=== PATIENT | male | born 1955 | race African-American/Black ===

== ENCOUNTER 2017-10-17 09:13 | Inpatient (IN) | payer MEDICARE, BC ==
[~2017-10-17] VITALS: Ht 172.7 cm; Wt 89.0 kg
[2017-10-17] MEDS ORDERED: ROCURONIUM INJ 50 MG/5 ML SYRINGE IV PUSH ONE (12:00)
[2017-10-17] MEDS ORDERED: PHENYLEPH/NS 1000 MCG/10 ML SYR IV ONE (12:00)
[2017-10-17] MEDS ORDERED: PROPOFOL 200 MG/20 ML AMP IV ONE (12:00)
[2017-10-17] MEDS ORDERED: SODIUM CHLORID 0.9% 500 ML INJ 1,500 ML IV ONE (12:00)
[2017-10-17] MEDS ORDERED: GLYCOPYRROLATE 1 MG/5 ML SYRINGE IV PUSH ONE (12:00)
[2017-10-17] MEDS ORDERED: ePHEDrine/NS 25 MG/5 ML SYRINGE IV ONE (12:00)
[2017-10-17] MEDS ORDERED: NEOSTIGMINE 5 MG/5 ML SYRINGE IV PUSH ONE (12:00)
[2017-10-17] MEDS ORDERED: ceFAZolin INJ 1,000 MG VIAL IV ONE (12:00)
[2017-10-17] MEDS ORDERED: ONDANSETRON HCL 4 MG/2 ML VIAL IV PUSH ONE (12:00)
[2017-10-17] MEDS ORDERED: METOPROLOL TARTRATE 5 MG/5 ML VIAL IV ONE (12:00)
[2017-10-17] MEDS ORDERED: LABETALOL HCL 100 MG/20 ML VIAL IV ONE (12:00)
[2017-10-17] MEDS ORDERED: LIDOCAINE HCL 1% PF 5 ML SYRINGE OTHER ONE (12:00)
--- NOTE | 2017-10-17 15:54 | PD.CONS ---
History of Present Illness Service Transplant Surgery Consult Requested By Dr Do, hospitalist Reason for Consult Admit for possible DCD renal transplant Primary Care Physician Unknown Diagnoses: History of Present Illness 61 yom with CKD-5 due to DM/htn, CMV/EBV pos, presenting for possible renal transplant from a DCD donor. Review of Systems Makes about 200-400 ml of urine daily Past Family Social History Allergies: Coded Allergies: Iodine And Iodide Containing Produc (Verified Allergy, Severe, Anaphylaxis , 10/17/17) Shellfish Derived (Verified Allergy, Severe, Anaphylaxis, 10/17/17) Lmkwigc-Ush-Cxi Reductase Inhibitor (Verified Allergy, Severe, Anaphylaxis , 10/17/17) Had anaphylaxis and liver dysfunction (severely elevated liver enzymes) Sulfa (Sulfonamide Antibiotics) (Verified Allergy, Severe, Anaphylaxis, ) Past Medical History Includes: DM, Htn, arthririts, prostate ca (s/p radiation seed and hormonal therapy in 2012), skin limited scleroderma, depression, anemia, hyperkalemia, hypomagnesemia, tertiary hyperparathyroidism Past Surgical History Includes: LLQ PD cath, bilateral cataract surgery Family History Father at age 62-[place].. Mother at age 54-[facility] Social History Never smoker, nondrinker, no illicit drugs. Physical Exam Physical Exam GENERAL: This is a well-nourished, well-developed patient, in no apparent distress. SKIN: No rashes, ecchymoses or lesions. Cool and dry. HEAD: Atraumatic. Normocephalic. No temporal or scalp tenderness. EYES: Pupils equal round and reactive. Extraocular motions intact. No scleral icterus. No injection or drainage. ENT: Nose without bleeding, purulent drainage or septal hematoma. Throat without erythema, tonsillar hypertrophy or exudate. Uvula midline. Airway patent. NECK: Trachea midline. No JVD or lymphadenopathy. Supple, nontender, no meningeal signs. CARDIOVASCULAR: Regular rate and rhythm without murmurs, gallops, or rubs. No carotid bruits. RESPIRATORY: Clear to auscultation. Breath sounds equal bilaterally. No wheezes , rales, or rhonchi. GASTROINTESTINAL: Abdomen soft, non-tender, nondistended. No hepato-splenomegaly , or palpable masses. No guarding. LLQ PD cath MUSCULOSKELETAL: Extremities without clubbing, cyanosis, or edema. No joint tenderness, effusion, or edema noted. No calf tenderness. Negative Homans sign bilaterally. palpable fem/DP/PT pulses bilaterally NEUROLOGICAL: Awake and alert. Cranial nerves II through XII intact. Motor and sensory grossly within normal limits. Five out of 5 muscle strength in all muscle groups. Normal speech. Assessment and Plan Problem List: (1) Hypertension ICD Codes: I10 - Essential (primary) hypertension (2) Diabetes ICD Codes: E11.9 - Type 2 diabetes mellitus without complications Status: Chronic (3) ESRD (end stage renal disease) on dialysis ICD Codes: N18.6 - End stage renal disease; Z99.2 - Dependence on renal dialysis Assessment and Plan 61 yom with CKD-5 due to DM/Htn. Present for possible renal transplant from a DCD donor. Will plan to proceed after admit screeing is completed, unless some adverse finding is noted. Of note, patient's hinduism in "[employer]" and he will not take any blood products. Problem Qualifiers (1) Hypertension: Qualified Codes: I10 - Essential (primary) hypertension Aurelio Samson Jr., MD October 17, 2017 15:54
--- NOTE | 2017-10-17 16:13 | HHI.HP ---
[facility] Primary Care Physician Unknown Admission Diagnosis ESRD Diagnoses: (1) ESRD (end stage renal disease) on dialysis Diagnosis: Principal Chief Complaint: awaiting kidney transplant surgery. Travel History International Travel<30 Days: No Contact w/Intl Traveler <30 Da: No Traveled to Known Affected Are: No History of Present Illness patient is a 61 y/o male with history of diabetes mellitus and ESRD - on peritoneal dialysis- who's been admitted for kidney transplant. he denies any chest pain, sob, abdominal pain at this time. Review of Systems Constitutional: DENIES: Fever, Weight loss, Chills, Night Sweats Eyes: DENIES: Blurred vision, Diplopia, Vision loss, Double Vision Ears, nose, mouth, throat: DENIES: Tinnitus, Vertigo, Throat pain, Epistaxis Respiratory: DENIES: Apneas, Cough, Snoring, Wheezing, Hemoptysis, Sputum production, Shortness of breath Cardiovascular: DENIES: Chest pain, Palpitations, Syncope, Dyspnea on Exertion , PND, Lower Extremity Edema, Orthopnea, Claudication Gastrointestinal: DENIES: Abdominal pain, Black stools, Bloody stools, Constipation, Diarrhea, Nausea, Vomiting, Difficulty Swallowing, Anorexia Genitourinary: DENIES: Urinary frequency, Urgency, Hematuria, Dysuria Musculoskeletal: DENIES: Joint pain, Muscle aches, Stiffness, Joint Swelling Integumentary: DENIES: Rash Neurologic: DENIES: Abnormal gait, Headache, Localized weakness, Paresthesias, Seizures, Speech Problems, Tremor, Poor Balance Psychiatric: DENIES: Anxiety, Confusion, Mood changes, Depression, Hallucinations, Agitation, Suicidal Ideation, Homicidal Ideation, Delusions Past Family Social History Past Medical History ESRD-on peritoneal dialysis/ diabetes mellitus. Past Surgical History cataract surgery. peritoneal dialysis access placement. Reported Medications to be verified. Allergies: Coded Allergies: Iodine and Iodide Containing Produc (Verified Allergy, Severe, Anaphylaxis , 10/17/17) Wwfnnvw-Gay-Spt Reductase Inhibitor (Verified Allergy, Severe, Anaphylaxis , 10/17/17) Had anaphylaxis and liver dysfunction (severely elevated liver enzymes) Sulfa (Sulfonamide Antibiotics) (Verified Allergy, Severe, Anaphylaxis, ) shellfish derived (Verified Allergy, Severe, Anaphylaxis, 10/17/17) Family History kidney disease in his mother and brothers. Social History no smoking or drinking. Physical Exam Physical Exam GENERAL: This is a well-nourished, well-developed patient, in no apparent distress. SKIN: No rashes, ecchymoses or lesions. Cool and dry. HEAD: Atraumatic. Normocephalic. No temporal or scalp tenderness. EYES: Pupils equal round and reactive. Extraocular motions intact. No scleral icterus. No injection or drainage. ENT: Nose without bleeding, purulent drainage or septal hematoma. Throat without erythema, tonsillar hypertrophy or exudate. Uvula midline. Airway patent. NECK: Trachea midline. No JVD or lymphadenopathy. Supple, nontender, no meningeal signs. CARDIOVASCULAR: Regular rate and rhythm without murmurs, gallops, or rubs. RESPIRATORY: Clear to auscultation. Breath sounds equal bilaterally. No wheezes , rales, or rhonchi. GASTROINTESTINAL: Abdomen soft, non-tender, nondistended. No hepato-splenomegaly , or palpable masses. No guarding.peritoneal dialysis access in place. MUSCULOSKELETAL: Extremities without clubbing, cyanosis, or edema. No joint tenderness, effusion, or edema noted. No calf tenderness. Negative Homans sign bilaterally. NEUROLOGICAL: Awake and alert. Cranial nerves II through XII intact. Motor and sensory grossly within normal limits. Five out of 5 muscle strength in all muscle groups. Normal speech. Caprini VTE Risk Assessment Caprini VTE Risk Assessment: Mod/High Risk (score >= 2) Caprini Risk Assessment Model Point Value = 1 Point Value = 2 Point Value = 3 Point Value = 5 Age 41-60 Minor surgery BMI > 25 kg/m2 Swollen legs Varicose veins or History of unexplained or recurrent spontaneous Oral contraceptives or hormone replacement Sepsis (< 1 month) Serious lung disease, including pneumonia (< 1 month) Abnormal pulmonary function Acute myocardial infarction Congestive heart failure (< 1 month) History of inflammatory bowel disease Medical patient at bed rest Age 61-74 Arthroscopic surgery Major open surgery (> 45 min) Laparoscopic surgery (> 45 min) Malignancy Confined to bed (> 72 hours) Immobilizing plaster cast Central venous access Age >= 75 History of VTE Family history of VTE Factor V Leiden Prothrombin [id number] Lupus anticoagulant Anticardiolipin antibodies Elevated serum homocysteine Heparin-induced thrombocytopenia Other congenital or acquired thrombophilia Stroke (< 1 month) Elective arthroplasty Hip, pelvis, or leg fracture Acute spinal cord injury (< 1 month) Prophylaxis Regimen Total Risk Factor Score Risk Level Prophylaxis Regimen 0-1 Low Early ambulation 2 Moderate Order ONE of the following: *Sequential Compression Device (SCD) *Heparin 5000 units SQ BID 3-4 Higher Order ONE of the following medications: *Heparin 5000 units SQ TID *Enoxaparin/Lovenox 40 mg SQ daily (WT < 150 kg, CrCl > 30 mL/min) *Enoxaparin/Lovenox 30 mg SQ daily (WT < 150 kg, CrCl > 10-29 mL/min) *Enoxaparin/Lovenox 30 mg SQ BID (WT < 150 kg, CrCl > 30 mL/min) AND/OR *Sequential Compression Device (SCD) 5 or more Highest Order ONE of the following medications: *Heparin 5000 units SQ TID (Preferred with Epidurals) *Enoxaparin/Lovenox 40 mg SQ daily (WT < 150 kg, CrCl > 30 mL/min) *Enoxaparin/Lovenox 30 mg SQ daily (WT < 150 kg, CrCl > 10-29 mL/min) *Enoxaparin/Lovenox 30 mg SQ BID (WT < 150 kg, CrCl > 30 mL/min) AND *Sequential Compression Device (SCD) Assessment and Plan Assessment and Plan A/P - ESRD-on peritoneal dialysis plan for kidney transplant today- consulted transplant surgery and nephrology. -diabetes mellitus; start on accu-check with SSI-post-op. -DVT prophylaxis; post-op- per surgery. Discussed Condition With the patient. , and RN. Physician Certification 2 Midnight Certification Type: Admission for Inpatient Services Order for Inpatient Services The services are ordered in accordance with Medicare regulations or non- Medicare payer requirements, as applicable. In the case of services not specified as inpatient-only, they are appropriately provided as inpatient services in accordance with the 2-midnight benchmark. Estimated LOS (days): 3 days is the estimated time the patient will need to remain in the hospital, assuming treatment plan goals are met and no additional complications. Post-Hospital Plan: Home Vivienne Kim MD October 17, 2017 16:13
--- NOTE | 2017-10-17 16:18 | PD.CONS ---
HPI Service Nephrology Consult Requested By Dr. Kim Reason for Consult ESRD for kidney transplant Primary Care Physician Unknown History of Present Illness Patient is a 61-year-old Afro-[place] male with history of end-stage renal disease on dialysis since 12/25/2015, he is on peritoneal dialysis his catheter in left lower abdominal wall, he states that he has no issues and is doing well , he was diagnosed with prostate cancer in 2011 and has a high-grade lesion [place] 6, he was treated with the external beam radiation, seeds and anti- hormonal treatment in 2012, since then he is PSA has declined and he has no recurrence. Patient did peritoneal dialysis and finished this morning, he denies any chest pain or any shortness of breath he makes the small amount of urine denies dysuria. Review of Systems Constitutional: DENIES: Diaphoretic episodes, Fatigue, Fever, Weight gain, Weight loss, Chills, Dizziness, Change in appetite, Night Sweats Endocrine: DENIES: Heat/cold intolerance, Polydipsia, Polyuria, Polyphagia Eyes: DENIES: Blurred vision, Diplopia, Eye inflammation, Eye pain, Vision loss , Photosensitivity, Double Vision Ears, nose, mouth, throat: DENIES: Tinnitus, Hearing loss, Vertigo, Nasal discharge, Oral lesions, Throat pain, Hoarseness, Ear Pain, Running Nose, Epistaxis, Sinus Pain, Toothache, Odynophagia Respiratory: DENIES: Apneas, Cough, Snoring, Wheezing, Hemoptysis, Sputum production, Shortness of breath Cardiovascular: DENIES: Chest pain, Palpitations, Syncope, Dyspnea on Exertion , PND, Lower Extremity Edema, Orthopnea, Claudication Gastrointestinal: DENIES: Abdominal pain, Black stools, Bloody stools, Constipation, Diarrhea, Nausea, Vomiting, Difficulty Swallowing, Anorexia Genitourinary: DENIES: Sexual dysfunction, Urinary frequency, Urinary incontinence, Urgency, Hematuria, Dysuria, Nocturia, Penile Discharge, Testicular Pain, Testicular Swelling Musculoskeletal: DENIES: Joint pain, Muscle aches, Stiffness, Joint Swelling, Back pain, Neck pain Integumentary: DENIES: Abnormal pigmentation, Nail changes, Pruritus, Rash Hematologic/lymphatic: DENIES: Bruising, Lymphadenopathy Immunologic/allergic: DENIES: Eczema, Urticaria Neurologic: DENIES: Abnormal gait, Headache, Localized weakness, Paresthesias, Seizures, Speech Problems, Tremor, Poor Balance Psychiatric: DENIES: Anxiety, Confusion, Mood changes, Depression, Hallucinations, Agitation, Suicidal Ideation, Homicidal Ideation, Delusions Past Family Social History Past Medical History Diabetes Hypertension ESRD Prostate cancer Limited scleroderma skin Past Surgical History Tenckhoff catheter placement Prostate biopsy Bilateral cataract Reported Medications Renvela 800 mg 2 tablets 3 times a day with meals Folic acid 1 mg daily Tradjenta 5 mg daily Vitamin B-12 250 g daily Vitamin D 21.25 milligrams daily Family History Father age 62 SD Mother age 54 from CVA Social History He did not smoke or drink any alcohol Physical Exam Physical Exam GENERAL: Well-nourished, well-developed patient. SKIN: Warm and dry. HEAD: Normocephalic. EYES: No scleral icterus. No injection or drainage. NECK: Supple, trachea midline. No JVD or lymphadenopathy. CARDIOVASCULAR: Regular rate and rhythm without murmurs, gallops, or rubs. RESPIRATORY: Breath sounds equal bilaterally. No accessory muscle use. GASTROINTESTINAL: Abdomen soft, non-tender, nondistended. Tenckhoff catheter is in place on the left side EXTREMITIES: No cyanosis, or edema. NEUROLOGICAL: Awake, alert, and oriented x 3. Non-focal. Assessment and Plan Problem List: (1) ESRD (end stage renal disease) on dialysis ICD Codes: N18.6 - End stage renal disease; Z99.2 - Dependence on renal dialysis Plan: Patient has been accepted for kidney transplant He received offer and has been admitted to the patient denies any major changes since we last saw him in June Discussed with Dr. Samson He is going to Place Thymoglobulin in order Lab draws are pending (2) Hypertension ICD Codes: I10 - Essential (primary) hypertension Plan: Stable (3) Diabetes ICD Codes: E11.9 - Type 2 diabetes mellitus without complications Status: Chronic Problem Qualifiers (1) Hypertension: Qualified Codes: I10 - Essential (primary) hypertension Anne Gibson MD October 17, 2017 16:18
--- NOTE | 2017-10-17 16:27 | RADRPT ---
EXAM DATE: 10/17/2017 4:19 PM EDT AGE/SEX: 61 years / Male INDICATIONS: Evaluate for pneumonia, pneumothorax or communicable disease transplant CLINICAL DATA: This is the patient's initial encounter. Patient reports that signs and symptoms have been present for 1 day and indicates a pain score of 0/10. MEDICAL/SURGICAL HISTORY: Renal disease. Diabetes mellitus type II. None. COMPARISON: No prior [facility] exams available for comparison. FINDINGS: PA and lateral views of the chest demonstrate the lungs to be symmetrically aerated without evidence of mass, infiltrate or effusion. The cardiomediastinal contours are unremarkable. Osseous structures are intact. CONCLUSION: No acute findings. Electronically signed by: Sha Ponce MD 10/17/2017 4:26 PM EDT
[2017-10-17] MEDS ORDERED: DEXTROSE 50% IN WATER 50 ML VIAL(D50) IV PUSH PRN (16:30)
[2017-10-17] MEDS ORDERED: GLUCAGON 1 MG/ML VIAL OTHER PRN (16:30)
[2017-10-17] MEDS ORDERED: [UNRECOGNIZED DRUG - OTHER] XX PRN (16:30)
[2017-10-17] MEDS ORDERED: ceFAZolin 2 GM PREMIX 50 ML IV SCH (16:30)
[2017-10-17] MEDS ORDERED: methylPREDNISolone SO SUCC INJ 250 MG in SODIUM CHLORIDE 0.9% INJ 100 ML IV ONE ×2 (16:30→17:15)
[2017-10-17] MEDS: INSULIN ASPART SUPPLEMENTAL SCALE SQ SCH ×2 (17:00→23:15)
[2017-10-17] MEDS ORDERED: MYCOPHENOLATE MOFETIL 500 MG TAB PO SCH (17:00)
[2017-10-17 17:24] LABS: PROTHROMBIN TIME - PATIENT 9.7 SEC (9.8-11.6)
[2017-10-17 17:28] LABS: ALBUMIN 3.1 GM/DL (3.4-5.0); AST (GOT) 9 U/L (15-37); BICARBONATE 26.4 MEQ/L (21.0-32.0); BLOOD UREA NITROGEN 75 MG/DL (7-18); CALCIUM 8.1 MG/DL (8.5-10.1); CHLORIDE 107 MEQ/L (98-107); GLOMERULAR FILTRATION RATE 5 ML/MIN (>89); GLUCOSE,RANDOM 90 MG/DL (74-106); SODIUM (NA) 144 MEQ/L (136-145)
[2017-10-17 17:31] LABS: ALKALINE PHOSPHATASE 69 U/L (45-117); ALT (GPT) 16 U/L (12-78); TOTAL BILIRUBIN ADULT 0.5 MG/DL (0.2-1.0); TOTAL PROTEIN 7.2 GM/DL (6.4-8.2)
[2017-10-17 17:34] LABS: CREATININE 13.69 MG/DL (0.60-1.30)
[2017-10-17 17:45] LABS: BASOPHIL % 0.4 % (0.0-2.0); HEMATOCRIT 33.7 % (39.0-51.0); HEMOGLOBIN 10.7 GM/DL (13.0-17.0); LYMPH % 23.1 % (9.0-44.0); LYMPHOCYTE # 1.1 TH/MM3 (1.0-4.8); MEAN CORPUSCULAR HEMOGLOBIN 29.9 PG (27.0-34.0); MEAN CORPUSCULAR HGB CONC 31.8 % (32.0-36.0); MEAN PLATELET VOLUME 6.2 FL (7.0-11.0); MONO % 10.8 % (0.0-8.0); MONOCYTE # 0.5 TH/MM3 (0-0.9); NEUT % 64.7 % (16.0-70.0); PLATELET COUNT 354 TH/MM3 (150-450); RED BLOOD COUNT 3.58 MIL/MM3 (4.50-5.90); RED CELL DISTRIBUTION WIDTH 17.6 % (11.6-17.2); WHITE BLOOD COUNT 4.7 TH/MM3 (4.0-11.0)
[2017-10-17] MEDS ORDERED: VECURONIUM BROMIDE 20 MG VIAL ONE (18:06)
[2017-10-17] MEDS ORDERED: ceFAZolin INJ 1,000 MG VIAL ONE (18:26)
[2017-10-17] MEDS ORDERED: MANNITOL INJ 50 ML ONE (18:27)
[2017-10-17] MEDS ORDERED: GENTAMICIN SULFATE 80 MG/2 ML VIAL ONE (18:27)
[2017-10-17] MEDS ORDERED: FUROSEMIDE 100 MG/10 ML VIAL ONE (18:27)
[2017-10-17] MEDS ORDERED: HEPARIN SODIUM - IV 10,000 UNITS/10 ML VIAL ONE (18:27)
[2017-10-17] MEDS ORDERED: SODIUM CHLORID 0.9% IV-CENTRAL ONE (18:30)
[2017-10-17] MEDS ORDERED: ANTITHYMOCYTE GLOB IV-CENTRAL ONE (18:30)
[2017-10-17] MEDS ORDERED: PAPAVERINE INJ 60 MG/2 ML VIAL ONE (18:31)
[2017-10-17] MEDS ORDERED: methylPREDNISolone SOD SUCC 1000 MG/16 ML VIAL ONE (18:31)
[2017-10-17] MEDS ORDERED: FUROSEMIDE 20 MG/2 ML VIAL ONE (19:07)
[2017-10-17] MEDS ORDERED: HEPARIN SODIUM - SQ 10,000 UNITS/ML VIAL ONE (19:09)
[2017-10-17] MEDS ORDERED: fentaNYL CITRATE 250 MCG/5 ML AMP ONE (20:10)
[2017-10-17] MEDS: DEXT 5%-NACL 0.45% 1000 ML INJ 1,000 ML IV SCH (22:30)
[2017-10-17] MEDS ORDERED: ONDANSETRON INJ 8 MG in DEXTROSE 5% IN WATER INJ 50 ML IV PRN ×2 (23:00)
[2017-10-17] MEDS ORDERED: MORPHINE SULFATE 4 MG/ML INJ IV PUSH PRN (23:00)
[2017-10-17] MEDS ORDERED: ONDANSETRON ODT 4 MG TAB PO PRN (23:00)
[2017-10-17] MEDS ORDERED: RESP: ALBUTEROL 2.5 MG/IPRATROPIUM 0.5 MG NEB (PRN) INH (23:00)
[2017-10-17] MEDS ORDERED: diphenhydrAMINE HCL 50 MG/ML VIAL IV PUSH PRN (23:00)
[2017-10-17] MEDS ORDERED: diphenhydrAMINE HCL 25 MG CAP PO PRN (23:00)
--- NOTE | 2017-10-17 23:19 | PD.OP ---
Operative Report Date of Surgery: October 17, 2017 Preoperative Diagnosis: (1) ESRD (end stage renal disease) on dialysis Postoperative Diagnosis: ESRD and desire for donor renal transplant Procedure: donor renal transplant to right iliac fossa with right donor allograft Back Table preparation of right donor allograft with venous extension of donor cava with venous anastomosis X 2 placement of ureteral stent Oversew repair of prior renal biopsy site SALBADOR drain placement Anesthesia: GET Surgeon: Aurelio Samson Primary and Matthew Bush syrup mixer assistant for renal transplant and back bench preparation of graft with venous anastomosis X 2 Primary for suture repair of renal biopsy site Miner(s): Sylvie Bush Operation and Findings: I assisted Dr. Samson with the backtable preparation of the right donor allograft. On the back table we used the donor cava as an extension graft by stapling both ends of the donor cava. We repaired the renal vein which had a small open branch site using 6-0 prolene. The renal artery was single and good quality and the ureter was long with good michael-ureteral tissue. The superior pole had a biopsy site with some suture in place form the procurement procedure. After assisting with the salazar placement, we prepped with hibiclens due to possible allergy, and draped in usual sterile fashion. We made an oblique incision in the right lower quadrant, leaving the epigastric vessels and cord structures intact as we exposed the iliac artery and vein. There was a small opening into the peritoneum which we closed with a vicryl suture. We gave standard immunosuppression with the solumedrol 250 mg IV prior to starting the thymoglobulin infusion, then a second dose of solumedrol 250 mg just before reperfusion of the kidney allograft. Ancef 2 gms were given prior to skin incision. With the iliac vessels exposed, we used a Satinsky clamp to partially occlude the right external iliac vein, opened the vein with 11 blade and tenotomies and anastomosed the donor cava as venous outflow extension graft to the iliac vein using 5-0 prolene. We then placed a Satinsky on the more proximal right external iliac artery, opened with 11 bladed, 4 punch x 3, and anastomosed a Carel Cuff of the donor aorta with renal artery orifice to the artery using 6-0 prolene. Reperfusion was good with one small repair suture on the medial vein and very little blood loss occurred during the reperfusion. The artery had good flow inward and vein with good outflow without distension. The superior pole biopsy site was bleeding, so I placed a 3-0 vicryl in U type fashion with good hemostasis after tying. We then repositioned for bladder exposure, infused the antibiotic saline into the bladder, opened the bladder and did our ureteral anastomosis over a 5 Fr 12 cm ureteral stent using 5-0 PDS with 3 lembert sutures. We checked meticously for hemostasis as patient is a [employer] and will not accept a blood transfusion. We placed a SALBADOR drain through a new right lateral stab site. Fascia was closed with #1 PDS and skin with surgical kathryn, drain held in place with Nylon suture. I was scrubbed for the entire case. MD Eleazar Flaherty Kenneth A MD October 17, 2017 23:19
[2017-10-17] MEDS ORDERED: ONDANSETRON HCL 4 MG/2 ML VIAL ONE (23:22)
[2017-10-17] MEDS ORDERED: *morphine SULFATE 10 MG/ML PERIprocedure ONLY ONE (23:26)
[2017-10-17 23:28] LABS: AUTOMATED NEUTROPHIL # 2.5 TH/MM3 (1.8-7.7); BASOPHIL % 0.1 % (0.0-2.0); HEMATOCRIT 30.7 % (39.0-51.0); HEMOGLOBIN 10.1 GM/DL (13.0-17.0); LYMPH % 0.2 % (9.0-44.0); MEAN CORPUSCULAR HEMOGLOBIN 30.7 PG (27.0-34.0); MEAN CORPUSCULAR HGB CONC 32.7 % (32.0-36.0); MEAN PLATELET VOLUME 6.3 FL (7.0-11.0); MONO % 0.2 % (0.0-8.0); NEUT % 99.5 % (16.0-70.0); PLATELET COUNT 240 TH/MM3 (150-450); RED BLOOD COUNT 3.27 MIL/MM3 (4.50-5.90); RED CELL DISTRIBUTION WIDTH 17.6 % (11.6-17.2); WHITE BLOOD COUNT 2.6 TH/MM3 (4.0-11.0)
[2017-10-17] MEDS ORDERED: SODIUM CHLORID 0.9% 500 ML INJ 500 ML IV SCH (23:30)
--- NOTE | 2017-10-17 23:36 | PD.OP ---
Operative Report Date of Surgery: October 17, 2017 Preoperative Diagnosis: (1) ESRD (end stage renal disease) on dialysis (2) Hypertension (3) Diabetes Postoperative Diagnosis: (1) Diabetes (2) Hypertension (3) ESRD (end stage renal disease) on dialysis Procedure: donor renal transplant to right iliac fossa with right donor allograft Back Table preparation of right donor allograft with venous extension of donor cava with venous anastomosis X 2 placement of ureteral stent Oversew repair of prior renal biopsy site SALBADOR drain placement Anesthesia: General endotracheal Surgeon: Aurelio Samson Jr Package Handler(s): Matthew Bush MD Resident Surgeon: None Operation and Findings: Fluids: 1200 ml EBL: 150 ml UOP: 150 ml CIT: 27 hours, 38 minutes WIT: 37 minutes Procedure: The patient was brought to the operating room. Appropriate identification procedures were performed. The kidney was brought into the room. It was on a perfusion pump. Appropriate organ, patient and ABO identification was performed as per protocol. While the anesthesia staff was intubating the patient and placing appropriate access lines, we turned our attention to the kidney. The kidney was taken off of the perfusion pump, using sterile technique. We then our back table preparation. The kidney was kept in cold slush/ preservative solution The kidney had a single artery and vein, both of which seemed to be of good quality. There was also a long ureter with good periureteral tissue. After dissecting and discarding the connective tissue from around the artery and vein , with clips and ties placed on tissue that seemed c/w small branches. We then also dissected some of the excess tissue from around the ureter, while still leaving ample periureteral tissue. We reconstructed and used the vena cava as an extension for the renal vein, by stapling both ends with a 45-white load stapler.We then checked the artery and vein for leaks using heparinized saline. A small leak was noted on the vein adjacent to a small branch. This was repaired with 6-0 prolene suture. A biopsy site was noted on the upper pole that seemed to be sutured close. Of note, Dr Bush assisted with the backtable preparation. We then turned our attention back to the patient. By then the patient was intubated. [address] way Nova catheter was placed. He was prepped and draped in usual sterile fashion (using hibiclens because he has a betadine allergy). Of note, perioperative antibiotics were administered prior to the skin incision being made. TImeouts were performed asper protocol. We made an approx 10 inch oblique incision in the right lower quadrant, going through the anterior right rectus sheath. We then dissected the rectus muscle away from the anterior rectus sheath laterally with careful traction and electrocautery.. We then exposed the posterior rectus sheath. We dissected caudad and were able to enter the retroperitoneal space, caudally. We then gently finger dissected the peritoneum away from the posterior rectus sheath/ transversalis muscle in a lateral to medial fashion. We then opened the posterior rectus sheath in an oblique fashion with careful cautery. lThe peritoneum was densely adhered to the facia in some area. As we approached the most cephalad aspect of our incision, an approx2 cm hol ewas made in the peritoneum. This seemed to be in an area of dense adherence of the peritoneum to the posterior rectus fascia. We identified the hole and closed it with running vicryl suture, completely obliterating the opening. We then dissected and exposed the iliac artery and vein. The epigastric vessels and the cord structures were identified and preserved. No heparin was given, as the patient had an elevated BUN, is a [employer], who will not accept blood products and had a starting hemoglobin of 10. Using a satinsky clamp to patially occlude the external iliac vein., we then did an end to side anastomosis of the renal vein to the external iliac vein. We then occluded the external iliac artery in a similiar fashion and then did an end to side arterial anastomosis, utilizing the carrel patch that was present. After reperfusion, there was the need for one repair suture on the medial vein, with very little blood loss. There was some bleeding noted from the biopsy site that had been closed during procurement. We placed an additional vicryl U-stitch which secured hemostasis there. The artery and vein had good flow with no venous distension noted.The bladder was then exposed, antibiotic solution was infused into it, then we opned the bladder, spatulated and the distal ureter and did an end to side adelfo-ureterocystostomy over a 5 fr x 12 cm ureteral stent , using 5-0 PDS. We then placed 3 lembert sutures for around the distal ureter for antireflux purposes. We then assessed and secured hemostasis. A 19 khmer laron drain was placed. The fascia was closed with #1 PDS. Then the skin was closed with staple. The drain was secured with a drain stitch. All sponge and instrument counts were reported as correct. Aurelio Samson Jr. October 17, 2017 23:36
--- NOTE | 2017-10-17 23:40 | RADRPT ---
EXAM DATE: 10/17/2017 11:33 PM EDT AGE/SEX: 61 years / Male INDICATIONS: Line placement, Post op. CLINICAL DATA: This is the patient's subsequent encounter. Patient reports that signs and symptoms h ave been present for 1 week and indicates a pain score of Nonresponsive. MEDICAL/SURGICAL HISTORY: . Renal disease. Diabetes mellitus type II. None. COMPARISON: [facility] – [place], CHEST PA & LAT, 10/17/2017. . FINDINGS: Left subclavian line is present with tip coursing into the left IJ. There is no pneumothorax. There i s minimal atelectasis in the left lung base without focal consolidation. The rest of the examination has not changed. CONCLUSION: The left subclavian line courses into the left IJ without pneumothorax. Electronically signed by: Kem Zhang MD 10/17/2017 11:39 PM EDT
[2017-10-17] MEDS: SODIUM CHLOR 0.45% 1000 ML INJ 1,000 ML IV SCH (23:46)
[2017-10-17 23:54] LABS: BICARBONATE 22.8 MEQ/L (21.0-32.0); CALCIUM 6.8 MG/DL (8.5-10.1); MAGNESIUM 1.7 MG/DL (1.5-2.5); PHOSPHORUS 3.6 MG/DL (2.5-4.9)
[2017-10-18] VITALS (24 sets, daily range): BP systolic 135–193; BP diastolic 48–94; PULSE 70–89; RESP 14–16; TEMP 97.4–98.3; O2SAT 94–99
[2017-10-18 00:01] LABS: CREATININE 13.47 MG/DL (0.60-1.30)
[2017-10-18] MEDS: SODIUM CHLOR 0.45% 1000 ML INJ 1,000 ML IV SCH ×2 (00:11→08:17)
[2017-10-18 00:12] LABS: TOTAL PROTEIN 6.1 GM/DL (6.4-8.2)
[2017-10-18 00:16] LABS: CALCIUM-PROTEIN CORRECTED 7.3 MG/DL (8.5-10.1)
[2017-10-18] MEDS ORDERED: CALCIUM GLUCONATE 10% 1 GM/10 ML VIAL ONE (00:21)
[2017-10-18] MEDS ORDERED: CALCIUM GLUCONATE INJ 1 GM in SODIUM CHLORIDE 0.9% INJ 100 ML IV SCH (00:30)
--- NOTE | 2017-10-18 00:38 | RADRPT ---
EXAM DATE: 10/18/2017 12:28 AM EDT AGE/SEX: 61 years / Male INDICATIONS: Post right lower quadrant renal transplant. CLINICAL DATA: This is the patient's initial encounter. Patient reports that signs and symptoms have been present for 1 day and indicates a pain score of 7/10. MEDICAL/SURGICAL HISTORY: . ESRD. Diabetic. Hypertension. Prostate cancer. . PD Catheter. Bilateral cataracts. COMPARISON: No prior exams available for comparison. MEASUREMENTS: Transplant Kidney:__9.6 x 5.2 x 5.8 Location:__Right lower quadrant Arcuate Arteries Resistive Index: Upper - 0.79, 0.78 Mid - Lower - 0.70, 0.61 Main Renal Artery Velocity:__46.3 Main Renal Vein:__Patent External Iliac Artery Velocity:__123 cm/s External Iliac Vein:__Patent FINDINGS: Transplant Kidney: Approximate 6.5 cm perinephric fluid collection is identified. There is slight pr ominence of the calyces without any significant hydronephrosis and transplant overall appears slightl y swollen. There is no evidence for renal artery stenosis. Urinary Bladder: The bladder appears decompressed and not evaluated. CONCLUSION: 1. The renal transplant appears slightly swollen with prominence of the calyces and no significant h ydronephrosis and no evidence for renal artery stenosis. 2. Slight fluid collection in the perinephric space. Electronically signed by: Kem Zhang MD 10/18/2017 12:37 AM EDT
[2017-10-18] MEDS ORDERED: ONDANSETRON HCL 4 MG/2 ML VIAL IV PUSH PRN (01:30)
[2017-10-18 04:14] LABS: AUTOMATED NEUTROPHIL # 3.8 TH/MM3 (1.8-7.7); BASOPHIL % 0.3 % (0.0-2.0); HEMATOCRIT 30.4 % (39.0-51.0); HEMOGLOBIN 9.9 GM/DL (13.0-17.0); LYMPH % 0.2 % (9.0-44.0); MEAN CELL VOLUME 94.4 FL (80.0-100.0); MEAN CORPUSCULAR HEMOGLOBIN 30.7 PG (27.0-34.0); MEAN CORPUSCULAR HGB CONC 32.5 % (32.0-36.0); MEAN PLATELET VOLUME 6.5 FL (7.0-11.0); MONO % 1.8 % (0.0-8.0); MONOCYTE # 0.1 TH/MM3 (0-0.9); NEUT % 97.7 % (16.0-70.0); PLATELET COUNT 217 TH/MM3 (150-450); RED BLOOD COUNT 3.22 MIL/MM3 (4.50-5.90); RED CELL DISTRIBUTION WIDTH 17.6 % (11.6-17.2); WHITE BLOOD COUNT 3.9 TH/MM3 (4.0-11.0)
[2017-10-18 04:31] LABS: BICARBONATE 21.2 MEQ/L (21.0-32.0); CALCIUM 6.8 MG/DL (8.5-10.1); MAGNESIUM 1.6 MG/DL (1.5-2.5); PHOSPHORUS 4.1 MG/DL (2.5-4.9)
[2017-10-18 04:38] LABS: CREATININE 13.18 MG/DL (0.60-1.30)
[2017-10-18] MEDS: MYCOPHENOLATE MOFETIL 500 MG TAB PO SCH ×2 (04:53→18:00)
[2017-10-18 04:56] LABS: CALCIUM-PROTEIN CORRECTED 7.4 MG/DL (8.5-10.1)
[2017-10-18] MEDS: MYCOPHENOLATE MOFETIL INJ 1,000 MG in DEXTROSE 5% IN WATE 150 ML INJ 150 ML IV SCH ×4 (06:26→18:00)
[2017-10-18] MEDS ORDERED: [UNRECOGNIZED DRUG - OTHER] XX PRN (08:15)
[2017-10-18] MEDS ORDERED: CALCIUM CHLORIDE 10% SOLN 1 GRAM/10 ML SYR IV PUSH ONE (08:15)
[2017-10-18 08:29] LABS: % SATURATION IRON PROFILE 22.3 % (20-50); IRON (FE) 45 MCG/DL (65-175); TOTAL IRON BINDING CAPACITY 202 MCG/DL (250-450)
[2017-10-18] MEDS: PANTOPRAZOLE SODIUM 40 MG VIAL IV PUSH SCH (08:41)
[2017-10-18] MEDS: CALCIUM CARBONATE 500 MG CHEWABLE TAB CHEW SCH ×2 (08:41→16:59)
[2017-10-18] MEDS: INSULIN ASPART SUPPLEMENTAL SCALE SQ SCH ×4 (08:42→20:19)
[2017-10-18] MEDS: DOCUSATE SODIUM 100 MG CAP PO SCH ×2 (08:42→20:19)
--- NOTE | 2017-10-18 08:48 | HHI.PR ---
Subjective Remarks pain 8-9/10. Some nausea. no emesis. has headache Objective Vital Signs Date Time Temp Pulse Resp B/P (MAP) Pulse Ox O2 Delivery O2 Flow Rate FiO2 10/18/17 08:32 98 Nasal Cannula 2.00 10/18/17 07:15 99 Nasal Cannula 3.00 10/18/17 07:15 86 10/18/17 07:15 97.7 83 14 142/80 (100) 99 157/65 (95) 10/18/17 03:28 99 Nasal Cannula 3.00 10/18/17 03:28 98.3 85 16 136/75 (95) 98 166/63 (97) 10/18/17 03:00 86 10/18/17 02:45 84 16 143/76 (98) 99 176/67 (103) 10/18/17 02:30 83 16 148/78 (101) 99 180/69 (106) 10/18/17 02:15 82 16 146/77 (100) 99 181/69 (106) 10/18/17 02:00 84 16 148/48 (81) 99 176/67 (103) 10/18/17 01:45 82 16 152/77 (102) 98 172/65 (100) 10/18/17 01:30 77 16 168/86 (113) 98 193/74 (113) 10/18/17 01:15 77 16 154/79 (104) 98 189/73 (111) 10/18/17 01:15 98 Nasal Cannula 3.00 10/18/17 01:00 97.9 76 16 175/91 (119) 99 10/18/17 01:00 80 10/18/17 01:00 97.5 76 16 100 Nasal Cannula 3 10/18/17 00:45 78 17 136/65 (88) 100 Nasal Cannula 3 155/56 (89) 10/18/17 00:30 74 14 177/84 (115) 100 Nasal Cannula 3 186/70 (108) 10/18/17 00:15 72 14 168/82 (110) 100 Nasal Cannula 3 187/79 (115) 10/18/17 00:00 74 18 183/84 (117) 100 Nasal Cannula 3 188/80 (116) 10/17/17 23:45 70 18 167/78 (107) 100 Nasal Cannula 3 181/79 (113) 10/17/17 23:30 77 17 196/91 (126) 100 Nasal Cannula 3 10/17/17 23:15 75 18 173/83 (113) 100 Nasal Cannula 3 174/70 (104) 10/17/17 23:05 97.6 76 16 159/74 (102) 100 Nasal Cannula 3 177/71 (106) I/O 10/17/17 10/17/17 10/17/17 10/18/17 10/18/17 10/18/17 07:00 15:00 23:00 07:00 15:00 23:00 Intake Total 2420.8 ml 80 ml Output Total 1135 ml 175 ml Balance 1285.8 ml -95 ml Intake IV Total 2420.8 ml 80 ml Output Urine Total 905 ml 150 ml Drainage Total 230 ml 25 ml Result Diagram: 10/18/1734610/18/17346 Objective Remarks Resp-CTAB CV-s1s2 Abd-+ BS, soft . Approp tender. Dressing with minimal staining. [place] serosanguineous. 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 Present for possible renal transplant from a DCD donor. Some postop pain, nausea adn headache noted this AM Creatinine with no significnat decrease yet, but almost 1 liter since OR. trnsplant renal US okay last night. Will repeat US this AM. Will give second dose of thymo with pre-meds.. Will hold off on starting prograf. switched anti- emetic to IV phenergan and po odt zofran as there is reportedly a shortage of IV zofran. OOB today and encourage IS. Problem Qualifiers (1) Hypertension: Qualified Codes: I10 - Essential (primary) hypertension Aurelio Samson Jr., MD October 18, 2017 08:48
[2017-10-18] MEDS: LABETALOL HCL 100 MG/20 ML VIAL IV PUSH PRN (09:01)
[2017-10-18] MEDS ORDERED: CALCIUM CHLORIDE INJ 1 GM in SODIUM CHLORIDE 0.9% INJ 100 ML IV ONE (10:00)
--- NOTE | 2017-10-18 10:45 | HHI.PR ---
Subjective Remarks in no acute distress. has some pain. no fever. d/w the RN and no acute issues over night. Objective Vitals Vital Signs Date Time Temp Pulse Resp B/P (MAP) Pulse Ox O2 Delivery O2 Flow Rate FiO2 10/18/17 10:24 15 10/18/17 08:32 98 Nasal Cannula 2.00 10/18/17 07:50 97.7 10/18/17 07:15 99 Nasal Cannula 3.00 10/18/17 07:15 86 10/18/17 07:15 97.7 83 14 142/80 (100) 99 157/65 (95) 10/18/17 03:28 99 Nasal Cannula 3.00 10/18/17 03:28 98.3 85 16 136/75 (95) 98 166/63 (97) 10/18/17 03:00 86 10/18/17 02:45 84 16 143/76 (98) 99 176/67 (103) 10/18/17 02:30 83 16 148/78 (101) 99 180/69 (106) 10/18/17 02:15 82 16 146/77 (100) 99 181/69 (106) 10/18/17 02:00 84 16 148/48 (81) 99 176/67 (103) 10/18/17 01:45 82 16 152/77 (102) 98 172/65 (100) 10/18/17 01:30 77 16 168/86 (113) 98 193/74 (113) 10/18/17 01:15 77 16 154/79 (104) 98 189/73 (111) 10/18/17 01:15 98 Nasal Cannula 3.00 10/18/17 01:00 97.9 76 16 175/91 (119) 99 10/18/17 01:00 80 10/18/17 01:00 97.5 76 16 100 Nasal Cannula 3 10/18/17 00:45 78 17 136/65 (88) 100 Nasal Cannula 3 155/56 (89) 10/18/17 00:30 74 14 177/84 (115) 100 Nasal Cannula 3 186/70 (108) 10/18/17 00:15 72 14 168/82 (110) 100 Nasal Cannula 3 187/79 (115) 10/18/17 00:00 74 18 183/84 (117) 100 Nasal Cannula 3 188/80 (116) 10/17/17 23:45 70 18 167/78 (107) 100 Nasal Cannula 3 181/79 (113) 10/17/17 23:30 77 17 196/91 (126) 100 Nasal Cannula 3 10/17/17 23:15 75 18 173/83 (113) 100 Nasal Cannula 3 174/70 (104) 10/17/17 23:05 97.6 76 16 159/74 (102) 100 Nasal Cannula 3 177/71 (106) I/O 10/17/17 10/17/17 10/17/17 10/18/17 10/18/17 10/18/17 07:00 15:00 23:00 07:00 15:00 23:00 Intake Total 2420.8 ml 235 ml Output Total 1135 ml 350 ml Balance 1285.8 ml -115 ml Intake IV Total 2420.8 ml 235 ml Output Urine Total 905 ml 305 ml Drainage Total 230 ml 45 ml Result Diagram: 10/18/17 0347 10/18/17 0347 Imaging Last Impressions Renal Ultrasound 10/17/17 0000 Signed Impressions: CONCLUSION: 1. The renal transplant appears slightly swollen with prominence of the calyce s and no significant hydronephrosis and no evidence for renal artery stenosis. 2. Slight fluid collection in the perinephric space. Chest X-Ray 10/17/17 0000 Signed Impressions: CONCLUSION: The left subclavian line courses into the left IJ without pneumothorax. Objective Remarks GENERAL: This is a well-nourished, well-developed patient, in no apparent distress. CARDIOVASCULAR: Regular rate and regular rhythm without murmurs, gallops, or rubs. RESPIRATORY: Clear to auscultation. Breath sounds equal bilaterally. No wheezes , rales, or rhonchi. GASTROINTESTINAL: Abdomen soft, non-tender, nondistended. Normal, active bowel sounds MUSCULOSKELETAL: Extremities without clubbing, cyanosis, or edema. NEURO: Alert & Oriented x4 to person, place, time, situation. Moves all ext x4 Medications and IVs Inpatient Medications Acetaminophen (Tylenol) 650 mg ONCE ONCE PO ; Start 10/18/17 at 11:30; Stop at 11:31 Albuterol/ Ipratropium (Duoneb Neb) 1 ampule Q6HR NEB PRN INH WHEEZING; Start 10/17/17 at 23:00 Anti-Thymocyte Globulin (Rabbit) 100 mg/Sodium Chloride 500 ml @ 83.333 mls/ hr ONCE ONCE IV-CENTRAL ; Start 10/18/17 at 12:00; Stop 10/18/17 at 17:59 Anti-Thymocyte Globulin (Rabbit) 130 mg/Sodium Chloride 500 ml @ 83.333 mls/ hr ONCE ONCE IV-CENTRAL Last administered on 10/17/17at 18:30; Start 10/17/17 at 18:30; Stop 10/18/17 at 00:29; Status DC Bisacodyl (Dulcolax Ec) 10 mg UNSCH PRN PO If No Bowel Movement; Start at 23:00 Bisacodyl (Dulcolax Supp) 10 mg UNSCH PRN RECTAL If No Bowel Movement; Start at 23:00 Calcium Carbonate (Tums Chew) 500 mg BID@09,16 CHEW Last administered on at 08:41; Start 10/18/17 at 09:00 Calcium Chloride 1 gm/Sodium Chloride 110 ml @ 110 mls/hr ONCE ONCE IV ; Start 10/18/17 at 10:00; Stop 10/18/17 at 10:59 Calcium Gluconate 1 gm/Sodium Chloride 110 ml @ 110 mls/hr NOW IV ; Start 10/18 at 00:30; Stop 10/18/17 at 01:29; Status DC Cefazolin Sodium 1000 mg/Sodium Chloride 100 ml @ 200 mls/hr Q8H IV Last administered on 10/18/17at 02:45; Start 10/18/17 at 02:00; Stop 10/18/17 at 08:15 ; Status DC Cefazolin Sodium/ Dextrose 50 ml @ 100 mls/hr [employer] IV Last administered on 10/17/17at 19:01; Start 10/17/17 at 16:30; Stop 10/18/17 at 08:59; Status DC Dextrose (D50w (Vial) Inj) 50 ml UNSCH PRN IV PUSH HYPOGLYCEMIA-SEE COMMENTS; Start 10/17/17 at 16:30 Dextrose/Sodium Chloride 1,000 ml @ 40 mls/hr Q24H IV Last administered on at 22:30; Start 10/17/17 at 22:57 Diphenhydramine HCl (Benadryl Inj) 50 mg ONCE ONCE IV PUSH ; Start 10/18/17 at 11:30; Stop 10/18/17 at 11:31 Diphenhydramine HCl (Benadryl) 25 mg Q6H PRN PO ITCHING; Start 10/17/17 at 23: 00 Docusate Sodium (Colace) 100 mg BID PO Last administered on 10/18/17at 08:42; Start 10/18/17 at 09:00 Fentanyl Citrate (fentaNYL INJ) 50 mcg Q30M PRN IV PUSH PAIN SCALE 6 TO 10; Start 10/18/17 at 01:15 Glucagon (Glucagon Inj) 1 mg UNSCH PRN OTHER HYPOGLYCEMIA-SEE COMMENTS; Start 10/17/17 at 16:30 Insulin Aspart (NovoLOG SUPPLEMENTAL SCALE) 1 ACHS SLIDING SCALE SQ Last administered on 10/18/17at 08:42; Start 10/17/17 at 17:00 Labetalol HCl (Trandate Inj) 10 mg Q4H PRN IV PUSH SBP>160, DBP>90 Last administered on 10/18/17at 09:01; Start 10/18/17 at 08:45 Methylprednisolone Sodium Succinate (SoluMEDROL INJ) 125 mg ONCE ONCE IV PUSH ; Start 10/18/17 at 11:30; Stop 10/18/17 at 11:31 Methylprednisolone Sodium Succinate 250 mg/Sodium Chloride 100 ml @ 100 mls/hr [employer] ONCE IV ; Start 10/17/17 at 17:15; Stop 10/17/17 at 18:14; Status DC Miscellaneous Information (Misc Thymoglobulin Anapylaxis Kit) 1 UNSCH PRN XX ANAPHYLAXIS KIT AT BEDSIDE; Start 10/18/17 at 08:15 Morphine Sulfate (Morphine Inj) 2 mg Q2HR PRN IV PUSH PAIN SCALE 6 TO 10; Start 10/17/17 at 23:00; Stop 10/18/17 at 08:19; Status DC Mycophenolate Mofetil (Cellcept) 1,000 mg BID@,18 PO ; Start 10/18/17 at 06:00 Mycophenolate Mofetil 1000 mg/ Dextrose 150 ml @ 75 mls/hr BID@,18 IV Last administered on 10/18/17at 06:26; Start 10/18/17 at 06:00 Ondansetron HCl (Zofran Odt) 4 mg Q6H PRN PO NAUSEA OR VOMITING; Start at 08:45 Ondansetron HCl (Zofran Inj) 4 mg Q6HR PRN IV PUSH NAUSEA OR VOMITING Last administered on 10/18/17at 08:31; Start 10/18/17 at 01:30; Stop 10/18/17 at 08:37 ; Status DC Oxycodone/ Acetaminophen (Percocet 5-325 Mg) 1 tab Q4H PRN PO PAIN SCALE 1 TO 5; Start 10/17/17 at 23:00 Pantoprazole Sodium (Protonix Inj) 40 mg DAILY IV PUSH Last administered on at 08:41; Start 10/18/17 at 09:00 Promethazine HCl (Phenergan Inj) 25 mg Q6H PRN IV-CENTRAL NAUSEA OR VOMITING; Start 10/18/17 at 08:45 Sodium Chloride 500 ml @ 500 mls/hr Q1H IV Last administered on 10/17/17at 23: 30; Start 10/17/17 at 23:30; Stop 10/18/17 at 00:29; Status DC A/P Problem List: (1) ESRD (end stage renal disease) on dialysis ICD Code: N18.6 - End stage renal disease; Z99.2 - Dependence on renal dialysis Assessment and Plan - ESRD-was on peritoneal dialysis s/p kidney transplant - management and immunosuppressives per transplant surgery. nephrology following. -diabetes mellitus; continue accu-check with SSI-post-op. -DVT prophylaxis; SCD's Vivienne Kim MD October 18, 2017 10:45
[2017-10-18] MEDS ORDERED: methylPREDNISolone SOD SUCC 125 MG/2 ML VIAL IV PUSH ONE (11:30)
[2017-10-18] MEDS ORDERED: ACETAMINOPHEN 325 MG TAB PO ONE (11:30)
[2017-10-18] MEDS ORDERED: diphenhydrAMINE HCL 50 MG/ML VIAL IV PUSH ONE (11:30)
--- NOTE | 2017-10-18 11:42 | RADRPT ---
EXAM DATE: 10/18/2017 10:31 AM EDT AGE/SEX: 61 years / Male INDICATIONS: Increased lab values. CLINICAL DATA: This is the patient's subsequent encounter. Patient reports that signs and symptoms h ave been present for 1 day and indicates a pain score of 0/10. MEDICAL/SURGICAL HISTORY: Carcinoma, prostatic. Hypertension. Diabetes. ESRD. . Renal transpl ant. PD catheter. Bilateral cataracts. COMPARISON: [facility] – [place], KIDNEY / TRANSPLANT, 10/17/2017. . No external comparison. MEASUREMENTS: Transplant Kidney:__9.7 x 5.9 x 6.0 cm Location:__Right lower quadrant Arcuate Arteries Resistive Index: Upper - 0.7 Mid - 0.7 Lower - 0.7 Main Renal Artery Velocity:__52.9 Main Renal Vein:__Patent External Iliac Artery Velocity:__95.1 External Iliac Vein:__Patent FINDINGS: There is mild diffuse calyceal prominence without hydronephrosis. Renal artery and vein are patent. P eak systolic velocities in the main renal artery are stable. External iliac is also patent. The resis tive indices are stable. Grossly stable perinephric fluid measuring up to 6.3 x 1.7 x 6.6 cm. CONCLUSION: 1. Stable examination. 2. Mild diffuse calyceal prominence without hydronephrosis. 3. Patent renal vein and artery with stable peak systolic velocities in the renal artery near the an astomosis. 4. Stable 6.6 cm perinephric fluid collection. Electronically signed by: Jacob Castro MD 10/18/2017 11:40 AM EDT
[2017-10-18] MEDS ORDERED: ANTITHYMOCYTE GLOB(RABBIT) INJ 100 MG in SODIUM CHLORID 0.9% 500 ML INJ 500 ML IV-CENTRAL ONE (12:00)
--- NOTE | 2017-10-18 12:08 | HHI.NPPN ---
Objective Data Data 10/18/17 10/19/17 19:00 07:00 Intake Total 235 ml Output Total 350 ml Balance -115 ml Intake IV Total 235 ml Output Urine Total 305 ml Drainage Total 45 ml Vital Signs Date Time Temp Pulse Resp B/P (MAP) Pulse Ox O2 Delivery O2 Flow Rate FiO2 10/18/17 10:24 15 10/18/17 08:32 98 Nasal Cannula 2.00 10/18/17 07:50 97.7 10/18/17 07:15 99 Nasal Cannula 3.00 10/18/17 07:15 86 10/18/17 07:15 97.7 83 14 142/80 (100) 99 157/65 (95) 10/18/17 03:28 99 Nasal Cannula 3.00 10/18/17 03:28 98.3 85 16 136/75 (95) 98 166/63 (97) 10/18/17 03:00 86 10/18/17 02:45 84 16 143/76 (98) 99 176/67 (103) 10/18/17 02:30 83 16 148/78 (101) 99 180/69 (106) 10/18/17 02:15 82 16 146/77 (100) 99 181/69 (106) 10/18/17 02:00 84 16 148/48 (81) 99 176/67 (103) 10/18/17 01:45 82 16 152/77 (102) 98 172/65 (100) 10/18/17 01:30 77 16 168/86 (113) 98 193/74 (113) 10/18/17 01:15 77 16 154/79 (104) 98 189/73 (111) 10/18/17 01:15 98 Nasal Cannula 3.00 10/18/17 01:00 97.9 76 16 175/91 (119) 99 10/18/17 01:00 80 10/18/17 01:00 97.5 76 16 100 Nasal Cannula 3 10/18/17 00:45 78 17 136/65 (88) 100 Nasal Cannula 3 155/56 (89) 10/18/17 00:30 74 14 177/84 (115) 100 Nasal Cannula 3 186/70 (108) 10/18/17 00:15 72 14 168/82 (110) 100 Nasal Cannula 3 187/79 (115) 10/18/17 00:00 74 18 183/84 (117) 100 Nasal Cannula 3 188/80 (116) 10/17/17 23:45 70 18 167/78 (107) 100 Nasal Cannula 3 181/79 (113) 10/17/17 23:30 77 17 196/91 (126) 100 Nasal Cannula 3 10/17/17 23:15 75 18 173/83 (113) 100 Nasal Cannula 3 174/70 (104) 10/17/17 23:05 97.6 76 16 159/74 (102) 100 Nasal Cannula 3 177/71 (106) -: 10/18/17 0347 10/18/17 0347 Physical Exam General Appearance: Well Developed, Well Nourished Neck Neck Exam: Neck Supple Pulmonary Resp Exam: Clear Bilaterally, Breath Sounds Equal Cardiology CV Exam: Regular, Normal Sinus Rhythm Gastrointestinal/Abdomen GI Exam: Soft, Non-Tender, Bowel Sounds Present Extremeties Extremities Exam: No Edema Neurologic Neuro Exam: Alert, Awake, Oriented Assessment/Plan Problem List: (1) ESRD (end stage renal disease) on dialysis ICD Codes: N18.6 - End stage renal disease; Z99.2 - Dependence on renal dialysis Plan: Patient is post Transplant doing well passing urine Cr elevated follow this he has been ordered 2nd dose of Thymoglobulin WBC slight low H/H low on Procrit follow labs Prograf not started (2) Hypertension ICD Codes: I10 - Essential (primary) hypertension Plan: Stable (3) Diabetes ICD Codes: E11.9 - Type 2 diabetes mellitus without complications Status: Chronic Plan: monitor BG Problem Qualifiers (1) Hypertension: Qualified Codes: I10 - Essential (primary) hypertension Anne Gibson MD October 18, 2017 12:08
[2017-10-18] MEDS ORDERED: HYDROCORTISONE SOD SUCCINATE 100 MG VIAL ONE (12:18)
[2017-10-18] MEDS ORDERED: EPINEPHrine HCL (1:10,000) 1 MG/10 ML SYRINGE ONE (12:18)
--- NOTE | 2017-10-18 14:01 | EKG ---
Date Performed: 10/17/2017 Time Performed: 16:11:40 PTAGE: 61 years EKG: Sinus rhythm Normal ECG NO PREVIOUS TRACING DOCTOR: Chaz Polo Interpretating Date/Time 10/18/2017 13:59:37
[2017-10-18 14:41] LABS: AUTOMATED NEUTROPHIL # 5.3 TH/MM3 (1.8-7.7); BASOPHIL % 0.3 % (0.0-2.0); HEMOGLOBIN 10.5 GM/DL (13.0-17.0); LYMPH % 0.4 % (9.0-44.0); MEAN CELL VOLUME 94.4 FL (80.0-100.0); MEAN CORPUSCULAR HEMOGLOBIN 30.1 PG (27.0-34.0); MEAN CORPUSCULAR HGB CONC 31.9 % (32.0-36.0); MEAN PLATELET VOLUME 6.5 FL (7.0-11.0); MONO % 2.1 % (0.0-8.0); MONOCYTE # 0.1 TH/MM3 (0-0.9); NEUT % 97.2 % (16.0-70.0); PLATELET COUNT 229 TH/MM3 (150-450); RED BLOOD COUNT 3.49 MIL/MM3 (4.50-5.90); RED CELL DISTRIBUTION WIDTH 17.8 % (11.6-17.2); WHITE BLOOD COUNT 5.5 TH/MM3 (4.0-11.0)
[2017-10-18] MEDS: PROMETHAZINE INJ 25 MG/ML VIAL IV-CENTRAL PRN (15:09)
[2017-10-18 15:27] LABS: ALBUMIN 2.3 GM/DL (3.4-5.0); ALKALINE PHOSPHATASE 62 U/L (45-117); ALT (GPT) 13 U/L (12-78); AST (GOT) 23 U/L (15-37); BICARBONATE 21.8 MEQ/L (21.0-32.0); BLOOD UREA NITROGEN 80 MG/DL (7-18); CALCIUM 7.5 MG/DL (8.5-10.1); CHLORIDE 106 MEQ/L (98-107); GLOMERULAR FILTRATION RATE 5 ML/MIN (>89); GLUCOSE,RANDOM 136 MG/DL (74-106); SODIUM (NA) 140 MEQ/L (136-145); TOTAL BILIRUBIN ADULT 0.4 MG/DL (0.2-1.0)
[2017-10-18 15:31] LABS: CREATININE 13.35 MG/DL (0.60-1.30)
[2017-10-18] MEDS ORDERED: EPOETIN ALFA 4,000 UNITS/ML VIAL SQ ONE (20:00)
[2017-10-18] MEDS ORDERED: ALBUMIN 5% INJ 500 ML IV ONE (20:00)
[2017-10-18] MEDS: oxyCODONE/ACETAMINOPHEN 5 MG/325 MG TAB PO PRN (20:10)
[2017-10-18] MEDS: DEXT 5%-NACL 0.45% 1000 ML INJ 1,000 ML IV SCH (22:57)
[2017-10-19] MEDS: PROMETHAZINE INJ 25 MG/ML VIAL IV-CENTRAL PRN ×3 (00:09→20:19)
[2017-10-19] MEDS: oxyCODONE/ACETAMINOPHEN 5 MG/325 MG TAB PO PRN ×3 (00:43→20:34)
[2017-10-19 03:00] VITALS: BP 128/72; PULSE 70; PULSE 73; RESP 12; TEMP 97.9; O2SAT 95
[2017-10-19 05:33] LABS: AUTOMATED NEUTROPHIL # 3.2 TH/MM3 (1.8-7.7); BASOPHIL % 0.5 % (0.0-2.0); HEMATOCRIT 28.5 % (39.0-51.0); HEMOGLOBIN 9.2 GM/DL (13.0-17.0); LYMPH % 0.4 % (9.0-44.0); MEAN CELL VOLUME 94.1 FL (80.0-100.0); MEAN CORPUSCULAR HEMOGLOBIN 30.5 PG (27.0-34.0); MEAN CORPUSCULAR HGB CONC 32.4 % (32.0-36.0); MEAN PLATELET VOLUME 6.6 FL (7.0-11.0); MONO % 2.8 % (0.0-8.0); MONOCYTE # 0.1 TH/MM3 (0-0.9); NEUT % 96.3 % (16.0-70.0); PLATELET COUNT 119 TH/MM3 (150-450); RED BLOOD COUNT 3.03 MIL/MM3 (4.50-5.90); RED CELL DISTRIBUTION WIDTH 17.4 % (11.6-17.2); WHITE BLOOD COUNT 3.4 TH/MM3 (4.0-11.0)
[2017-10-19] MEDS: MYCOPHENOLATE MOFETIL INJ 1,000 MG in DEXTROSE 5% IN WATE 150 ML INJ 150 ML IV SCH ×4 (06:00→17:56)
[2017-10-19] MEDS: MYCOPHENOLATE MOFETIL 500 MG TAB PO SCH ×2 (06:04→17:56)
[2017-10-19 06:10] LABS: MAGNESIUM 1.8 MG/DL (1.5-2.5); PHOSPHORUS 5.5 MG/DL (2.5-4.9)
[2017-10-19 06:14] LABS: CREATININE 13.9 MG/DL (0.60-1.30)
[2017-10-19 06:30] LABS: CALCIUM-PROTEIN CORRECTED 7.8 MG/DL (8.5-10.1); TOTAL PROTEIN 5.6 GM/DL (6.4-8.2)
[2017-10-19 07:00] VITALS: BP 138/76; PULSE 76; PULSE 86; RESP 16; TEMP 98; O2SAT 94
[2017-10-19] MEDS: INSULIN ASPART SUPPLEMENTAL SCALE SQ SCH ×4 (08:00→21:00)
[2017-10-19] MEDS ORDERED: methylPREDNISolone SOD SUCC 125 MG/2 ML VIAL IV PUSH ONE (08:00)
[2017-10-19 08:30] VITALS: O2SAT 95
--- NOTE | 2017-10-19 08:34 | HHI.PR ---
Subjective Remarks Pain improved. Nausea resolved. Objective Vital Signs Date Time Temp Pulse Resp B/P (MAP) Pulse Ox O2 Delivery O2 Flow Rate FiO2 10/19/17 03:00 97.9 73 12 128/72 (90) 95 10/19/17 03:00 70 10/19/17 03:00 95 Room Air 10/18/17 23:00 97.7 70 16 144/81 (102) 97 10/18/17 23:00 96 Room Air 10/18/17 23:00 72 10/18/17 22:00 95 21 10/18/17 19:15 98.0 75 16 138/81 (100) 95 10/18/17 19:15 95 Room Air 10/18/17 19:00 76 10/18/17 16:52 16 10/18/17 15:00 94 Room Air 10/18/17 15:00 97.8 73 16 139/86 (103) 94 10/18/17 15:00 89 10/18/17 13:30 97.8 74 14 147/91 (109) 95 10/18/17 13:15 97.8 76 14 149/85 (106) 95 10/18/17 13:00 97.8 77 14 148/88 (108) 95 10/18/17 12:45 97.4 78 14 146/89 (108) 95 10/18/17 12:30 97.4 78 16 154/94 (114) 95 10/18/17 11:00 95 Room Air 10/18/17 11:00 97.4 84 16 135/78 (97) 95 Arterial Line 10/18/17 11:00 80 10/18/17 08:32 98 Nasal Cannula 2.00 I/O 10/18/17 10/18/17 10/18/17 10/19/17 10/19/17 10/19/17 07:00 15:00 23:00 07:00 15:00 23:00 Intake Total 2420.8 ml 955 ml 3015 ml Output Total 1135 ml 590 ml 387 ml 235 ml Balance 1285.8 ml 365 ml 2628 ml -235 ml Intake Oral 240 ml 720 ml IV Total 2420.8 ml 715 ml 2295 ml Output Urine Total 905 ml 525 ml 257 ml 210 ml Drainage Total 230 ml 65 ml 130 ml 25 ml Result Diagram: 10/19/1715 10/19/1715 Objective Remarks Resp: CTAB CV: S1S2 Abd: hypoactive BS, soft . Approp tender. Dressing with minimal staining. [place] serosanguineous. 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 Present for possible renal transplant from a DCD donor. Nausea resolved Creatinine with no significant decrease yet, but continues to make more urine than preop.. Will still hold off on starting prograf. K 5.2, Will start veltassa. Will plan for third dose of thymo tomorrow. Problem Qualifiers (1) Hypertension: Qualified Codes: I10 - Essential (primary) hypertension Aurelio Samson Jr., MD October 19, 2017 08:34
[2017-10-19] MEDS: CALCIUM CARBONATE 500 MG CHEWABLE TAB CHEW SCH ×2 (08:58→15:59)
[2017-10-19] MEDS: PANTOPRAZOLE SODIUM 40 MG VIAL IV PUSH SCH (08:59)
--- NOTE | 2017-10-19 09:23 | PHATRASOAP ---
Date/Time: 10/19/17 0918 Pharmacist daily assessment of kidney transplant patient: S: Post-op day#2 O: Ht: 5 ft 8 in Wt: 92.600 kg Allergies: Sulfa Scr: 13.90 Hgb/Hct: 9.2/28.5 A/P: POST OP DAY#1 SECOND DOSE OF THYMO: 1.5MG/KG IBW (IBW=68.4KG) SECOND DOSE OF SOLUMEDROL: 125MG CONTINUE CELLCEPT, PATIENT VERY NAUSEOUS, WILL CONTINUE IV AND REACCESS IN AM TACROLIMUS WILL BE HELD UNTILL SCR BEGIN TO TREND DOWN PROPHYLAXIS PROTOCOL WILL BE EVALUATED TO RESTART IN AM PATIENT IS CMV INTERMIDEATE RISK: D+/R+ NOTED PATIENT ALLERGIC TO SULFA, PCP PROPHYLAXIS WILL BE PENTAMIDINE INH QMONTH PER DR DE LA O PREFERENCE. KAYLEN STONE WILL CHECK IF THE PATIENT WILL BE STARTED ON PENTAMIDINE AFTER DISCHARGE IN ORDER TO COORDINATE WITH RESPIRATORY THERAPIST PROTOCOL FOR PENTAMIDINE ADMINISTERATION. CHECKED PHARMACY STOCK AND WE HAVE 4 VIALS OF NEBUPENT INH. CEFAZOLIN POST OP DOSES DCD, NOT PART OF PROTOCOL LABETALOL WAS ADDED FOR ANY TRANSIENT ELEVATION IN BP >160/90 BG IS MONITORED AND HANDLED WITH ACCUCHECKS, CHECKED WITH RN AND CHECKING BG IS DONE AT ACHS TIME REGARDLESS PATIENT ON DIET OR NOT,NO NEED TO CHANGE ORDER TO Q6H SUGGESTED PHENERGAN IV FOR NV DUE TO SHORTAGE OF ZOFRAN IV SUGGESTED CLEANING THE MAR FOR PAIN MEDS, DCD PACU DOSES FOR FENTANYL AND ADDED PAIN MEDS LABEL COMMENTS TO PROVIDE INSTRUCTIONS FOR NURSES WHEN TO GIVE DIFFERENT PAIN MEDS Post op day#2: Patient stable but SCR remain high which might indicate delayed graft function (DGF), IV fluids adjusted to acknowledge possible DGF. Thymoglobulin will be held today per protocol Solumedrol 90mg IV ordered today to account for post op dose #2 per protocol Tacrolimus will be held today until SCR start to trend down Patient remain on cellecpt and tolerating PO Pain is well managed with pain meds on board Nausea well managed with antiemetic meds on board BP stabilized with rescue of labetalol for BP>160/90 Potassium level is elevated, veltassa might be an option for controlling level until SCR stabilized. Checked accuchecks BG level, BG well controlled with accuchecks No temps to date HR in the 70s Pharmacist: Muna Pickett PharmD Signature on file
[2017-10-19] MEDS: DOCUSATE SODIUM 100 MG CAP PO SCH ×2 (09:41→21:00)
[2017-10-19] MEDS: PATIROMER CALCIUM SORBITEX 16.8 GM PKT PO SCH (09:43)
[2017-10-19 11:00] VITALS: BP 152/84; PULSE 71; PULSE 78; RESP 16; TEMP 97.9; O2SAT 97
--- NOTE | 2017-10-19 11:09 | HHI.PR ---
Subjective Remarks in no acute distress. resting comfortably. denies pain. passing urine. Objective Vitals Vital Signs Date Time Temp Pulse Resp B/P (MAP) Pulse Ox O2 Delivery O2 Flow Rate FiO2 10/19/17 08:30 95 21 10/19/17 07:00 98.0 76 16 138/76 (96) 94 10/19/17 07:00 94 Room Air 10/19/17 07:00 86 10/19/17 03:00 97.9 73 12 128/72 (90) 95 10/19/17 03:00 70 10/19/17 03:00 95 Room Air 10/18/17 23:00 97.7 70 16 144/81 (102) 97 10/18/17 23:00 96 Room Air 10/18/17 23:00 72 10/18/17 22:00 95 21 10/18/17 19:15 98.0 75 16 138/81 (100) 95 10/18/17 19:15 95 Room Air 10/18/17 19:00 76 10/18/17 16:52 16 10/18/17 15:00 94 Room Air 10/18/17 15:00 97.8 73 16 139/86 (103) 94 10/18/17 15:00 89 10/18/17 13:30 97.8 74 14 147/91 (109) 95 10/18/17 13:15 97.8 76 14 149/85 (106) 95 10/18/17 13:00 97.8 77 14 148/88 (108) 95 10/18/17 12:45 97.4 78 14 146/89 (108) 95 10/18/17 12:30 97.4 78 16 154/94 (114) 95 I/O 10/18/17 10/18/17 10/18/17 10/19/17 10/19/17 10/19/17 06:59 14:59 22:59 06:59 14:59 22:59 Intake Total 2350.8 ml 980 ml 2820 ml 240 ml Output Total 1135 ml 545 ml 357 ml 310 ml 95 ml Balance 1215.8 ml 435 ml 2463 ml -70 ml -95 ml Intake Oral 240 ml 480 ml 240 ml IV Total 2350.8 ml 740 ml 2340 ml Output Urine Total 905 ml 480 ml 277 ml 235 ml 95 ml Drainage Total 230 ml 65 ml 80 ml 75 ml Result Diagram: 10/19/17 0515 10/19/17 0515 Imaging Last Impressions Renal Ultrasound 10/18/17 0000 Signed Impressions: CONCLUSION: 1. Stable examination. 2. Mild diffuse calyceal prominence without hydronephrosis. 3. Patent renal vein and artery with stable peak systolic velocities in the re nal artery near the anastomosis. 4. Stable 6.6 cm perinephric fluid collection. Chest X-Ray 10/17/17 0000 Signed Impressions: CONCLUSION: The left subclavian line courses into the left IJ without pneumothorax. Objective Remarks GENERAL: This is a well-nourished, well-developed patient, in no apparent distress. CARDIOVASCULAR: Regular rate and regular rhythm without murmurs, gallops, or rubs. RESPIRATORY: Clear to auscultation. Breath sounds equal bilaterally. No wheezes , rales, or rhonchi. GASTROINTESTINAL: Abdomen soft, non-tender, nondistended. Normal, active bowel sounds MUSCULOSKELETAL: Extremities without clubbing, cyanosis, or edema. NEURO: Alert & Oriented x4 to person, place, time, situation. Moves all ext x4 Procedures kidney transplant. Medications and IVs Inpatient Medications Acetaminophen (Tylenol) 650 mg ONCE ONCE PO Last administered on 10/18/17at 11: 59; Start 10/18/17 at 11:30; Stop 10/18/17 at 11:31; Status DC Albumin Human 500 ml @ 100 mls/hr NOW ONCE IV Last administered on 10/18/17at 20:04; Start 10/18/17 at 20:00; Stop 10/19/17 at 00:59; Status DC Albuterol/ Ipratropium (Duoneb Neb) 1 ampule Q6HR NEB PRN INH WHEEZING; Start 10/17/17 at 23:00 Anti-Thymocyte Globulin (Rabbit) 100 mg/Sodium Chloride 500 ml @ 83.333 mls/ hr ONCE ONCE IV-CENTRAL Last administered on 10/18/17at 12:31; Start 10/18/17 at 12:00; Stop 10/18/17 at 17:59; Status DC Anti-Thymocyte Globulin (Rabbit) 130 mg/Sodium Chloride 500 ml @ 83.333 mls/ hr ONCE ONCE IV-CENTRAL Last administered on 10/17/17at 18:30; Start 10/17/17 at 18:30; Stop 10/18/17 at 00:29; Status DC Bisacodyl (Dulcolax Ec) 10 mg UNSCH PRN PO If No Bowel Movement; Start at 23:00 Bisacodyl (Dulcolax Supp) 10 mg UNSCH PRN RECTAL If No Bowel Movement; Start at 23:00 Calcium Carbonate (Tums Chew) 500 mg BID@09,16 CHEW Last administered on at 08:58; Start 10/18/17 at 09:00 Calcium Chloride 1 gm/Sodium Chloride 110 ml @ 110 mls/hr ONCE ONCE IV Last administered on 10/18/17at 11:26; Start 10/18/17 at 10:00; Stop 10/18/17 at 10:59 ; Status DC Calcium Gluconate 1 gm/Sodium Chloride 110 ml @ 110 mls/hr NOW IV ; Start 10/18 at 00:30; Stop 10/18/17 at 01:29; Status DC Cefazolin Sodium 1000 mg/Sodium Chloride 100 ml @ 200 mls/hr Q8H IV Last administered on 10/18/17at 02:45; Start 10/18/17 at 02:00; Stop 10/18/17 at 08:15 ; Status DC Cefazolin Sodium/ Dextrose 50 ml @ 100 mls/hr 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 IV Last administered on 10/17/17at 19:01; Start 10/17/17 at 16:30; Stop 10/18/17 at 08:59; Status DC Dextrose (D50w (Vial) Inj) 50 ml UNSCH PRN IV PUSH HYPOGLYCEMIA-SEE COMMENTS; Start 10/17/17 at 16:30 Dextrose/Sodium Chloride 1,000 ml @ 40 mls/hr Q24H IV Last administered on at 22:57; Start 10/17/17 at 22:57 Diphenhydramine HCl (Benadryl Inj) 50 mg ONCE ONCE IV PUSH Last administered on 10/18/17at 12:00; Start 10/18/17 at 11:30; Stop 10/18/17 at 11:31; Status DC Diphenhydramine HCl (Benadryl) 25 mg Q6H PRN PO ITCHING; Start 10/17/17 at 23: 00 Docusate Sodium (Colace) 100 mg BID PO Last administered on 10/19/17at 09:41; Start 10/18/17 at 09:00 Epoetin Shawn (Epogen Inj) 5,000 units ONCE ONCE SQ Last administered on at 20:10; Start 10/18/17 at 20:00; Stop 10/18/17 at 20:01; Status DC Fentanyl Citrate (fentaNYL INJ) 50 mcg Q30M PRN IV PUSH PAIN SCALE 6 TO 10; Start 10/18/17 at 01:15 Glucagon (Glucagon Inj) 1 mg UNSCH PRN OTHER HYPOGLYCEMIA-SEE COMMENTS; Start 10/17/17 at 16:30 Insulin Aspart (NovoLOG SUPPLEMENTAL SCALE) 1 ACHS SLIDING SCALE SQ Last administered on 10/18/17at 20:19; Start 10/17/17 at 17:00 Labetalol HCl (Trandate Inj) 10 mg Q4H PRN IV PUSH SBP>160, DBP>90 Last administered on 10/18/17at 09:01; Start 10/18/17 at 08:45 Methylprednisolone Sodium Succinate (SoluMEDROL INJ) 90 mg ONCE ONCE IV PUSH Last administered on 10/19/17at 08:59; Start 10/19/17 at 08:00; Stop 10/19/17 at 08:12; Status DC Methylprednisolone Sodium Succinate 250 mg/Sodium Chloride 100 ml @ 100 mls/hr 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 IV ; Start 10/17/17 at 17:15; Stop 10/17/17 at 18:14; Status DC Miscellaneous Information ([facility] [place]apyl[place] 1 UNSCH PRN XX ANAPHYLAXIS KIT AT BEDSIDE; Start 10/18/17 at 08:15 Morphine Sulfate (Morphine Inj) 2 mg Q2HR PRN IV PUSH PAIN SCALE 6 TO 10; Start 10/17/17 at 23:00; Stop 10/18/17 at 08:19; Status DC Mycophenolate Mofetil (Cellcept) 1,000 mg BID@18 PO Last administered on at 06:04; Start 10/18/17 at 06:00 Mycophenolate Mofetil 1000 mg/ Dextrose 150 ml @ 75 mls/hr BID@18 IV Last administered on 10/18/17at 18:00; Start 10/18/17 at 06:00 Ondansetron HCl (Zofran Odt) 4 mg Q6H PRN PO NAUSEA OR VOMITING; Start at 08:45 Ondansetron HCl (Zofran Inj) 4 mg Q6HR PRN IV PUSH NAUSEA OR VOMITING Last administered on 10/18/17at 08:31; Start 10/18/17 at 01:30; Stop 10/18/17 at 08:37 ; Status DC Oxycodone/ Acetaminophen (Percocet 5-325 Mg) 1 tab Q4H PRN PO PAIN SCALE 1 TO 5 Last administered on 10/19/17at 00:43; Start 10/17/17 at 23:00 Pantoprazole Sodium (Protonix Inj) 40 mg DAILY IV PUSH Last administered on at 08:59; Start 10/18/17 at 09:00 Patiromer (Veltassa) 16.8 gm DAILY PO Last administered on 10/19/17 09:43; Start 10/19/17 at 09:00 Promethazine HCl (Phenergan Inj) 25 mg Q6H PRN IV-CENTRAL NAUSEA OR VOMITING Last administered on 10/19/17at 00:09; Start 10/18/17 at 08:45 Sodium Chloride 500 ml @ 500 mls/hr Q1H IV Last administered on 10/17/17at 23: 30; Start 10/17/17 at 23:30; Stop 10/18/17 at 00:29; Status DC A/P Problem List: (1) ESRD (end stage renal disease) on dialysis ICD Code: N18.6 - End stage renal disease; Z99.2 - Dependence on renal dialysis Assessment and Plan - ESRD-was on peritoneal dialysis s/p kidney transplant - management and immunosuppressives per transplant surgery. nephrology following. -diabetes mellitus; continue accu-check with SSI- -DVT prophylaxis; SCD's Vivienne Kim MD October 19, 2017 11:09
--- NOTE | 2017-10-19 11:18 | HHI.NPPN ---
Objective Data Data 10/19/17 10/20/17 19:00 07:00 Output Total 80 ml Balance -80 ml Output Urine Total 80 ml Vital Signs Date Time Temp Pulse Resp B/P (MAP) Pulse Ox O2 Delivery O2 Flow Rate FiO2 10/19/17 08:30 95 21 10/19/17 07:00 98.0 76 16 138/76 (96) 94 10/19/17 07:00 94 Room Air 10/19/17 07:00 86 10/19/17 03:00 97.9 73 12 128/72 (90) 95 10/19/17 03:00 70 10/19/17 03:00 95 Room Air 10/18/17 23:00 97.7 70 16 144/81 (102) 97 10/18/17 23:00 96 Room Air 10/18/17 23:00 72 10/18/17 22:00 95 21 10/18/17 19:15 98.0 75 16 138/81 (100) 95 10/18/17 19:15 95 Room Air 10/18/17 19:00 76 10/18/17 16:52 16 10/18/17 15:00 94 Room Air 10/18/17 15:00 97.8 73 16 139/86 (103) 94 10/18/17 15:00 89 10/18/17 13:30 97.8 74 14 147/91 (109) 95 10/18/17 13:15 97.8 76 14 149/85 (106) 95 10/18/17 13:00 97.8 77 14 148/88 (108) 95 10/18/17 12:45 97.4 78 14 146/89 (108) 95 10/18/17 12:30 97.4 78 16 154/94 (114) 95 -: 10/19/17 0515 10/19/17 0515 Physical Exam General Appearance: Well Developed, Well Nourished Neck Neck Exam: Neck Supple Pulmonary Resp Exam: Clear Bilaterally, Breath Sounds Equal Cardiology CV Exam: Regular, Normal Sinus Rhythm Gastrointestinal/Abdomen GI Exam: Soft, Non-Tender, Bowel Sounds Present Extremeties Extremities Exam: No Edema Neurologic Neuro Exam: Alert, Awake, Oriented Assessment/Plan Problem List: (1) ESRD (end stage renal disease) on dialysis ICD Codes: N18.6 - End stage renal disease; Z99.2 - Dependence on renal dialysis Plan: Patient is post Transplant doing well passing urine Cr elevated follow this SoluMedrol ordered WBC slight low H/H low on Procrit K 5.2 Veltassa ordered follow labs Prograf not started (2) Hypertension ICD Codes: I10 - Essential (primary) hypertension Plan: Stable (3) Diabetes ICD Codes: E11.9 - Type 2 diabetes mellitus without complications Status: Chronic Plan: monitor BG Problem Qualifiers (1) Hypertension: Qualified Codes: I10 - Essential (primary) hypertension Anne Gibson MD October 19, 2017 11:17
[2017-10-19 15:00] VITALS: BP 135/81; PULSE 80; RESP 18; TEMP 98.2; O2SAT 96
[2017-10-19 20:00] VITALS: BP 159/87; PULSE 72; PULSE 78; RESP 16; TEMP 98.3; O2SAT 96
[2017-10-20] VITALS (12 sets, daily range): BP systolic 147–157; BP diastolic 84–98; PULSE 71–87; RESP 14–20; TEMP 97.9–98.4; O2SAT 95–98
[2017-10-20] MEDS: DEXT 5%-NACL 0.45% 1000 ML INJ 1,000 ML IV SCH ×2 (01:27→22:57)
[2017-10-20 05:28] LABS: AUTOMATED NEUTROPHIL # 3.4 TH/MM3 (1.8-7.7); BASOPHIL % 0.4 % (0.0-2.0); EOSINOPHIL % 0.1 % (0.0-4.0); HEMATOCRIT 28.2 % (39.0-51.0); HEMOGLOBIN 9.2 GM/DL (13.0-17.0); MEAN CELL VOLUME 92.7 FL (80.0-100.0); MEAN CORPUSCULAR HEMOGLOBIN 30.2 PG (27.0-34.0); MEAN CORPUSCULAR HGB CONC 32.5 % (32.0-36.0); MONO % 5.8 % (0.0-8.0); MONOCYTE # 0.2 TH/MM3 (0-0.9); NEUT % 92.7 % (16.0-70.0); PLATELET COUNT 95 TH/MM3 (150-450); RED BLOOD COUNT 3.04 MIL/MM3 (4.50-5.90); RED CELL DISTRIBUTION WIDTH 17.3 % (11.6-17.2); WHITE BLOOD COUNT 3.6 TH/MM3 (4.0-11.0)
[2017-10-20 06:00] LABS: BICARBONATE 17.4 MEQ/L (21.0-32.0); CALCIUM 6.7 MG/DL (8.5-10.1); MAGNESIUM 1.7 MG/DL (1.5-2.5); PHOSPHORUS 6.3 MG/DL (2.5-4.9)
[2017-10-20] MEDS: MYCOPHENOLATE MOFETIL INJ 1,000 MG in DEXTROSE 5% IN WATE 150 ML INJ 150 ML IV SCH ×4 (06:00→16:23)
[2017-10-20 06:15] LABS: CREATININE 14.39 MG/DL (0.60-1.30)
[2017-10-20] MEDS: MYCOPHENOLATE MOFETIL 500 MG TAB PO SCH ×2 (06:26→17:21)
[2017-10-20] MEDS: PROMETHAZINE INJ 25 MG/ML VIAL IV-CENTRAL PRN ×3 (06:27→20:57)
[2017-10-20 06:33] LABS: TOTAL PROTEIN 5.6 GM/DL (6.4-8.2)
[2017-10-20 06:36] LABS: CALCIUM-PROTEIN CORRECTED 7.4 MG/DL (8.5-10.1)
[2017-10-20] MEDS: oxyCODONE/ACETAMINOPHEN 5 MG/325 MG TAB PO PRN ×3 (06:40→21:19)
[2017-10-20] MEDS: INSULIN ASPART SUPPLEMENTAL SCALE SQ SCH ×4 (07:25→21:00)
[2017-10-20] MEDS ORDERED: CALCIUM CHLORIDE INJ 1 GM in DEXTROSE 5% IN WATER 100ML INJ 100 ML IV ONE ×2 (08:00)
[2017-10-20] MEDS ORDERED: [UNRECOGNIZED DRUG - OTHER] XX PRN (08:00)
[2017-10-20] MEDS: DOCUSATE SODIUM 100 MG CAP PO SCH ×2 (08:35→20:57)
[2017-10-20] MEDS: CALCIUM CARBONATE 500 MG CHEWABLE TAB CHEW SCH ×2 (08:36→17:20)
[2017-10-20] MEDS: PANTOPRAZOLE SODIUM 40 MG VIAL IV PUSH SCH (08:36)
[2017-10-20] MEDS: NYSTATIN SUSP 500,000 U/5 ML CUP SWISH-SWAL SCH ×4 (08:55→20:57)
[2017-10-20] MEDS ORDERED: EPOETIN ALFA 4,000 UNITS/ML VIAL SQ ONE (09:00)
[2017-10-20] MEDS: PATIROMER CALCIUM SORBITEX 16.8 GM PKT PO SCH (09:00)
--- NOTE | 2017-10-20 09:46 | HHI.PR ---
Subjective Remarks No new c/o. Pain well controlled. Denies nausea Objective Vital Signs Date Time Temp Pulse Resp B/P (MAP) Pulse Ox O2 Delivery O2 Flow Rate FiO2 10/20/17 08:00 96 Room Air 10/20/17 08:00 98.2 81 18 151/89 (109) 96 10/20/17 07:00 83 10/20/17 04:00 72 10/20/17 04:00 97.9 82 14 149/84 (105) 97 10/20/17 03:00 96 Room Air 10/20/17 00:00 97.9 71 14 148/89 (108) 96 10/20/17 00:00 72 10/19/17 23:00 98 Room Air 10/19/17 22:54 21 10/19/17 20:00 98.3 72 16 159/87 (111) 96 10/19/17 20:00 78 10/19/17 19:00 96 Room Air 10/19/17 15:00 80 10/19/17 15:00 96 Room Air 10/19/17 15:00 98.2 80 18 135/81 (99) 96 10/19/17 14:42 20 10/19/17 11:00 71 10/19/17 11:00 97 Room Air 10/19/17 11:00 97.9 78 16 152/84 (106) 97 I/O 10/19/17 10/19/17 10/19/17 10/20/17 10/20/17 10/20/17 07:00 15:00 23:00 07:00 15:00 23:00 Intake Total 720 ml 640 ml 110 ml Output Total 250 ml 247 ml 265 ml 372 ml Balance -250 ml -247 ml 455 ml 268 ml 110 ml Intake Oral 720 ml 240 ml IV Total 400 ml 110 ml Output Urine Total 225 ml 247 ml 240 ml 312 ml Drainage Total 25 ml 25 ml 60 ml # Bowel Movements 0 Result Diagram: 10/20/1744910/20/17449 Objective Remarks Resp: CTAB CV: S1S2 Abd: hypoactive BS, soft . Approp tender. Wound clean, dry, intact without erythema, fluctuance, or tenderness. 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 s/p renal transplant from a DCD donor. No specific complaints at this time. Creatinine remains elevated, but with continued good urine output. K 4.9 today. Was 4.2-5.2. Valtessa started yesterday. Will administer last dose of thymo today. Will start low dose prograf.. Will order valcyte and nystatin to begin in AM. Problem Qualifiers (1) Hypertension: Qualified Codes: I10 - Essential (primary) hypertension Aurelio Samson Jr., MD October 20, 2017 09:46
[2017-10-20] MEDS ORDERED: methylPREDNISolone SOD SUCC 125 MG/2 ML VIAL IV PUSH ONE (11:30)
[2017-10-20] MEDS ORDERED: diphenhydrAMINE HCL 50 MG/ML VIAL IV PUSH ONE (11:30)
[2017-10-20] MEDS ORDERED: ACETAMINOPHEN 325 MG TAB PO ONE (11:30)
[2017-10-20] MEDS ORDERED: FUROSEMIDE 40 MG/4 ML VIAL IV PUSH ONE ×3 (12:00→22:45)
[2017-10-20] MEDS ORDERED: SODIUM CHLORID 0.9% IV-CENTRAL ONE (12:00)
[2017-10-20] MEDS ORDERED: ANTITHYMOCYTE GLOB IV-CENTRAL ONE (12:00)
[2017-10-20] MEDS ORDERED: HYDROCORTISONE SOD SUCCINATE 100 MG VIAL ONE (12:20)
[2017-10-20] MEDS ORDERED: EPINEPHrine HCL (1:10,000) 1 MG/10 ML SYRINGE ONE (12:22)
--- NOTE | 2017-10-20 12:42 | RADRPT ---
EXAM DATE: 10/20/2017 12:08 PM EDT AGE/SEX: 61 years / Male INDICATIONS: Increased lab values. CLINICAL DATA: This is the patient's subsequent encounter. Patient reports that signs and symptoms h ave been present for 1 week and indicates a pain score of 1/10. MEDICAL/SURGICAL HISTORY: . Carcinoma, prostatic. Hypertension. Diabetes. ESRD. . Renal transp lant. PD catheter. Bilateral cataracts. COMPARISON: [facility] [place], KIDNEY / TRANSPLANT, 10/18/2017. . No external comparison. MEASUREMENTS: Transplant Kidney:__9.7 x 6.0 x 5.7 cm Location:__Right lower quadrant Arcuate Arteries Resistive Index: Upper - 0.7 Mid - 0.7 Lower - 0.7 Main Renal Artery Velocity:__94.5 Main Renal Vein:__Patent External Iliac Artery Velocity:__115 External Iliac Vein:__Patent FINDINGS: Transplant Kidney: Mild persistent calyceal prominence without hydronephrosis. Renal artery and vein and artery are patent. Peak systolic velocities in the main renal artery are minimally increased fro m prior exam measuring 60.4 cm/s compared to 52 cm/s previously. Redemonstration of evolving 6.3 x 5. 7 x 2.0 cm perinephric fluid collection. Urinary Bladder: Bladder is decompressed secondary to Nova catheter. CONCLUSION: 1. Stable examination. 2. Mild diffuse calyceal prominence without hydronephrosis. 3. Patent renal artery and vein with normal renal artery velocities that are minimally increased fro m prior exam. Electronically signed by: Jacob Castro MD 10/20/2017 12:40 PM EDT
--- NOTE | 2017-10-20 14:16 | HHI.NPPN ---
Objective Data Data 10/20/17 10/21/17 19:00 07:00 Intake Total 110 ml Balance 110 ml IV Total 110 ml Vital Signs Date Time Temp Pulse Resp B/P (MAP) Pulse Ox O2 Delivery O2 Flow Rate FiO2 10/20/17 11:18 97 Room Air 10/20/17 11:17 98.1 76 18 148/87 (107) 96 10/20/17 11:00 75 10/20/17 08:00 96 Room Air 10/20/17 08:00 98.2 81 18 151/89 (109) 96 10/20/17 07:00 83 10/20/17 04:00 72 10/20/17 04:00 97.9 82 14 149/84 (105) 97 10/20/17 03:00 96 Room Air 10/20/17 00:00 97.9 71 14 148/89 (108) 96 10/20/17 00:00 72 10/19/17 23:00 98 Room Air 10/19/17 22:54 21 10/19/17 20:00 98.3 72 16 159/87 (111) 96 10/19/17 20:00 78 10/19/17 19:00 96 Room Air 10/19/17 15:00 80 10/19/17 15:00 96 Room Air 10/19/17 15:00 98.2 80 18 135/81 (99) 96 10/19/17 14:42 20 -: 10/20/17 0450 10/20/17 0450 Physical Exam General Appearance: Well Developed, Well Nourished Neck Neck Exam: Neck Supple Pulmonary Resp Exam: Clear Bilaterally, Breath Sounds Equal Cardiology CV Exam: Regular, Normal Sinus Rhythm Gastrointestinal/Abdomen GI Exam: Soft, Non-Tender, Bowel Sounds Present Extremeties Extremities Exam: No Edema Neurologic Neuro Exam: Alert, Awake, Oriented Assessment/Plan Problem List: (1) ESRD (end stage renal disease) on dialysis ICD Codes: N18.6 - End stage renal disease; Z99.2 - Dependence on renal dialysis Plan: Patient is post Transplant doing well passing urine Cr elevated follow this 3rd dose Thymo today BUN/Cr high may need dialysis WBC slight low H/H low on Procrit K 4.9 Veltassa follow labs Prograf started low dose (2) Hypertension ICD Codes: I10 - Essential (primary) hypertension Plan: Stable (3) Diabetes ICD Codes: E11.9 - Type 2 diabetes mellitus without complications Status: Chronic Plan: monitor BG Problem Qualifiers (1) Hypertension: Qualified Codes: I10 - Essential (primary) hypertension Anne Gibson MD October 20, 2017 14:16
[2017-10-20 16:45] LABS: AUTOMATED NEUTROPHIL # 2.8 TH/MM3 (1.8-7.7); BASOPHIL % 0.3 % (0.0-2.0); HEMATOCRIT 31.9 % (39.0-51.0); HEMOGLOBIN 10.2 GM/DL (13.0-17.0); MEAN CORPUSCULAR HEMOGLOBIN 29.7 PG (27.0-34.0); MEAN PLATELET VOLUME 8.6 FL (7.0-11.0); MONO % 2.6 % (0.0-8.0); MONOCYTE # 0.1 TH/MM3 (0-0.9); NEUT % 96.1 % (16.0-70.0); PLATELET COUNT 93 TH/MM3 (150-450); RED BLOOD COUNT 3.43 MIL/MM3 (4.50-5.90); RED CELL DISTRIBUTION WIDTH 17.3 % (11.6-17.2); WHITE BLOOD COUNT 2.9 TH/MM3 (4.0-11.0)
[2017-10-20 16:58] LABS: BICARBONATE 17.2 MEQ/L (21.0-32.0); CALCIUM 7.2 MG/DL (8.5-10.1); MAGNESIUM 1.8 MG/DL (1.5-2.5)
[2017-10-20 17:03] LABS: CREATININE 14.11 MG/DL (0.60-1.30)
--- NOTE | 2017-10-20 17:04 | HHI.PR ---
Subjective Remarks no overnight events, pain surgical site is 2-5/10, good UO, no headache, BPs elevated, Ca replaced Objective Vitals Vital Signs Date Time Temp Pulse Resp B/P (MAP) Pulse Ox O2 Delivery O2 Flow Rate FiO2 10/20/17 15:18 97 Room Air 10/20/17 15:14 98.4 83 20 150/90 (110) 98 10/20/17 15:00 82 10/20/17 11:18 97 Room Air 10/20/17 11:17 98.1 76 18 148/87 (107) 96 10/20/17 11:00 75 10/20/17 09:00 97 21 10/20/17 08:00 96 Room Air 10/20/17 08:00 98.2 81 18 151/89 (109) 96 10/20/17 07:40 20 10/20/17 07:00 83 10/20/17 04:00 72 10/20/17 04:00 97.9 82 14 149/84 (105) 97 10/20/17 03:00 96 Room Air 10/20/17 00:00 97.9 71 14 148/89 (108) 96 10/20/17 00:00 72 10/19/17 23:00 98 Room Air 10/19/17 22:54 21 10/19/17 20:00 98.3 72 16 159/87 (111) 96 10/19/17 20:00 78 10/19/17 19:00 96 Room Air I/O 10/19/17 10/19/17 10/19/17 10/20/17 10/20/17 10/20/17 07:00 15:00 23:00 07:00 15:00 23:00 Intake Total 720 ml 640 ml 110 ml Output Total 250 ml 247 ml 265 ml 372 ml Balance -250 ml -247 ml 455 ml 268 ml 110 ml Intake Oral 720 ml 240 ml IV Total 400 ml 110 ml Output Urine Total 225 ml 247 ml 240 ml 312 ml Drainage Total 25 ml 25 ml 60 ml # Bowel Movements 0 Result Diagram: 10/20/17 1555 10/20/17 9292 Objective Remarks GENERAL: This is a well-nourished, well-developed patient, in no apparent distress. CARDIOVASCULAR: Regular rate and regular rhythm without murmurs, gallops, or rubs. RESPIRATORY: Clear to auscultation. Breath sounds equal bilaterally. No wheezes , rales, or rhonchi. GASTROINTESTINAL: Abdomen soft, non-tender, nondistended. [place] drain in place with scant sanguinous output MUSCULOSKELETAL: Extremities without clubbing, cyanosis, or edema. NEURO: Alert & Oriented x4 to person, place, time, situation. Moves all ext x4 Procedures kidney transplant. A/P Problem List: (1) ESRD (end stage renal disease) on dialysis ICD Code: N18.6 - End stage renal disease; Z99.2 - Dependence on renal dialysis Assessment and Plan ESRD-was on peritoneal dialysis s/p kidney transplant - management and immunosuppressives per transplant surgery. nephrology following HTn - start norvasc diabetes mellitus; continue accu-check with SSI Hypocalcemia-replace Thrombocytopenia-monitor, recheck CBC tomorrow. -DVT prophylaxis; SCD's Mansoor Dinh MD October 20, 2017 17:04
[2017-10-20 17:17] LABS: CALCIUM-PROTEIN CORRECTED 7.6 MG/DL (8.5-10.1); TOTAL PROTEIN 6.4 GM/DL (6.4-8.2)
[2017-10-20] MEDS: amLODIPine BESYLATE 5 MG TAB PO SCH (17:21)
[2017-10-20] MEDS: TACROLIMUS 1 MG CAP PO SCH (17:22)
[2017-10-20] MEDS ORDERED: BISACODYL 10 MG SUPP RECTAL PRN (23:00)
[2017-10-20] MEDS ORDERED: BISACODYL EC 5 MG TABEC PO PRN (23:00)
[2017-10-21] VITALS (20 sets, daily range): BP systolic 127–150; BP diastolic 65–88; PULSE 69–98; RESP 18–20; TEMP 97.6–98.4; O2SAT 96–100
[2017-10-21 03:52] LABS: AUTOMATED NEUTROPHIL # 1.4 TH/MM3 (1.8-7.7); BASOPHIL % 0.2 % (0.0-2.0); EOSINOPHIL % 0.1 % (0.0-4.0); HEMATOCRIT 26.1 % (39.0-51.0); HEMOGLOBIN 8.7 GM/DL (13.0-17.0); LYMPH % 0.6 % (9.0-44.0); MEAN CELL VOLUME 91.4 FL (80.0-100.0); MEAN CORPUSCULAR HEMOGLOBIN 30.4 PG (27.0-34.0); MEAN CORPUSCULAR HGB CONC 33.2 % (32.0-36.0); MONO % 8.8 % (0.0-8.0); MONOCYTE # 0.1 TH/MM3 (0-0.9); NEUT % 90.3 % (16.0-70.0); PLATELET COUNT 73 TH/MM3 (150-450); RED BLOOD COUNT 2.85 MIL/MM3 (4.50-5.90); RED CELL DISTRIBUTION WIDTH 16.6 % (11.6-17.2); WHITE BLOOD COUNT 1.6 TH/MM3 (4.0-11.0)
[2017-10-21] MEDS: PROMETHAZINE INJ 25 MG/ML VIAL IV-CENTRAL PRN ×3 (04:07→20:39)
[2017-10-21] MEDS: oxyCODONE/ACETAMINOPHEN 5 MG/325 MG TAB PO PRN ×4 (04:07→20:39)
[2017-10-21 04:15] LABS: BICARBONATE 16.1 MEQ/L (21.0-32.0); CALCIUM 6.6 MG/DL (8.5-10.1); MAGNESIUM 1.7 MG/DL (1.5-2.5); PHOSPHORUS 6.5 MG/DL (2.5-4.9)
[2017-10-21 05:02] LABS: CREATININE 14.28 MG/DL (0.60-1.30)
[2017-10-21 05:20] LABS: CALCIUM-PROTEIN CORRECTED 7.5 MG/DL (8.5-10.1); TOTAL PROTEIN 5.2 GM/DL (6.4-8.2)
[2017-10-21] MEDS: MYCOPHENOLATE MOFETIL INJ 1,000 MG in DEXTROSE 5% IN WATE 150 ML INJ 150 ML IV SCH ×4 (06:00→17:06)
[2017-10-21] MEDS ORDERED: TACROLIMUS 1 MG CAP PO SCH (06:00)
[2017-10-21] MEDS: TACROLIMUS 1 MG CAP PO SCH ×2 (06:30→17:06)
[2017-10-21] MEDS: MYCOPHENOLATE MOFETIL 500 MG TAB PO SCH ×2 (06:31→17:06)
[2017-10-21 07:31] LABS: BANDS 12 % (0-6); LYMPHOCYTES 6 % (9-44); METAMYELOCYTES 1 % (0-1); MONOCYTES 10 % (0-8); NEUTROPHIL # MANUAL DIFF 1.3 TH/MM3 (1.8-7.7); POLYS (SEG NEUTROPHILS) 71 % (16-70)
[2017-10-21] MEDS: INSULIN ASPART SUPPLEMENTAL SCALE SQ SCH ×4 (07:41→21:53)
[2017-10-21] MEDS ORDERED: CALCIUM CHLORIDE 10% SOLN 1 GRAM/10 ML SYR IV PUSH ONE (08:30)
[2017-10-21] MEDS: CALCIUM CARBONATE 500 MG CHEWABLE TAB CHEW SCH ×2 (08:49→16:19)
[2017-10-21] MEDS: amLODIPine BESYLATE 5 MG TAB PO SCH (08:49)
[2017-10-21] MEDS: NYSTATIN SUSP 500,000 U/5 ML CUP SWISH-SWAL SCH ×4 (08:50→20:40)
[2017-10-21] MEDS: PATIROMER CALCIUM SORBITEX 16.8 GM PKT PO SCH (08:50)
[2017-10-21] MEDS: DOCUSATE SODIUM 100 MG CAP PO SCH ×2 (08:50→20:40)
[2017-10-21] MEDS: PANTOPRAZOLE SODIUM 40 MG VIAL IV PUSH SCH (08:50)
[2017-10-21] MEDS ORDERED: methylPREDNISolone SOD SUCC 40 MG/1 ML VIAL IV PUSH ONE (09:00)
--- NOTE | 2017-10-21 09:50 | HHI.PR ---
Subjective Remarks No new c/o. Pain well controlled. Denies nausea. Ambulating well. Per has been a ltttle more sleepier than his usual during the postop period so far, but seems to be improving. He otherwise seems to have normal mentation. Objective Vital Signs Date Time Temp Pulse Resp B/P (MAP) Pulse Ox O2 Delivery O2 Flow Rate FiO2 10/21/17 08:00 97 Room Air 10/21/17 08:00 98.0 69 20 131/84 (100) 96 10/21/17 07:44 97 21 10/21/17 07:00 75 10/21/17 05:07 20 10/21/17 03:00 69 10/21/17 03:00 98.0 69 20 131/84 (100) 96 10/21/17 03:00 96 Room Air 10/20/17 23:00 80 10/20/17 23:00 95 Room Air 10/20/17 23:00 98.0 80 20 147/89 (108) 95 10/20/17 20:48 98 21 10/20/17 19:00 96 Room Air 10/20/17 19:00 87 10/20/17 19:00 98.2 87 20 157/98 (117) 96 10/20/17 15:18 97 Room Air 10/20/17 15:14 98.4 83 20 150/90 (110) 98 10/20/17 15:00 82 10/20/17 11:18 97 Room Air 10/20/17 11:17 98.1 76 18 148/87 (107) 96 10/20/17 11:00 75 I/O 10/20/17 10/20/17 10/20/17 10/21/17 10/21/17 10/21/17 07:00 15:00 23:00 07:00 15:00 23:00 Intake Total 640 ml 110 ml 3469 ml 1965 ml Output Total 372 ml 919 ml 1445 ml Balance 268 ml 110 ml 2550 ml 520 ml Intake Oral 240 ml 1050 ml 120 ml IV Total 400 ml 110 ml 2419 ml 1845 ml Output Urine Total 312 ml 819 ml 1365 ml Drainage Total 60 ml 100 ml 80 ml # Bowel Movements 0 1 1 Result Diagram: 10/21/17 0335 10/21/17 0335 Objective Remarks Resp - CTAB CV - S1S2 Abd - + BS, soft . Approp tender. Wound clean, dry, intact without erythema, fluctuance, or tenderness. 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 s/p renal transplant from a DCD donor. No new complaints at this time. Creatinine remains elevated but seems to have plateaued, Good response to lasix. K stable. On Valtessa. Leukopenia noted. Will hold valcyte. BUn noted. Seems to be otherwise doing better clinically and creatinine has plateaued. Will hold off on HD for now. Problem Qualifiers (1) Hypertension: Qualified Codes: I10 - Essential (primary) hypertension Aurelio Samson Jr., MD Oct 21, 2017 09:50
[2017-10-21] MEDS ORDERED: EPOETIN ALFA 4,000 UNITS/ML VIAL SQ ONE (10:00)
[2017-10-21] MEDS ORDERED: CALCIUM CHLORIDE INJ 1 GM in SODIUM CHLORIDE 0.9% INJ 100 ML IV ONE (10:00)
--- NOTE | 2017-10-21 16:37 | HHI.NPPN ---
Subjective History of Present Illness Hx of DDTx 10/17 Objective Data Data 10/21/17 10/22/17 19:00 07:00 Intake Total 110 ml Output Total 300 ml Balance -190 ml IV Total 110 ml Output Urine Total 300 ml Vital Signs Date Time Temp Pulse Resp B/P (MAP) Pulse Ox O2 Delivery O2 Flow Rate FiO2 10/21/17 16:00 87 10/21/17 15:25 97.8 92 18 136/75 (95) 99 10/21/17 15:23 99 Room Air 10/21/17 15:00 94 10/21/17 14:00 86 10/21/17 13:00 87 10/21/17 11:14 96 Room Air 10/21/17 11:12 98.4 81 20 139/88 (105) 96 10/21/17 11:00 80 10/21/17 08:00 97 Room Air 10/21/17 08:00 98.0 69 20 131/84 (100) 96 10/21/17 07:44 97 21 10/21/17 07:00 75 10/21/17 05:07 20 10/21/17 03:00 69 10/21/17 03:00 98.0 69 20 131/84 (100) 96 10/21/17 03:00 96 Room Air 10/20/17 23:00 80 10/20/17 23:00 95 Room Air 10/20/17 23:00 98.0 80 20 147/89 (108) 95 10/20/17 20:48 98 21 10/20/17 19:00 96 Room Air 10/20/17 19:00 87 10/20/17 19:00 98.2 87 20 157/98 (117) 96 -: 10/21/17 0335 10/21/17 0335 Physical Exam General Appearance: Well Developed, Well Nourished Neck Neck Exam: Neck Supple Pulmonary Resp Exam: Clear Bilaterally, Breath Sounds Equal Cardiology CV Exam: Regular, Normal Sinus Rhythm Gastrointestinal/Abdomen GI Exam: Soft, Non-Tender, Bowel Sounds Present Extremeties Extremities Exam: Moderate Edema Neurologic Neuro Exam: Alert, Awake, Oriented Assessment/Plan Problem List: (1) ESRD (end stage renal disease) on dialysis ICD Codes: N18.6 - End stage renal disease; Z99.2 - Dependence on renal dialysis Plan: Patient is post Transplant doing well passing urine Cr elevated follow this WBC low after 3rd Thymo BUN/Cr high may need dialysis H/H low on Procrit K 5 on Veltassa follow labs Prograf started low dose d/w Dr. Samson hold off dialysis as UOP increased (2) Hypertension ICD Codes: I10 - Essential (primary) hypertension Plan: Stable (3) Diabetes ICD Codes: E11.9 - Type 2 diabetes mellitus without complications Status: Chronic Plan: monitor BG Problem Qualifiers (1) Hypertension: Qualified Codes: I10 - Essential (primary) hypertension Anne Gibson MD Oct 21, 2017 16:37
[2017-10-21] MEDS: SODIUM CHLOR 0.45% 1000 ML INJ 1,000 ML IV SCH (18:25)
[2017-10-21] MEDS: DEXT 5%-NACL 0.45% 1000 ML INJ 1,000 ML IV SCH (22:57)
[2017-10-22] VITALS (14 sets, daily range): BP systolic 129–151; BP diastolic 67–80; PULSE 72–98; RESP 16–18; TEMP 97.6–97.9; O2SAT 98–100
[2017-10-22 04:44] LABS: AUTOMATED NEUTROPHIL # 2.2 TH/MM3 (1.8-7.7); BASOPHIL % 0.2 % (0.0-2.0); EOSINOPHIL % 0.1 % (0.0-4.0); HEMATOCRIT 25.5 % (39.0-51.0); HEMOGLOBIN 8.5 GM/DL (13.0-17.0); LYMPH % 0.4 % (9.0-44.0); MEAN CELL VOLUME 90.5 FL (80.0-100.0); MEAN CORPUSCULAR HEMOGLOBIN 30.1 PG (27.0-34.0); MEAN CORPUSCULAR HGB CONC 33.3 % (32.0-36.0); MEAN PLATELET VOLUME 8.4 FL (7.0-11.0); MONO % 3.7 % (0.0-8.0); MONOCYTE # 0.1 TH/MM3 (0-0.9); NEUT % 95.6 % (16.0-70.0); PLATELET COUNT 75 TH/MM3 (150-450); RED BLOOD COUNT 2.82 MIL/MM3 (4.50-5.90); RED CELL DISTRIBUTION WIDTH 16.6 % (11.6-17.2); WHITE BLOOD COUNT 2.3 TH/MM3 (4.0-11.0)
[2017-10-22 05:09] LABS: BICARBONATE 14.5 MEQ/L (21.0-32.0); CALCIUM 6.5 MG/DL (8.5-10.1); MAGNESIUM 1.6 MG/DL (1.5-2.5); PHOSPHORUS 6.4 MG/DL (2.5-4.9)
[2017-10-22 05:11] LABS: CREATININE 13.88 MG/DL (0.60-1.30)
[2017-10-22 05:30] LABS: CALCIUM-PROTEIN CORRECTED 7.5 MG/DL (8.5-10.1); TOTAL PROTEIN 5.1 GM/DL (6.4-8.2)
[2017-10-22] MEDS: MYCOPHENOLATE MOFETIL INJ 1,000 MG in DEXTROSE 5% IN WATE 150 ML INJ 150 ML IV SCH ×4 (06:00→16:15)
[2017-10-22] MEDS: TACROLIMUS 1 MG CAP PO SCH ×2 (06:14→17:14)
[2017-10-22] MEDS: MYCOPHENOLATE MOFETIL 500 MG TAB PO SCH ×2 (06:14→17:13)
[2017-10-22] MEDS: INSULIN ASPART SUPPLEMENTAL SCALE SQ SCH ×4 (08:00→21:00)
[2017-10-22] MEDS: PROMETHAZINE INJ 25 MG/ML VIAL IV-CENTRAL PRN ×3 (08:13→20:03)
[2017-10-22] MEDS: PANTOPRAZOLE SODIUM 40 MG VIAL IV PUSH SCH (08:15)
[2017-10-22] MEDS: amLODIPine BESYLATE 5 MG TAB PO SCH (08:15)
[2017-10-22] MEDS: NYSTATIN SUSP 500,000 U/5 ML CUP SWISH-SWAL SCH ×4 (08:15→20:08)
[2017-10-22] MEDS: predniSONE 10 MG TAB PO SCH (08:15)
[2017-10-22] MEDS: DOCUSATE SODIUM 100 MG CAP PO SCH ×2 (08:15→20:08)
[2017-10-22] MEDS: CALCIUM CARBONATE 500 MG CHEWABLE TAB CHEW SCH ×2 (08:15→15:19)
[2017-10-22] MEDS: PATIROMER CALCIUM SORBITEX 16.8 GM PKT PO SCH (08:16)
[2017-10-22] MEDS: oxyCODONE/ACETAMINOPHEN 5 MG/325 MG TAB PO PRN ×3 (08:18→20:08)
--- NOTE | 2017-10-22 10:25 | HHI.PR ---
Subjective Remarks No new c/o. Pain well controlled (08/30). Objective Vital Signs Date Time Temp Pulse Resp B/P (MAP) Pulse Ox O2 Delivery O2 Flow Rate FiO2 10/22/17 10:12 81 10/22/17 09:23 18 10/22/17 09:00 72 10/22/17 08:15 97.9 85 16 130/67 (88) 99 10/22/17 08:15 99 Room Air 10/22/17 08:15 78 10/22/17 06:00 84 10/22/17 05:07 76 10/22/17 04:00 77 10/22/17 04:00 98 Room Air 10/22/17 04:00 97.9 77 18 145/76 (99) 98 10/22/17 03:00 80 10/22/17 02:00 78 10/22/17 01:00 79 10/22/17 00:00 98 Room Air 10/22/17 00:00 80 10/21/17 23:30 97.7 82 18 150/77 (101) 98 10/21/17 23:00 82 10/21/17 22:00 81 10/21/17 21:00 82 10/21/17 20:16 99 21 10/21/17 20:16 97.6 88 18 127/65 (85) 100 10/21/17 20:00 93 10/21/17 20:00 98 Room Air 10/21/17 19:00 87 10/21/17 18:00 90 10/21/17 17:00 98 10/21/17 16:00 87 10/21/17 15:25 97.8 92 18 136/75 (95) 99 10/21/17 15:23 99 Room Air 10/21/17 15:00 94 10/21/17 14:00 86 10/21/17 13:00 87 10/21/17 11:14 96 Room Air 10/21/17 11:12 98.4 81 20 139/88 (105) 96 10/21/17 11:00 80 I/O 10/21/17 10/21/17 10/21/17 10/22/17 10/22/17 10/22/17 07:00 15:00 23:00 07:00 15:00 23:00 Intake Total 1965 ml 110 ml 1665 ml 180 ml Output Total 1445 ml 400 ml 850 ml 560 ml Balance 520 ml -290 ml 815 ml -380 ml Intake Oral 120 ml 240 ml 180 ml IV Total 1845 ml 110 ml 1425 ml Output Urine Total 1365 ml 400 ml 740 ml 505 ml Drainage Total 80 ml 110 ml 55 ml # Bowel Movements 1 Result Diagram: 10/22/1742610/22/17426 Objective Remarks Resp: CTAB CV: S1S2 Abd: BS, soft. Approp tender. Wound clean, dry, intact without erythema, fluctuance, or tenderness. Ext: Calves soft, NT B Assessment and Plan Problem List: (1) Hypertension ICD Codes: I10 - Essential (primary) hypertension (2) Diabetes ICD Codes: E11.9 - Type 2 diabetes mellitus without complications Status: Chronic (3) ESRD (end stage renal disease) on dialysis ICD Codes: N18.6 - End stage renal disease; Z99.2 - Dependence on renal dialysis Assessment and Plan 61 yom with CKD-5 due to DM/Htn. s/p renal transplant from a DCD donor. No new complaints at this time. Creatinine remains elevated but seems to have plateaued, Good uop, but I/os and weight. Will give 80 mg of lasix now. Will check lytes this evening. K stable. On Valtessa. Leukopenia improved. Valcyte held. BUN increased, but patient still seems to otherwise be doing well clinically. Will continue to hold off on HD for now. Problem Qualifiers (1) Hypertension: Qualified Codes: I10 - Essential (primary) hypertension Aurelio Samson Jr., MD Oct 22, 2017 10:25
[2017-10-22] MEDS ORDERED: FUROSEMIDE 40 MG/4 ML VIAL IV PUSH ONE (11:00)
[2017-10-22] MEDS ORDERED: CALCIUM CHLORIDE INJ 1 GM in SODIUM CHLORIDE 0.9% INJ 90 ML IV ONE (12:45)
--- NOTE | 2017-10-22 15:18 | HHI.PR ---
Subjective Remarks Patient is sitting up in his chair at bedside today. He has no complaints, his pain is well controlled. I explained that he has some electrolyte imbalance but he is asymptomatic from that. Nausea and vomiting, denies any fevers. Objective Vitals Vital Signs Date Time Temp Pulse Resp B/P (MAP) Pulse Ox O2 Delivery O2 Flow Rate FiO2 10/22/17 15:04 97.6 98 16 151/75 (100) 99 10/22/17 15:04 99 Room Air 10/22/17 11:34 100 Room Air 10/22/17 11:34 97.8 81 16 129/72 (91) 100 10/22/17 10:12 81 10/22/17 09:23 18 10/22/17 09:00 72 10/22/17 08:15 97.9 85 16 130/67 (88) 99 10/22/17 08:15 99 Room Air 10/22/17 08:15 78 10/22/17 08:09 98 21 10/22/17 06:00 84 10/22/17 05:07 76 10/22/17 04:00 77 10/22/17 04:00 98 Room Air 10/22/17 04:00 97.9 77 18 145/76 (99) 98 10/22/17 03:00 80 10/22/17 02:00 78 10/22/17 01:00 79 10/22/17 00:00 98 Room Air 10/22/17 00:00 80 10/21/17 23:30 97.7 82 18 150/77 (101) 98 10/21/17 23:00 82 10/21/17 22:00 81 10/21/17 21:00 82 10/21/17 20:16 99 21 10/21/17 20:16 97.6 88 18 127/65 (85) 100 10/21/17 20:00 93 10/21/17 20:00 98 Room Air 10/21/17 19:00 87 10/21/17 18:00 90 10/21/17 17:00 98 10/21/17 16:00 87 10/21/17 15:25 97.8 92 18 136/75 (95) 99 10/21/17 15:23 99 Room Air I/O 10/21/17 10/21/17 10/21/17 10/22/1718 6/2/18 07:00 15:00 23:00 07:00 15:00 23:00 Intake Total 1965 ml 110 ml 1665 ml 180 ml 865 ml Output Total 1445 ml 400 ml 850 ml 560 ml Balance 520 ml -290 ml 815 ml -380 ml 865 ml Intake Oral 120 ml 240 ml 180 ml IV Total 1845 ml 110 ml 1425 ml 865 ml Output Urine Total 1365 ml 400 ml 740 ml 505 ml Drainage Total 80 ml 110 ml 55 ml # Bowel Movements 1 Result Diagram: 10/22/1742610/22/17426 Objective Remarks GENERAL: Well-nourished, well-developed patient. SKIN: Warm and dry. HEAD: Normocephalic. EYES: No scleral icterus. No injection or drainage. NECK: Supple, trachea midline. No JVD or lymphadenopathy. CARDIOVASCULAR: Regular rate and rhythm without murmurs, gallops, or rubs. RESPIRATORY: Breath sounds equal bilaterally. No accessory muscle use. GASTROINTESTINAL: Abdomen soft, non-tender, nondistended. EXTREMITIES: No cyanosis, or edema. NEUROLOGICAL: Awake, alert, and oriented x 3. Non-focal. Procedures kidney transplant. A/P Problem List: (1) ESRD (end stage renal disease) on dialysis ICD Code: N18.6 - End stage renal disease; Z99.2 - Dependence on renal dialysis Assessment and Plan ESRD s/p renal transplant Previously on peritoneal dialysis management and immunosuppressives per transplant surgery. Appreciate nephrology following Hypocalcemia Replaced previously with no significant change Repeat dosing ordered Follow a.m. labs HTN Continue Norvasc Type 2 diabetes Continue Accu-Cheks and sliding scale insulin coverage Diabetic diet Thrombocytopenia May be related to immunosuppressants Follow-up CBC DVT prophylaxis SCD's Steve Laguerre MD Oct 22, 2017 15:18
[2017-10-22 19:25] LABS: BICARBONATE 11.9 MEQ/L (21.0-32.0); CALCIUM 7.5 MG/DL (8.5-10.1)
[2017-10-22 19:31] LABS: CREATININE 13.92 MG/DL (0.60-1.30)
[2017-10-22] MEDS ORDERED: BUMETANIDE 1 MG TAB PO ONE (19:45)
[2017-10-22] MEDS ORDERED: NON-FORMULARY DRUG IV ONE (20:00)
[2017-10-23] VITALS (7 sets, daily range): BP systolic 127–151; BP diastolic 69–80; PULSE 93–108; RESP 16–20; TEMP 97.7–99; O2SAT 97–99
[2017-10-23] MEDS: PROMETHAZINE INJ 25 MG/ML VIAL IV-CENTRAL PRN ×2 (01:36→06:07)
[2017-10-23] MEDS: oxyCODONE/ACETAMINOPHEN 5 MG/325 MG TAB PO PRN ×3 (01:37→10:45)
[2017-10-23 03:57] LABS: BICARBONATE 13.1 MEQ/L (21.0-32.0); CALCIUM 6.9 MG/DL (8.5-10.1)
[2017-10-23 03:59] LABS: CREATININE 14.12 MG/DL (0.60-1.30)
[2017-10-23 04:12] LABS: CALCIUM-PROTEIN CORRECTED 7.9 MG/DL (8.5-10.1); TOTAL PROTEIN 5.2 GM/DL (6.4-8.2)
[2017-10-23] MEDS: DEXT 5%-NACL 0.45% 1000 ML INJ 1,000 ML IV SCH (05:29)
[2017-10-23] MEDS ORDERED: TAMSULOSIN HCL 0.4 MG CAP PO ONE (05:30)
[2017-10-23] MEDS: MYCOPHENOLATE MOFETIL INJ 1,000 MG in DEXTROSE 5% IN WATE 150 ML INJ 150 ML IV SCH ×4 (06:00→18:00)
[2017-10-23] MEDS: MYCOPHENOLATE MOFETIL 500 MG TAB PO SCH ×2 (06:05→19:35)
[2017-10-23] MEDS: TACROLIMUS 1 MG CAP PO SCH ×2 (06:10→19:35)
[2017-10-23] MEDS: INSULIN ASPART SUPPLEMENTAL SCALE SQ SCH ×4 (08:00→22:00)
[2017-10-23 08:20] LABS: AUTOMATED NEUTROPHIL # 3.4 TH/MM3 (1.8-7.7); BASOPHIL % 0.1 % (0.0-2.0); EOSINOPHIL % 0.1 % (0.0-4.0); HEMOGLOBIN 8.7 GM/DL (13.0-17.0); LYMPH % 0.5 % (9.0-44.0); MEAN CELL VOLUME 90.8 FL (80.0-100.0); MEAN CORPUSCULAR HEMOGLOBIN 30.4 PG (27.0-34.0); MEAN CORPUSCULAR HGB CONC 33.5 % (32.0-36.0); MEAN PLATELET VOLUME 8.3 FL (7.0-11.0); MONO % 6.1 % (0.0-8.0); MONOCYTE # 0.2 TH/MM3 (0-0.9); NEUT % 93.2 % (16.0-70.0); PLATELET COUNT 85 TH/MM3 (150-450); RED BLOOD COUNT 2.86 MIL/MM3 (4.50-5.90); RED CELL DISTRIBUTION WIDTH 16.8 % (11.6-17.2); WHITE BLOOD COUNT 3.6 TH/MM3 (4.0-11.0)
--- NOTE | 2017-10-23 08:29 | HHI.NPPN ---
Subjective History of Present Illness Hx of DDTx 10/17 Interval History Late entry: patient was seen on 10/22/17: on maintenance IVF at 40 ml/hour, also on cc/cc replacement, based on urine output the previous hour. Patient complained of being "heavy". Slight reduction in creatinine is noted. Non oliguric. O/E: Chest clear. Abdomen: soft. Heart:RRR No edema. Medications were reviewed. On CellCept, Prednisone, Tacrolimus after ATG induction. Transplant surgery following. Objective Data Data Vital Signs Date Time Temp Pulse Resp B/P (MAP) Pulse Ox O2 Delivery O2 Flow Rate FiO2 10/23/17 05:54 99 Room Air 10/23/17 04:00 97.9 98 16 127/69 (88) 99 10/23/17 00:00 97.9 108 16 151/77 (101) 98 10/23/17 00:00 99 Room Air 10/22/17 20:00 100 Room Air 10/22/17 20:00 97.6 98 16 142/80 (100) 100 10/22/17 15:19 18 10/22/17 15:04 97.6 98 16 151/75 (100) 99 10/22/17 15:04 99 Room Air 10/22/17 11:34 100 Room Air 10/22/17 11:34 97.8 81 16 129/72 (91) 100 10/22/17 10:12 81 10/22/17 09:00 72 -: 10/22/17 0427 10/23/17 0300 Physical Exam General Appearance: Well Developed, Well Nourished Neck Neck Exam: Neck Supple Pulmonary Resp Exam: Clear Bilaterally, Breath Sounds Equal Cardiology CV Exam: Regular, Normal Sinus Rhythm Gastrointestinal/Abdomen GI Exam: Soft, Non-Tender, Bowel Sounds Present Extremeties Extremities Exam: Moderate Edema Neurologic Neuro Exam: Alert, Awake, Oriented Levon Griffith MD Oct 23, 2017 08:29
--- NOTE | 2017-10-23 08:49 | HHI.PR ---
Subjective Remarks The patient says had a difficult night. He was not able to urinate. Nova was placed with difficulty in the morning. Now with some bloody urine. He also has chills and feels cold. No nausea vomiting. No chest pain. Complains of some shortness of breath however he is saturating well on room air. Objective Vitals Vital Signs Date Time Temp Pulse Resp B/P (MAP) Pulse Ox O2 Delivery O2 Flow Rate FiO2 10/23/17 05:54 99 Room Air 10/23/17 04:00 97.9 98 16 127/69 (88) 99 10/23/17 00:00 97.9 108 16 151/77 (101) 98 10/23/17 00:00 99 Room Air 10/22/17 20:00 100 Room Air 10/22/17 20:00 97.6 98 16 142/80 (100) 100 10/22/17 15:19 18 10/22/17 15:04 97.6 98 16 151/75 (100) 99 10/22/17 15:04 99 Room Air 10/22/17 11:34 100 Room Air 10/22/17 11:34 97.8 81 16 129/72 (91) 100 10/22/17 10:12 81 10/22/17 09:00 72 I/O 10/22/17 10/22/17 10/22/17 10/23/17 10/23/17 10/23/17 07:00 15:00 23:00 07:00 15:00 23:00 Intake Total 180 ml 865 ml 1000 ml 960 ml Output Total 560 ml 1275 ml 640 ml Balance -380 ml 865 ml -275 ml 320 ml Intake Oral 180 ml 600 ml 480 ml IV Total 865 ml 400 ml 480 ml Output Urine Total 505 ml 1125 ml 550 ml Drainage Total 55 ml 150 ml 90 ml # Bowel Movements 1 0 Result Diagram: 10/23/17 0800 10/23/17 0300 Imaging Last Impressions Renal Ultrasound 10/20/17 0000 Signed Impressions: CONCLUSION: 1. Stable examination. 2. Mild diffuse calyceal prominence without hydronephrosis. 3. Patent renal artery and vein with normal renal artery velocities that are m inimally increased from prior exam. Chest X-Ray 10/17/17 0000 Signed Impressions: CONCLUSION: The left subclavian line courses into the left IJ without pneumothorax. Objective Remarks GENERAL: Well-nourished, well-developed patient. CARDIOVASCULAR: Regular rate and rhythm without murmurs, gallops, or rubs. RESPIRATORY: Breath sounds equal bilaterally. No accessory muscle use. GASTROINTESTINAL: Abdomen soft, non-tender, nondistended. EXTREMITIES: No cyanosis, or edema. NEUROLOGICAL: Awake, alert, and oriented x 3. Non-focal. Procedures kidney transplant. A/P Problem List: (1) ESRD (end stage renal disease) on dialysis ICD Code: N18.6 - End stage renal disease; Z99.2 - Dependence on renal dialysis Assessment and Plan ESRD s/p renal transplant Previously on peritoneal dialysis Management and immunosuppressives per transplant surgery. Appreciate nephrology recommendations, following With urinary retention. Nova placed 10/23/17. With some bloody urine likely traumatic He is non oliguric. Creatinine is higher. Recommended dialysis: he was on PD before, still has PD catheter, but if he needs dialysis, he will need Vascath. Per transplant surgeon Dr. Samson, hold off on dialysis at this time. Stop IVF and start diuresis. Continue meds per renal transplant surgeon recommendations Dr Samson: Prednisone 10 mg PO daily, Tacrolimus (dose increased), and CellCept. Received Thymoglobulin induction. Patient is with shortness of breath. Oxygen saturation is well at this time while on room air. He will oxygen supplementation as needed keep oxygen saturation more than 94%. Will do chest x-ray. Add incentive spirometry Hypocalcemia Replaced previously with no significant change Monitor and replace as need HTN Continue Norvasc Type 2 diabetes Continue Accu-Cheks and sliding scale insulin coverage Diabetic diet Thrombocytopenia May be related to immunosuppressants Follow-up CBC DVT prophylaxis SCD's Discussed with the patient, nurse, Dr. Samson transplant surgeon Maxine Perales MD Oct 23, 2017 08:49
[2017-10-23 08:51] LABS: BICARBONATE 13.2 MEQ/L (21.0-32.0); MAGNESIUM 1.7 MG/DL (1.5-2.5); PHOSPHORUS 6.4 MG/DL (2.5-4.9)
[2017-10-23 08:54] LABS: CREATININE 14.03 MG/DL (0.60-1.30)
[2017-10-23] MEDS: PATIROMER CALCIUM SORBITEX 16.8 GM PKT PO SCH (09:00)
[2017-10-23] MEDS: NYSTATIN SUSP 500,000 U/5 ML CUP SWISH-SWAL SCH ×4 (09:01→21:10)
[2017-10-23] MEDS: amLODIPine BESYLATE 5 MG TAB PO SCH (09:02)
[2017-10-23] MEDS: DOCUSATE SODIUM 100 MG CAP PO SCH ×2 (09:02→21:10)
[2017-10-23] MEDS: CALCIUM CARBONATE 500 MG CHEWABLE TAB CHEW SCH ×2 (09:02→16:00)
[2017-10-23] MEDS: predniSONE 10 MG TAB PO SCH (09:02)
[2017-10-23] MEDS: PANTOPRAZOLE SODIUM 40 MG VIAL IV PUSH SCH (09:02)
[2017-10-23 09:11] LABS: CALCIUM-PROTEIN CORRECTED 7.8 MG/DL (8.5-10.1); TOTAL PROTEIN 5.5 GM/DL (6.4-8.2)
[2017-10-23] MEDS ORDERED: FUROSEMIDE 100 MG/10 ML VIAL IV PUSH ONE (09:30)
--- NOTE | 2017-10-23 09:33 | HHI.NPPN ---
Subjective History of Present Illness Hx of DDTx 10/17 Interval History patient with delayed graft function. Creatinine is higher. Complains of being "heavy". Nova had to be reinserted. Given Lasix and Bumex yesterday. Review of Systems General Constitutional: Fatigue Respiratory Lungs: SOB Gastrointestinal Gastrointestinal: Abdominal Pain Objective Data Data Vital Signs Date Time Temp Pulse Resp B/P (MAP) Pulse Ox O2 Delivery O2 Flow Rate FiO2 10/23/17 08:34 98.4 93 18 140/75 (96) 99 10/23/17 05:54 99 Room Air 10/23/17 04:00 97.9 98 16 127/69 (88) 99 10/23/17 00:00 97.9 108 16 151/77 (101) 98 10/23/17 00:00 99 Room Air 10/22/17 20:00 100 Room Air 10/22/17 20:00 97.6 98 16 142/80 (100) 100 10/22/17 15:19 18 10/22/17 15:04 97.6 98 16 151/75 (100) 99 10/22/17 15:04 99 Room Air 10/22/17 11:34 100 Room Air 10/22/17 11:34 97.8 81 16 129/72 (91) 100 10/22/17 10:12 81 -: 10/23/17 0800 10/23/17 0800 Physical Exam General Appearance: Well Developed, Well Nourished Neck Neck Exam: Neck Supple Pulmonary Resp Exam: Clear Bilaterally, Breath Sounds Equal Cardiology CV Exam: Regular, Normal Sinus Rhythm Gastrointestinal/Abdomen GI Remarks PD catheter in place. Patient's abdomen is distended, Diffuse tenderness is noted. Extremeties Extremities Exam: Moderate Edema Neurologic Neuro Exam: Alert, Awake, Oriented Assessment/Plan Problem List: (1) Kidney transplant status ICD Codes: Z94.0 - Kidney transplant status Plan: patient with DGF. He is non oliguric. Creatinine is higher. Patient feels heavy: his weight is higher by almost 14kg. Recommended dialysis: he was on PD before, still has PD catheter, but if he needs dialysis, he will need Vascath. Discussed with Dr. Samson, he wants to hold off on dialysis. At this time, I will stop IVF. Start diuresis. On Prednisone 10 mg PO daily, Tacrolimus (dose increased), and CellCept. Received Thymoglobulin induction. (2) Hypertension ICD Codes: I10 - Essential (primary) hypertension Plan: Stable (3) Diabetes ICD Codes: E11.9 - Type 2 diabetes mellitus without complications Status: Chronic Plan: monitor BG Problem Qualifiers (1) Hypertension: Qualified Codes: I10 - Essential (primary) hypertension Levon Griffith MD Oct 23, 2017 09:33
[2017-10-23] MEDS ORDERED: FUROSEMIDE 40 MG/4 ML VIAL IV PUSH ONE (09:45)
[2017-10-23] MEDS ORDERED: SODIUM CHLOR 0.9% 1000 ML INJ 1,000 ML OTHER PRN ×2 (10:35)
[2017-10-23] MEDS ORDERED: SODIUM CHLOR 0.9% 1000 ML INJ 1,000 ML IV PRN (10:35)
[2017-10-23] MEDS ORDERED: ALBUMIN 25% INJ 100 ML IV PRN (10:45)
[2017-10-23] MEDS ORDERED: HEPARIN SODIUM - IV 10,000 UNITS/10 ML VIAL PRN (10:45)
[2017-10-23] MEDS ORDERED: HEPARIN SODIUM - IV 10,000 UNITS/10 ML VIAL IV FLUSH PRN (10:45)
[2017-10-23] MEDS ORDERED: GELATIN 12 MM/7 MM FOAM TOP PRN (10:45)
[2017-10-23] MEDS ORDERED: NITROGLYCERIN 0.4 MG SL 25 TABS/BTL SL PRN (10:45)
[2017-10-23] MEDS ORDERED: GENTAMICIN SULFATE 20 MG/2 ML VIAL OTHER PRN (10:45)
[2017-10-23] MEDS ORDERED: ACETAMINOPHEN 325 MG TAB PO PRN (10:45)
[2017-10-23] MEDS ORDERED: MANNITOL 12.5 GM/50 ML VIAL IV PRN (10:45)
[2017-10-23] MEDS ORDERED: cloNIDine HCL 0.1 MG TAB PO PRN (10:45)
[2017-10-23] MEDS ORDERED: diphenhydrAMINE HCL 25 MG CAP PO PRN (10:45)
[2017-10-23] MEDS ORDERED: ONDANSETRON ODT 4 MG TAB PO PRN (10:45)
--- NOTE | 2017-10-23 10:45 | HHI.PR ---
Subjective Remarks Patient with some dyspnea on minimal exertion this AM. He says he started noticing some dyspnea last night and then it progressively worsened overnight. He also says that now he feels "heavy". Objective Vital Signs Date Time Temp Pulse Resp B/P (MAP) Pulse Ox O2 Delivery O2 Flow Rate FiO2 10/23/17 08:34 98.4 93 18 140/75 (96) 99 10/23/17 05:54 99 Room Air 10/23/17 04:00 97.9 98 16 127/69 (88) 99 10/23/17 00:00 97.9 108 16 151/77 (101) 98 10/23/17 00:00 99 Room Air 10/22/17 20:00 100 Room Air 10/22/17 20:00 97.6 98 16 142/80 (100) 100 10/22/17 15:19 18 10/22/17 15:04 97.6 98 16 151/75 (100) 99 10/22/17 15:04 99 Room Air 10/22/17 11:34 100 Room Air 10/22/17 11:34 97.8 81 16 129/72 (91) 100 I/O 10/22/17 10/22/17 10/22/17 10/23/17 10/23/17 10/23/17 07:00 15:00 23:00 07:00 15:00 23:00 Intake Total 180 ml 865 ml 1000 ml 960 ml 120 ml Output Total 560 ml 1275 ml 640 ml Balance -380 ml 865 ml -275 ml 320 ml 120 ml Intake Oral 180 ml 600 ml 480 ml IV Total 865 ml 400 ml 480 ml 120 ml Output Urine Total 505 ml 1125 ml 550 ml Drainage Total 55 ml 150 ml 90 ml # Bowel Movements 1 0 Result Diagram: 10/23/17 0800 10/23/17 0800 Objective Remarks Resp - CTAB, but some tachypnea noted. CV - S1S2 Abd - BS, soft. Approp tender. Wound clean, dry, intact without erythema, fluctuance, or tenderness. Some gross hematuria noted (? due to salazar placement vs other) Ext: Calves soft, NT B. 1-2+ peripheral edema noted Assessment and Plan Problem List: (1) Hypertension ICD Codes: I10 - Essential (primary) hypertension (2) Diabetes ICD Codes: E11.9 - Type 2 diabetes mellitus without complications Status: Chronic (3) ESRD (end stage renal disease) on dialysis ICD Codes: N18.6 - End stage renal disease; Z99.2 - Dependence on renal dialysis Assessment and Plan 61 yom with CKD-5 due to DM/Htn. s/p renal transplant from a DCD donor. Patient with delayed graft function. He became symptomatic, it seems overnight and this morning seems to have some mild respiratory insufficiency. Will proceed with HD. Appreciate nephrology input. Clock Repairer will place central line. Dr Griffith will write HD orders. Will get a repeat transplant renal US after he moves to the ICU. Did speak with the community engagement coordinator to contact the other recipient center regarding how the "mate kidney" is functioning: reportedly their patient's creatinine decreased from 3.6 down to 2.25 at discharge on Tuesday. He will update me on that kidney's function when patient is seen at their clinic tomorrow. Will plan to check DSAs tomorow, also. . Problem Qualifiers (1) Hypertension: Qualified Codes: I10 - Essential (primary) hypertension Aurelio Samson Jr., MD Oct 23, 2017 10:45
--- NOTE | 2017-10-23 11:00 | RADRPT ---
EXAM DATE: 10/23/2017 10:26 AM EDT AGE/SEX: 61 years / Male INDICATIONS: Shortness of breath and bilateral chest pain. CLINICAL DATA: This is the patient's initial encounter. Patient reports that signs and symptoms have been present for 2 days and indicates a pain score of 7/10. MEDICAL/SURGICAL HISTORY: None. None. COMPARISON: [facility] [place], CHEST PA & LAT, 10/17/2017. . FINDINGS: PA lateral views of the chest demonstrate mild hypoinflation with linear parenchymal airspace density within the right middle lobe consistent with atelectasis. No evidence of focal airspace abnormality. There is a left-sided PICC line which extends superiorly into the imaged neck. Recommend redirection. CONCLUSION: Abnormal positioning of the left-sided PICC line with the distal aspect of the PICC line extending in to the patient's left internal jugular vein. Recommend repositioning. Mild bilateral atelectasis. Electronically signed by: Deepa Fabian MD 10/23/2017 10:58 AM EDT
--- NOTE | 2017-10-23 12:08 | RADRPT ---
EXAM DATE: 10/23/2017 11:58 AM EDT AGE/SEX: 61 years / Male INDICATIONS: Central line placement. CLINICAL DATA: This is the patient's initial encounter. Patient reports that signs and symptoms have been present for 1 day and indicates a pain score of 4/10. MEDICAL/SURGICAL HISTORY: None. None. COMPARISON: C, CHEST SINGLE AP, 10/17/2017. C, CHEST PA & LAT, 10/23/2017. . FINDINGS: AP portable supine view of the chest is evaluated with prior exam obtained 30 minutes prior. The left -sided PICC line remains abnormally positioned with the tip projecting beyond the imaged portion of t he exam into the left internal jugular vein. There appears to be a new right-sided central line with the tip overlying the right atrium. Recommend retraction approximately 6 cm. Lungs are mildly hypoinflated with atelectasis. CONCLUSION: Left-sided PICC line is abnormally positioned with the tip in the left internal jugular vein. New rig ht-sided central line overlying the right cardiac border and terminating over the right atrium. Recom mend repositioning both lines. Electronically signed by: Deepa Fabian MD 10/23/2017 12:06 PM EDT
--- NOTE | 2017-10-23 13:38 | RADRPT ---
EXAM DATE: 10/23/2017 1:25 PM EDT AGE/SEX: 61 years / Male INDICATIONS: Hematuria. CLINICAL DATA: This is the patient's subsequent encounter. Patient reports that signs and symptoms h ave been present for 1 week and indicates a pain score of 1/10. MEDICAL/SURGICAL HISTORY: . Carcinoma, prostatic. Hypertension. Diabetes. ESRD. . Renal transp lant. PD catheter. Bilateral cataracts. COMPARISON: [facility] [place], [place], KIDNEY / TRANSPLANT, 10/20/2017. [facility] [place], [place], KIDNEY / TRANSPLANT, 10/18/2017. . No external comparison. MEASUREMENTS: Transplant Kidney:__10.0 x 5.9 x 5.8 Location:__Right lower quadrant Arcuate Arteries Resistive Index: Upper - 0.89 Mid - Lower - 0.84 Main Renal Artery Velocity:__153 Main Renal Vein:__Patent External Iliac Artery Velocity:__173 External Iliac Vein:__Patent FINDINGS: Transplant Kidney: Normal cortical thickness and echotexture. No hydronephrosis, stone, or mass. N o peritransplant fluid collection. Resistive indices are slightly increased from prior exam but demon strate normal waveforms with preserved diastolic flow. Main renal artery peak systolic velocity is in creased at 1 52 cm/s, increased from prior exam which measured 94.5 cm/s. The renal vein is patent. Urinary Bladder: Within normal limits given the degree of distension. CONCLUSION: 1. The transplant could the maintains normal cortical thickness and echogenicity without evidence of hydronephrosis or abnormal adjacent fluid collection. The resistive indices and main renal artery ve locity has increased from prior exam. Electronically signed by: Deepa Fabian MD 10/23/2017 1:37 PM EDT
[2017-10-23 14:40] LABS: AMORPHOUS SEDIMENT, URINE RARE; BACTERIA, URINE OCC /hpf; BILIRUBIN, URINE NEG (NEG); BLOOD, URINE LARGE (NEG); GLUCOSE,URINE NEG (NEG); KETONE, URINE NEG (NEG); NITRITE,URINE NEG (NEG); SQUAMOUS EPITHELIAL CELL URINE 4 /hpf (0-5); URINE COLOR RED (YELLW/STRAW); URINE LEUKOCYTE ESTERASE SMALL (NEG)
[2017-10-23] MEDS: SODIUM CHLORIDE 0.9% FLUSH 10 ML FLUSH IV FLUSH PRN (15:56)
[2017-10-23 16:02] LABS: AUTOMATED NEUTROPHIL # 2.1 TH/MM3 (1.8-7.7); BASOPHIL % 0.1 % (0.0-2.0); EOSINOPHIL % 0.6 % (0.0-4.0); HEMATOCRIT 27.2 % (39.0-51.0); HEMOGLOBIN 9.2 GM/DL (13.0-17.0); LYMPH % 0.9 % (9.0-44.0); MEAN CELL VOLUME 89.7 FL (80.0-100.0); MEAN CORPUSCULAR HEMOGLOBIN 30.3 PG (27.0-34.0); MEAN CORPUSCULAR HGB CONC 33.7 % (32.0-36.0); MEAN PLATELET VOLUME 8.1 FL (7.0-11.0); MONO % 4.1 % (0.0-8.0); MONOCYTE # 0.1 TH/MM3 (0-0.9); NEUT % 94.3 % (16.0-70.0); PLATELET COUNT 88 TH/MM3 (150-450); RED BLOOD COUNT 3.04 MIL/MM3 (4.50-5.90); RED CELL DISTRIBUTION WIDTH 16.5 % (11.6-17.2); WHITE BLOOD COUNT 2.2 TH/MM3 (4.0-11.0)
--- NOTE | 2017-10-23 16:55 | PD.PROCEDR ---
Procedure Note Procedure Central Line Procedure Note Right IJ 14 [place] 20 cm dialysis catheter Diagnosis: Delayed primary graft function Indications: Delayed primary graft function with need for urgent renal replacement therapy Consent: Obtained from the patient Anesthesia: 1% lidocaine locally Description of the Procedure: The patient was placed in the supine, mild- Trendelenburg position. The area was prepped and draped sterilely. A 19g needle was inserted under negative pressure aspiration and dark venous blood was obtained. A guidewire was inserted easily without resistance. A small incision was made using a #11 blade. Using a modified Seldinger technique, the dilator and 14 [place], 20 cm catheter were advanced over the guidewire without resistance. All ports were aspirated and flushed, and had brisk blood return. The line was secured at the skin using 2-0 silk interrupted sutures. Suture was used because a non-suture StatLock device would not fit the configuration of the dialysis catheter. A Biopatch and Transparent sterile dressing were applied. There were no immediate complications noted. There was minimal EBL. The patient tolerated the procedure well. Ultrasound Guidance: Ultrasound guidance was used to identify the right internal jugular vein. The vascular anatomy of the right anterior neck was normal. The vessel was cannulated under direct, real-time ultrasound visualization. After placement of the guidewire, confirmation of the guidewire in the lumen of the vessel was made using ultrasound visualization, before dilation of the tract. A Chest x-ray has been ordered. I personally performed the procedure. Corby Guy MD Oct 23, 2017 16:54
[2017-10-23] MEDS: FUROSEMIDE 40 MG/4 ML VIAL IV PUSH SCH (19:36)
[2017-10-24] VITALS (13 sets, daily range): BP systolic 120–170; BP diastolic 66–89; PULSE 84–110; RESP 16–20; TEMP 97.7–98.5; O2SAT 95–99
[2017-10-24] MEDS: LABETALOL HCL 100 MG/20 ML VIAL IV PUSH PRN (00:05)
[2017-10-24] MEDS: MYCOPHENOLATE MOFETIL INJ 1,000 MG in DEXTROSE 5% IN WATE 150 ML INJ 150 ML IV SCH ×2 (06:00)
[2017-10-24] MEDS: TACROLIMUS 1 MG CAP PO SCH ×2 (06:10→17:12)
[2017-10-24] MEDS: MYCOPHENOLATE MOFETIL 500 MG TAB PO SCH ×2 (06:10→17:13)
[2017-10-24] MEDS: PROMETHAZINE INJ 25 MG/ML VIAL IV-CENTRAL PRN (06:15)
[2017-10-24 06:54] LABS: BASOPHIL % 0.1 % (0.0-2.0); EOSINOPHIL % 0.2 % (0.0-4.0); HEMATOCRIT 24.2 % (39.0-51.0); HEMOGLOBIN 8.3 GM/DL (13.0-17.0); LYMPH % 0.3 % (9.0-44.0); MEAN CELL VOLUME 89.3 FL (80.0-100.0); MEAN CORPUSCULAR HEMOGLOBIN 30.5 PG (27.0-34.0); MEAN CORPUSCULAR HGB CONC 34.1 % (32.0-36.0); MEAN PLATELET VOLUME 8.9 FL (7.0-11.0); MONO % 6.1 % (0.0-8.0); MONOCYTE # 0.4 TH/MM3 (0-0.9); NEUT % 93.3 % (16.0-70.0); PLATELET COUNT 100 TH/MM3 (150-450); RED BLOOD COUNT 2.71 MIL/MM3 (4.50-5.90); RED CELL DISTRIBUTION WIDTH 16.7 % (11.6-17.2); WHITE BLOOD COUNT 6.4 TH/MM3 (4.0-11.0)
[2017-10-24 07:27] LABS: BICARBONATE 18.7 MEQ/L (21.0-32.0); CALCIUM 7.5 MG/DL (8.5-10.1); MAGNESIUM 1.9 MG/DL (1.5-2.5); PHOSPHORUS 6.6 MG/DL (2.5-4.9)
[2017-10-24 07:43] LABS: CREATININE 10.4 MG/DL (0.60-1.30)
[2017-10-24] MEDS: INSULIN ASPART SUPPLEMENTAL SCALE SQ SCH ×4 (08:00→21:00)
--- NOTE | 2017-10-24 08:09 | HHI.PR ---
Subjective Remarks She is in the chair. Had dialysis yesterday. We will hold dialysis today. As creatinine improved after dialysis. Patient feels very weak he has some nausea and is taking sips of hot tea at this time. He received Zofran seems better. Has a Nova in and urine is dark however nonbloody at this time. No fever chills no nausea or vomiting no diarrhea. Has constipation. Objective Vitals Vital Signs Date Time Temp Pulse Resp B/P (MAP) Pulse Ox O2 Delivery O2 Flow Rate FiO2 10/24/17 07:00 88 10/24/17 07:00 98.5 87 16 120/74 (89) 99 10/24/17 07:00 99 Nasal Cannula 2.00 10/24/17 04:00 98 Nasal Cannula 2.00 10/24/17 04:00 88 10/24/17 04:00 98.4 89 18 141/76 (97) 98 10/24/17 00:00 98 10/24/17 00:00 99 Nasal Cannula 2.00 10/24/17 00:00 98.3 99 20 170/89 (116) 98 10/23/17 21:43 98 Nasal Cannula 2.00 10/23/17 20:00 99.0 97 20 151/77 (101) 99 10/23/17 20:00 96 10/23/17 20:00 99 Nasal Cannula 2.00 10/23/17 19:00 99 Nasal Cannula 3.00 10/23/17 15:00 97.7 98 16 138/80 (99) 99 10/23/17 11:00 98.5 98 16 139/77 (97) 97 10/23/17 08:34 98.4 93 18 140/75 (96) 99 I/O 10/23/17 10/23/17 10/23/17 10/24/17 10/24/17 10/24/17 07:00 15:00 23:00 07:00 15:00 23:00 Intake Total 960 ml 120 ml 240 ml 440 ml Output Total 640 ml 4880 ml 420 ml Balance 320 ml 120 ml -4640 ml 20 ml Intake Oral 480 ml 240 ml 440 ml IV Total 480 ml 120 ml Output Urine Total 550 ml 1050 ml 400 ml Drainage Total 90 ml 30 ml 20 ml Hemodialysis 3800 ml # Bowel Movements 0 1 Result Diagram: 10/24/17 0600 10/24/17 0600 Imaging Last Impressions Renal Ultrasound 10/23/17 0000 Signed Impressions: CONCLUSION: 1. The transplant could the maintains normal cortical thickness and echogenici ty without evidence of hydronephrosis or abnormal adjacent fluid collection. Th e resistive indices and main renal artery velocity has increased from prior exa m. Chest X-Ray 10/23/17 0000 Signed Impressions: CONCLUSION: Left-sided PICC line is abnormally positioned with the tip in the left internal jugular vein. New right-sided central line overlying the right cardiac border and terminating over the right atrium. Recommend repositioning both lines. Objective Remarks GENERAL: Well-nourished, well-developed patient. CARDIOVASCULAR: Regular rate and rhythm without murmurs, gallops, or rubs. RESPIRATORY: Breath sounds equal bilaterally. No accessory muscle use. GASTROINTESTINAL: Abdomen soft, non-tender, nondistended. EXTREMITIES: No cyanosis, or edema. NEUROLOGICAL: Awake, alert, and oriented x 3. Non-focal. Procedures kidney transplant. A/P Problem List: (1) ESRD (end stage renal disease) on dialysis ICD Code: N18.6 - End stage renal disease; Z99.2 - Dependence on renal dialysis Assessment and Plan ESRD s/p renal transplant UTI Previously on peritoneal dialysis Management and immunosuppressives per transplant surgery. Appreciate nephrology recommendations, following With urinary retention. Nova placed 10/23/17. With some bloody urine likely traumatic He is non oliguric. Creatinine is higher. Recommended dialysis: he was on PD before, still has PD catheter. Had HD . Per transplant surgeon Dr. Samson, hold off on dialysis at this time. Plan for renal biopsy 10/25/17. Plan to remove Nova 10/25. Started Rocephin IV antibiotics. Monitor urine cultures Stop IVF and start diuresis. Continue meds per renal transplant surgeon recommendations Dr Samson: Prednisone 10 mg PO daily, Tacrolimus (dose increased), and CellCept. Received Thymoglobulin induction. Patient is with shortness of breath improving after dialysis., Oxygen saturation is well at this time while on room air. He will oxygen supplementation as needed keep oxygen saturation more than 94%. Chest x-ray with atelectasis. Add incentive spirometry constipation. Constipation: Bowel regimen. Hypocalcemia Replaced previously with no significant change Monitor and replace as need HTN Continue Norvasc Type 2 diabetes Continue Accu-Cheks and sliding scale insulin coverage Diabetic diet Thrombocytopenia May be related to immunosuppressants Follow-up CBC DVT prophylaxis SCD's Discussed with the patient, nurse, Dr. Samson transplant surgeon Discharge plan: Plan for renal biopsy 10/25. Maxine Perales MD Oct 24, 2017 08:09
--- NOTE | 2017-10-24 09:22 | HHI.PR ---
Subjective Remarks Feels constipated. otherwise feels better. Objective Vital Signs Date Time Temp Pulse Resp B/P (MAP) Pulse Ox O2 Delivery O2 Flow Rate FiO2 10/24/17 07:00 88 10/24/17 07:00 98.5 87 16 120/74 (89) 99 10/24/17 07:00 99 Nasal Cannula 2.00 10/24/17 04:00 98 Nasal Cannula 2.00 10/24/17 04:00 88 10/24/17 04:00 98.4 89 18 141/76 (97) 98 10/24/17 00:00 98 10/24/17 00:00 99 Nasal Cannula 2.00 10/24/17 00:00 98.3 99 20 170/89 (116) 98 10/23/17 21:43 98 Nasal Cannula 2.00 10/23/17 20:00 99.0 97 20 151/77 (101) 99 10/23/17 20:00 96 10/23/17 20:00 99 Nasal Cannula 2.00 10/23/17 19:00 99 Nasal Cannula 3.00 10/23/17 15:00 97.7 98 16 138/80 (99) 99 10/23/17 11:00 98.5 98 16 139/77 (97) 97 I/O 10/23/17 10/23/17 10/23/17 10/24/17 10/24/17 10/24/17 07:00 15:00 23:00 07:00 15:00 23:00 Intake Total 960 ml 120 ml 240 ml 440 ml Output Total 640 ml 4880 ml 420 ml Balance 320 ml 120 ml -4640 ml 20 ml Intake Oral 480 ml 240 ml 440 ml IV Total 480 ml 120 ml Output Urine Total 550 ml 1050 ml 400 ml Drainage Total 90 ml 30 ml 20 ml Hemodialysis 3800 ml # Bowel Movements 0 1 Result Diagram: 10/24/17 0600 10/24/17 0600 Objective Remarks Resp - CTAB,. CV - S1S2 Abd - BS, soft. Approp tender. Wound clean, dry, intact without erythema, fluctuance, or tenderness. Hematuria improved. Ext: Calves soft, NT B. Peripheral edema improved Assessment and Plan Problem List: (1) Hypertension ICD Codes: I10 - Essential (primary) hypertension (2) Diabetes ICD Codes: E11.9 - Type 2 diabetes mellitus without complications Status: Chronic (3) ESRD (end stage renal disease) on dialysis ICD Codes: N18.6 - End stage renal disease; Z99.2 - Dependence on renal dialysis Assessment and Plan 61 yom with CKD-5 due to DM/Htn. s/p renal transplant from a DCD donor. Patient with delayed graft function. Feels better after HD yesterday. DSA ordered. Has some constipation today. Will treat constipation, then plan to do a transplant renal biopsy tomorrow. Okay to transfer back to [facility]. Will assess need for further HD on an ongoing basis.Ceftriaxone started for possible UTI. Salazar still back in for high PVRs. Will plan to remove salazar tomorrow (after 48 + hours of Flomax initiation) Problem Qualifiers (1) Hypertension: Qualified Codes: I10 - Essential (primary) hypertension Aurelio Samson Jr., MD Oct 24, 2017 09:22
[2017-10-24] MEDS ORDERED: EPOETIN ALFA 4,000 UNITS/ML VIAL SQ ONE (10:00)
[2017-10-24] MEDS: SODIUM CHLORIDE 0.9% FLUSH 10 ML FLUSH IV FLUSH PRN (10:33)
[2017-10-24] MEDS: cefTRIAXone INJ 1,000 MG in SODIUM CHLORIDE 0.9% INJ 100 ML IV SCH (10:33)
[2017-10-24] MEDS: POLYETHYLENE GLYCOL 17 GM PKG PO SCH (10:33)
[2017-10-24] MEDS: NYSTATIN SUSP 500,000 U/5 ML CUP SWISH-SWAL SCH ×4 (10:33→21:36)
[2017-10-24] MEDS: CALCIUM CARBONATE 500 MG CHEWABLE TAB CHEW SCH ×2 (10:33→16:47)
[2017-10-24] MEDS: PANTOPRAZOLE SODIUM 40 MG VIAL IV PUSH SCH (10:33)
[2017-10-24] MEDS: FUROSEMIDE 40 MG/4 ML VIAL IV PUSH SCH ×2 (10:34→17:12)
[2017-10-24] MEDS: DOCUSATE SODIUM 100 MG CAP PO SCH ×2 (10:34→21:36)
[2017-10-24] MEDS: amLODIPine BESYLATE 5 MG TAB PO SCH (10:35)
[2017-10-24] MEDS: TAMSULOSIN HCL 0.4 MG CAP PO SCH (10:35)
[2017-10-24] MEDS: predniSONE 10 MG TAB PO SCH (10:35)
--- NOTE | 2017-10-24 11:02 | HHI.NPPN ---
Subjective History of Present Illness Hx of DDTx 10/17 Review of Systems General Constitutional: Fatigue Respiratory Lungs: SOB Gastrointestinal Gastrointestinal: Abdominal Pain Objective Data Data Vital Signs Date Time Temp Pulse Resp B/P (MAP) Pulse Ox O2 Delivery O2 Flow Rate FiO2 10/24/17 07:00 88 10/24/17 07:00 98.5 87 16 120/74 (89) 99 10/24/17 07:00 99 Nasal Cannula 2.00 10/24/17 04:00 98 Nasal Cannula 2.00 10/24/17 04:00 88 10/24/17 04:00 98.4 89 18 141/76 (97) 98 10/24/17 00:00 98 10/24/17 00:00 99 Nasal Cannula 2.00 10/24/17 00:00 98.3 99 20 170/89 (116) 98 10/23/17 21:43 98 Nasal Cannula 2.00 10/23/17 20:00 99.0 97 20 151/77 (101) 99 10/23/17 20:00 96 10/23/17 20:00 99 Nasal Cannula 2.00 10/23/17 19:00 99 Nasal Cannula 3.00 10/23/17 15:00 97.7 98 16 138/80 (99) 99 -: 10/24/17 0600 10/24/17 0600 Microbiology 10/23/17 Urine Culture, Received Pending Physical Exam General Appearance: Well Developed, Well Nourished Neck Neck Exam: Neck Supple Pulmonary Resp Exam: Clear Bilaterally, Breath Sounds Equal Cardiology CV Exam: Regular, Normal Sinus Rhythm Extremeties Extremities Exam: Moderate Edema Neurologic Neuro Exam: Alert, Awake, Oriented Assessment/Plan Problem List: (1) Kidney transplant status ICD Codes: Z94.0 - Kidney transplant status Plan: patient with DGF. He is non oliguric. Creatinine is higher. he was in ICU passing more urine cr declined after hemodialysis 3.8 L off, on Lasix 80 mg IV q 12 On Prednisone 10 mg PO daily, Tacrolimus (dose increased), and CellCept. Received Thymoglobulin induction. (2) Hypertension ICD Codes: I10 - Essential (primary) hypertension Plan: Stable (3) Diabetes ICD Codes: E11.9 - Type 2 diabetes mellitus without complications Status: Chronic Plan: monitor BG Problem Qualifiers (1) Hypertension: Qualified Codes: I10 - Essential (primary) hypertension Anne Gibson MD Oct 24, 2017 11:02
[2017-10-24] MEDS: PATIROMER CALCIUM SORBITEX 16.8 GM PKT PO SCH (13:25)
[2017-10-24] MEDS: ONDANSETRON ODT 4 MG TAB PO PRN ×2 (17:17→21:36)
[2017-10-24] MEDS: oxyCODONE/ACETAMINOPHEN 5 MG/325 MG TAB PO PRN (21:38)
[2017-10-25] VITALS (20 sets, daily range): BP systolic 132–155; BP diastolic 63–79; PULSE 80–105; RESP 16–18; TEMP 97.7–99.3; O2SAT 94–99
[2017-10-25] MEDS: PROMETHAZINE INJ 25 MG/ML VIAL IV-CENTRAL PRN (03:30)
[2017-10-25 05:16] LABS: AUTOMATED NEUTROPHIL # 5.4 TH/MM3 (1.8-7.7); BASOPHIL % 0.1 % (0.0-2.0); EOSINOPHIL % 0.3 % (0.0-4.0); HEMOGLOBIN 7.7 GM/DL (13.0-17.0); LYMPH % 0.6 % (9.0-44.0); MEAN CELL VOLUME 90.1 FL (80.0-100.0); MEAN CORPUSCULAR HGB CONC 33.3 % (32.0-36.0); MEAN PLATELET VOLUME 7.7 FL (7.0-11.0); MONO % 5.7 % (0.0-8.0); MONOCYTE # 0.3 TH/MM3 (0-0.9); NEUT % 93.3 % (16.0-70.0); PLATELET COUNT 122 TH/MM3 (150-450); RED BLOOD COUNT 2.56 MIL/MM3 (4.50-5.90); RED CELL DISTRIBUTION WIDTH 16.9 % (11.6-17.2); WHITE BLOOD COUNT 5.8 TH/MM3 (4.0-11.0)
[2017-10-25 05:50] LABS: BICARBONATE 16.6 MEQ/L (21.0-32.0); CALCIUM 7.2 MG/DL (8.5-10.1); PHOSPHORUS 6.4 MG/DL (2.5-4.9)
[2017-10-25 05:52] LABS: CREATININE 10.9 MG/DL (0.60-1.30)
[2017-10-25 06:14] LABS: CALCIUM-PROTEIN CORRECTED 7.9 MG/DL (8.5-10.1); TOTAL PROTEIN 5.7 GM/DL (6.4-8.2)
[2017-10-25] MEDS: MYCOPHENOLATE MOFETIL 500 MG TAB PO SCH ×2 (06:39→17:24)
[2017-10-25] MEDS: TACROLIMUS 1 MG CAP PO SCH ×2 (06:39→17:24)
[2017-10-25] MEDS: ONDANSETRON ODT 4 MG TAB PO PRN (07:33)
[2017-10-25] MEDS: INSULIN ASPART SUPPLEMENTAL SCALE SQ SCH ×4 (08:00→21:01)
[2017-10-25] MEDS: NYSTATIN SUSP 500,000 U/5 ML CUP SWISH-SWAL SCH ×4 (08:59→21:01)
[2017-10-25] MEDS: TAMSULOSIN HCL 0.4 MG CAP PO SCH (08:59)
[2017-10-25] MEDS: amLODIPine BESYLATE 5 MG TAB PO SCH (08:59)
[2017-10-25] MEDS: predniSONE 10 MG TAB PO SCH (08:59)
[2017-10-25] MEDS: cefTRIAXone INJ 1,000 MG in SODIUM CHLORIDE 0.9% INJ 100 ML IV SCH (08:59)
[2017-10-25] MEDS: POLYETHYLENE GLYCOL 17 GM PKG PO SCH (08:59)
[2017-10-25] MEDS: DOCUSATE SODIUM 100 MG CAP PO SCH ×2 (08:59→21:01)
[2017-10-25] MEDS: CALCIUM CARBONATE 500 MG CHEWABLE TAB CHEW SCH ×2 (08:59→15:58)
[2017-10-25] MEDS: PATIROMER CALCIUM SORBITEX 16.8 GM PKT PO SCH (09:00)
[2017-10-25] MEDS: FUROSEMIDE 40 MG/4 ML VIAL IV PUSH SCH ×2 (09:00→17:24)
[2017-10-25] MEDS: PANTOPRAZOLE SODIUM 40 MG VIAL IV PUSH SCH (09:00)
[2017-10-25] MEDS: PROCHLORPERAZINE INJ 10 MG/2 ML VIAL IV PUSH PRN ×2 (09:00→18:40)
--- NOTE | 2017-10-25 09:18 | HHI.PR ---
Subjective Remarks Some nausea this AM. improving with anti-emetics. Had BM, but still feels constipated. otherwise feels better than yesterday. Objective Vital Signs Date Time Temp Pulse Resp B/P (MAP) Pulse Ox O2 Delivery O2 Flow Rate FiO2 10/25/17 05:00 86 10/25/17 04:00 99 Room Air 10/25/17 04:00 98.1 89 16 139/67 (91) 99 10/25/17 04:00 84 10/25/17 03:00 90 10/25/17 02:00 80 10/25/17 01:00 82 10/25/17 00:00 98.2 90 16 134/63 (86) 98 10/25/17 00:00 84 10/25/17 00:00 93 Room Air 10/24/17 23:00 84 10/24/17 22:00 84 10/24/17 21:00 86 10/24/17 20:29 98 Room Air 10/24/17 20:26 98.2 90 16 128/66 (86) 98 10/24/17 20:00 86 10/24/17 19:00 86 10/24/17 17:10 97.7 89 16 147/76 (99) 99 10/24/17 15:00 98.0 90 16 149/75 (99) 95 10/24/17 15:00 110 10/24/17 15:00 95 Room Air 10/24/17 14:00 96 21 10/24/17 11:00 95 Room Air 10/24/17 11:00 97.7 94 16 132/74 (93) 99 10/24/17 11:00 95 I/O 10/24/17 10/24/17 10/24/17 10/25/17 10/25/17 10/25/17 07:00 15:00 23:00 07:00 15:00 23:00 Intake Total 440 ml 380 ml Output Total 420 ml 530 ml 1025 ml Balance 20 ml -530 ml -645 ml Intake Oral 440 ml 380 ml Output Urine Total 400 ml 500 ml 1000 ml Drainage Total 20 ml 30 ml 25 ml # Bowel Movements 1 0 Result Diagram: 10/25/1744410/25/17444 Objective Remarks Resp: CTAB,. CV: S1S2 Abd: BS, soft. Approp tender. Wound clean, dry, intact without erythema, fluctuance, or tenderness. . Ext: Calves soft, NT B. Peripheral edema improved Assessment and Plan Problem List: (1) Hypertension ICD Codes: I10 - Essential (primary) hypertension (2) Diabetes ICD Codes: E11.9 - Type 2 diabetes mellitus without complications Status: Chronic (3) ESRD (end stage renal disease) on dialysis ICD Codes: N18.6 - End stage renal disease; Z99.2 - Dependence on renal dialysis Assessment and Plan 61 yom with CKD-5 due to DM/Htn. s/p renal transplant from a DCD donor. Patient with delayed graft function. Some nausea this AM. Anti-emetics prn. Still with some constipation. Continue bowel regimen. Creatinine remains elevated. Good UOP. DSA drawn yesterday and pending. Renal biopsy today. Will hold off on HD today Problem Qualifiers (1) Hypertension: Qualified Codes: I10 - Essential (primary) hypertension Aurelio Samson Jr., MD Oct 25, 2017 09:18
[2017-10-25 09:47] LABS: PROTHROMBIN TIME - PATIENT 10.3 SEC (9.8-11.6)
[2017-10-25] MEDS ORDERED: fentaNYL CITRATE 250 MCG/5 ML AMP ONE (10:53)
[2017-10-25] MEDS ORDERED: MIDAZOLAM HCL 5 MG/5 ML VIAL ONE (10:53)
[2017-10-25] MEDS ORDERED: IRON SUCROSE INJ 100 MG in SODIUM CHLORIDE 0.9% INJ 100 ML IV ONE (11:00)
--- NOTE | 2017-10-25 11:25 | PD.RAD ---
Post US Procedure Prog Note Pre Procedure Diagnosis: (1) Renal transplant disorder Post Procedure Diagnosis: (1) Renal transplant disorder Procedure Date: Oct 25, 2017 Supervising Radiologist: Wallace Hoffman Proceduralist/Assist: Carlota Magana RDMS Anesthesia: Conscious Sedation Plan of Activity Patient to Unit: [facility] Patient Condition: Good See PACS Report for procedural detail/treatment Biopsy Imaging Guidance: Ultrasound Side: Right Biopsy Procedure: Kidney Site: right pelvis renal transplant Specimen: Core Biopsy Additional Detail: 2 18G cores obtained. Plan monitor in [facility] then return to floor. Wallace Hoffman MD Oct 25, 2017 11:25
--- NOTE | 2017-10-25 11:47 | HHI.NPPN ---
Subjective History of Present Illness Hx of DDTx 10/17 Review of Systems General Constitutional: Fatigue Respiratory Lungs: SOB Gastrointestinal Gastrointestinal: Abdominal Pain Objective Data Data Vital Signs Date Time Temp Pulse Resp B/P (MAP) Pulse Ox O2 Delivery O2 Flow Rate FiO2 10/25/17 11:38 98.7 86 17 154/73 (100) 94 10/25/17 10:30 99.3 98 18 146/79 (101) 99 10/25/17 10:04 86 10/25/17 09:50 82 10/25/17 08:00 97.8 90 18 132/66 (88) 98 10/25/17 08:00 84 10/25/17 08:00 98 Room Air 10/25/17 05:00 86 10/25/17 04:00 99 Room Air 10/25/17 04:00 98.1 89 16 139/67 (91) 99 10/25/17 04:00 84 10/25/17 03:00 90 10/25/17 02:00 80 10/25/17 01:00 82 10/25/17 00:00 98.2 90 16 134/63 (86) 98 10/25/17 00:00 84 10/25/17 00:00 93 Room Air 10/24/17 23:00 84 10/24/17 22:00 84 10/24/17 21:00 86 10/24/17 20:29 98 Room Air 10/24/17 20:26 98.2 90 16 128/66 (86) 98 10/24/17 20:00 86 10/24/17 19:00 86 10/24/17 17:10 97.7 89 16 147/76 (99) 99 10/24/17 15:00 98.0 90 16 149/75 (99) 95 10/24/17 15:00 110 10/24/17 15:00 95 Room Air 10/24/17 14:00 96 21 -: 10/25/17 0445 10/25/17 0445 Physical Exam General Appearance: Well Developed, Well Nourished Neck Neck Exam: Neck Supple Pulmonary Resp Exam: Clear Bilaterally, Breath Sounds Equal Cardiology CV Exam: Regular, Normal Sinus Rhythm Extremeties Extremities Exam: Moderate Edema Neurologic Neuro Exam: Alert, Awake, Oriented Assessment/Plan Problem List: (1) Kidney transplant status ICD Codes: Z94.0 - Kidney transplant status Plan: patient with DGF. He is non oliguric. Creatinine is higher. s/p kidney biopsy passing more urine cr declined after hemodialysis 3.8 L off, on Lasix 80 mg IV q 12 On Prednisone 10 mg PO daily, Tacrolimus, and CellCept. Received Thymoglobulin induction. (2) Hypertension ICD Codes: I10 - Essential (primary) hypertension Plan: Stable (3) Diabetes ICD Codes: E11.9 - Type 2 diabetes mellitus without complications Status: Chronic Plan: monitor BG Problem Qualifiers (1) Hypertension: Qualified Codes: I10 - Essential (primary) hypertension Anne Gibson MD Oct 25, 2017 11:47
--- NOTE | 2017-10-25 11:55 | RADRPT ---
EXAM DATE: 10/25/2017 11:51 AM EDT AGE/SEX: 61 years / Male INDICATIONS: Right kidney transplant failure. CLINICAL DATA: This is the patient's initial encounter. Patient reports that signs and symptoms have been present for 1 day and indicates a pain score of 0/10. MEDICAL/SURGICAL HISTORY: . Carcinoma, prostatic. Hypertension. Diabetes. ESRD. . Renal transp lant. PD catheter. Bilateral cataracts. COMPARISON: [facility] [place], 10/23/2017. . MEDICATION(S): 1.5 mg midazolam (Versed) IV 100 micrograms fentanyl (Sublimaze) IV ORGAN: Right transplant kidney. SPECIMEN(S): Two core specimen(s) submitted for pathologic evaluation. DEVICE(S): 18 gauge Bio Pince needle SEDATION TIME (min): 20 mins Post procedure scanning reveals no hematoma or other complication. The possibility does exist that the tissue obtained will be non-diagnostic. If the sample is non-diag nostic, a repeat biopsy or surgical biopsy may need to be performed. TECHNIQUE: 1. Ultrasound guidance for needle biopsy. 2. Needle biopsy. 3. Conscious sedation with continuous EKG and oximetry monitoring. 4. EKG and oximetry remained stable throughout the procedure. . . The risks, benefits and alternatives to the procedure were explained and verbal and written consent w as obtained. The site was prepped in sterile fashion. Full sterile technique was used, including ca p, mask, sterile gloves and gown and a large sterile sheet. Hand hygiene and 2% chlorhexidine and/or betadine/alcohol prep was utilized per protocol for cutaneous antisepsis. The skin and subcutaneous tissues were infiltrated with local anesthetic solution. Sterile gel and sterile probe cover were u tilized for ultrasound guidance. With the patient on the ultrasound table, images were obtained. The right lower quadrant renal transp lant demonstrates no hydronephrosis. A needle was advanced into lower pole of the renal transplant and 2 samples were obtained. The patient tolerated the procedure well and left the ultrasound suite in stable condition. CONCLUSION: Uncomplicated right lower quadrant renal transplant biopsy. Electronically signed by: Wallace Hoffman MD 10/25/2017 11:54 AM EDT
[2017-10-25] MEDS ORDERED: LIDOCAINE HCL 1% 20 ML VIAL ONE (11:59)
--- NOTE | 2017-10-25 14:48 | HHI.PR ---
Subjective Remarks For kidney biopsy today. Feels better No events overnight. No sob, sattign well on room air. Objective Vitals Vital Signs Date Time Temp Pulse Resp B/P (MAP) Pulse Ox O2 Delivery O2 Flow Rate FiO2 10/25/17 14:00 87 10/25/17 13:10 87 10/25/17 12:43 105 10/25/17 12:43 98 Room Air 10/25/17 12:43 97.7 97 18 145/70 (95) 98 10/25/17 12:08 89 17 151/75 (100) 96 10/25/17 11:53 84 18 155/79 (104) 96 10/25/17 11:38 98.7 86 17 154/73 (100) 94 10/25/17 10:30 99.3 98 18 146/79 (101) 99 10/25/17 10:04 86 10/25/17 09:50 82 10/25/17 08:00 97.8 90 18 132/66 (88) 98 10/25/17 08:00 84 10/25/17 08:00 98 Room Air 10/25/17 05:00 86 10/25/17 04:00 99 Room Air 10/25/17 04:00 98.1 89 16 139/67 (91) 99 10/25/17 04:00 84 10/25/17 03:00 90 10/25/17 02:00 80 10/25/17 01:00 82 10/25/17 00:00 98.2 90 16 134/63 (86) 98 10/25/17 00:00 84 10/25/17 00:00 93 Room Air 10/24/17 23:00 84 10/24/17 22:00 84 10/24/17 21:00 86 10/24/17 20:29 98 Room Air 10/24/17 20:26 98.2 90 16 128/66 (86) 98 10/24/17 20:00 86 10/24/17 19:00 86 10/24/17 17:10 97.7 89 16 147/76 (99) 99 10/24/17 15:00 98.0 90 16 149/75 (99) 95 10/24/17 15:00 110 10/24/17 15:00 95 Room Air I/O 6/4/10/24/17 10/24/17 10/25/17 10/25/17 10/25/17 07:00 15:00 23:00 07:00 15:00 23:00 Intake Total 440 ml 380 ml Output Total 420 ml 530 ml 1025 ml Balance 20 ml -530 ml -645 ml Intake Oral 440 ml 380 ml Output Urine Total 400 ml 500 ml 1000 ml Drainage Total 20 ml 30 ml 25 ml # Bowel Movements 1 0 Result Diagram: 10/25/1744410/25/17444 Objective Remarks GENERAL: Well-nourished, well-developed patient. CARDIOVASCULAR: Regular rate and rhythm without murmurs, gallops, or rubs. RESPIRATORY: Breath sounds equal bilaterally. No accessory muscle use. GASTROINTESTINAL: Abdomen soft, non-tender, nondistended. EXTREMITIES: No cyanosis, or edema. NEUROLOGICAL: Awake, alert, and oriented x 3. Non-focal. Procedures kidney transplant. A/P Problem List: (1) ESRD (end stage renal disease) on dialysis ICD Code: N18.6 - End stage renal disease; Z99.2 - Dependence on renal dialysis Assessment and Plan ESRD s/p renal transplant UTI Previously on peritoneal dialysis Management and immunosuppressives per transplant surgery. Appreciate nephrology recommendations, following With urinary retention. Nova placed 10/23/17. With some bloody urine likely traumatic He is non oliguric. Creatinine is higher. Recommended dialysis: he was on PD before, still has PD catheter. Had HD . Per transplant surgeon Dr. Sasmon, hold off on dialysis at this time. Plan for renal biopsy 10/25/17. Plan to remove Nova 10/25. Started Rocephin IV antibiotics. Monitor urine cultures Stop IVF and start diuresis. Continue meds per renal transplant surgeon recommendations Dr Samson: Prednisone 10 mg PO daily, Tacrolimus (dose increased), and CellCept. Received Thymoglobulin induction. Renal biopsy 10/25/17 Patient is with shortness of breath improving after dialysis., Oxygen saturation is well at this time while on room air. He will oxygen supplementation as needed keep oxygen saturation more than 94%. Chest x-ray with atelectasis. Add incentive spirometry constipation. Constipation: Bowel regimen. Hypocalcemia Replaced previously with no significant change Monitor and replace as need HTN Continue Norvasc Type 2 diabetes Continue Accu-Cheks and sliding scale insulin coverage Diabetic diet Thrombocytopenia May be related to immunosuppressants Follow-up CBC DVT prophylaxis SCD's Discussed with the patient, nurse, Dr. Samson transplant surgeon Discharge plan: Plan for renal biopsy 10/25. Maxine Perales MD Oct 25, 2017 14:48
[2017-10-25] MEDS: oxyCODONE/ACETAMINOPHEN 5 MG/325 MG TAB PO PRN (18:41)
[2017-10-26 03:30] VITALS: BP 139/67; PULSE 97; RESP 16; TEMP 98.7; O2SAT 98
[2017-10-26 06:10] LABS: AUTOMATED NEUTROPHIL # 5.8 TH/MM3 (1.8-7.7); BASOPHIL % 0.1 % (0.0-2.0); EOSINOPHIL % 0.2 % (0.0-4.0); HEMATOCRIT 23.9 % (39.0-51.0); HEMOGLOBIN 7.9 GM/DL (13.0-17.0); LYMPH % 1.3 % (9.0-44.0); LYMPHOCYTE # 0.1 TH/MM3 (1.0-4.8); MEAN CORPUSCULAR HGB CONC 32.9 % (32.0-36.0); MEAN PLATELET VOLUME 7.5 FL (7.0-11.0); MONO % 5.8 % (0.0-8.0); MONOCYTE # 0.4 TH/MM3 (0-0.9); NEUT % 92.6 % (16.0-70.0); PLATELET COUNT 157 TH/MM3 (150-450); RED BLOOD COUNT 2.63 MIL/MM3 (4.50-5.90); RED CELL DISTRIBUTION WIDTH 16.9 % (11.6-17.2); WHITE BLOOD COUNT 6.2 TH/MM3 (4.0-11.0)
[2017-10-26] MEDS: TACROLIMUS 1 MG CAP PO SCH ×2 (06:10→17:40)
[2017-10-26] MEDS: MYCOPHENOLATE MOFETIL 500 MG TAB PO SCH ×2 (06:10→17:42)
[2017-10-26 06:43] LABS: BICARBONATE 17.2 MEQ/L (21.0-32.0); CALCIUM 6.5 MG/DL (8.5-10.1); MAGNESIUM 1.9 MG/DL (1.5-2.5); PHOSPHORUS 6.3 MG/DL (2.5-4.9)
[2017-10-26 06:46] LABS: CREATININE 11.1 MG/DL (0.60-1.30)
[2017-10-26 07:12] LABS: TOTAL PROTEIN 5.7 GM/DL (6.4-8.2)
[2017-10-26 07:15] LABS: CALCIUM-PROTEIN CORRECTED 7.2 MG/DL (8.5-10.1)
[2017-10-26 07:20] VITALS: BP 156/78; PULSE 97; RESP 18; TEMP 98; O2SAT 99
[2017-10-26] MEDS: INSULIN ASPART SUPPLEMENTAL SCALE SQ SCH ×4 (07:30→21:28)
[2017-10-26 08:04] LABS: BANDS 2 % (0-6); LYMPHOCYTES 1 % (9-44); METAMYELOCYTES 1 % (0-1); MONOCYTES 5 % (0-8); MYELOCYTES 1 % (0-0); NEUTROPHIL # MANUAL DIFF 5.8 TH/MM3 (1.8-7.7); POLYS (SEG NEUTROPHILS) 90 % (16-70)
[2017-10-26] MEDS: PATIROMER CALCIUM SORBITEX 16.8 GM PKT PO SCH (09:00)
--- NOTE | 2017-10-26 09:00 | HHI.PR ---
Subjective Remarks In the chair, family at bedside. Patient has no pain . Sattign well on room air No sob or cp. Clear urine No fever or chills No d/c. Has nausea no vomiting. Objective Vitals Vital Signs Date Time Temp Pulse Resp B/P (MAP) Pulse Ox O2 Delivery O2 Flow Rate FiO2 10/26/17 03:30 98 Room Air 10/26/17 03:30 98.7 97 16 139/67 (91) 98 10/25/17 23:30 97.9 96 16 146/67 (93) 97 10/25/17 23:30 97 Room Air 10/25/17 20:00 97 Room Air 10/25/17 20:00 98.7 93 16 143/70 (94) 97 10/25/17 16:00 89 10/25/17 15:20 85 10/25/17 15:20 98.2 88 18 140/68 (92) 99 10/25/17 15:20 99 Room Air 10/25/17 14:00 87 10/25/17 13:10 87 10/25/17 12:43 105 10/25/17 12:43 98 Room Air 10/25/17 12:43 97.7 97 18 145/70 (95) 98 10/25/17 12:08 89 17 151/75 (100) 96 10/25/17 11:53 84 18 155/79 (104) 96 10/25/17 11:38 98.7 86 17 154/73 (100) 94 10/25/17 10:30 99.3 98 18 146/79 (101) 99 10/25/17 10:04 86 10/25/17 09:50 82 I/O 10/25/17 10/25/17 10/25/17 10/26/17 10/26/17 10/26/17 07:00 15:00 23:00 07:00 15:00 23:00 Intake Total 380 ml 445 ml 480 ml Output Total 1025 ml 1020 ml 1007 ml Balance -645 ml -575 ml -527 ml Intake Oral 380 ml 240 ml 480 ml IV Total 205 ml Output Urine Total 1000 ml 1000 ml 985 ml Drainage Total 25 ml 20 ml 22 ml # Bowel Movements 0 0 1 Result Diagram: 10/26/17 0510 10/26/17 0510 Imaging Last Impressions Renal Biopsy Ultrasound 10/25/17 0000 Signed Impressions: CONCLUSION: Uncomplicated right lower quadrant renal transplant biopsy. Renal Ultrasound 10/23/17 0000 Signed Impressions: CONCLUSION: 1. The transplant could the maintains normal cortical thickness and echogenici ty without evidence of hydronephrosis or abnormal adjacent fluid collection. Th e resistive indices and main renal artery velocity has increased from prior exa m. Chest X-Ray 10/23/17 0000 Signed Impressions: CONCLUSION: Left-sided PICC line is abnormally positioned with the tip in the left internal jugular vein. New right-sided central line overlying the right cardiac border and terminating over the right atrium. Recommend repositioning both lines. Objective Remarks GENERAL: Well-nourished, well-developed patient. CARDIOVASCULAR: Regular rate and rhythm without murmurs, gallops, or rubs. RESPIRATORY: Breath sounds equal bilaterally. No accessory muscle use. GASTROINTESTINAL: Abdomen soft, non-tender, nondistended. EXTREMITIES: No cyanosis, or edema. NEUROLOGICAL: Awake, alert, and oriented x 3. Non-focal. Procedures kidney transplant. A/P Problem List: (1) ESRD (end stage renal disease) on dialysis ICD Code: N18.6 - End stage renal disease; Z99.2 - Dependence on renal dialysis Assessment and Plan ESRD s/p renal transplant UTI Previously on peritoneal dialysis Management and immunosuppressives per transplant surgery. Appreciate nephrology recommendations, following With urinary retention. Nova placed 10/23/17. With some bloody urine likely traumatic He is non oliguric. Creatinine is higher. Recommended dialysis: he was on PD before, still has PD catheter. Had HD . Per transplant surgeon Dr. Samson, hold off on dialysis at this time. Plan for renal biopsy 10/25/17. Plan to remove Nova 10/25. Started Rocephin IV antibiotics. Monitor urine cultures Stop IVF and start diuresis. Continue meds per renal transplant surgeon recommendations Dr Samson: Prednisone 10 mg PO daily, Tacrolimus (dose increased), and CellCept. Received Thymoglobulin induction. S/p renal biopsy 10/25/17 Hypocalcemia replaced by IV Kidney function worsening Patient is with shortness of breath improving after dialysis., Oxygen saturation is well at this time while on room air. He will oxygen supplementation as needed keep oxygen saturation more than 94%. Chest x-ray with atelectasis. Add incentive spirometry constipation. Constipation: Bowel regimen. Hypocalcemia Replaced previously with no significant change Monitor and replace as need HTN Continue Norvasc Type 2 diabetes Continue Accu-Cheks and sliding scale insulin coverage Diabetic diet Thrombocytopenia May be related to immunosuppressants Follow-up CBC DVT prophylaxis SCD's Discussed with the patient, nurse, Dr. Samson transplant surgeon Discharge plan: S/p renal biopsy 10/25. Maxine Perales MD Oct 26, 2017 09:00
[2017-10-26] MEDS: cefTRIAXone INJ 1,000 MG in SODIUM CHLORIDE 0.9% INJ 100 ML IV SCH (09:12)
[2017-10-26] MEDS: FUROSEMIDE 40 MG/4 ML VIAL IV PUSH SCH ×2 (09:12→17:49)
[2017-10-26] MEDS: POLYETHYLENE GLYCOL 17 GM PKG PO SCH (09:12)
[2017-10-26] MEDS: NYSTATIN SUSP 500,000 U/5 ML CUP SWISH-SWAL SCH ×4 (09:12→21:28)
[2017-10-26] MEDS: TAMSULOSIN HCL 0.4 MG CAP PO SCH (09:13)
[2017-10-26] MEDS: CALCIUM CARBONATE 500 MG CHEWABLE TAB CHEW SCH ×2 (09:13→15:55)
[2017-10-26] MEDS: DOCUSATE SODIUM 100 MG CAP PO SCH ×2 (09:13→21:28)
[2017-10-26] MEDS: predniSONE 10 MG TAB PO SCH (09:13)
[2017-10-26] MEDS: amLODIPine BESYLATE 5 MG TAB PO SCH (09:13)
[2017-10-26] MEDS: PANTOPRAZOLE SODIUM 40 MG VIAL IV PUSH SCH (09:13)
[2017-10-26] MEDS: ACETAMINOPHEN 325 MG TAB PO PRN ×2 (09:14→15:56)
[2017-10-26] MEDS ORDERED: CALCIUM CHLORIDE INJ 1 GM in DEXTROSE 5% IN WATER 100ML INJ 100 ML IV ONE ×2 (10:00)
[2017-10-26 11:10] VITALS: BP 148/70; PULSE 92; RESP 16; TEMP 98.1; O2SAT 100
--- NOTE | 2017-10-26 11:26 | HHI.NPPN ---
Subjective History of Present Illness Hx of DDTx 10/17 Review of Systems General Constitutional: Fatigue Respiratory Lungs: SOB Gastrointestinal Gastrointestinal: Abdominal Pain Objective Data Data 10/26/17 10/27/17 19:00 07:00 Intake Total 210 ml Balance 210 ml IV Total 210 ml Bladder Scan Volume Amount 36 ml Vital Signs Date Time Temp Pulse Resp B/P (MAP) Pulse Ox O2 Delivery O2 Flow Rate FiO2 10/26/17 11:14 99 Room Air 10/26/17 11:10 98.1 92 16 148/70 (96) 100 10/26/17 07:20 99 Room Air 10/26/17 07:20 98.0 97 18 156/78 (104) 99 10/26/17 03:30 98 Room Air 10/26/17 03:30 98.7 97 16 139/67 (91) 98 10/25/17 23:30 97.9 96 16 146/67 (93) 97 10/25/17 23:30 97 Room Air 10/25/17 20:00 97 Room Air 10/25/17 20:00 98.7 93 16 143/70 (94) 97 10/25/17 16:00 89 10/25/17 15:20 85 10/25/17 15:20 98.2 88 18 140/68 (92) 99 10/25/17 15:20 99 Room Air 10/25/17 14:00 87 10/25/17 13:10 87 10/25/17 12:43 105 10/25/17 12:43 98 Room Air 10/25/17 12:43 97.7 97 18 145/70 (95) 98 10/25/17 12:08 89 17 151/75 (100) 96 10/25/17 11:53 84 18 155/79 (104) 96 10/25/17 11:38 98.7 86 17 154/73 (100) 94 -: 10/26/17 0510 10/26/17 0510 Physical Exam General Appearance: Well Developed, Well Nourished Neck Neck Exam: Neck Supple Pulmonary Resp Exam: Clear Bilaterally, Breath Sounds Equal Cardiology CV Exam: Regular, Normal Sinus Rhythm Extremeties Extremities Exam: Moderate Edema Neurologic Neuro Exam: Alert, Awake, Oriented Assessment/Plan Problem List: (1) Kidney transplant status ICD Codes: Z94.0 - Kidney transplant status Plan: patient with DGF. He is non oliguric. Creatinine is higher. s/p kidney biopsy passing more urine upto 1.9 L , on Lasix 80 mg IV q 12 On Prednisone 10 mg PO daily, Tacrolimus, CellCept . Received Thymoglobulin induction. Home on IV antibiotics 1744 pm I will stop Lasix after today as d/w Dr. Samson Biopsy showed ATN/Ischemic injury moderate fibrosis and no Rejection. (2) Hypertension ICD Codes: I10 - Essential (primary) hypertension Plan: Stable (3) Diabetes ICD Codes: E11.9 - Type 2 diabetes mellitus without complications Status: Chronic Plan: monitor BG Problem Qualifiers (1) Hypertension: Qualified Codes: I10 - Essential (primary) hypertension Anne Gibson MD Oct 26, 2017 11:26
[2017-10-26 15:00] VITALS: BP 159/74; PULSE 98; RESP 18; TEMP 98.2; O2SAT 99
--- NOTE | 2017-10-26 17:09 | HHI.PR ---
Subjective Remarks Had headache this AM and some mild nausea. Objective Vital Signs Date Time Temp Pulse Resp B/P (MAP) Pulse Ox O2 Delivery O2 Flow Rate FiO2 10/26/17 15:31 99 Room Air 10/26/17 15:00 98.2 98 18 159/74 (102) 99 10/26/17 11:14 99 Room Air 10/26/17 11:10 98.1 92 16 148/70 (96) 100 10/26/17 07:20 99 Room Air 10/26/17 07:20 98.0 97 18 156/78 (104) 99 10/26/17 03:30 98 Room Air 10/26/17 03:30 98.7 97 16 139/67 (91) 98 10/25/17 23:30 97.9 96 16 146/67 (93) 97 10/25/17 23:30 97 Room Air 10/25/17 20:00 97 Room Air 10/25/17 20:00 98.7 93 16 143/70 (94) 97 I/O 10/25/17 10/25/17 10/25/17 10/26/17 10/26/17 10/26/17 07:00 15:00 23:00 07:00 15:00 23:00 Intake Total 380 ml 445 ml 480 ml 210 ml Output Total 1025 ml 1020 ml 1007 ml Balance -645 ml -575 ml -527 ml 210 ml Intake Oral 380 ml 240 ml 480 ml IV Total 205 ml 210 ml Output Urine Total 1000 ml 1000 ml 985 ml Drainage Total 25 ml 20 ml 22 ml Bladder Scan Volume Amount 36 ml # Bowel Movements 0 0 1 Result Diagram: 10/26/17 0510 10/26/17 0510 Objective Remarks Resp - CTAB,. CV - S1S2 Abd - BS, soft. Approp tender. Wound clean, dry, intact without erythema, fluctuance, or tenderness. . Ext - Calves soft, NT B. Peripheral edema 1-2+ Assessment and Plan Problem List: (1) Hypertension ICD Codes: I10 - Essential (primary) hypertension (2) Diabetes ICD Codes: E11.9 - Type 2 diabetes mellitus without complications Status: Chronic (3) ESRD (end stage renal disease) on dialysis ICD Codes: N18.6 - End stage renal disease; Z99.2 - Dependence on renal dialysis Assessment and Plan 61 yom with CKD-5 due to DM/Htn. s/p renal transplant from a DCD donor. Patient with delayed graft function. Some nausea this AM. Anti-emetics prn. Constipation resolved. Continue bowel regimen. C/o headache (? due to compazine). Will adjust anti-emetics. Creatinine remains elevated, with slight increase. BUN 120. Good UOP with lasix augmentation. Sats stable. Lungs CTAB. DSA negative. Preliminary Biopsy results c/w severe ATN (ischemic glomeruli, moderate intimal fibrosis, and podocyte effacement)/ no rejection. No HD today. Briefly discussed results with Dr Huffman and Dr Gibson. Will repeat his renal transplant US and do a renal scan. Will plan for discharge Tuesday, with ensuring a HD chair is available if/ as needed prior to discharge. Problem Qualifiers (1) Hypertension: Qualified Codes: I10 - Essential (primary) hypertension Aurelio Samson Jr., MD Oct 26, 2017 17:09
[2017-10-26] MEDS ORDERED: MYCOPHENOLATE MOFETIL 500 MG TAB PO SCH (18:00)
[2017-10-26 20:00] VITALS: BP 153/74; PULSE 91; RESP 22; TEMP 98.4; O2SAT 100
--- NOTE | 2017-10-26 20:57 | RADRPT ---
EXAM DATE: 10/26/2017 8:43 PM EDT AGE/SEX: 61 years / Male INDICATIONS: Increased lab values. CLINICAL DATA: This is the patient's subsequent encounter. Patient reports that signs and symptoms h ave been present for 1 week and indicates a pain score of 1/10. MEDICAL/SURGICAL HISTORY: . Carcinoma, prostatic. Hypertension. Diabetes. ESRD. . Renal biopsy 10/25/2017. Renal transplant. PD catheter. Bilateral cataracts. COMPARISON: Renal ultrasound 10/23/2017 . No external comparison. MEASUREMENTS: Transplant Kidney:__10.0 x 5.6 x 5.8 Location:__Right lower quadrant Arcuate Arteries Resistive Index: Upper - 1.0 Mid - Lower - 1.0 Main Renal Artery Velocity:__122 Main Renal Vein:__Patent External Iliac Artery Velocity:__197 External Iliac Vein:__Patent Normal triphasic waveform involving the right external iliac artery. Main renal artery shows a normal low resistance waveform. FINDINGS: Transplant Kidney: Normal cortical thickness and echotexture. No hydronephrosis, stone, or mass. A small peritransplant fluid collection. This measures less then 1 cm in thickness. Urinary Bladder: Within normal limits given the degree of distension. CONCLUSION: 1. Increase in the resistive indices throughout the transplant relative to the prior study.Different ial diagnostic considerations include acute tubular necrosis, rejection, and drug toxicity. No signs of obstruction, renal vein thrombosis or renal artery stenosis. 2. Trace amount of perinephric fluid. Electronically signed by: Bartolo Garcia MD 10/26/2017 8:56 PM EDT
[2017-10-26 23:40] VITALS: BP 136/69; PULSE 86; RESP 22; TEMP 98.3; O2SAT 99
[2017-10-27] VITALS (8 sets, daily range): BP systolic 136–164; BP diastolic 69–84; PULSE 84–102; RESP 17–24; TEMP 97.1–98.4; O2SAT 95–100
[2017-10-27] MEDS: ONDANSETRON ODT 4 MG TAB PO PRN (04:11)
[2017-10-27] MEDS: TACROLIMUS 1 MG CAP PO SCH ×2 (06:24→16:58)
[2017-10-27] MEDS: MYCOPHENOLATE MOFETIL 500 MG TAB PO SCH ×2 (06:24→16:58)
[2017-10-27] MEDS: INSULIN ASPART SUPPLEMENTAL SCALE SQ SCH ×4 (08:00→21:38)
[2017-10-27] MEDS: PANTOPRAZOLE SODIUM 40 MG VIAL IV PUSH SCH (08:21)
[2017-10-27] MEDS: NYSTATIN SUSP 500,000 U/5 ML CUP SWISH-SWAL SCH ×4 (08:21→21:37)
[2017-10-27] MEDS: CALCIUM CARBONATE 500 MG CHEWABLE TAB CHEW SCH ×2 (08:22→16:58)
[2017-10-27] MEDS: cefTRIAXone INJ 1,000 MG in SODIUM CHLORIDE 0.9% INJ 100 ML IV SCH (08:22)
[2017-10-27] MEDS: DOCUSATE SODIUM 100 MG CAP PO SCH ×2 (08:22→21:37)
[2017-10-27] MEDS: amLODIPine BESYLATE 5 MG TAB PO SCH (08:22)
[2017-10-27] MEDS: predniSONE 10 MG TAB PO SCH (08:22)
[2017-10-27] MEDS: TAMSULOSIN HCL 0.4 MG CAP PO SCH (08:22)
[2017-10-27] MEDS: PATIROMER CALCIUM SORBITEX 16.8 GM PKT PO SCH (08:23)
[2017-10-27] MEDS: POLYETHYLENE GLYCOL 17 GM PKG PO SCH (08:23)
[2017-10-27] MEDS ORDERED: MIDAZOLAM HCL 2 MG/2 ML VIAL ONE (08:29)
[2017-10-27] MEDS ORDERED: fentaNYL CITRATE 250 MCG/5 ML AMP ONE (08:31)
--- NOTE | 2017-10-27 08:46 | HHI.PR ---
Subjective Remarks Nausea. Otherwise no other complaints no fever or chills. Going for tunnel cath to be replaced today. Spoke with Dr. Samson Objective Vitals Vital Signs Date Time Temp Pulse Resp B/P (MAP) Pulse Ox O2 Delivery O2 Flow Rate FiO2 10/27/17 07:00 99 Room Air 10/27/17 07:00 98.4 102 20 155/77 (103) 99 10/27/17 04:00 97.1 95 24 160/74 (102) 98 10/27/17 04:00 Room Air 10/26/17 23:40 98.3 86 22 136/69 (91) 99 10/26/17 23:00 99 Room Air 10/26/17 20:00 98.4 91 22 153/74 (100) 100 10/26/17 20:00 100 Room Air 10/26/17 15:31 99 Room Air 10/26/17 15:00 98.2 98 18 159/74 (102) 99 10/26/17 11:14 99 Room Air 10/26/17 11:10 98.1 92 16 148/70 (96) 100 I/O 10/26/17 10/26/17 10/26/17 10/27/17 10/27/17 10/27/17 07:00 15:00 23:00 07:00 15:00 23:00 Intake Total 480 ml 210 ml 1200 ml 60 ml Output Total 1007 ml 1380 ml 850 ml Balance -527 ml 210 ml -180 ml -790 ml Intake Oral 480 ml 1200 ml 60 ml IV Total 210 ml Output Urine Total 985 ml 1350 ml 830 ml Drainage Total 22 ml 30 ml 20 ml Bladder Scan Volume Amount 36 ml # Bowel Movements 1 0 Result Diagram: 10/26/17 0510 10/26/17 0510 Imaging Last Impressions Catheter Placement X-Ray 10/27/17 0000 Signed Impressions: CONCLUSION: 1. Uncomplicated Dialysis catheter placement as above. Renal Ultrasound 10/26/17 0000 Signed Impressions: CONCLUSION: 1. Increase in the resistive indices throughout the transplant relative to the prior study.Differential diagnostic considerations include acute tubular necro sis, rejection, and drug toxicity. No signs of obstruction, renal vein thrombos is or renal artery stenosis. 2. Trace amount of perinephric fluid. Renal Biopsy Ultrasound 10/25/17 0000 Signed Impressions: CONCLUSION: Uncomplicated right lower quadrant renal transplant biopsy. Chest X-Ray 10/23/17 0000 Signed Impressions: CONCLUSION: Left-sided PICC line is abnormally positioned with the tip in the left internal jugular vein. New right-sided central line overlying the right cardiac border and terminating over the right atrium. Recommend repositioning both lines. Objective Remarks GENERAL: Well-nourished, well-developed patient. CARDIOVASCULAR: Regular rate and rhythm without murmurs, gallops, or rubs. RESPIRATORY: Breath sounds equal bilaterally. No accessory muscle use. GASTROINTESTINAL: Abdomen soft, non-tender, nondistended. EXTREMITIES: No cyanosis, or edema. NEUROLOGICAL: Awake, alert, and oriented x 3. Non-focal. Procedures kidney transplant. A/P Problem List: (1) ESRD (end stage renal disease) on dialysis ICD Code: N18.6 - End stage renal disease; Z99.2 - Dependence on renal dialysis Assessment and Plan ESRD s/p renal transplant UTI Previously on peritoneal dialysis Management and immunosuppressives per transplant surgery. Appreciate nephrology recommendations, following With urinary retention. Nova placed 10/23/17. With some bloody urine likely traumatic He is non oliguric. Creatinine is higher. Recommended dialysis: he was on PD before, still has PD catheter. Had HD . Per transplant surgeon Dr. Samson, hold off on dialysis at this time. Plan for renal biopsy 10/25/17. Plan to remove Nova 10/25. Started Rocephin IV antibiotics. Monitor urine cultures Stop IVF and start diuresis. Continue meds per renal transplant surgeon recommendations Dr Samson: Prednisone 10 mg PO daily, Tacrolimus (dose increased), and CellCept. Received Thymoglobulin induction. S/p renal biopsy 10/25/17 Hypocalcemia replaced by IV Kidney function worsening Monitor UOP. Continue diuresis. Renal transplant US c/w DGF/ATN. Plan for renal scan. Vascath being converted to tunneled cath 10/27/17. Plans for outpatient dialysis still not finalized Plan for discharge Tuesday, with ensuring a HD chair is available if/ as needed prior to discharge per Dr Samson renal transplant surgeon Patient is with shortness of breath improving after dialysis. Oxygen saturation is well at this time while on room air. He will oxygen supplementation as needed keep oxygen saturation more than 94%. Chest x-ray with atelectasis. Continue incentive spirometry. Constipation: Bowel regimen. Hypocalcemia Replaced previously with no significant change Monitor and replace as need HTN Continue Norvasc Type 2 diabetes Continue Accu-Cheks and sliding scale insulin coverage Diabetic diet Thrombocytopenia May be related to immunosuppressants Follow-up CBC DVT prophylaxis SCD's Discussed with the patient, nurse, Dr. Samson transplant surgeon Discharge plan: S/p renal biopsy 10/25. Plan for discharge Tuesday, with ensuring a HD chair is available if/ as needed prior to discharge per Dr Samson renal transplant surgeon. Maxine Perales MD Oct 27, 2017 08:46
[2017-10-27] MEDS ORDERED: LIDOCAINE 1%/EPINEPHrine 1:100,000 SOLN 20 ML VIAL ONE (09:36)
[2017-10-27] MEDS: PROMETHAZINE HCL 25 MG SUPP RECTAL PRN (09:40)
[2017-10-27 09:44] LABS: AUTOMATED NEUTROPHIL # 6.2 TH/MM3 (1.8-7.7); BASOPHIL % 0.1 % (0.0-2.0); EOSINOPHIL % 0.2 % (0.0-4.0); HEMATOCRIT 24.1 % (39.0-51.0); LYMPH % 0.4 % (9.0-44.0); MEAN CELL VOLUME 90.4 FL (80.0-100.0); MEAN CORPUSCULAR HEMOGLOBIN 30.1 PG (27.0-34.0); MEAN CORPUSCULAR HGB CONC 33.3 % (32.0-36.0); MEAN PLATELET VOLUME 7.2 FL (7.0-11.0); MONO % 6.1 % (0.0-8.0); MONOCYTE # 0.4 TH/MM3 (0-0.9); NEUT % 93.2 % (16.0-70.0); PLATELET COUNT 201 TH/MM3 (150-450); RED BLOOD COUNT 2.67 MIL/MM3 (4.50-5.90); RED CELL DISTRIBUTION WIDTH 16.7 % (11.6-17.2); WHITE BLOOD COUNT 6.6 TH/MM3 (4.0-11.0)
[2017-10-27 09:59] LABS: BICARBONATE 15.5 MEQ/L (21.0-32.0); CALCIUM 7.5 MG/DL (8.5-10.1); PHOSPHORUS 6.2 MG/DL (2.5-4.9)
[2017-10-27 10:01] LABS: CREATININE 10.41 MG/DL (0.60-1.30)
--- NOTE | 2017-10-27 10:07 | PD.RAD ---
Post Procedure Progress Note Pre Procedure Diagnosis: (1) ESRD (end stage renal disease) on dialysis Post Procedure Diagnosis: (1) ESRD (end stage renal disease) on dialysis Procedure Date: Oct 27, 2017 Supervising Radiologist: Bartolo Garcia JR Proceduralist/Assist: Alli Dohrety RT(R), Other Anesthesia: Conscious Sedation Plan of Activity Patient to Unit: ROPU Patient Condition: Good See PACS Report for procedural detail/treatment Central Venous Access Device Procedure 1 Right Internal Jugular Hemodialysis Catheter Tunneled Placement dual lumen Kiswahili: 15 Findings: Converted RIJ Vascath to Permacath. In good position and functions well OK to use. Plan Remove suture at base of neck and holding catheter in place in 2-3 weeks. Jr Jose.,Bartolo Marie MD Oct 27, 2017 10:07
[2017-10-27] MEDS ORDERED: SODIUM CHLORIDE 0.9% FLUSH 10 ML FLUSH IV FLUSH PRN (10:15)
[2017-10-27] MEDS ORDERED: HEPARIN SODIUM - IV 2,000 UNITS/2 ML VIAL IV FLUSH PRN (10:15)
[2017-10-27 11:10] LABS: BANDS 1 % (0-6); LYMPHOCYTES 1 % (9-44); METAMYELOCYTES 1 % (0-1); MONOCYTES 5 % (0-8); MYELOCYTES 3 % (0-0); NEUTROPHIL # MANUAL DIFF 6.1 TH/MM3 (1.8-7.7); POLYS (SEG NEUTROPHILS) 88 % (16-70)
[2017-10-27] MEDS ORDERED: FUROSEMIDE 40 MG/4 ML VIAL ONE (11:17)
--- NOTE | 2017-10-27 11:22 | RADRPT ---
EXAM DATE: 10/27/2017 10:38 AM EDT AGE/SEX: 61 years / Male INDICATIONS: Renal transplant patient with changing lab values, Has a vas cath needs a perm cath. CLINICAL DATA: This is the patient's initial encounter. Patient reports that signs and symptoms have been present for 2 weeks and indicates a pain score of 6/10. MEDICAL/SURGICAL HISTORY: Hypertension. Diabetes. Chronic renal failure. dialysis prostate c ancer PD cath kidney transplant bilateral cataract surgery COMPARISON: No prior exams available for comparison. FLUORO TIME (min): 0.9 IMAGE SERIES: 1 SEDATION TIME (min): 10 MEDICATION(S): 2 mg midazolam (Versed) IV 100 mcg fentanyl (Sublimaze) IV Prophylactic antibiotics were administered with appropriate pre-procedure timing. DEVICE(S): Right 19 cm crook cath . . PROCEDURE: 1. Dialysis catheter placement. 2. Conscious sedation with continuous EKG and oximetry monitoring. The risks, benefits and alternatives to the procedure were explained and verbal and written consent w as obtained. The site was prepped in sterile fashion. Full sterile technique was used, including ca p, mask, sterile gloves and gown and a large sterile sheet. Hand hygiene and 2% chlorhexidine and/or betadine/alcohol prep was utilized per protocol for cutaneous antisepsis. The skin and subcutaneous tissues were infiltrated with local anesthetic solution. With fluoroscopic guidance a dermatotomy was created using the existing venous access. A subcutaneou s tunnel was created in a retrograde fashion the catheter was pulled through the tunnel. The cathete r was flushed and assembled and locked with heparin. The catheter was sutured in place. Conscious sedation was performed with the prescribed dosages and duration as above in the presence of an independent trained radiology nurse to assist in the monitoring of the patient. EKG and oximetry remained stable throughout the procedure. The patient tolerated the procedure well and there were n o complications. The patient was sent to post anesthesia recovery in stable condition. CONCLUSION: 1. Uncomplicated Dialysis catheter placement as above. Electronically signed by: Bartolo Garcia MD 10/27/2017 11:21 AM EDT
--- NOTE | 2017-10-27 11:42 | HHI.PR ---
Subjective Remarks Some persistent mild nausea. Objective Vital Signs Date Time Temp Pulse Resp B/P (MAP) Pulse Ox O2 Delivery O2 Flow Rate FiO2 10/27/17 10:51 84 17 164/84 (110) 96 10/27/17 10:21 97.8 98 18 160/70 (100) 95 10/27/17 07:00 99 Room Air 10/27/17 07:00 98.4 102 20 155/77 (103) 99 10/27/17 04:00 97.1 95 24 160/74 (102) 98 10/27/17 04:00 Room Air 10/26/17 23:40 98.3 86 22 136/69 (91) 99 10/26/17 23:00 99 Room Air 10/26/17 20:00 98.4 91 22 153/74 (100) 100 10/26/17 20:00 100 Room Air 10/26/17 15:31 99 Room Air 10/26/17 15:00 98.2 98 18 159/74 (102) 99 I/O 10/26/17 10/26/17 10/26/17 10/27/17 10/27/17 10/27/17 07:00 15:00 23:00 07:00 15:00 23:00 Intake Total 480 ml 210 ml 1200 ml 60 ml Output Total 1007 ml 1380 ml 850 ml Balance -527 ml 210 ml -180 ml -790 ml Intake Oral 480 ml 1200 ml 60 ml IV Total 210 ml Output Urine Total 985 ml 1350 ml 830 ml Drainage Total 22 ml 30 ml 20 ml Bladder Scan Volume Amount 36 ml # Bowel Movements 1 0 Result Diagram: 10/27/17 0912 10/27/17 0912 Objective Remarks Resp: CTAB,. CV: S1S2 Abd: BS, soft. Approp tender. Wound clean, dry, intact without erythema, fluctuance, or tenderness. . Ext: Calves soft, NT B. Peripheral edema unchanged Assessment and Plan Problem List: (1) Hypertension ICD Codes: I10 - Essential (primary) hypertension (2) Diabetes ICD Codes: E11.9 - Type 2 diabetes mellitus without complications Status: Chronic (3) ESRD (end stage renal disease) on dialysis ICD Codes: N18.6 - End stage renal disease; Z99.2 - Dependence on renal dialysis Assessment and Plan 61 yom with CKD-5 due to DM/Htn. s/p renal transplant from a DCD donor. Patient with delayed graft function. Some persistent mild nausea this AM. will try phenergan supp prn.Continue bowel regimen. Creatinine slightly improved. BUN 120. Good UOP with lasix augmentation. Sats stable. Lungs CTAB. No HD today. Renal transplant c/w DGF/ ATN. Renal scan to be done today. Vascath being converted to tunneled cath today. Plans for outpatient dialysis still not finalized (reportedly no available HD chair yet identified. also not comfortable with their current abode,so is working on securing better local/nearby accomodations.Will plan for discharge Tuesday, with ensuring a HD chair is available if/ as needed prior to discharge. Problem Qualifiers (1) Hypertension: Qualified Codes: I10 - Essential (primary) hypertension Aurelio Samson Jr., MD Oct 27, 2017 11:42
--- NOTE | 2017-10-27 13:41 | HHI.NPPN ---
Subjective History of Present Illness Hx of DDTx 10/17 Review of Systems General Constitutional: Fatigue Respiratory Lungs: SOB Gastrointestinal Gastrointestinal: Abdominal Pain Objective Data Data Vital Signs Date Time Temp Pulse Resp B/P (MAP) Pulse Ox O2 Delivery O2 Flow Rate FiO2 10/27/17 10:51 84 17 164/84 (110) 96 10/27/17 10:21 97.8 98 18 160/70 (100) 95 10/27/17 07:00 99 Room Air 10/27/17 07:00 98.4 102 20 155/77 (103) 99 10/27/17 04:00 97.1 95 24 160/74 (102) 98 10/27/17 04:00 Room Air 10/26/17 23:40 98.3 86 22 136/69 (91) 99 10/26/17 23:00 99 Room Air 10/26/17 20:00 98.4 91 22 153/74 (100) 100 10/26/17 20:00 100 Room Air 10/26/17 15:31 99 Room Air 10/26/17 15:00 98.2 98 18 159/74 (102) 99 -: 10/27/17 0912 10/27/17 0912 Physical Exam General Appearance: Well Developed, Well Nourished Neck Neck Exam: Neck Supple Pulmonary Resp Exam: Clear Bilaterally, Breath Sounds Equal Cardiology CV Exam: Regular, Normal Sinus Rhythm Extremeties Extremities Exam: Moderate Edema Neurologic Neuro Exam: Alert, Awake, Oriented Assessment/Plan Problem List: (1) Kidney transplant status ICD Codes: Z94.0 - Kidney transplant status Plan: patient with DGF. He is non oliguric. Creatinine is higher. s/p kidney biopsy passing more urine upto 2.1 L , off Lasix On Prednisone 1, Tacrolimus, CellCept . Received Thymoglobulin induction. home on dialysis d/w Dr. Samson the creatinine is lower slightly nausea improve phenergan suppository Biopsy showed ATN/Ischemic injury moderate fibrosis and no Rejection. (2) Hypertension ICD Codes: I10 - Essential (primary) hypertension Plan: Stable (3) Diabetes ICD Codes: E11.9 - Type 2 diabetes mellitus without complications Status: Chronic Plan: monitor BG Problem Qualifiers (1) Hypertension: Qualified Codes: I10 - Essential (primary) hypertension Anne Gibson MD Oct 27, 2017 13:41
[2017-10-27] MEDS ORDERED: PROMETHAZINE HCL 25 MG SUPP RECTAL PRN (13:45)
--- NOTE | 2017-10-27 16:52 | RADRPT ---
EXAM DATE: 10/27/2017 1:13 PM EDT AGE/SEX: 61 years / Male INDICATIONS: Renal failure. Renal transplant. CLINICAL DATA: This is the patient's initial encounter. Patient reports that signs and symptoms have been present for 2 days and indicates a pain score of 3/10. MEDICAL/SURGICAL HISTORY: Renal failure, chronic. Hypertension. . Renal transplant right side. [place] [facility] [place]. . TECHNIQUE: A static anterior image of the pelvis and renal transplant was performed after intravenou s administration of sulfur colloid. Following the intravenous administration of DTPA, dynamic imagin g of flow and excretory phases was performed. IV Lasix was given at 13 minutes. DOSE: 3.1 mCi Tc99m Sulfur Colloid IV 20.1 mCi Tc99m DTPA IV MEDICATION: 40 mg Lasix IV at 13 minute. minutes. FINDINGS: There is intact perfusion to the transplanted kidney in right lower quadrant. The sulfur colloid upta ke is slightly less than lower lumbar vertebrae and therefore rejection is not suspected. There is ve ry little excretion into the bladder and most of the radiotracer activity dissipates out into the lilly rounding background characteristic of ATN. CONCLUSION: 1. Scan findings are characteristic of ATN. Electronically signed by: Kem Zhang MD 10/27/2017 4:51 PM EDT
[2017-10-27 18:02] LABS: BILIRUBIN, URINE NEG (NEG); BLOOD, URINE MOD (NEG); GLUCOSE,URINE TRACE mg/dL (NEG); KETONE, URINE NEG (NEG); NITRITE,URINE NEG (NEG); URINE COLOR LIGHT-YELLOW (YELLW/STRAW); URINE LEUKOCYTE ESTERASE NEG (NEG)
[2017-10-27] MEDS: ONDANSETRON ODT 4 MG TAB SL PRN (21:37)
[2017-10-28 03:50] VITALS: BP 148/70; PULSE 91; RESP 18; TEMP 97.7; O2SAT 99
[2017-10-28 04:28] LABS: AUTOMATED NEUTROPHIL # 6.9 TH/MM3 (1.8-7.7); BASOPHIL % 0.2 % (0.0-2.0); EOSINOPHIL % 0.2 % (0.0-4.0); HEMATOCRIT 23.4 % (39.0-51.0); HEMOGLOBIN 7.8 GM/DL (13.0-17.0); LYMPH % 0.5 % (9.0-44.0); MEAN CELL VOLUME 90.2 FL (80.0-100.0); MEAN CORPUSCULAR HGB CONC 33.2 % (32.0-36.0); MEAN PLATELET VOLUME 6.9 FL (7.0-11.0); MONO % 5.2 % (0.0-8.0); MONOCYTE # 0.4 TH/MM3 (0-0.9); NEUT % 93.9 % (16.0-70.0); PLATELET COUNT 217 TH/MM3 (150-450); RED CELL DISTRIBUTION WIDTH 16.8 % (11.6-17.2); WHITE BLOOD COUNT 7.4 TH/MM3 (4.0-11.0)
[2017-10-28 05:09] LABS: BICARBONATE 18.6 MEQ/L (21.0-32.0); CALCIUM 6.9 MG/DL (8.5-10.1); PHOSPHORUS 6.1 MG/DL (2.5-4.9)
[2017-10-28 05:35] LABS: HYPERSEGMENTED POLYS 2+ (NORMAL)
[2017-10-28 05:41] LABS: CREATININE 10.26 MG/DL (0.60-1.30)
[2017-10-28 05:54] LABS: CALCIUM-PROTEIN CORRECTED 7.5 MG/DL (8.5-10.1)
[2017-10-28] MEDS: PROMETHAZINE HCL 25 MG SUPP RECTAL PRN (06:16)
[2017-10-28] MEDS: TACROLIMUS 1 MG CAP PO SCH ×2 (07:06→16:56)
[2017-10-28] MEDS: MYCOPHENOLATE MOFETIL 500 MG TAB PO SCH ×2 (07:06→16:56)
[2017-10-28 08:00] VITALS: BP 143/69; PULSE 90; RESP 16; TEMP 98; O2SAT 99
[2017-10-28] MEDS: cefTRIAXone INJ 1,000 MG in SODIUM CHLORIDE 0.9% INJ 100 ML IV SCH (08:20)
[2017-10-28] MEDS: PANTOPRAZOLE SODIUM 40 MG VIAL IV PUSH SCH (08:20)
[2017-10-28] MEDS: NYSTATIN SUSP 500,000 U/5 ML CUP SWISH-SWAL SCH ×2 (08:20→11:57)
[2017-10-28] MEDS: TAMSULOSIN HCL 0.4 MG CAP PO SCH (08:21)
[2017-10-28] MEDS: DOCUSATE SODIUM 100 MG CAP PO SCH ×2 (08:21→20:57)
[2017-10-28] MEDS: CALCIUM CARBONATE 500 MG CHEWABLE TAB CHEW SCH ×2 (08:21→15:34)
[2017-10-28] MEDS: INSULIN ASPART SUPPLEMENTAL SCALE SQ SCH ×4 (08:21→20:58)
[2017-10-28] MEDS: POLYETHYLENE GLYCOL 17 GM PKG PO SCH (08:21)
[2017-10-28] MEDS: amLODIPine BESYLATE 5 MG TAB PO SCH (08:21)
[2017-10-28] MEDS: predniSONE 10 MG TAB PO SCH (08:21)
--- NOTE | 2017-10-28 08:27 | HHI.PR ---
Subjective Remarks Nausea improved. Just had a small bout at 0600 ths AM. None now. Thinks the nystatin swish and swallow may be contributing to his nausea. Was just made aeare that he has a decubitus ulcer form shear injury (from him pulling himself up in bed). Objective Vital Signs Date Time Temp Pulse Resp B/P (MAP) Pulse Ox O2 Delivery O2 Flow Rate FiO2 10/28/17 03:50 97.7 91 18 148/70 (96) 99 10/27/17 23:39 98.3 97 17 151/74 (99) 98 10/27/17 23:39 Room Air 10/27/17 19:50 Room Air 10/27/17 19:50 98.1 96 18 162/77 (105) 100 10/27/17 15:00 96 Room Air 10/27/17 15:00 98.2 95 20 136/69 (91) 96 10/27/17 13:39 98.2 96 20 139/79 (99) 98 10/27/17 13:39 99 Room Air 10/27/17 10:51 84 17 164/84 (110) 96 10/27/17 10:21 97.8 98 18 160/70 (100) 95 I/O 10/27/17 10/27/17 10/27/17 10/28/17 10/28/17 10/28/17 07:00 15:00 23:00 07:00 15:00 23:00 Intake Total 60 ml 960 ml 480 ml Output Total 850 ml 1120 ml 1020 ml Balance -790 ml -160 ml -540 ml Intake Oral 60 ml 960 ml 480 ml Output Urine Total 830 ml 1100 ml 1000 ml Drainage Total 20 ml 20 ml 20 ml # Bowel Movements 0 0 Result Diagram: 10/28/17 0357 10/28/17 0357 Objective Remarks Resp - CTAB,. CV - S1S2 Abd - BS, soft. Approp tender. Wound clean, dry, intact without erythema, fluctuance, or tenderness. On his bilateral buttocks has about 4 x 3 x 3 cm stage 1 shear decub on his right buttock cheek and about a 2 x 2 stage 1 shear decubitus on his left buttock cheek. Ext - Calves soft, NT B. Peripheral edema unchanged Assessment and Plan Problem List: (1) Hypertension ICD Codes: I10 - Essential (primary) hypertension (2) Diabetes ICD Codes: E11.9 - Type 2 diabetes mellitus without complications Status: Chronic (3) ESRD (end stage renal disease) on dialysis ICD Codes: N18.6 - End stage renal disease; Z99.2 - Dependence on renal dialysis Assessment and Plan 61 yom with CKD-5 due to DM/Htn. s/p renal transplant from a DCD donor. Patient with delayed graft function. Patient has decubit ulcer on buittock, thought to be from shear injury. Wound nurse to evaluate and treat. Nausea better-will try nystatin swish and spit, as he thinks the swallowing of it exacerbates his nausea-.Continue bowel regimen. Creatinine slightly improved. Good UOP even though lasix stopped. Sats stable. Lungs CTAB. No HD today. Renal transplant US c/w DGF/ATN. Renal scan c/w DGF. Plans for outpatient dialysis still not finalized (reportedly no available HD chair yet identified. also not comfortable with their current abode,so is working on securing better local/nearby accomodations.Will plan for discharge Tuesday, with ensuring a HD chair is available if/ as needed prior to discharge. Problem Qualifiers (1) Hypertension: Qualified Codes: I10 - Essential (primary) hypertension Aurelio Samson Jr., MD Oct 28, 2017 08:27
[2017-10-28] MEDS: PATIROMER CALCIUM SORBITEX 16.8 GM PKT PO SCH (08:35)
[2017-10-28] MEDS ORDERED: EPOETIN ALFA 4,000 UNITS/ML VIAL SQ ONE (09:00)
[2017-10-28] MEDS ORDERED: IRON SUCROSE INJ 200 MG in SODIUM CHLORIDE 0.9% INJ 100 ML IV ONE (09:00)
--- NOTE | 2017-10-28 10:52 | HHI.NPPN ---
Subjective History of Present Illness Hx of DDTx 10/17 Review of Systems General Constitutional: Fatigue Gastrointestinal Gastrointestinal: Nausea & Vomiting Objective Data Data Vital Signs Date Time Temp Pulse Resp B/P (MAP) Pulse Ox O2 Delivery O2 Flow Rate FiO2 10/28/17 08:00 98.0 90 16 143/69 (93) 99 10/28/17 03:50 97.7 91 18 148/70 (96) 99 10/27/17 23:39 98.3 97 17 151/74 (99) 98 10/27/17 23:39 Room Air 10/27/17 19:50 Room Air 10/27/17 19:50 98.1 96 18 162/77 (105) 100 10/27/17 15:00 96 Room Air 10/27/17 15:00 98.2 95 20 136/69 (91) 96 10/27/17 13:39 98.2 96 20 139/79 (99) 98 10/27/17 13:39 99 Room Air 10/27/17 10:51 84 17 164/84 (110) 96 -: 10/28/17 0357 10/28/17 0357 Physical Exam General Appearance: Well Developed, Well Nourished Neck Neck Exam: Neck Supple Pulmonary Resp Exam: Clear Bilaterally, Breath Sounds Equal Cardiology CV Exam: Regular, Normal Sinus Rhythm Extremeties Extremities Exam: Moderate Edema Neurologic Neuro Exam: Alert, Awake, Oriented Assessment/Plan Problem List: (1) Kidney transplant status ICD Codes: Z94.0 - Kidney transplant status Plan: patient with DGF. He is non oliguric. Creatinine is slightly better. s/p kidney biopsy passing more urine upto 2.1 L , off Lasix On Prednisone , Tacrolimus 6 mg bid, CellCept . Received Thymoglobulin induction. home on dialysis d/w Dr. Samson the creatinine is lower slightly nausea improve phenergan suppository Biopsy showed ATN/Ischemic injury moderate fibrosis and no Rejection. placement at out pt facility planned (2) Hypertension ICD Codes: I10 - Essential (primary) hypertension Plan: Stable (3) Diabetes ICD Codes: E11.9 - Type 2 diabetes mellitus without complications Status: Chronic Plan: monitor BG Problem Qualifiers (1) Hypertension: Qualified Codes: I10 - Essential (primary) hypertension Anne Gibson MD Oct 28, 2017 10:52
[2017-10-28] MEDS ORDERED: CALCIUM CHLORIDE INJ 1 GM in DEXTROSE 5% IN WATER 100ML INJ 100 ML IV ONE ×2 (11:00)
[2017-10-28 12:00] VITALS: BP 148/73; PULSE 89; RESP 18; TEMP 97.9; O2SAT 99
[2017-10-28] MEDS: ACETAMINOPHEN 325 MG TAB PO PRN ×2 (15:34→20:58)
[2017-10-28 16:00] VITALS: BP 162/79; PULSE 102; RESP 16; TEMP 98.1; O2SAT 97
[2017-10-28] MEDS: NYSTATIN SUSP 500,000 U/5 ML CUP SWISH-SPIT SCH ×2 (16:56→20:58)
--- NOTE | 2017-10-28 18:15 | HHI.PR ---
Subjective Remarks The patient was seen earlier today Patient is in bed appears in not acute distress. Says he has less nausea and Compazine rectally helps. Able to eat something. No vomiting. No diarrhea or constipation. He is having some developing wounds in his buttocks. Discussed with the nurse. Care is consulted appreciate recommendations. Patient denies having any pain. No fever or chills. Objective Vitals Vital Signs Date Time Temp Pulse Resp B/P (MAP) Pulse Ox O2 Delivery O2 Flow Rate FiO2 10/28/17 16:12 16 10/28/17 16:00 98.1 102 16 162/79 (106) 97 10/28/17 12:00 97.9 89 18 148/73 (98) 99 10/28/17 08:00 98.0 90 16 143/69 (93) 99 10/28/17 03:50 97.7 91 18 148/70 (96) 99 10/27/17 23:39 98.3 97 17 151/74 (99) 98 10/27/17 23:39 Room Air 10/27/17 19:50 Room Air 10/27/17 19:50 98.1 96 18 162/77 (105) 100 I/O 10/27/17 10/27/17 10/27/17 10/28/17 10/28/17 10/28/17 07:00 15:00 23:00 07:00 15:00 23:00 Intake Total 60 ml 960 ml 480 ml 860 ml Output Total 850 ml 1120 ml 1020 ml 900 ml Balance -790 ml -160 ml -540 ml -40 ml Intake Oral 60 ml 960 ml 480 ml 660 ml IV Total 200 ml Output Urine Total 830 ml 1100 ml 1000 ml 900 ml Drainage Total 20 ml 20 ml 20 ml # Bowel Movements 0 0 1 Result Diagram: 10/28/17 0357 10/28/17 0357 Imaging Last Impressions Renal Scan Nuclear Medicine 10/27/17 0000 Signed Impressions: CONCLUSION: 1. Scan findings are characteristic of ATN. Catheter Placement X-Ray 10/27/17 0000 Signed Impressions: CONCLUSION: 1. Uncomplicated Dialysis catheter placement as above. Renal Ultrasound 10/26/17 0000 Signed Impressions: CONCLUSION: 1. Increase in the resistive indices throughout the transplant relative to the prior study.Differential diagnostic considerations include acute tubular necro sis, rejection, and drug toxicity. No signs of obstruction, renal vein thrombos is or renal artery stenosis. 2. Trace amount of perinephric fluid. Renal Biopsy Ultrasound 10/25/17 0000 Signed Impressions: CONCLUSION: Uncomplicated right lower quadrant renal transplant biopsy. Chest X-Ray 10/23/17 0000 Signed Impressions: CONCLUSION: Left-sided PICC line is abnormally positioned with the tip in the left internal jugular vein. New right-sided central line overlying the right cardiac border and terminating over the right atrium. Recommend repositioning both lines. Objective Remarks GENERAL: Well-nourished, well-developed patient. CARDIOVASCULAR: Regular rate and rhythm without murmurs, gallops, or rubs. RESPIRATORY: Breath sounds equal bilaterally. No accessory muscle use. GASTROINTESTINAL: Abdomen soft, non-tender, nondistended. EXTREMITIES: No cyanosis, or edema. NEUROLOGICAL: Awake, alert, and oriented x 3. Non-focal. Procedures kidney transplant. A/P Problem List: (1) ESRD (end stage renal disease) on dialysis ICD Code: N18.6 - End stage renal disease; Z99.2 - Dependence on renal dialysis Assessment and Plan ESRD s/p renal transplant UTI Previously on peritoneal dialysis Management and immunosuppressives per transplant surgery. Appreciate nephrology recommendations, following With urinary retention. Nova placed 10/23/17. With some bloody urine likely traumatic He is non oliguric. Creatinine is higher. Recommended dialysis: he was on PD before, still has PD catheter. Had HD . Per transplant surgeon Dr. Samson, hold off on dialysis at this time. Plan for renal biopsy 10/25/17. Plan to remove Nova 10/25. Started Rocephin IV antibiotics. Monitor urine cultures Stop IVF and start diuresis. Continue meds per renal transplant surgeon recommendations Dr Samson: Prednisone 10 mg PO daily, Tacrolimus (dose increased), and CellCept. Received Thymoglobulin induction. S/p renal biopsy 10/25/17 Hypocalcemia replaced by IV Kidney function worsening Monitor UOP. Continue diuresis. Renal transplant US c/w DGF/ATN. Plan for renal scan. Vascath being converted to tunneled cath 10/27/17. Plans for outpatient dialysis still not finalized Plan for discharge Tuesday, with ensuring a HD chair is available if/ as needed prior to discharge per Dr Samson renal transplant surgeon Patient is with shortness of breath improved after dialysis. Oxygen saturation is well at this time while on room air. He will oxygen supplementation as needed keep oxygen saturation more than 94%. Chest x-ray with atelectasis. Continue incentive spirometry. Constipation: Bowel regimen. Wounds on his buttocks. Skin Barrier applied by nurses. Consult wound care for evaluation . Hypocalcemia Replaced previously with no significant change Monitor and replace as need HTN Continue Norvasc Type 2 diabetes Continue Accu-Cheks and sliding scale insulin coverage Diabetic diet Thrombocytopenia May be related to immunosuppressants Follow-up CBC DVT prophylaxis SCD's Discussed with the patient, nurse, Dr. Samson transplant surgeon Discharge plan: S/p renal biopsy 10/25. Plan for discharge Tuesday, with ensuring a HD chair is available if/ as needed prior to discharge per Dr Samson renal transplant surgeon. Maxine Perales MD Oct 28, 2017 18:15
--- NOTE | 2017-10-28 19:11 | PD.WCN.NOT ---
Wound Consult Description: Wound consult ordered by for wound management. Additional Information: Patient was not seen.Taxi Driver attempted to see patient @ 1023 RN unavailable for assistance due to shift change. Ostomy Date of Surgery: October 17, 2017 [facility] Bu[facility] Oct 28, 2017 19:11
[2017-10-28 19:50] VITALS: BP 149/77; PULSE 91; RESP 19; TEMP 98.3; O2SAT 99
[2017-10-28 23:41] VITALS: BP 145/73; PULSE 88; RESP 18; TEMP 98.2; O2SAT 100
[2017-10-29] MEDS: PROMETHAZINE HCL 25 MG SUPP RECTAL PRN ×2 (03:11→12:21)
[2017-10-29 03:23] VITALS: BP 149/71; PULSE 104; RESP 19; TEMP 97.8; O2SAT 100
[2017-10-29 06:06] LABS: AUTOMATED NEUTROPHIL # 7.1 TH/MM3 (1.8-7.7); BASOPHIL % 0.2 % (0.0-2.0); EOSINOPHIL % 0.2 % (0.0-4.0); HEMATOCRIT 22.3 % (39.0-51.0); HEMOGLOBIN 7.5 GM/DL (13.0-17.0); LYMPH % 0.7 % (9.0-44.0); LYMPHOCYTE # 0.1 TH/MM3 (1.0-4.8); MEAN CELL VOLUME 90.5 FL (80.0-100.0); MEAN CORPUSCULAR HEMOGLOBIN 30.6 PG (27.0-34.0); MEAN CORPUSCULAR HGB CONC 33.8 % (32.0-36.0); MEAN PLATELET VOLUME 6.6 FL (7.0-11.0); MONO % 5.7 % (0.0-8.0); MONOCYTE # 0.4 TH/MM3 (0-0.9); NEUT % 93.2 % (16.0-70.0); PLATELET COUNT 226 TH/MM3 (150-450); RED BLOOD COUNT 2.47 MIL/MM3 (4.50-5.90); RED CELL DISTRIBUTION WIDTH 16.7 % (11.6-17.2); WHITE BLOOD COUNT 7.6 TH/MM3 (4.0-11.0)
[2017-10-29] MEDS: MYCOPHENOLATE MOFETIL 500 MG TAB PO SCH ×2 (06:10→17:07)
[2017-10-29] MEDS: TACROLIMUS 1 MG CAP PO SCH ×2 (06:11→17:08)
[2017-10-29 06:36] LABS: CALCIUM 7.5 MG/DL (8.5-10.1); CREATININE 9.21 MG/DL (0.60-1.30); MAGNESIUM 2.1 MG/DL (1.5-2.5); PHOSPHORUS 5.6 MG/DL (2.5-4.9)
[2017-10-29 07:15] VITALS: BP 150/71; PULSE 91; RESP 20; TEMP 98.1; O2SAT 99
[2017-10-29 07:42] LABS: BANDS 2 % (0-6); METAMYELOCYTES 1 % (0-1); MONOCYTES 3 % (0-8); NEUTROPHIL # MANUAL DIFF 7.4 TH/MM3 (1.8-7.7); POLYS (SEG NEUTROPHILS) 94 % (16-70)
[2017-10-29] MEDS: PATIROMER CALCIUM SORBITEX 16.8 GM PKT PO SCH (08:51)
[2017-10-29] MEDS: INSULIN ASPART SUPPLEMENTAL SCALE SQ SCH ×4 (08:51→21:52)
[2017-10-29] MEDS: POLYETHYLENE GLYCOL 17 GM PKG PO SCH (08:52)
[2017-10-29] MEDS: amLODIPine BESYLATE 5 MG TAB PO SCH (08:53)
[2017-10-29] MEDS: ACETAMINOPHEN 325 MG TAB PO PRN ×2 (08:53→15:12)
[2017-10-29] MEDS: DOCUSATE SODIUM 100 MG CAP PO SCH ×2 (08:53→21:52)
[2017-10-29] MEDS: TAMSULOSIN HCL 0.4 MG CAP PO SCH (08:53)
[2017-10-29] MEDS: cefTRIAXone INJ 1,000 MG in SODIUM CHLORIDE 0.9% INJ 100 ML IV SCH (08:53)
[2017-10-29] MEDS: CALCIUM CARBONATE 500 MG CHEWABLE TAB CHEW SCH ×2 (08:53→15:12)
[2017-10-29] MEDS: predniSONE 10 MG TAB PO SCH (08:53)
[2017-10-29] MEDS: PANTOPRAZOLE SODIUM 40 MG VIAL IV PUSH SCH ×2 (08:54→21:52)
[2017-10-29] MEDS: NYSTATIN SUSP 500,000 U/5 ML CUP SWISH-SPIT SCH ×4 (08:54→21:53)
[2017-10-29] MEDS: ONDANSETRON ODT 4 MG TAB SL PRN (10:19)
--- NOTE | 2017-10-29 10:53 | HHI.PR ---
Subjective Remarks Patient states feels very nauseous, vomited last night Denies abdominal pain and states had a normal looking BM this morning. good urine output Creatinine slightly better Objective Vitals Vital Signs Date Time Temp Pulse Resp B/P (MAP) Pulse Ox O2 Delivery O2 Flow Rate FiO2 10/29/17 10:04 21 10/29/17 07:15 98.1 91 20 150/71 (97) 99 10/29/17 03:23 97.8 104 19 149/71 (97) 100 10/28/17 23:41 98.2 88 18 145/73 (97) 100 10/28/17 19:50 98.3 91 19 149/77 (101) 99 10/28/17 16:00 98.1 102 16 162/79 (106) 97 10/28/17 12:00 97.9 89 18 148/73 (98) 99 I/O 10/28/17 10/28/17 10/28/17 10/29/17 10/29/17 10/29/17 07:00 15:00 23:00 07:00 15:00 23:00 Intake Total 480 ml 860 ml 660 ml 100 ml Output Total 1020 ml 900 ml 850 ml Balance -540 ml -40 ml -190 ml 100 ml Intake Oral 480 ml 660 ml 660 ml IV Total 200 ml 100 ml Output Urine Total 1000 ml 900 ml 850 ml Drainage Total 20 ml # Bowel Movements 1 0 Result Diagram: 10/29/17 0526 10/29/17 05 Objective Remarks AAox3 Mild distress due to nausea Clear lungs BL S1S2 RRR, no MRG abdomen soft, nt, non distended, post surgical scar healing well C/D/I +1 edema in lower extremities. On his bilateral buttocks has about 4 x 3 x 3 cm stage 1 shear decub on his right buttock cheek and about a 2 x 2 stage 1 shear decubitus on his left buttock cheek. Procedures kidney transplant. A/P Problem List: (1) Kidney transplant status ICD Code: Z94.0 - Kidney transplant status Plan: The patient was previously on peritoneal dialysis. Transfer surgery consulted. Nephrology consulted. Mention of immune suppressive therapy as per nephrology and transplant surgery. Patient had urinary retention and a Nova catheter was placed on 10/23/17 with some bloody urine. Creatinine trending up. Had hemodialysis on 10/23/17. Rocephin started for urinary tract infection. Urine culture grew E. coli. Patient status post renal biopsy on 10/25/17. Pathology negative for acute tubular injury and negative for acute rejection. Patient with delayed graft function. Patient with good urine output, continue to monitor urine output, renal function. Patient's creatinine continued to trend up. Renal transplant US c/w DGF/ATN. Vascath being converted to tunneled cath 10/27/17. Creatinine is slightly better, off Lasix. The patient is on prednisone, tacrolimus 6 mg p.o. twice daily, CellCept. Received Thymoglobulin induction. As per nephrology home on dialysis. 6 was less than continue management as per nephrology and transplant surgery. (2) Hypertension ICD Code: I10 - Essential (primary) hypertension Plan: BP with acceptable parameters. Continue current antihypertensive medications which include being 5 mill grams p.o. daily, clonidine as needed. (3) Diabetes ICD Code: E11.9 - Type 2 diabetes mellitus without complications Status: Chronic Plan: Blood sugar seems to be stable. Continue SSI with insulin NovoLog and continue to monitor Accu-Cheks. (4) Delayed graft function of kidney ICD Code: T86.19 - Other complication of kidney transplant Plan: Management as per template surgery. Tacrolimus level subtherapeutic on admission on 10/21 at 2.0. Tacrolimus level has been increasing and within normal range on 10/28 at 8.6. Tacrolimus level still pending today (5) Nausea & vomiting ICD Code: R11.2 - Nausea with vomiting, unspecified Plan: Patient with severe nausea, vomiting last night. No vomiting today, however patient feels very nauseous. Discussed with RN. Will continue to give sublingual Zofran and Phenergan suppository. I will hold IV Protonix as these can cause interstitial nephritis. Check urinary eosinophils if not previously done. If nausea vomiting continues we will consider adding a low-dose Reglan scheduled dose since the patient could have some degree of diabetic gastroparesis. (6) Hypocalcemia ICD Code: E83.51 - Hypocalcemia Plan: Hypocalcemia status post replacement with IV calcium chloride. Continue to monitor calcium levels and replace as needed. (7) Hyperphosphatemia ICD Code: E83.39 - Other disorders of phosphorus metabolism Plan: Phosphorus slowly trending down. Continue to monitor levels. Phosphorus slightly elevated to decreased renal function. Continue to monitor levels. (8) Open wound of buttock ICD Code: S31.809A - Unspecified open wound of unspecified buttock, initial encounter Plan: Patient has bilateral buttock wounds. Wound care has been consulted. Follow-up recommendations. Skin Barrier applied by nurses. (9) Thrombocytopenia ICD Code: D69.6 - Thrombocytopenia, unspecified Status: Acute Plan: Now resolved. Continue to monitor CBC. Assessment and Plan SCDs for DVT prophylaxis. Discharge Planning Plan for discharge Tuesday, with ensuring a HD chair is available if/ as needed prior to discharge per Dr Samson renal transplant surgeon. Pending improvement of nausea and vomiting. Problem Qualifiers (1) Hypertension: Qualified Codes: I10 - Essential (primary) hypertension (2) Diabetes: (3) Nausea & vomiting: (4) Open wound of buttock: Qualified Codes: S31.809A - Unspecified open wound of unspecified buttock, initial encounter Maciel Tripathi MD Oct 29, 2017 10:53
[2017-10-29 11:00] VITALS: BP 154/74; PULSE 95; RESP 20; TEMP 97.6; O2SAT 100
[2017-10-29] MEDS ORDERED: IRON SUCROSE INJ 200 MG in SODIUM CHLORIDE 0.9% INJ 100 ML IV ONE (11:15)
[2017-10-29] MEDS ORDERED: SODIUM CHLORID 0.9% 500 ML INJ 500 ML IV SCH (11:15)
[2017-10-29] MEDS ORDERED: EPOETIN ALFA 4,000 UNITS/ML VIAL SQ ONE (11:15)
--- NOTE | 2017-10-29 11:16 | HHI.PR ---
Subjective Remarks Some nausea noted again today. began around 0330. Improved with phenergan supp, then reoccurred later this Am, around [id number]. Can tolerate liquid, but poor po intake otherwise. Encouraged to use supplements Objective Vital Signs Date Time Temp Pulse Resp B/P (MAP) Pulse Ox O2 Delivery O2 Flow Rate FiO2 10/29/17 10:04 21 10/29/17 07:15 98.1 91 20 150/71 (97) 99 10/29/17 03:23 97.8 104 19 149/71 (97) 100 10/28/17 23:41 98.2 88 18 145/73 (97) 100 10/28/17 19:50 98.3 91 19 149/77 (101) 99 10/28/17 16:00 98.1 102 16 162/79 (106) 97 10/28/17 12:00 97.9 89 18 148/73 (98) 99 I/O 10/28/17 10/28/17 10/28/17 10/29/17 10/29/17 10/29/17 07:00 15:00 23:00 07:00 15:00 23:00 Intake Total 480 ml 860 ml 660 ml 100 ml Output Total 1020 ml 900 ml 850 ml Balance -540 ml -40 ml -190 ml 100 ml Intake Oral 480 ml 660 ml 660 ml IV Total 200 ml 100 ml Output Urine Total 1000 ml 900 ml 850 ml Drainage Total 20 ml # Bowel Movements 1 0 Result Diagram: 10/29/1752510/29/17 05 Objective Remarks Resp: CTAB,. CV: S1S2 Abd: BS, soft. Approp tender. Wound clean, dry, intact without erythema, fluctuance, or tenderness. Ext: Calves soft, NT B. Peripheral edema about 2+ Assessment and Plan Problem List: (1) Hypertension ICD Codes: I10 - Essential (primary) hypertension (2) Diabetes ICD Codes: E11.9 - Type 2 diabetes mellitus without complications Status: Chronic (3) ESRD (end stage renal disease) on dialysis ICD Codes: N18.6 - End stage renal disease; Z99.2 - Dependence on renal dialysis Assessment and Plan 61 yom with CKD-5 due to DM/Htn. s/p renal transplant from a DCD donor. Patient with delayed graft function. Creatinine improved. Still with some nausea. Phenergan supp prn. Will also change protonix to bid. Will give 500 ml fluid bolus. UA on 10/27/17 not c/w UTI. Prograf 7.1 today. Will leave at current dose for now and see what it is tomorrow, then decide if to adjust. Continue current care. Problem Qualifiers (1) Hypertension: Qualified Codes: I10 - Essential (primary) hypertension (2) Diabetes: Aurelio Samson Jr., MD Oct 29, 2017 11:16
--- NOTE | 2017-10-29 12:33 | HHI.NPPN ---
Subjective History of Present Illness Hx of DDTx 10/17 Additional Remarks Continues to have some nausea Review of Systems General Constitutional: Fatigue Gastrointestinal Gastrointestinal: Nausea & Vomiting Objective Data Data 10/29/17 10/30/17 19:00 07:00 Intake Total 100 ml Balance 100 ml IV Total 100 ml Vital Signs Date Time Temp Pulse Resp B/P (MAP) Pulse Ox O2 Delivery O2 Flow Rate FiO2 10/29/17 11:00 97.6 95 20 154/74 (100) 100 10/29/17 10:04 21 10/29/17 07:15 98.1 91 20 150/71 (97) 99 10/29/17 03:23 97.8 104 19 149/71 (97) 100 10/28/17 23:41 98.2 88 18 145/73 (97) 100 10/28/17 19:50 98.3 91 19 149/77 (101) 99 10/28/17 16:00 98.1 102 16 162/79 (106) 97 -: 10/29/17 0526 10/29/17 0526 Physical Exam General Appearance: Well Developed, Well Nourished Neck Neck Exam: Neck Supple Pulmonary Resp Exam: Clear Bilaterally, Breath Sounds Equal Cardiology CV Exam: Regular, Normal Sinus Rhythm Extremeties Extremities Exam: Moderate Edema Neurologic Neuro Exam: Alert, Awake, Oriented Assessment/Plan Problem List: (1) Kidney transplant status ICD Codes: Z94.0 - Kidney transplant status Plan: patient with DGF. He is non oliguric. Creatinine is slightly better. s/p kidney biopsy passing more urine up to 1.7 L , off Lasix On Prednisone , Tacrolimus 6 mg bid, CellCept . Received Thymoglobulin induction. home on dialysis Continues to make progress nausea improve phenergan suppository Biopsy showed ATN/Ischemic injury moderate fibrosis and no Rejection. placement at out pt facility planned (2) Hypertension ICD Codes: I10 - Essential (primary) hypertension Plan: Stable (3) Diabetes ICD Codes: E11.9 - Type 2 diabetes mellitus without complications Status: Chronic Plan: monitor BG Problem Qualifiers (1) Hypertension: Qualified Codes: I10 - Essential (primary) hypertension (2) Diabetes: Anne Gibson MD Oct 29, 2017 12:33
[2017-10-29 15:00] VITALS: BP 155/78; PULSE 92; RESP 21; TEMP 98.2; O2SAT 100
[2017-10-29] MEDS ORDERED: PROMETHAZINE HCL 25 MG SUPP RECTAL PRN (15:30)
[2017-10-29 19:50] VITALS: BP 150/73; PULSE 90; RESP 18; TEMP 97.8; O2SAT 93
[2017-10-29 23:40] VITALS: BP 153/74; PULSE 96; RESP 19; TEMP 98; O2SAT 99
[2017-10-30] VITALS (7 sets, daily range): BP systolic 137–167; BP diastolic 73–82; PULSE 86–96; RESP 16–21; TEMP 97.5–98.2; O2SAT 99–100
[2017-10-30] MEDS: ACETAMINOPHEN 325 MG TAB PO PRN ×3 (04:26→20:11)
[2017-10-30 06:05] LABS: AUTOMATED NEUTROPHIL # 9.1 TH/MM3 (1.8-7.7); EOSINOPHIL % 0.1 % (0.0-4.0); LYMPH % 0.6 % (9.0-44.0); LYMPHOCYTE # 0.1 TH/MM3 (1.0-4.8); MEAN CELL VOLUME 91.6 FL (80.0-100.0); MEAN CORPUSCULAR HEMOGLOBIN 30.4 PG (27.0-34.0); MEAN CORPUSCULAR HGB CONC 33.1 % (32.0-36.0); MEAN PLATELET VOLUME 6.8 FL (7.0-11.0); MONO % 4.5 % (0.0-8.0); MONOCYTE # 0.4 TH/MM3 (0-0.9); NEUT % 94.8 % (16.0-70.0); PLATELET COUNT 248 TH/MM3 (150-450); RED BLOOD COUNT 2.62 MIL/MM3 (4.50-5.90); WHITE BLOOD COUNT 9.6 TH/MM3 (4.0-11.0)
[2017-10-30] MEDS: MYCOPHENOLATE MOFETIL 500 MG TAB PO SCH ×2 (06:14→17:08)
[2017-10-30] MEDS: TACROLIMUS 1 MG CAP PO SCH ×2 (06:15→17:08)
[2017-10-30 06:33] LABS: % SATURATION IRON PROFILE 92.4 % (20-50); ALBUMIN 2.9 GM/DL (3.4-5.0); ALKALINE PHOSPHATASE 68 U/L (45-117); ALT (GPT) 14 U/L (12-78); AST (GOT) 11 U/L (15-37); BICARBONATE 17.5 MEQ/L (21.0-32.0); BLOOD UREA NITROGEN 117 MG/DL (7-18); CALCIUM 7.1 MG/DL (8.5-10.1); CALCIUM-PROTEIN CORRECTED 7.5 MG/DL (8.5-10.1); CHLORIDE 107 MEQ/L (98-107); CREATININE 8.33 MG/DL (0.60-1.30); GLOMERULAR FILTRATION RATE 8 ML/MIN (>89); GLUCOSE,RANDOM 198 MG/DL (74-106); IRON (FE) 128 MCG/DL (65-175); PHOSPHORUS 4.7 MG/DL (2.5-4.9); SODIUM (NA) 141 MEQ/L (136-145); TOTAL BILIRUBIN ADULT 0.4 MG/DL (0.2-1.0); TOTAL IRON BINDING CAPACITY 139 MCG/DL (250-450); TOTAL PROTEIN 6.3 GM/DL (6.4-8.2)
[2017-10-30 07:30] LABS: BANDS 1 % (0-6); LYMPHOCYTES 1 % (9-44); MONOCYTES 2 % (0-8); MYELOCYTES 1 % (0-0); NEUTROPHIL # MANUAL DIFF 9.3 TH/MM3 (1.8-7.7); POLYS (SEG NEUTROPHILS) 95 % (16-70)
[2017-10-30] MEDS: CALCIUM CARBONATE 500 MG CHEWABLE TAB CHEW SCH ×2 (08:56→15:06)
[2017-10-30] MEDS: INSULIN ASPART SUPPLEMENTAL SCALE SQ SCH ×4 (08:56→22:00)
[2017-10-30] MEDS: NYSTATIN SUSP 500,000 U/5 ML CUP SWISH-SPIT SCH ×4 (08:57→21:53)
[2017-10-30] MEDS: POLYETHYLENE GLYCOL 17 GM PKG PO SCH (08:57)
[2017-10-30] MEDS: amLODIPine BESYLATE 5 MG TAB PO SCH (08:57)
[2017-10-30] MEDS: DOCUSATE SODIUM 100 MG CAP PO SCH ×2 (08:57→21:00)
[2017-10-30] MEDS: PANTOPRAZOLE SODIUM 40 MG VIAL IV PUSH SCH ×2 (08:57→21:53)
[2017-10-30] MEDS: TAMSULOSIN HCL 0.4 MG CAP PO SCH (08:57)
[2017-10-30] MEDS: PATIROMER CALCIUM SORBITEX 16.8 GM PKT PO SCH (08:57)
[2017-10-30] MEDS: cefTRIAXone INJ 1,000 MG in SODIUM CHLORIDE 0.9% INJ 100 ML IV SCH (08:58)
[2017-10-30] MEDS: predniSONE 10 MG TAB PO SCH (09:41)
--- NOTE | 2017-10-30 12:39 | HHI.NPPN ---
Subjective History of Present Illness Hx of DDTx 10/17 Additional Remarks Feels better Review of Systems General Constitutional: Fatigue Objective Data Data 10/30/17 10/31/17 19:00 07:00 Intake Total 100 ml Balance 100 ml IV Total 100 ml Vital Signs Date Time Temp Pulse Resp B/P (MAP) Pulse Ox O2 Delivery O2 Flow Rate FiO2 10/30/17 11:00 97.8 89 21 156/82 (106) 99 10/30/17 07:00 97.5 96 20 152/74 (100) 99 10/30/17 03:20 97.6 94 20 158/76 (103) 100 10/29/17 23:40 98.0 96 19 153/74 (100) 99 10/29/17 19:50 97.8 90 18 150/73 (98) 93 10/29/17 15:00 98.2 92 21 155/78 (103) 100 -: 10/30/17 0523 10/30/17 0523 Physical Exam General Appearance: Well Developed, Well Nourished Neck Neck Exam: Neck Supple Pulmonary Resp Exam: Clear Bilaterally, Breath Sounds Equal Cardiology CV Exam: Regular, Normal Sinus Rhythm Extremeties Extremities Exam: Moderate Edema Neurologic Neuro Exam: Alert, Awake, Oriented Assessment/Plan Problem List: (1) Kidney transplant status ICD Codes: Z94.0 - Kidney transplant status Plan: patient with DGF. He is non oliguric. Creatinine is slightly better. s/p kidney biopsy passing more urine up to 1.3 L , off Lasix On Prednisone 10 mg daily, Tacrolimus 6 mg bid, CellCept 1000 mg twice daily. Received Thymoglobulin induction. I do not think he will need dialysis Stop Veltassa as potassium 3.4 Continues to make progress Biopsy showed ATN/Ischemic injury moderate fibrosis and no Rejection. placement at out pt facility planned Cleared by nephrology to be discharged and follow-up as outpatient in transplant clinic No need to arrange hemodialysis (2) Hypertension ICD Codes: I10 - Essential (primary) hypertension Plan: Stable (3) Diabetes ICD Codes: E11.9 - Type 2 diabetes mellitus without complications Status: Chronic Plan: monitor BG Problem Qualifiers (1) Hypertension: Qualified Codes: I10 - Essential (primary) hypertension (2) Diabetes: Anne Gibson MD Oct 30, 2017 12:39
--- NOTE | 2017-10-30 13:29 | HHI.PR ---
Subjective Remarks Deferred entry, patient seen earlier at 10 AM. Patient denies any nausea vomiting. As per RN report the patient had episode of nausea last night at 3 AM but did not vomit. Patient is afebrile, oxygen saturation 99% on 2 L nasal cannula. Objective Vitals Vital Signs Date Time Temp Pulse Resp B/P (MAP) Pulse Ox O2 Delivery O2 Flow Rate FiO2 10/30/17 13:15 19 10/30/17 11:00 97.8 89 21 156/82 (106) 99 10/30/17 07:00 97.5 96 20 152/74 (100) 99 10/30/17 03:20 97.6 94 20 158/76 (103) 100 10/29/17 23:40 98.0 96 19 153/74 (100) 99 10/29/17 19:50 97.8 90 18 150/73 (98) 93 10/29/17 15:00 98.2 92 21 155/78 (103) 100 I/O 10/29/17 10/29/17 10/29/17 10/30/17 10/30/17 10/30/17 06:59 14:59 22:59 06:59 14:59 22:59 Intake Total 660 ml 210 ml 980 ml 900 ml 100 ml Output Total 850 ml 800 ml 575 ml Balance -190 ml 210 ml 180 ml 325 ml 100 ml Intake Oral 660 ml 480 ml 900 ml IV Total 210 ml 500 ml 100 ml Output Urine Total 850 ml 800 ml 575 ml # Bowel Movements 0 2 1 Result Diagram: 10/30/17 0523 10/30/17 0523 Objective Remarks AAox3 Mild distress due to nausea Clear lungs BL S1S2 RRR, no MRG abdomen soft, nt, non distended, post surgical scar healing well C/D/I +1 edema in lower extremities. On his bilateral buttocks has about 4 x 3 x 3 cm stage 1 shear decub on his right buttock cheek and about a 2 x 2 stage 1 shear decubitus on his left buttock cheek. Procedures kidney transplant. A/P Problem List: (1) Kidney transplant status ICD Code: Z94.0 - Kidney transplant status Plan: The patient was previously on peritoneal dialysis. Transfer surgery consulted. Nephrology consulted. Mention of immune suppressive therapy as per nephrology and transplant surgery. Patient had urinary retention and a Nova catheter was placed on 6/3/18 with some bloody urine. Creatinine trending up. Had hemodialysis on 10/23/17. Rocephin started for urinary tract infection. Urine culture grew E. coli. Patient status post renal biopsy on 10/25/17. Pathology negative for acute tubular injury and negative for acute rejection. Patient with delayed graft function. Patient with good urine output, continue to monitor urine output, renal function. Patient's creatinine continued to trend up. Renal transplant US c/w DGF/ATN. Vascath being converted to tunneled cath 10/27/17. Creatinine is slightly better, off Lasix. The patient is on prednisone, tacrolimus 6 mg p.o. twice daily, CellCept. Received Thymoglobulin induction. As per nephrology home on dialysis. Continue management as per nephrology and transplant surgery. (2) Hypertension ICD Code: I10 - Essential (primary) hypertension Plan: BP with acceptable parameters. Continue current antihypertensive medications which include being 5 mill grams p.o. daily, clonidine as needed. (3) Diabetes ICD Code: E11.9 - Type 2 diabetes mellitus without complications Status: Chronic Plan: Blood sugar seems to be stable. Continue SSI with insulin NovoLog and continue to monitor Accu-Cheks. (4) Delayed graft function of kidney ICD Code: T86.19 - Other complication of kidney transplant Plan: Management as per template surgery. Tacrolimus level subtherapeutic on admission on 10/21 at 2.0. Tacrolimus level therapeutic at 10.3. (5) Nausea & vomiting ICD Code: R11.2 - Nausea with vomiting, unspecified Plan: Patient with severe nausea, vomiting last night. No vomiting today, however patient feels very nauseous. Discussed with RN. Will continue to give sublingual Zofran and Phenergan suppository. If nausea vomiting continues we will consider adding a low-dose Reglan scheduled dose since the patient could have some degree of diabetic gastroparesis. (6) Hypocalcemia ICD Code: E83.51 - Hypocalcemia Plan: Hypocalcemia status post replacement with IV calcium chloride. Continue to monitor calcium levels and replace as needed. 10/30 protein corrected calcium of 10.5. Will replace with IV calcium chloride. (7) Hyperphosphatemia ICD Code: E83.39 - Other disorders of phosphorus metabolism Plan: Phosphorus slowly trending down. Continue to monitor levels. Phosphorus slightly elevated to decreased renal function. Continue to monitor levels. (8) Open wound of buttock ICD Code: S31.809A - Unspecified open wound of unspecified buttock, initial encounter Plan: Patient has bilateral buttock wounds. Wound care has been consulted. Follow-up recommendations. Skin Barrier applied by nurses. (9) Thrombocytopenia ICD Code: D69.6 - Thrombocytopenia, unspecified Status: Acute Plan: Now resolved. Continue to monitor CBC. (10) Anemia due to chronic kidney disease ICD Code: N18.9 - Chronic kidney disease, unspecified; D63.1 - Anemia in chronic kidney disease Status: Chronic Plan: Status post IV iron as per transplant surgery. Hemoglobin stable and trending up at 8.0. Assessment and Plan SCDs for DVT prophylaxis. Discharge Planning Plan for discharge Tuesday, with ensuring a HD chair is available if/ as needed prior to discharge per Dr Samson renal transplant surgeon. Pending improvement of nausea and vomiting. Problem Qualifiers (1) Hypertension: Qualified Codes: I10 - Essential (primary) hypertension (2) Diabetes: (3) Nausea & vomiting: (4) Open wound of buttock: Qualified Codes: S31.809A - Unspecified open wound of unspecified buttock, initial encounter Maciel Tripathi MD Oct 30, 2017 13:29
[2017-10-30] MEDS ORDERED: CALCIUM CHLORIDE INJ 2 GM in SODIUM CHLORIDE 0.9% INJ 100 ML IV ONE (15:00)
--- NOTE | 2017-10-30 15:42 | HHI.PR ---
Subjective Remarks Had brief bout of nausea around 0300, but none since. Feels pretty good. No new c/o Objective Vital Signs Date Time Temp Pulse Resp B/P (MAP) Pulse Ox O2 Delivery O2 Flow Rate FiO2 10/30/17 13:15 19 10/30/17 11:00 97.8 89 21 156/82 (106) 99 10/30/17 07:00 97.5 96 20 152/74 (100) 99 10/30/17 03:20 97.6 94 20 158/76 (103) 100 10/29/17 23:40 98.0 96 19 153/74 (100) 99 10/29/17 19:50 97.8 90 18 150/73 (98) 93 I/O 10/29/17 10/29/17 10/29/17 10/30/17 10/30/17 10/30/17 07:00 15:00 23:00 07:00 15:00 23:00 Intake Total 660 ml 210 ml 980 ml 900 ml 100 ml Output Total 850 ml 800 ml 575 ml Balance -190 ml 210 ml 180 ml 325 ml 100 ml Intake Oral 660 ml 480 ml 900 ml IV Total 210 ml 500 ml 100 ml Output Urine Total 850 ml 800 ml 575 ml # Bowel Movements 0 2 1 Result Diagram: 10/30/1752210/30/17522 Objective Remarks Resp - CTAB,. CV - S1S2 Abd - BS, soft. Approp tender. Wound clean, dry, intact without erythema, fluctuance, or tenderness. Ext - Calves soft, NT B. Peripheral edema improved (about 1+) Assessment and Plan Problem List: (1) Hypertension ICD Codes: I10 - Essential (primary) hypertension (2) Diabetes ICD Codes: E11.9 - Type 2 diabetes mellitus without complications Status: Chronic (3) ESRD (end stage renal disease) on dialysis ICD Codes: N18.6 - End stage renal disease; Z99.2 - Dependence on renal dialysis Assessment and Plan 61 yom with CKD-5 due to DM/Htn. s/p renal transplant from a DCD donor. Patient with delayed graft function. Creatinine continues to improve. nausea seems resolved at this time. Veltassa stopped. Will plan to stop antibiotics by tomorrow (for UTI) Prograf therapeutic. Will leave at current dose. Continue current care. Problem Qualifiers (1) Hypertension: Qualified Codes: I10 - Essential (primary) hypertension (2) Diabetes: Aurelio Samson Jr., MD Oct 30, 2017 15:42
[2017-10-30] MEDS: SODIUM CHLORIDE 0.9% FLUSH 10 ML FLUSH IV FLUSH PRN (21:55)
[2017-10-31 05:01] VITALS: BP 151/76; PULSE 86; RESP 16; O2SAT 100
[2017-10-31] MEDS: MYCOPHENOLATE MOFETIL 500 MG TAB PO SCH (06:26)
[2017-10-31] MEDS: TACROLIMUS 1 MG CAP PO SCH (06:26)
[2017-10-31 06:52] LABS: AUTOMATED NEUTROPHIL # 8.3 TH/MM3 (1.8-7.7); BASOPHIL % 0.1 % (0.0-2.0); EOSINOPHIL % 0.2 % (0.0-4.0); HEMATOCRIT 21.9 % (39.0-51.0); HEMOGLOBIN 7.3 GM/DL (13.0-17.0); LYMPH % 0.5 % (9.0-44.0); MEAN CELL VOLUME 90.2 FL (80.0-100.0); MEAN CORPUSCULAR HGB CONC 33.3 % (32.0-36.0); MEAN PLATELET VOLUME 6.6 FL (7.0-11.0); MONO % 5.4 % (0.0-8.0); MONOCYTE # 0.5 TH/MM3 (0-0.9); NEUT % 93.8 % (16.0-70.0); PLATELET COUNT 242 TH/MM3 (150-450); RED BLOOD COUNT 2.43 MIL/MM3 (4.50-5.90); WHITE BLOOD COUNT 8.8 TH/MM3 (4.0-11.0)
[2017-10-31 07:54] LABS: BICARBONATE 17.8 MEQ/L (21.0-32.0); CALCIUM 7.4 MG/DL (8.5-10.1); CREATININE 6.93 MG/DL (0.60-1.30); MAGNESIUM 1.9 MG/DL (1.5-2.5); PHOSPHORUS 4.7 MG/DL (2.5-4.9)
[2017-10-31] MEDS: INSULIN ASPART SUPPLEMENTAL SCALE SQ SCH (08:00)
[2017-10-31] MEDS ORDERED: OXYC1TAB63 PO (08:02)
[2017-10-31] MEDS ORDERED: AMLO5 PO (08:02)
[2017-10-31] MEDS ORDERED: Calcium Carbonate Chew CHEW (08:02)
[2017-10-31] MEDS ORDERED: TAMS5CAP PO (08:02)
[2017-10-31 08:08] LABS: CALCIUM-PROTEIN CORRECTED 7.9 MG/DL (8.5-10.1); TOTAL PROTEIN 6.1 GM/DL (6.4-8.2)
[2017-10-31 08:15] VITALS: BP 160/77; PULSE 66; RESP 18; TEMP 97.9; O2SAT 100
[2017-10-31] MEDS ORDERED: Nystatin Liq SWISH-SPIT (08:16)
[2017-10-31] MEDS ORDERED: DOCU1CAP39 PO (08:16)
[2017-10-31] MEDS ORDERED: TACR1 PO (08:16)
[2017-10-31] MEDS ORDERED: MYCO500 PO (08:16)
[2017-10-31] MEDS ORDERED: VALG450 PO (08:16)
[2017-10-31] MEDS ORDERED: PRED10 PO (08:16)
[2017-10-31] MEDS ORDERED: PROT40TA PO (08:20)
[2017-10-31] MEDS: POLYETHYLENE GLYCOL 17 GM PKG PO SCH (08:41)
[2017-10-31] MEDS: amLODIPine BESYLATE 5 MG TAB PO SCH (08:41)
[2017-10-31] MEDS: TAMSULOSIN HCL 0.4 MG CAP PO SCH (08:41)
[2017-10-31] MEDS: CALCIUM CARBONATE 500 MG CHEWABLE TAB CHEW SCH (08:41)
[2017-10-31] MEDS: cefTRIAXone INJ 1,000 MG in SODIUM CHLORIDE 0.9% INJ 100 ML IV SCH (08:41)
[2017-10-31] MEDS: predniSONE 10 MG TAB PO SCH (08:41)
[2017-10-31] MEDS: NYSTATIN SUSP 500,000 U/5 ML CUP SWISH-SPIT SCH (08:41)
[2017-10-31] MEDS: DOCUSATE SODIUM 100 MG CAP PO SCH (08:41)
[2017-10-31] MEDS: PANTOPRAZOLE SODIUM 40 MG VIAL IV PUSH SCH (08:42)
--- NOTE | 2017-10-31 09:19 | HHI.PR ---
Subjective Remarks Few loose stools overnight. Bowel regimen held. Feels pretty good. No new c/o Objective Vital Signs Date Time Temp Pulse Resp B/P (MAP) Pulse Ox O2 Delivery O2 Flow Rate FiO2 10/31/17 05:01 86 16 151/76 (101) 100 10/30/17 23:25 88 16 149/74 (99) 100 10/30/17 21:45 150/75 (100) 10/30/17 20:10 98.2 95 16 167/79 (108) 99 10/30/17 15:00 97.6 86 20 137/73 (94) 100 10/30/17 13:15 19 10/30/17 11:00 97.8 89 21 156/82 (106) 99 I/O 10/30/17 10/30/17 10/30/17 10/31/17 10/31/17 10/31/17 07:00 15:00 23:00 07:00 15:00 23:00 Intake Total 900 ml 100 ml 840 ml 240 ml Output Total 575 ml 600 ml 600 ml Balance 325 ml 100 ml 240 ml -360 ml Intake Oral 900 ml 720 ml 240 ml IV Total 100 ml 120 ml Output Urine Total 575 ml 600 ml 600 ml # Bowel Movements 1 2 0 Result Diagram: 10/31/17 0551 10/31/17 0551 Objective Remarks Resp: CTAB,. CV: S1S2 Abd: BS, soft. Approp tender. Wound clean, dry, intact without erythema, fluctuance, or tenderness. Ext: Calves soft, NT B. Peripheral edema improved Assessment and Plan Problem List: (1) Hypertension ICD Codes: I10 - Essential (primary) hypertension (2) Diabetes ICD Codes: E11.9 - Type 2 diabetes mellitus without complications Status: Chronic (3) ESRD (end stage renal disease) on dialysis ICD Codes: N18.6 - End stage renal disease; Z99.2 - Dependence on renal dialysis Assessment and Plan 61 yom with CKD-5 due to DM/Htn. s/p renal transplant from a DCD donor. Patient with delayed graft function. Creatinine improving. Doing well. Discharge home. Problem Qualifiers (1) Hypertension: Qualified Codes: I10 - Essential (primary) hypertension (2) Diabetes: Aurelio Samson Jr., MD Oct 31, 2017 09:19
[2017-10-31] MEDS ORDERED: TRAD5TAB PO (09:51)
--- NOTE | 2017-10-31 09:51 | HHI.DCPOC ---
Discharge Care Plan Diagnosis: (1) Kidney transplant status (2) Delayed graft function of kidney (3) Nausea & vomiting (4) Diabetes (5) Hypocalcemia (6) Hyperphosphatemia (7) Anemia due to chronic kidney disease (8) Open wound of buttock Goals to Promote Your Health * To prevent worsening of your condition and complications * To maintain your health at the optimal level Directions to Meet Your Goals Take your medications as prescribed Follow your dietary instruction Follow activity as directed Keep your appointments as scheduled Take your immunizations and boosters as scheduled If your symptoms worsen call your PCP, if no PCP go to Urgent Care Center or Emergency Room Smoking is Dangerous to Your Health. Avoid second hand smoke Call the 24-hour hour crisis hotline for domestic abuse at Maciel Tripathi MD Oct 31, 2017 09:51
--- NOTE | 2017-10-31 09:56 | HHI.DS ---
Discharge Summary Admission Date October 17, 2017 at 15:13 Discharge Date: Oct 31, 2017 Admitting Diagnosis ESRD (1) Kidney transplant status ICD Code: Z94.0 - Kidney transplant status (2) Hypertension ICD Code: I10 - Essential (primary) hypertension (3) Diabetes ICD Code: E11.9 - Type 2 diabetes mellitus without complications Status: Chronic (4) Delayed graft function of kidney ICD Code: T86.19 - Other complication of kidney transplant (5) Nausea & vomiting ICD Code: R11.2 - Nausea with vomiting, unspecified (6) Hypocalcemia ICD Code: E83.51 - Hypocalcemia (7) Hyperphosphatemia ICD Code: E83.39 - Other disorders of phosphorus metabolism (8) Open wound of buttock ICD Code: S31.809A - Unspecified open wound of unspecified buttock, initial encounter (9) Thrombocytopenia ICD Code: D69.6 - Thrombocytopenia, unspecified Status: Acute (10) Anemia due to chronic kidney disease ICD Code: N18.9 - Chronic kidney disease, unspecified; D63.1 - Anemia in chronic kidney disease Status: Chronic Procedures kidney transplant. Brief History - From Admission patient is a 61 y/o male with history of diabetes mellitus and ESRD - on peritoneal dialysis- who's been admitted for kidney transplant. he denies any chest pain, sob, abdominal pain at this time. CBC/BMP: 10/31/17 0551 10/31/17 0551 Significant Findings Laboratory Tests Test 10/29/17 05:26 10/30/17 05:23 10/31/17 05:51 Red Blood Count 2.47 MIL/MM3 (4.50-5.90) 2.62 MIL/MM3 (4.50-5.90) 2.43 MIL/MM3 (4.50-5.90) Hemoglobin 7.5 GM/DL (13.0-17.0) 8.0 GM/DL (13.0-17.0) 7.3 GM/DL (13.0-17.0) Hematocrit 22.3 % (39.0-51.0) 24.0 % (39.0-51.0) 21.9 % (39.0-51.0) Mean Platelet Volume 6.6 FL (7.0-11.0) 6.8 FL (7.0-11.0) 6.6 FL (7.0-11.0) Neutrophils (%) (Auto) 93.2 % (16.0-70.0) 94.8 % (16.0-70.0) 93.8 % (16.0-70.0) Lymphocytes (%) (Auto) 0.7 % (9.0-44.0) 0.6 % (9.0-44.0) 0.5 % (9.0-44.0) Lymphocytes # (Auto) 0.1 TH/MM3 (1.0-4.8) 0.1 TH/MM3 (1.0-4.8) 0.0 TH/MM3 (1.0-4.8) Neutrophils % (Manual) 94 % (16-70) 95 % (16-70) Blood Urea Nitrogen 125 MG/DL (7-18) 117 MG/DL (7-18) 102 MG/DL (7-18) Creatinine 9.21 MG/DL (0.60-1.30) 8.33 MG/DL (0.60-1.30) 6.93 MG/DL (0.60-1.30) Random Glucose 154 MG/DL (74-106) 198 MG/DL (74-106) 128 MG/DL (74-106) Calcium Level 7.5 MG/DL (8.5-10.1) 7.1 MG/DL (8.5-10.1) 7.4 MG/DL (8.5-10.1) Phosphorus Level 5.6 MG/DL (2.5-4.9) Carbon Dioxide Level 18.0 MEQ/L (21.0-32.0) 17.5 MEQ/L (21.0-32.0) 17.8 MEQ/L (21.0-32.0) Anion Gap 19 MEQ/L (5-15) 17 MEQ/L (5-15) Estimat Glomerular Filtration Rate 7 ML/MIN (>89) 8 ML/MIN (>89) 10 ML/MIN (>89) Neutrophils # (Auto) 9.1 TH/MM3 (1.8-7.7) 8.3 TH/MM3 (1.8-7.7) Lymphocytes % 1 % (9-44) Neutrophils # (Manual) 9.3 TH/MM3 (1.8-7.7) Myelocytes 1 % (0-0) Total Protein 6.3 GM/DL (6.4-8.2) 6.1 GM/DL (6.4-8.2) Albumin 2.9 GM/DL (3.4-5.0) Aspartate Amino Transf (AST/SGOT) 11 U/L (15-37) Potassium Level 3.4 MEQ/L (3.5-5.1) Protein Corrected Calcium 7.5 MG/DL (8.5-10.1) 7.9 MG/DL (8.5-10.1) Total Iron Binding Capacity 139 MCG/DL (250-450) Percent Iron Saturation 92.4 % (20-50) Chloride Level 111 MEQ/L (98-107) Imaging Last Impressions Renal Scan Nuclear Medicine 10/27/17 Signed Impressions: CONCLUSION: 1. Scan findings are characteristic of ATN. Catheter Placement X-Ray 10/27/17 Signed Impressions: CONCLUSION: 1. Uncomplicated Dialysis catheter placement as above. Renal Ultrasound 10/26/17 Signed Impressions: CONCLUSION: 1. Increase in the resistive indices throughout the transplant relative to the prior study.Differential diagnostic considerations include acute tubular necro sis, rejection, and drug toxicity. No signs of obstruction, renal vein thrombos is or renal artery stenosis. 2. Trace amount of perinephric fluid. Renal Biopsy Ultrasound 10/25/17 Signed Impressions: CONCLUSION: Uncomplicated right lower quadrant renal transplant biopsy. Chest X-Ray 10/23/17 Signed Impressions: CONCLUSION: Left-sided PICC line is abnormally positioned with the tip in the left internal jugular vein. New right-sided central line overlying the right cardiac border and terminating over the right atrium. Recommend repositioning both lines. PE at Discharge AAox3 Mild distress due to nausea Clear lungs BL S1S2 RRR, no MRG abdomen soft, nt, non distended, post surgical scar healing well C/D/I +1 edema in lower extremities. On his bilateral buttocks has about 4 x 3 x 3 cm stage 1 shear decub on his right buttock cheek and about a 2 x 2 stage 1 shear decubitus on his left buttock cheek. Pt Condition on Discharge: Stable Discharge Disposition: Discharge Home Discharge Time: <= 30 minutes Discharge Instructions DIET: Follow Instructions for: Renal Failure Diet Activities you can perform: Regular-No Restrictions Activities to Avoid: Contact Sports, Strenuous Activity Follow up Referrals: Nephrology - 2-3 Days New Medications: Pantoprazole (Protonix) 40 Mg Tab 40 MG PO DAILY for Ulcer Prevention, #30 TAB 0 Refills Amlodipine (Norvasc) 5 Mg Tab 5 MG PO DAILY for Blood Pressure Management, #60 TAB 6 Refills Docusate Sodium (Dok) 100 Mg Cap 100 MG PO BID PRN for CONSTIPATION, #30 CAP Mycophenolate (Cellcept) 500 Mg Tab 1000 MG PO BID@ for Immunosuppression, #180 TAB 11 Refills Oxycodone HCl/Acetaminophen (Oxycodone-Acetaminophen 5-325) 5 Mg-325 Mg Tablet 1 TAB PO Q4H PRN for PAIN SCALE 1 TO 5 for 10 Days, #60 TAB 0 Refills Prednisone (Prednisone) 10 Mg Tab 10 MG PO DAILY for Immunosuppression, #90 TAB 6 Refills Tacrolimus (Prograf) 1 Mg Cap 6 MG PO BID@, for Immunosuppression, #180 CAP 11 Refills Tamsulosin (Flomax) 0.4 Mg Cap 0.4 MG PO DAILY for Manage Prostate Problems, #60 CAP Valganciclovir (Valcyte) 450 Mg Tab 450 MG PO MoTh for Exposure Prophylaxis, #90 TAB 6 Refills [Calcium Carbonate Chew] () 500 MG CHEW 500 MG CHEW BID@,16 for Nutritional Supplement, #60 TAB 6 Refills [Nystatin Liq] () 5 ML SUSP 5 ML SWISH-SPIT QID for 90 Days, #450 ML Continued Medications: Linagliptin (Tradjenta) 5 Mg Tab 5 MG PO DAILY for Blood Sugar Management, #30 TAB 0 Refills Maciel Tripathi MD Oct 31, 2017 09:56
[2017-10-31] MEDS ORDERED: EPOETIN ALFA 4,000 UNITS/ML VIAL SQ ONE (11:00)
--- NOTE | 2017-10-31 12:30 | PHATRASOAP ---
Date/Time: 10/31/17 1218 Pharmacist daily assessment of kidney transplant patient: S: POST OP KIDENEY TRANSPLANT O: Ht: 5 ft 8 in Wt: 89.000 kg Allergies: SCR 10/31=6.93 A/P: Scr trending down, continue CellCept, tacrolimus and prednisone. Continue Valcyte and Nystatin. Patient educated on meds and has no questions for pharmacist. Pharmacist: Muna Pickett PharmD Signature on file
--- NOTE | 2017-10-31 12:53 | PD.WCN.NOT ---
Wound Consult Description: Wound consult ordered by for wound management. Communicated with: Gunjan ABDULLAHI Recommendation: 1. Cleanse inner buttocks with remedy soft cloth barrier wipes 2. Apply Calazime cream to affected are BID or after loose stool. 3. Avoid scooting or sliding up in chairs/bed. Additional Information: Patient was seen today by verse writer and Madiha white RN for wound management of buttocks.Patient alert and oriented x4 present at bedside.Patient was able to independently lift self from recliner to standing position.Neon Sign Worker assisted with patients clothing.Neon Sign Worker was able to visualize entire buttock/ sacra/coccyx area.Neon Sign Worker visualized moisture friction denuded skin on inner bilateral buttocks.measuring ~5.0cm 4.0cm x <0.1cm.Wound base is 100% moist pink non granular tissue scant serous exudate noted with out odor.Wound edges are well defined irregular in shape even with wound base.Wound cleansed with normal saline pat dry.Calazime cream applied in thick layer.Tube left with patient for home use. Ostomy Date of Surgery: October 17, 2017 [facility] Oct 31, 2017 12:53
== END 2017-10-31 10:38 | disposition home or self-care (01) | DRG 652 ==
LOC: HCVI 15:13 → UNDOADMIN 15:13 → HCPC 10-21 11:32 → HCVI 10-21 11:32 → HCPC 10-23 10:30 → HCVI 10-24 17:05 → HCPC 10-24 17:05
PROVIDERS: ADMIT Hospitalist; ATTEND Hospitalist
PROC: 0T760DZ Dilation of Right Ureter with Intraluminal Device, Open Approach (ICD-10-PCS; 2017-10-17)
PROC: 0TY00Z0 Transplantation of Right Kidney, Allogeneic, Open Approach (ICD-10-PCS; principal; 2017-10-17 18:35)
PROC: 5A1D70Z Performance of Urinary Filtration, Intermittent, Less than 6 Hours Per Day (ICD-10-PCS; 2017-10-23)
PROC: 02H633Z Insertion of Infusion Device into Right Atrium, Percutaneous Approach (ICD-10-PCS; 2017-10-23)
PROC: 0TB03ZX Excision of Right Kidney, Percutaneous Approach, Diagnostic (ICD-10-PCS; 2017-10-25)
PROC: 02HV33Z Insertion of Infusion Device into Superior Vena Cava, Percutaneous Approach (ICD-10-PCS; 2017-10-27)
DX: N18.6 End stage renal disease (principal); T86.19 Other complication of kidney transplant; E11.22 Type 2 diabetes mellitus with diabetic chronic kidney disease; D69.6 Thrombocytopenia, unspecified; M34.9 Systemic sclerosis, unspecified; I12.0 Hypertensive chronic kidney disease with stage 5 chronic kidney disease or end stage renal disease; E83.39 Other disorders of phosphorus metabolism; J98.11 Atelectasis; N39.0 Urinary tract infection, site not specified; N17.0 Acute kidney failure with tubular necrosis; F32.9 Major depressive disorder, single episode, unspecified; Y83.0 Surgical operation with transplant of whole organ as the cause of abnormal reaction of the patient, or of later complication, without mention of misadventure at the time of the procedure; D63.1 Anemia in chronic kidney disease; D72.819 Decreased white blood cell count, unspecified; E83.51 Hypocalcemia; K59.00 Constipation, unspecified; R11.2 Nausea with vomiting, unspecified; T83.098A Other mechanical complication of other urinary catheter, initial encounter; R31.9 Hematuria, unspecified; R51 Headache; Z92.3 Personal history of irradiation; Z85.46 Personal history of malignant neoplasm of prostate; Z99.2 Dependence on renal dialysis
CPT/HCPCS: 36558; 50200; 71045; 71046; 76776; 76937; 76942; 77001; 78708; 80048; 80053; 80197; 81001; 82948; 83540; 83550; 83735; 84100; 84155; 85007; 85014; 85025; 85027; 85610; 85730; 86850; 86900; 86901; 86920; 87077; 87086; 87186; 88305; 88313; 88342; 88346; 88348; 88350; 90935; 93005; 94150; 96374; 96375; 99152; 99153; A9539; A9541; C1750; C1769; C2617; C9113; J0171; J0610; J0690; J0696; J0780; J1200; J1580; J1644; J1720; J1756; J1815; J1940; J2150; J2250; J2270; J2370; J2405; J2440; J2550; J2710; J2920; J2930; J3010; J7030; J7040; J7507; J7511; J7512; J7517; P9045; P9047; Q4081

== ENCOUNTER 2018-05-10 10:43 | Inpatient (IN) ==
[2018-05-10] MEDS ORDERED: Acetaminophen 325 MG Tablet PO PRN (21:59)
[2018-05-10] MEDS ORDERED: Bisacodyl 10 MG Supp RECTAL PRN (21:59)
[2018-05-10] MEDS ORDERED: Dextrose 50% in Water 50 ML Vial IV.PUSH PRN (22:05)
--- NOTE | 2018-05-10 22:08 | P.HPIM ---
History of Present Illness Service: [facility] Primary Care Physician: Veronica Anton Chief Complaint: Fever History of Present Illness: 62-year-old male with a history of hypertension, diabetes and a kidney transplant 10/17/2017 was a direct admit into the hospital for evaluation of fever via recommendation of Dr. Samson. Patient states at the beginning of the month he developed fevers and was admitted into a [facility] where he was treated for 1 week for E. coli. He states on Tuesday the fevers returned and he decided to discuss it with his renal transplant team. He states since Tuesday he has had on and off fevers 100.5 was the highest with associated nausea and vomiting. He denies any other symptoms no chest pain,shortness of breath,chills,dysuria,back pain, hematuria, urine urinary frequency, or urinary hesitancy. Patient will be admitted for further workup and consult to Dr. Samson for evaluation. Inpatient Certification Inpatient Certification: I certify that the inpatient services were ordered in accordance with Medicare regulations governing the order. This includes certification that hospital inpatient services are reasonable and necessary and in the case of services not specified as inpatient-only under 42 CFR 419.22(n), that they are appropriately provided as inpatient services in accordance to with the 2-midnight benchmark under 43 CFR 412.3(e) Estimated Total Length of Stay (Days): 2 Plans for Post Hospital Care: Home Review of Systems Review of Systems: all other systems reviewed are negative [facility] History History Provided By: Patient Social History Social History Substance History: No History of Abuse Second Hand Smoke Exposure: No Smoking Status: Never smoker How Often Do You Have a Drink Containing Alcohol: Never Recent Travel in [place] within the Last 8 Weeks: No Recent Out of Country Travel within the Last 8 Weeks: No Medications and Allergies Allergies Allergy/AdvReac Type Severity Reaction Status Date / Time Iodine and Iodide Containing Allergy Severe Anaphylaxis Verified 11/11/17 14:13 Produc shellfish derived Allergy Severe Anaphylaxis Verified 11/11/17 14:13 Likpaok-Bae-Geo Reductase Allergy Severe Anaphylaxis Verified 11/11/17 14:13 Inhibitor Sulfa (Sulfonamide Allergy Severe Anaphylaxis Verified 11/11/17 14:13 Antibiotics) Home Medications Medication Instructions Recorded Confirmed Type B complex-vitamin C-folic acid 1 tab PO DAILY 05/10/18 05/10/18 History [Nephro-Thomas] Tums 500 mg PO ,,05/10/18 05/10/18 History calcitriol 0.5 mcg PO DAILY 05/10/18 05/10/18 History carvedilol [Coreg] 6.5 mg PO BID 05/10/18 05/10/18 History docusate sodium [Colace] See Label Instructions .ROUTE 05/10/18 05/10/18 History .COMPLEX PRN MDD 2 folic acid 1 mg PO DAILY 05/10/18 05/10/18 History iron ag,[id number] 1 tab PO DAILY 05/10/18 05/10/18 History [Niferex (Sumalate-Quatrefolic)] linagliptin [Tradjenta] 5 mg PO DAILY 05/10/18 05/10/18 History loperamide [Imodium A-D] 2 mg PO PRN PRN MDD 1 05/10/18 05/10/18 History magnesium oxide 800 mg PO 05/10/18 05/10/18 History mycophenolate mofetil [CellCept] 500 mg PO BID 05/10/18 05/10/18 History pantoprazole [Protonix] 40 mg PO DAILY 05/10/18 05/10/18 History potassium phosphate, monobasic 500 mg PO 05/10/18 05/10/18 History [K-Phos Original] prednisone 5 mg PO DAILY 05/10/18 05/10/18 History tacrolimus 28 mg PO DAILY 05/10/18 05/10/18 History tamsulosin [Flomax] 0.4 mg PO DAILY 05/10/18 05/10/18 History Active Medications: Active Medications Acetaminophen (Tylenol) 650 mg PO Q4H PRN PRN Reason: Temp > 100.4 Al Hydroxide/Mg Hydroxide (Milk Of Magnesia Liq) 30 ml PO Q12H PRN PRN Reason: Mild Constipation Bisacodyl (Dulcolax Supp) 10 mg RECTAL DAILY PRN PRN Reason: SEVERE CONSITIPATION Chlorhexidine Gluconate (Chlorhexidine 2% Cloth) 3 pack TOPICAL DAILY@0400 IRISH Stop: 05/16/18 03:59 Chlorhexidine Gluconate (Chlorhexidine 2% Cloth) 3 pack TOPICAL DAILY@0400 PRN PRN Reason: Extra cloth needed Stop: 05/16/18 03:59 Lactulose (Lactulose Liq) 30 ml PO DAILY PRN PRN Reason: SEVERE CONSITIPATION Ondansetron HCl (Zofran Inj) 4 mg IV.PUSH Q6H PRN PRN Reason: NAUSEA OR VOMITING Sennosides (Senokot) 17.2 mg PO Q12H PRN PRN Reason: Moderate Constipation Sodium Chloride (Ns Flush) 2 ml IV.FLUSH BID IRISH Sodium Chloride (Ns Flush) 2 ml IV.FLUSH PRN PRN PRN Reason: FLUSH AFTER USING IV ACCESS Physical Exam Narrative: GENERAL: Well-nourished patient in no acute distress SKIN: Warm and dry. No open areas of abrasions or lesions EYES: No scleral icterus. No injection or drainage. NECK: Supple, trachea midline. No JVD or lymphadenopathy. CARDIOVASCULAR: Regular rate and rhythm without murmurs, gallops, or rubs. RESPIRATORY: Breath sounds equal bilaterally. No accessory muscle use. GASTROINTESTINAL: Abdomen soft, non-tender, nondistended. MUSCULOSKELETAL: No cyanosis, or edema. BACK: Nontender without obvious deformity. No CVA tenderness. Results Labs CBC & Chem 7: 05/10/18 22:20 05/10/18 22:20 Caprini VTE Risk Assessment Caprini VTE Risk Assessment: No/Low Risk (score <= 1) Caprini Risk Assessment Model: Point Value = 1 Point Value = 2 Point Value = 3 Point Value = 5 Age 41-60 Minor surgery BMI > 25 kg/m2 Swollen legs Varicose veins or History of unexplained or recurrent spontaneous Oral contraceptives or hormone replacement Sepsis (< 1 month) Serious lung disease, including pneumonia (< 1 month) Abnormal pulmonary function Acute myocardial infarction Congestive heart failure (< 1 month) History of inflammatory bowel disease Medical patient at bed rest Age 61-74 Arthroscopic surgery Major open surgery (> 45 min) Laparoscopic surgery (> 45 min) Malignancy Confined to bed (> 72 hours) Immobilizing plaster cast Central venous access Age >= 75 History of VTE Family history of VTE Factor V Leiden Prothrombin [id number] Lupus anticoagulant Anticardiolipin antibodies Elevated serum homocysteine Heparin-induced thrombocytopenia Other congenital or acquired thrombophilia Stroke (< 1 month) Elective arthroplasty Hip, pelvis, or leg fracture Acute spinal cord injury (< 1 month) Prophylaxis Regimen: Total Risk Factor Score Risk Level Prophylaxis Regimen 0-1 Low Early ambulation 2 Moderate Order ONE of the following: *Sequential Compression Device (SCD) *Heparin 5000 units SQ BID 3-4 Higher Order ONE of the following medications: *Heparin 5000 units SQ TID *Enoxaparin/Lovenox 40 mg SQ daily (WT < 150 kg, CrCl > 30 mL/min) *Enoxaparin/Lovenox 30 mg SQ daily (WT < 150 kg, CrCl > 10-29 mL/min) *Enoxaparin/Lovenox 30 mg SQ BID (WT < 150 kg, CrCl > 30 mL/min) AND/OR *Sequential Compression Device (SCD) 5 or more Highest Order ONE of the following medications: *Heparin 5000 units SQ TID (Preferred with Epidurals) *Enoxaparin/Lovenox 40 mg SQ daily (WT < 150 kg, CrCl > 30 mL/min) *Enoxaparin/Lovenox 30 mg SQ daily (WT < 150 kg, CrCl > 10-29 mL/min) *Enoxaparin/Lovenox 30 mg SQ BID (WT < 150 kg, CrCl > 30 mL/min) AND *Sequential Compression Device (SCD) Assessment and Plan Plan 62-year-old male with a history of hypertension, diabetes and a kidney transplant 10/17/2017 was a direct admit into the hospital for evaluation of fever via recommendation of Dr. Samson. Fever, unknown origin -CMP, CBC, UA, and blood cultures ordered stat -UA shows +nitrates, +leukocyte esterase. Rocephin IV ordered -Respiratory panel pending -Chest XR ordered -ID consult per Dr. Samson CONOR in patient with Status post kidney transplant 09/2017 creatine 3.4, baseline 2.7 -Consult placed to Dr. Samson for evaluation -IVF for hydration -Nephrology consult per Dr. Samson -Home meds restarted Hypertension, chronic -Resume home medications, monitor vitals Diabetes, chronic -Accu-Cheks with sliding scale insulin ordered DVT prophylaxis: SCDs
--- NOTE | 2018-05-10 23:08 | P.CONTS ---
History of Present Illness Service: Transplant Surgery Consult date: 05/10/18 Reason for Consult: fever of unknown origin Primary Care Provider: Veronica Anton Chief Complaint: Fever History of Present Illness: 62 yom s/p donor kidney transplant on 10/17/2017. Was admitted to [facility] in [place] last month with FUO. Had a workup done and was discharged home on augmentin (? E Coli). Will get records to clarify. Was in usual state of health. On Tuesday when he was at the lab, a mother and child came in that had persistent coughing. He then had N/V x 2 on Tuesday night. He then checked his temp on Tuesday night and noted that he had a fever 100.8. He deervesced to 98.4 by the next morning, but then spiked to 101 by that evening when he checked it again. He denied any other symptomatology, such as diarrhea, fever, chills, hematuria, chest pain, abd pain. Opted to come here , rather than going to [place]. Review of Systems Constitutional: Denies anorexia, Denies body ache(s), Denies chills, Denies daytime sleepiness, Denies excessive sweating, Denies fatigue, Denies fever(s), Denies headache(s), Denies increased appetite, Denies lack of energy, Denies malaise, Denies night sweats, Denies weakness, Denies weight gain, Denies weight loss, Denies other Eyes: Denies blind spots, Denies blurry vision, Denies bulging eyes, Denies change in vision, Denies double vision, Denies discharge, Denies dry eyes, Denies floaters, Denies irritation, Denies itchy eyes, Denies loss of vision, Denies pain, Denies requires corrective lenses, Denies sensitivity to light, Denies other Ears, Nose, Mouth, and Throat: Denies abnormal hearing, Denies bleeding gums, Denies bad breath, Denies change in voice, Denies dental pain, Denies difficulty swallowing, Denies dizziness, Denies dry mouth, Denies ear discharge , Denies ear pain, Denies facial pain, Denies headache(s), Denies hearing loss, Denies hoarseness, Denies lip swelling, Denies nosebleed, Denies mouth lesions, Denies mouth pain, Denies nasal congestion, Denies nasal discharge, Denies nasal obstruction, Denies nasal trauma, Denies neck lump, Denies neck pain, Denies nose pain, Denies pain with swallowing, Denies poor balance, Denies post nasal drip, Denies ringing in the ears, Denies sinus pain, Denies sinus pressure , Denies sore throat, Denies throat swelling, Denies tongue swelling, Denies other Cardiovascular: Denies chest pain, Denies chest pain at rest, Denies chest pain with activity, Denies excessive sweating, Denies fainting, Denies fast heart rate, Denies foot swelling, Denies generalized swelling, Denies irregular heart rhythm, Denies leg pain with activity, Denies leg sores, Denies leg swelling, Denies lightheadedness, Denies radiating jaw, neck or arm pain, Denies rapid, pounding, or irregular heartbeat, Denies shortness of breath, Denies shortness of breath with activity, Denies shortness of breath when lying down, Denies shortness of breath causing sudden awakening, Denies slow heart rate, Denies other Respiratory: Denies change in phlegm color, Denies chest congestion, Denies cough, Denies coughing up blood, Denies excessive phlegm production, Denies pain on inspiration, Denies pain with cough, Denies shortness of breath, Denies shortness of breath with activity, Denies snoring, Denies stridor, Denies wheezing, Denies other Gastrointestinal: Reports nausea, Reports vomiting, Denies abdominal pain, Denies belching, Denies black, tarry stools, Denies bloating, Denies bright, red blood in stools, Denies change in bowel habits, Denies constant urge to pass stool, Denies change in stools, Denies coffee ground vomit, Denies constipation, Denies cramping, Denies difficulty swallowing, Denies excessive passing of gas, Denies feeling full early, Denies heartburn, Denies incontinent of stools, Denies loose stools, Denies pain with swallowing, Denies vomiting blood, Denies other Comments: Had 2 bouts of N/V a couple days ago. Genitourinary: Denies blood in semen, Denies blood in urine, Denies decreased urination, Denies difficulty urinating, Denies difficulty with ejaculations, Denies erectile dysfunction, Denies genital lesions, Denies genital pain, Denies painful urination, Denies side pain, Denies frequent nighttime urination , Denies painful ejaculations, Denies penile discharge, Denies scrotal swelling , Denies testicle lump, Denies testicle pain, Denies urinary frequency, Denies urinary hesitancy, Denies urinary incontinence, Denies urinary urgency, Denies other Comments: Denies burning. Does not think volume of urine output has changed. Musculoskeletal: Denies abnormal walking, Denies back pain, Denies body aches, Denies decreased muscle mass, Denies deformity, Denies joint pain, Denies joint swelling, Denies limited joint movement, Denies loss of height, Denies muscle cramps, Denies muscle weakness, Denies neck pain, Denies numbness, Denies radiating pain into limb, Denies stiffness, Denies tingling, Denies other Skin/Breast: Denies acne, Denies bleeding lesions, Denies boil, Denies breast swelling, Denies breast skin changes, Denies breast pain, Denies breast lump, Denies change in breast shape, Denies change in hair, Denies change in skin color, Denies changing lesions, Denies dry skin, Denies excessive hair growth, Denies hair loss, Denies itching, Denies lesions, Denies nail changes, Denies new lesions, Denies nipple discharge, Denies non-healing lesions, Denies redness , Denies sensitivity to light, Denies rash, Denies skin pain, Denies skin ulcer , Denies sores, Denies stretch laurent, Denies unusual bruising, Denies wounds, Denies yellowing of the skin, Denies other Neurologic: Denies abnormal hearing, Denies abnormal movements, Denies abnormal speech, Denies abnormal walking, Denies behavioral changes, Denies burning sensations, Denies confusion, Denies dizziness, Denies fainting, Denies frequent falls, Denies headache(s), Denies lack of coordination, Denies localized weakness, Denies loss of vision, Denies memory loss, Denies numbness, Denies other visual disturbances, Denies radiating pain, Denies restless legs, Denies convulsions, Denies seizure-like activity, Denies sensory deficit, Denies tingling, Denies tingling/numbness/burning sensations, Denies tremor(s), Denies unsteadiness, Denies weakness, Denies other Psychiatric: Denies abnormal sleep pattern, Denies anxiety, Denies behavioral changes, Denies change in appetite, Denies change in sex drive, Denies confusion , Denies depression, Denies difficulty concentrating, Denies hearing things others do not hear, Denies hopelessness, Denies irritability, Denies lack of enjoyment, Denies memory loss, Denies mood swings, Denies panic attacks, Denies paranoia, Denies seeing things others do not see, Denies sensing things others do not sense, Denies tactile hallucinations, Denies thoughts of hurting/killing others, Denies thoughts of hurting/killing yourself, Denies other Endocrine: Denies cold intolerance, Denies excessive sweating, Denies flushing, Denies heat intolerance, Denies increased hunger, Denies increased thirst, Denies increased urination, Denies rapid, pounding, or irregular heartbeat, Denies other Hematologic/Lymphatic: Denies easy bleeding, Denies easy bruising, Denies enlarged lymph nodes, Denies other Allergic/Immunologic: Denies GI upset with certain foods, Denies hives, Denies itchy eyes, Denies lip swelling, Denies seasonal runny nose, Denies throat swelling, Denies tongue swelling, Denies wheezing, Denies other PMFSH - History History Provided By: Patient - Medical History Medical History: Medical History (Last Reviewed 05/10/18 @ 23:34 by Aurelio Samson MD) Diabetes HTN (hypertension) - Surgical History Surgical History: Surgical History (Last Reviewed 05/10/18 @ 23:34 by Aurelio Samson MD) Kidney transplant recipient - Family History Family History: Family History (Last Reviewed 05/10/18 @ 23:34 by Aurelio Samson MD) Other Diabetes HTN (hypertension) - Social History I have reviewed the patient's Social History: Yes - Tobacco History Second Hand Smoke Exposure: No Tobacco Use In Past 30 Days: No Smoking Status: Never smoker - Alcohol History How Often Do You Have a Drink Containing Alcohol: Never - Substance Use History Substance History: No History of Abuse Medications and Allergies Active Medications: Active Medications Acetaminophen (Tylenol) 650 mg PO Q4H PRN PRN Reason: Temp > 100.4 Al Hydroxide/Mg Hydroxide (Milk Of Magnesia Liq) 30 ml PO Q12H PRN PRN Reason: Mild Constipation Bisacodyl (Dulcolax Supp) 10 mg RECTAL DAILY PRN PRN Reason: SEVERE CONSITIPATION Chlorhexidine Gluconate (Chlorhexidine 2% Cloth) 3 pack TOPICAL DAILY@0400 IRISH Stop: 05/16/18 03:59 Chlorhexidine Gluconate (Chlorhexidine 2% Cloth) 3 pack TOPICAL DAILY@0400 PRN PRN Reason: Extra cloth needed Stop: 05/16/18 03:59 Dextrose (D50w Vial) 50 ml IV.PUSH UNSCH PRN PRN Reason: PER HYPOGLYCEMIA PROTOCOL Glucagon (Glucagon Inj) 1 mg OTHER PRN PRN PRN Reason: for Hypoglycemia Protocol Insulin Human Regular (Novolin R Correctional Sugar Inj) 0 units SQ ACHS IRISH; Protocol Lactulose (Lactulose Liq) 30 ml PO DAILY PRN PRN Reason: SEVERE CONSITIPATION Ondansetron HCl (Zofran Inj) 4 mg IV.PUSH Q6H PRN PRN Reason: NAUSEA OR VOMITING Sennosides (Senokot) 17.2 mg PO Q12H PRN PRN Reason: Moderate Constipation Sodium Chloride (Ns Flush) 2 ml IV.FLUSH BID IRISH Sodium Chloride (Ns Flush) 2 ml IV.FLUSH PRN PRN PRN Reason: FLUSH AFTER USING IV ACCESS Allergies Allergy/AdvReac Type Severity Reaction Status Date / Time Iodine and Iodide Containing Allergy Severe Anaphylaxis Verified 11/11/17 14:13 Produc shellfish derived Allergy Severe Anaphylaxis Verified 11/11/17 14:13 [id number] Reductase Allergy Severe Anaphylaxis Verified 11/11/17 14:13 Inhibitor Sulfa (Sulfonamide Allergy Severe Anaphylaxis Verified 11/11/17 14:13 Antibiotics) Home Medications Medication Instructions Recorded Confirmed Type B complex-vitamin C-folic acid 1 tab PO DAILY 05/10/18 05/10/18 History [Nephro-Thomas] Tums 500 mg PO ,,05/10/18 05/10/18 History calcitriol 0.5 mcg PO DAILY 05/10/18 05/10/18 History carvedilol [Coreg] 6.5 mg PO BID 05/10/18 05/10/18 History docusate sodium [Colace] See Label Instructions .ROUTE 05/10/18 05/10/18 History .COMPLEX PRN MDD 2 folic acid 1 mg PO DAILY 05/10/18 05/10/18 History iron ag,[id number] 1 tab PO DAILY 05/10/18 05/10/18 History [Niferex (Sumalate-Quatrefolic)] linagliptin [Tradjenta] 5 mg PO DAILY 05/10/18 05/10/18 History loperamide [Imodium A-D] 2 mg PO PRN PRN MDD 1 05/10/18 05/10/18 History magnesium oxide 800 mg PO 05/10/18 05/10/18 History mycophenolate mofetil [CellCept] 500 mg PO BID 05/10/18 05/10/18 History pantoprazole [Protonix] 40 mg PO DAILY 05/10/18 05/10/18 History potassium phosphate, monobasic 500 mg PO 05/10/18 05/10/18 History [K-Phos Original] prednisone 5 mg PO DAILY 05/10/18 05/10/18 History tacrolimus 28 mg PO DAILY 05/10/18 05/10/18 History tamsulosin [Flomax] 0.4 mg PO DAILY 05/10/18 05/10/18 History Physical Exam - Constitutional no acute distress - Routine HEENT Exam Head: Present: normocephalic, atraumatic Eye: Present: EOMI ENT: Present: mucous membranes moist - Routine Neck Exam Present: supple - Routine Respiratory Exam Present: CTA bilaterally - Routine Cardiovascular Exam Present: RRR, S1, S2 - Routine Abdominal Exam Present: soft, normoactive bowel sounds Comments: Well healed RLQ abd scar - Routine Exam Comments: No inguinal hernias. No testicular masses - Routine Extremities Exam Present: pulses intact Comments: Palp fem/DP/PT - Routine Skin Exam Present: intact - Routine Neurological Exam Present: alert, oriented X3 - Detailed Neurological Exam: Coma Scale Verbal Response: Oriented - Routine Psychiatric Exam Present: normal affect, normal thought process Assessment and Plan - Assessment (1) Diabetes 1.5, managed as type 2 Code(s): E10.9 - Type 1 diabetes mellitus without complications Status: Acute (2) HTN (hypertension) Code(s): I10 - Essential (primary) hypertension Status: Acute (3) Kidney transplant recipient Code(s): Z94.0 - Kidney transplant status Status: Acute - Plan 52 yom with ESRD secondary to DM/Htn. S/p donor renal transplant to [facility]17. [facility].8, even iwth medical therapy. Reportedly had a fever to 101.8 at home, prior to going in then continued to have risng fever to 105.8 despite cooling and alternating bouts of tylenol and ibuprofen.... Was in [facility], unit after sick contact earlier this week. Unclear if that is the etiology. Will check resp panel, EBV/CMV quant, Blood cultures, urim. Will plan for echo in AM. Will also check iron studies. Hgb 8.5. Creat 3.47 was 2.71 on 12.3. ??consider biopsy in AM, if creat doesn't improve significantly by then.
[2018-05-10 23:09] LABS: Hematocrit 26.4 % (39.0-51.0); Hemoglobin 8.5 gm/dL (13.0-17.0); Mean Corpuscular HGB Conc 32.2 % (32.0-36.0); Mean Corpuscular Hemoglobin 29.9 pg (27.0-34.0); Mean Platelet Volume 7.2 fL (7.0-11.0); Platelet Count 255 th/mm3 (150-450); Red Blood Count 2.84 mil/mm3 (4.50-5.90); Red Cell Distribution Width 17.3 % (11.6-17.2); White Blood Count 6.4 th/mm3 (4.0-11.0)
[2018-05-10 23:17] LABS: Bacteria,Urine Many /hpf; Bilirubin,Urine Negative (Negative); Clarity,Urine Hazy (Clear); Color,Urine Yellow (Yellw/Straw); Glucose,Urine (UA) 500 or Greater mg/dL (Negative); Hyaline Casts,Urine 3 /lpf (0-3); Leukocyte Esterase,Urine Small (Negative); Mucus,Urine Few /lpf (Occasional); Nitrite,Urine Positive (Negative); Specific Gravity,Urine 1.012 (1.002-1.035)
[2018-05-10] MEDS: Sod Chloride 0.9% Inj 1,000 ML IV.CONT SCH (23:17)
[2018-05-10 23:37] LABS: Alkaline Phosphatase 77 U/L (45-117); Total Protein 7.5 g/dL (6.4-8.2)
[2018-05-10 23:39] LABS: Alanine Aminotransferase 14 U/L (12-78); Albumin 3.2 g/dL (3.4-5.0); Anion Gap 11 meq/L (5-15); Aspartate Aminotransferase 14 U/L (15-37); Blood Urea Nitrogen 49 mg/dL (7-18); Calcium 9.1 mg/dL (8.5-10.1); Carbon Dioxide 14.5 meq/L (21.0-32.0); Chloride 111 meq/L (98-107); Glomerular Filtration Rate 22 mL/min (>89); Glucose,Random 269 mg/dL (74-106); Magnesium 1.6 mg/dL (1.5-2.5); Sodium 136 meq/L (136-145)
--- NOTE | 2018-05-10 23:43 | XR ---
EXAM DATE: 05/10/2018 11:39 PM EST AGE/SEX: 62 years / Male INDICATIONS: Pneumonia. CLINICAL DATA: This is the patient's subsequent encounter. Patient reports that signs and symptoms h ave been present for 3 days and indicates a pain score of 3/10. MEDICAL/SURGICAL HISTORY: None. None. COMPARISON: [facility] [place], CHEST SINGLE AP, 10/23/2017. [facility], CHEST PA & LAT, 10/23/2017. . FINDINGS: A single AP view of the chest demonstrates the lungs to be symmetrically aerated without evidence of mass, infiltrate or effusion. The cardiomediastinal contours are unremarkable. Osseous structures a re stable with cystic lesion in the proximal left humerus, stable from prior.. CONCLUSION: No infiltrates seen. Electronically signed by: Bartolo Mcdermott MD Board Certified Radiologist 05/10/2018 11:42 PM EST
[2018-05-10 23:50] LABS: Lymphocytes 9 % (9-44); Metamyelocytes 3 % (0-1); Monocytes 9 % (0-8); Myelocytes 1 % (0-0)
[2018-05-10 23:51] LABS: Acanthocytes Occ; Ovalocytes 1+; Platelet Estimate Normal (Normal); Platelet Morphology Normal (Normal)
[2018-05-11] MEDS ORDERED: Chlorhexidine Gluconate 2% 1 Pack (2 Cloths) TOPICAL PRN (04:00)
[2018-05-11] MEDS: Chlorhexidine Gluconate 2% 1 Pack (2 Cloths) TOPICAL SCH (04:00)
[2018-05-11 05:12] LABS: Baso % (Auto) 0.2 % (0.0-2.0); Eos % (Auto) 0.5 % (0.0-4.0); Hematocrit 27.5 % (39.0-51.0); Hemoglobin 8.5 gm/dL (13.0-17.0); Lymph # (Auto) 0.5 th/mm3 (1.0-4.8); Lymph % (Auto) 9.5 % (9.0-44.0); Mean Corpuscular HGB Conc 31.1 % (32.0-36.0); Mean Corpuscular Volume 96.6 fL (80.0-100.0); Mono # (Auto) 0.6 th/mm3 (0.0-0.9); Mono % (Auto) 10.7 % (0.0-8.0); Neut # (Auto) 4.3 th/mm3 (1.8-7.7); Neut % (Auto) 79.1 % (16.0-70.0); Platelet Count 255 th/mm3 (150-450); Red Blood Count 2.85 mil/mm3 (4.50-5.90); Red Cell Distribution Width 17.6 % (11.6-17.2); Reticulocyte Percent 2.9 % (0.4-3.0); White Blood Count 5.4 th/mm3 (4.0-11.0)
[2018-05-11 05:53] LABS: % Iron Saturation 14.3 % (20-50); Calcium 8.7 mg/dL (8.5-10.1); Carbon Dioxide 15.4 meq/L (21.0-32.0); Magnesium 1.5 mg/dL (1.5-2.5); Phosphorus 3.2 mg/dL (2.5-4.9); Potassium 4.4 meq/L (3.5-5.1)
[2018-05-11] MEDS: TACROLIMUS 4 MG PO SCH (08:37)
[2018-05-11] MEDS ORDERED: LINAGLIPTIN 5 MG PO SCH (09:00)
[2018-05-11] MEDS ORDERED: Carvedilol 6.25 MG Tablet PO SCH (09:00)
[2018-05-11] MEDS ORDERED: TACROLIMUS 4 MG PO SCH (09:00)
[2018-05-11] MEDS: Insulin NovoLIN Regular Correctional Sugar Inj SQ SCH ×4 (09:39→21:33)
[2018-05-11] MEDS: Folic Acid 1 MG Tablet PO SCH (09:55)
[2018-05-11] MEDS: Vitamin B Complex/Vit C/Folic Tablet PO SCH (09:55)
[2018-05-11] MEDS: predniSONE 5 MG Tablet PO SCH (09:55)
--- NOTE | 2018-05-11 10:10 | US ---
EXAM DATE: 05/11/2018 9:57 AM EST AGE/SEX: 62 years / Male INDICATIONS: Increased lab values. CLINICAL DATA: This is the patient's subsequent encounter. Patient reports that signs and symptoms h ave been present for 1 day and indicates a pain score of 0/10. MEDICAL/SURGICAL HISTORY: . Carcinoma, prostatic. Hypertension. Diabetes. ESRD. . Renal biopsy 10/25/2017. Renal transplant. PD catheter. Bilateral cataracts. COMPARISON: [facility] [place], CT ABDOMEN & PELVIS W/O CONTRAST, 11/11/2017. [facility] [place], US KIDNEY / TRANSPLANT, 2017. . MEASUREMENTS: Transplant Kidney:__12.0 x 6.4 x 5.9 cm Location:__Right lower quadrant Arcuate Arteries Resistive Index: Upper - 0.8 Mid - 0.8 Lower - 0.8 Main Renal Artery Velocity:__180 cm/sec Main Renal Vein:__Patent External Iliac Artery Velocity:__162 cm/sec External Iliac Vein:__Patent FINDINGS: Transplant Kidney: Normal echogenicity and cortical thickness. No mass or hydronephrosis. No peritra nsplant fluid. Urinary Bladder: Within normal limits given the degree of distension. Other: None. CONCLUSION: 1. The renal transplant has a normal appearance without hydronephrosis or abnormal fluid collection. 2. Resistive indices are within normal limits and vascular findings demonstrate no abnormality. Electronically signed by: Wallace Hoffman MD Board Certified Radiologist 05/11/2018 10:09 AM EST
[2018-05-11] MEDS: Calcitriol 0.25 MCG Capsule PO SCH (10:44)
[2018-05-11] MEDS: Polysaccharide Iron Complex 150 MG Capsule PO SCH (10:44)
[2018-05-11] MEDS: Sod Chloride 0.9% Inj 1,000 ML IV.CONT SCH ×2 (10:45→21:37)
--- NOTE | 2018-05-11 11:09 | P.PNTS ---
Subjective Interval history: No new c/o. "feels okay". Physical Exam Vital signs: Vital Signs 05/10/18 21:40 05/10/18 23:00 05/11/18 03:00 Temperature 97.9 F 98.6 F Pulse Rate 86 86 76 Respiratory Rate 14 16 Blood Pressure 160/87 H 151/86 H Pulse Oximetry 97 97 05/11/18 07:00 Temperature 99.0 F Pulse Rate 83 Respiratory Rate 20 Blood Pressure 168/85 H Pulse Oximetry 95 Intake & Output 05/10/18 05/11/18 05/11/18 18:59 06:59 18:59 Intake Total 756 / 756 344 / 344 Output Total 775 / 775 Balance - 344 / 344 Weight 81.5 kg Intake: IV 756 / 756 344 / 344 NS Inj 1,000 ML @ 100 mls/hr IV 656 / 656 344 / 344 .CONT .Q10H IRISH Rx#:[id number] Rocephin Inj 1,000 MG In NS Inj 100 / 100 100 ML @ 200 mls/hr IV.SIG Q24H IRISH Rx#:[id number] Output: Urine 775 / 775 Other: Date of Last Bowel Movement 05/10/18 05/10/18 # Bowel Movements 0 Weight On Admission 81.5 kg - Constitutional no acute distress - Routine HEENT Exam Head: Present: normocephalic, atraumatic Eye: Present: EOMI ENT: Present: mucous membranes moist - Routine Neck Exam Present: supple - Routine Respiratory Exam Present: CTA bilaterally - Routine Cardiovascular Exam Present: RRR, S1, S2 - Routine Abdominal Exam Present: soft, normoactive bowel sounds - Routine Extremities Exam Present: pulses intact - Routine Skin Exam Present: intact - Routine Neurological Exam Present: alert, oriented X3 - Detailed Neurological Exam: Coma Scale Verbal Response: Oriented - Routine Psychiatric Exam Present: normal affect, normal thought process Results - Labs CBC & Chem 7: 05/11/18 04:01 05/11/18 04:01 Laboratory Results - last 24 hr 05/10/18 05/10/18 05/10/18 22:20 22:20 22:20 WBC 6.4 RBC 2.84 L Hgb 8.5 L Hct 26.4 L MCV 93.0 MCH 29.9 MCHC 32.2 RDW 17.3 H Plt Count 255 D MPV 7.2 Prelim Diff (Auto) Manual diff required Neut % (Auto) Lymph % (Auto) [place] % (Auto) Eos % (Auto) Baso % (Auto) Neut # (Auto) Lymph # (Auto) [place] # (Auto) Eos # (Auto) Baso # (Auto) WBC Differential Manual diff final Seg Neuts % (Manual) 77 H Band Neuts % (Manual) 1 Lymphocytes % (Manual) 9 Monocytes % (Manual) 9 H Metamyelocytes % (Man) 3 H Myelocytes % (Man) 1 H Abs Neuts (Manual) 5.2 Differential Comment . Platelet Estimate Normal Platelet Morphology Normal Ovalocytes 1+ H Acanthocytes (Spur) Occ H Keratocytes Occ H Retic Count Absolute Retic Sodium 136 Potassium 5.0 Chloride 111 H Carbon Dioxide 14.5 L Anion Gap 11 BUN 49 H Creatinine 3.47 H Estimated GFR 22 L POC Glucose Random Glucose 269 H Calcium 9.1 Phosphorus 3.0 Magnesium 1.6 Iron TIBC % Saturation Ferritin Total Bilirubin 0.4 Direct Bilirubin Indirect Bilirubin AST 14 L ALT 14 Alkaline Phosphatase 77 Total Protein 7.5 Albumin 3.2 L Lipase Urine Color Urine Clarity Urine pH Ur Specific [place] Urine Protein Urine Glucose (UA) Urine Ketones Urine Occult Blood Urine Nitrate Urine Bilirubin Urine Urobilinogen Ur Leukocyte Esterase Urine RBC Urine WBC Urine WBC Clumps Urine Bacteria Hyaline Casts Urine Mucus Micro UA Comment Ur Microscopic Review Urine Culture Comments Nasal Screen MRSA (PCR) Not detected Adenovirus (PCR) Bordetella holmesii PCR B. pertussis DNA (PCR) B. paraper/bronch (PCR) Human Metapneumovir PCR Influenza A (RT-PCR) Influenza A (H1) PCR Influenza A (H3) PCR Influenza B (RT-PCR) Parainfluenza 1 (PCR) Parainfluenza 2 (PCR) Parainfluenza 3 (PCR) Parainfluenza 4 (PCR) RSV Type A (PCR) RSV Type B (PCR) Rhinovirus (PCR) 05/10/18 05/10/18 05/11/18 22:20 22:20 04:01 WBC 5.4 RBC 2.85 L Hgb 8.5 L Hct 27.5 L MCV 96.6 D MCH 30.0 MCHC 31.1 L RDW 17.6 H Plt Count 255 MPV 7.0 Prelim Diff (Auto) Neut % (Auto) 79.1 H Lymph % (Auto) 9.5 [place] % (Auto) 10.7 H Eos % (Auto) 0.5 Baso % (Auto) 0.2 Neut # (Auto) 4.3 Lymph # (Auto) 0.5 L [place] # (Auto) 0.6 Eos # (Auto) 0.0 Baso # (Auto) 0.0 WBC Differential . Seg Neuts % (Manual) Band Neuts % (Manual) Lymphocytes % (Manual) Monocytes % (Manual) Metamyelocytes % (Man) Myelocytes % (Man) Abs Neuts (Manual) Differential Comment Auto diff final Platelet Estimate Platelet Morphology Ovalocytes Acanthocytes (Spur) Keratocytes Retic Count 2.9 Absolute Retic 82.3 Sodium Potassium Chloride Carbon Dioxide Anion Gap BUN Creatinine Estimated GFR POC Glucose Random Glucose Calcium Phosphorus Magnesium Iron TIBC % Saturation Ferritin Total Bilirubin Cancelled Direct Bilirubin 0.1 Indirect Bilirubin Cancelled AST Cancelled ALT Cancelled Alkaline Phosphatase Cancelled Total Protein Cancelled Albumin Cancelled Lipase 101 Urine Color Yellow Urine Clarity Hazy H Urine pH 5.0 Ur Specific [place] 1.012 Urine Protein Negative Urine Glucose (UA) 500 or greater Urine Ketones Negative Urine Occult Blood Negative Urine Nitrate Positive H Urine Bilirubin Negative Urine Urobilinogen Less than 2 Ur Leukocyte Esterase Small H Urine RBC 1 Urine WBC 24 H Urine WBC Clumps Occasional H Urine Bacteria Many H Hyaline Casts 3 Urine Mucus Few H Micro UA Comment Culture indicated Ur Microscopic Review Not Reportable Urine Culture Comments Culture indicated Nasal Screen MRSA (PCR) Adenovirus (PCR) Bordetella holmesii PCR B. pertussis DNA (PCR) B. paraper/bronch (PCR) Human Metapneumovir PCR Influenza A (RT-PCR) Influenza A (H1) PCR Influenza A (H3) PCR Influenza B (RT-PCR) Parainfluenza 1 (PCR) Parainfluenza 2 (PCR) Parainfluenza 3 (PCR) Parainfluenza 4 (PCR) RSV Type A (PCR) RSV Type B (PCR) Rhinovirus (PCR) 05/11/18 05/11/18 05/11/18 04:01 07:53 08:03 WBC RBC Hgb Hct MCV MCH MCHC RDW Plt Count MPV Prelim Diff (Auto) Neut % (Auto) Lymph % (Auto) [place] % (Auto) Eos % (Auto) Baso % (Auto) Neut # (Auto) Lymph # (Auto) [place] # (Auto) Eos # (Auto) Baso # (Auto) WBC Differential Seg Neuts % (Manual) Band Neuts % (Manual) Lymphocytes % (Manual) Monocytes % (Manual) Metamyelocytes % (Man) Myelocytes % (Man) Abs Neuts (Manual) Differential Comment Platelet Estimate Platelet Morphology Ovalocytes Acanthocytes (Spur) Keratocytes Retic Count Absolute Retic Sodium 140 Potassium 4.4 Chloride 115 H Carbon Dioxide 15.4 L Anion Gap 10 BUN 45 H Creatinine 3.21 H Estimated GFR 24 L POC Glucose 90 Random Glucose 116 H D Calcium 8.7 Phosphorus 3.2 Magnesium 1.5 Iron 24 L TIBC 168 L % Saturation 14.3 L Ferritin 865 H Total Bilirubin Direct Bilirubin Indirect Bilirubin AST ALT Alkaline Phosphatase Total Protein Albumin Lipase Urine Color Urine Clarity Urine pH Ur Specific [place] Urine Protein Urine Glucose (UA) Urine Ketones Urine Occult Blood Urine Nitrate Urine Bilirubin Urine Urobilinogen Ur Leukocyte Esterase Urine RBC Urine WBC Urine WBC Clumps Urine Bacteria Hyaline Casts Urine Mucus Micro UA Comment Ur Microscopic Review Urine Culture Comments Nasal Screen MRSA (PCR) Adenovirus (PCR) Not detected Bordetella holmesii PCR Not detected B. pertussis DNA (PCR) Not detected B. paraper/bronch (PCR) Not detected Human Metapneumovir PCR Not detected Influenza A (RT-PCR) Not detected Influenza A (H1) PCR Not detected Influenza A (H3) PCR Not detected Influenza B (RT-PCR) Not detected Parainfluenza 1 (PCR) Not detected Parainfluenza 2 (PCR) Not detected Parainfluenza 3 (PCR) Not detected Parainfluenza 4 (PCR) Not detected RSV Type A (PCR) Not detected RSV Type B (PCR) Not detected Rhinovirus (PCR) Not detected Microbiology 05/10/18 22:30 Blood - Peripheral Aerobic Blood Culture - Preliminary No growth in 1 day 05/10/18 22:30 Blood - Peripheral Anaerobic Blood Culture - Final QNS - See aerobic report. 05/10/18 22:25 Blood - Peripheral Aerobic Blood Culture - Preliminary No growth in 1 day 05/10/18 22:25 Blood - Peripheral Anaerobic Blood Culture - Final QNS - See aerobic report. - Imaging Impressions Chest X-Ray 05/10/18 23:21 CONCLUSION: No infiltrates seen. Renal Ultrasound 05/11/18 08:00 CONCLUSION: 1. The renal transplant has a normal appearance without hydronephrosis or abnormal fluid collection. 2. Resistive indices are within normal limits and vascular findings demonstrate no abnormality. Assessment and Plan - Assessment (1) Diabetes 1.5, managed as type 2 Code(s): E10.9 - Type 1 diabetes mellitus without complications Status: Acute (2) HTN (hypertension) Code(s): I10 - Essential (primary) hypertension Status: Acute (3) Kidney transplant recipient Code(s): Z94.0 - Kidney transplant status Status: Acute - Plan 52 yom with ESRD secondary to DM/Htn. S/p donor renal transplant to [facility] on 10/17/17. Was recently admitted to [facility] with a fever that went as high as 105.8, even with medical therapy. Reportedly had a fever to 101.8 at home, prior to going in then continued to have rising fever to 105.8 despite cooling and alternating bouts of tylenol and ibuprofen.... [place] [facility] sick contact earlier this week. Unclear if that is the etiology. Will check resp panel, EBV/CMV quant, Blood cultures, urine. echo.iron studies. Hgb 8.5. Creat 3.47 was 2.71 on 12.3. Patient with no new c/o. Creat decreased to 3.21 after 5 hours of mild hydration. Will hold off on biopsy for now. Hgb stable. Viral testing pending. Resume diabetic diet. Continue current cares. Await results of echo and official read of renal US (looks okay to my initial review)
[2018-05-11] MEDS ORDERED: Iron Sucrose Inj 100 MG/5 ML Vial IV.PUSH ONE (11:30)
[2018-05-11] MEDS ORDERED: Epoetin Alfa Inj 4,000 UNIT/ML Vial SQ ONE (11:30)
[2018-05-11] MEDS ORDERED: Iron Sucrose Inj 200 MG in Sodium Chlor 0.9% Inj 100 ML IV.SIG ONE (12:00)
[2018-05-11] MEDS: Potassium Phosphate 500 MG Soluble Tablet PO SCH ×2 (12:12→17:14)
[2018-05-11] MEDS: Magnesium Oxide 400 MG Tablet PO SCH ×2 (12:12→17:15)
--- NOTE | 2018-05-11 12:38 | ECHRPT ---
Indication: SEPSIS POSS ENDOCARDITIS CONCLUSIONS Normal left ventricular size. Wall thickness is normal. The left ventricular systolic function is low normal with an estimated ejection fraction in the rang e of 50- 55%. Calcification of the anterior mitral valve leaflet. Trace mitral valve regurgitation. Aortic sclerosis without stenosis. Calcification of the right coronary cusp. Calcification of the non-coronary cusp. There is trace tricuspid valve regurgitation. The estimated pulmonary arterial pressure is 30 mmHg. No vegetations visualized. BP: / HR: Rhythm: MEASUREMENTS (Male / Female) Normal Values Technical Quality: 2D ECHO LV Diastolic Diameter PLAX 4.4 cm 4.2 - 5.9 / 3.9 - 5.3 cm LV Systolic Diameter PLAX 3.5 cm IVS Diastolic Thickness 0.9 cm 0.6 - 1.0 / 0.6 - 0.9 cm LVPW Diastolic Thickness 0.9 cm 0.6 - 1.0 / 0.6 - 0.9 cm LV Relative Wall Thickness 0.4 LVOT Diameter 1.7 cm Aortic Root Diameter 3.0 cm LA Systolic Diameter LX 3.1 cm 3.0 - 4.0 / 2.7 - 3.8 cm M-MODE AV Cusp Separation MM 1.6 cm DOPPLER AV Peak Velocity 154.0 cm/s AV Peak Gradient 9.5 mmHg LVOT Peak Velocity 112.0 cm/s LVOT Peak Gradient 5.0 mmHg AV Area Cont Eq pk 1.7 cm Mitral E Point Velocity 95.8 cm/s Mitral A Point Velocity 90.3 cm/s Mitral E to A Ratio 1.1 LV E' Lateral Velocity 7.8 cm/s Mitral E to LV E' Lateral Ratio 12.3 LV E' Septal Velocity 6.1 cm/s Mitral E to LV E' Septal Ratio 15.6 TR Peak Velocity 225.0 cm/s TR Peak Gradient 20.3 mmHg Right Atrial Pressure 10.0 mmHg Pulmonary Artery Systolic Pressu 30.3 mmHg Right Ventricular Systolic Press 30.3 mmHg PV Peak Velocity 118.0 cm/s PV Peak Gradient 5.6 mmHg FINDINGS LEFT VENTRICLE Normal left ventricular size. Wall thickness is normal. The left ventricular systolic function is low normal with an estimated ejection fraction in the rang e of 50- 55%. RIGHT VENTRICLE Normal right ventricular size and systolic function. LEFT ATRIUM The left atrial size is normal. RIGHT ATRIUM The right atrial size is normal. ATRIAL SEPTUM Normal atrial septal thickness without atrial level shunting by limited color doppler interrogation. AORTA The aortic root and proximal ascending aorta are normal in size on limited imaging. MITRAL VALVE Structurally normal mitral valve. Calcification of the anterior mitral valve leaflet. Trace mitral valve regurgitation. AORTIC VALVE Trileaflet aortic valve. No aortic valve stenosis or regurgitation. Aortic valve sclerosis is present. Calcification of the right coronary cusp. Calcification of the non-coronary cusp. TRICUSPID VALVE There is trace tricuspid valve regurgitation. The estimated pulmonary arterial pressure is 30 mmHg. PULMONARY VALVE No pulmonary valve regurgitation or stenosis. VESSELS The inferior vena cava is normal in size. PERICARDIUM No pericardial effusion. Kenney Carbone (Electronically Signed) Final Date:11 May 2018 12:37
--- NOTE | 2018-05-11 14:48 | MB ---
cc: Griselda Asencio MD DATE: 05/11/2018 REASON FOR CONSULTATION: Post-renal transplant, for management. HISTORY OF PRESENT ILLNESS: This is a 62-year-old male with a past medical history of hypertension, diabetes mellitus, history of end-stage renal disease and now has a renal transplant, which was done on 10/17/2017; was admitted mainly because of fever. I was called to see the patient for the management of transplant. He has been following with Dr. Gibson and Dr. Gibson is on vacation. The patient was admitted in [facility] for one week and he has a urinary tract infection with Escherichia coli. He was discharged and then he started having fever since Tuesday, so he called the transplant team and Dr. Samson asked him to come to the hospital for admission. The patient denies any dysuria or hematuria. There is no history of nausea, vomiting. There is no history of diarrhea. PAST MEDICAL HISTORY: Hypertension, diabetes mellitus, end-stage renal disease status-post renal transplant. PAST SURGICAL HISTORY: Renal transplant. REVIEW OF SYSTEMS: The patient has generalized weakness, feeling tired. There is no history of nausea, vomiting. He does not have any shortness of breath, no chest pain. He has a fever at home off and on going on. There are no chills; fever ____ low grade. No abdominal pain. No nausea, vomiting. No history of diarrhea. No dysuria, hematuria or difficulty passing urine. SOCIAL HISTORY: There is no history of smoking or alcoholism. The patient is . FAMILY HISTORY: Noncontributory. ALLERGIES: ALLERGIC TO IODINE, STATINS. MEDICATIONS: Currently, he is on following medications: 1. Tylenol as needed. 2. Milk of Magnesia as needed. 3. Dulcolax as needed. 4. Rocaltrol 0.5 mcg daily. 5. Tums 500 mg t.i.d. 6. Coreg 6.25 mg b.i.d. 7. Ceftriaxone 1 gram every 24 hours. 8. Folic acid 1 mg daily. 9. Novolin insulin. 10. Lactulose 30 mL daily. 11. CellCept 500 mg every 12 hours. 12. Magnesium oxide 800 mg b.i.d. 13. Protonix 40 mg daily. 14. Potassium phosphate 500 mg b.i.d. 15. Nu-Iron 150 mg daily. 16. Senokot as needed. 17. Flomax 0.4 mg once a day 18. Nephrocaps 1 tablet daily. 19. He received one dose of Epogen 4000 units and he is getting iron sucrose. PHYSICAL EXAMINATION: GENERAL: Patient is awake, alert. He is not in acute distress. VITAL SIGNS: Blood pressure 160/85, temperature is 98.5, oxygen saturation 95%-96%. HEENT: Pupils are mid constricted. Nonicteric sclerae. Conjunctivae are pale. NECK: Supple. JVD is not elevated. LUNGS: The patient has bilateral good air entry with occasional wheezing. HEART: S1, S2. Regular rate and rhythm. ABDOMEN: Soft, lax; there is no tenderness. Bowel sounds positive. EXTREMITIES: There is no pedal edema. LABORATORY DATA: WBC count is 5.4, hemoglobin 8.5, platelet count of 255, neutrophils 79.1%. Sodium 140, potassium 4.4, chloride 115, bicarbonate 15.4, BUN 45; creatinine 3.2, it was 3.4, the patient has a baseline around 2.5-2.6. Iron saturation was 14.3 with a ferritin of 865, AST is 14, ALT is also 14. Total bilirubin is 0.4, lipase is 101. Urinalysis showing protein negative. Prograf level was 8.3. IMAGING STUDIES: 1. The patient had ultrasound of the transplant kidney done. It shows no hydronephrosis or fluid collections. Resistive index are within normal limits. 2. Chest x-ray was done which shows no infiltrates seen. ASSESSMENT AND PLAN: 1. Possible urinary tract infection. 2. Acute kidney injury with history of renal transplant. 3. Hypertension. 4. Diabetes mellitus. 5. Anemia. The patient has a urinary tract infection that is growing gram-negative sven; there is a full culture and sensitivity pending. Continue ceftriaxone. He is getting IV fluid with hydration. The bicarbonate is low, I will put him on some oral sodium bicarbonate. His blood pressure is elevated. He is currently on carvedilol 6.25 mg. I will increase this to 12.5. The pulse is around 80. Since creatinine is improving and he has urinary tract infection, we will hold off the kidney biopsy for now. He had a kidney biopsy done before. Thank you for the consultation and I will follow the patient while he is in the hospital. MD JOHANNE Powell/lyssa/antony , 01:36 PM , 01:49 PM
[2018-05-11] MEDS: Sodium Bicarbonate 650 MG Tablet PO SCH ×2 (14:56→21:33)
--- NOTE | 2018-05-11 15:35 | P.PNIM ---
Subjective Interval history: The patient is the margin of the bed. No fever or chills. No more nausea he is able to eat. Had a normal bowel movement yesterday no diarrhea. Able to ambulate. Physical Exam Vital signs: Last Vital Signs Temp 98.5 F 05/11/18 11:00 Pulse 80 05/11/18 12:00 Resp 20 05/11/18 11:00 BP 160/85 H 05/11/18 11:00 Pulse Ox 96 05/11/18 11:00 Intake & Output 05/09/18 05/10/18 05/11/18 05/12/18 06:59 06:59 06:59 06:59 Intake Total 756 / 756 344 / 344 Output Total 775 / 775 930 / 930 Balance - - -586 / -586 Weight 81.5 kg Narrative: GENERAL: Very pleasant 62-year-old male, well-nourished patient in no acute distress SKIN: Warm and dry. No open areas of abrasions or lesions EYES: No scleral icterus. No injection or drainage. NECK: Supple, trachea midline. No JVD or lymphadenopathy. CARDIOVASCULAR: Regular rate and rhythm without murmurs, gallops, or rubs. RESPIRATORY: Breath sounds equal bilaterally. No accessory muscle use. GASTROINTESTINAL: Abdomen soft, non-tender, nondistended. Previous scar from the renal transplant healing well. MUSCULOSKELETAL: No cyanosis, or edema. BACK: Nontender without obvious deformity. No CVA tenderness. Results Labs CBC & Chem 7: 05/11/18 04:01 05/11/18 04:01 Labs: Microbiology 05/10/18 22:20 Clean Catch Urine Urine Culture - Preliminary gram negative rods 05/10/18 22:30 Blood - Peripheral Aerobic Blood Culture - Preliminary No growth in 1 day 05/10/18 22:30 Blood - Peripheral Anaerobic Blood Culture - Final QNS - See aerobic report. 05/10/18 22:25 Blood - Peripheral Aerobic Blood Culture - Preliminary No growth in 1 day 05/10/18 22:25 Blood - Peripheral Anaerobic Blood Culture - Final QNS - See aerobic report. Imaging Imaging: Impressions Chest X-Ray 05/10/18 23:21 CONCLUSION: No infiltrates seen. Renal Ultrasound 05/11/18 08:00 CONCLUSION: 1. The renal transplant has a normal appearance without hydronephrosis or abnormal fluid collection. 2. Resistive indices are within normal limits and vascular findings demonstrate no abnormality. Assessment and Plan (1) Diabetes 1.5, managed as type 2: Code(s): E10.9 - Type 1 diabetes mellitus without complications Status: Acute (2) HTN (hypertension): Code(s): I10 - Essential (primary) hypertension Status: Acute (3) Kidney transplant recipient: Code(s): Z94.0 - Kidney transplant status Status: Acute Plan 62-year-old male with a history of hypertension, diabetes and a kidney transplant 10/17/2017 was a direct admit into the hospital for evaluation of fever via recommendation of Dr. Samson. Fever, unknown origin -CMP, CBC, UA, and blood cultures ordered stat -UA shows +nitrates, +leukocyte esterase. Rocephin IV -Respiratory panel pending -Chest XR ordered -ID consult per Dr. Samson CONOR in patient with Status post kidney transplant 09/2017 creatine 3.4, baseline 2.7 -Consult placed to Dr. Samson for evaluation -IVF for hydration -Nephrology consult per Dr. Samson -Home meds restarted Hypertension, chronic -Resume home medications, monitor vitals Diabetes, chronic -Accu-Cheks with sliding scale insulin ordered DVT prophylaxis: SCDs Discussed with the patient, family at bedside, nurse, Dr Samson transplant surgeon Progress Note: Quality VTE Deep Vein Thrombosis/Pulmonary Embolism Present on Admission: No _ (1) HTN (hypertension) Qualifiers: Hypertension type:
--- NOTE | 2018-05-11 15:43 | P.DCO ---
Diagnosis (1) Diabetes 1.5, managed as type 2: Status: Acute (2) HTN (hypertension): Status: Acute (3) Kidney transplant recipient: Status: Acute Case Management Consult Case Management Consult-Home Health: Yes I have seen patient Aurelio Barahona on 05/11/18. My clinical findings support the need for the requested home health care services because: s/p kidney transplant patient with CONOR, weakness Nurses PT to evaluate as need I certify that my clinical findings support that this patient is homebound because: s/p renal transplant with weakness _ (1) HTN (hypertension) Qualifiers: Hypertension type:
--- NOTE | 2018-05-11 15:53 | P.CONID ---
History of Present Illness Service: ID Consult date: 05/11/18 Requesting Physician: Aurelio Samson Reason for Consult: UTI in transplant pt Primary Care Provider: Veronica Anton Chief Complaint: Fever History of Present Illness: 62 yo male with h/o dianbetes and HTN s/p donor kidney transplant on 10/17/2017. Was admitted to [facility] in [place] last month with FUO. Had a workup done and was discharged home on augmentin (? E Coli). 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: will know ID and S to gonzalo Pt was started on rocephin and is doing better no fever no nausea or vomiting denies urinary complaints Negative CXR and renal ultrasound Review of Systems All other systems reviewed negative except as stated in HPI PMFSH - History History Provided By: Patient - Medical History Medical History: Medical History (Last Reviewed 05/11/18 @ 15:50 by Corinna Devlin MD) Diabetes HTN (hypertension) - Surgical History Surgical History: Surgical History (Last Reviewed 05/11/18 @ 15:50 by Corinna Devlin MD) Kidney transplant recipient - Family History Family History: Family History (Last Reviewed 05/11/18 @ 15:50 by Corinna Devlin MD) Other Diabetes HTN (hypertension) - Social History I have reviewed the patient's Social History: Yes - Tobacco History Second Hand Smoke Exposure: No Tobacco Use In Past 30 Days: No Smoking Status: Never smoker - Alcohol History How Often Do You Have a Drink Containing Alcohol: Never - Substance Use History Substance History: No History of Abuse - Travel History Recent Travel in the [place] Within the Last 8 Weeks: No Recent Travel Out of the Country Within the Last 8 Weeks: No Medications and Allergies Active Medications: Active Medications Acetaminophen (Tylenol) 650 mg PO Q4H PRN PRN Reason: Temp > 100.4 Al Hydroxide/Mg Hydroxide (Milk Of Magnesia Liq) 30 ml PO Q12H PRN PRN Reason: Mild Constipation Bisacodyl (Dulcolax Supp) 10 mg RECTAL DAILY PRN PRN Reason: SEVERE CONSITIPATION Calcitriol (Rocaltrol) 0.5 mcg PO DAILY PENDING SALE TO [facility] Last Admin: 05/11/18 10:44 Dose: 0.5 mcg Calcium Carbonate (Tums Chew) 500 mg PO TID@1200,1700,2200 PENDING SALE TO [facility] Last Admin: 05/11/18 12:12 Dose: 500 mg Carvedilol (Coreg) 12.5 mg PO BID PENDING SALE TO [facility] Chlorhexidine Gluconate (Chlorhexidine 2% Cloth) 3 pack TOPICAL DAILY@0400 PENDING SALE TO [facility] Stop: 05/16/18 03:59 Last Admin: 05/11/18 04:00 Dose: Not Given Chlorhexidine Gluconate (Chlorhexidine 2% Cloth) 3 pack TOPICAL DAILY@0400 PRN PRN Reason: Extra cloth needed Stop: 05/16/18 03:59 Dextrose (D50w Vial) 50 ml IV.PUSH UNSCH PRN PRN Reason: PER HYPOGLYCEMIA PROTOCOL Folic Acid (Folic Acid) 1 mg PO DAILY PENDING SALE TO [facility] Last Admin: 05/11/18 09:55 Dose: 1 mg Glucagon (Glucagon Inj) 1 mg OTHER PRN PRN PRN Reason: for Hypoglycemia Protocol Sodium Chloride (Ns Inj) 1,000 mls @ 100 mls/hr IV.CONT .Q10H PENDING SALE TO [facility] Last Admin: 05/11/18 10:45 Dose: 100 mls/hr Ceftriaxone Sodium 1,000 mg/ (Sodium Chloride) 100 mls @ 200 mls/hr IV.SIG Q24H PENDING SALE TO [facility] Last Infusion: 05/11/18 02:30 Dose: Infused Insulin Human Regular (Novolin R Correctional Sugar Inj) 0 units SQ ACHS PENDING SALE TO [facility]; Protocol Last Admin: 05/11/18 12:25 Dose: Not Given Lactulose (Lactulose Liq) 30 ml PO DAILY PRN PRN Reason: SEVERE CONSITIPATION Magnesium Oxide (Mag-Ox) 800 mg PO BID@1200,1700 PENDING SALE TO [facility] Last Admin: 05/11/18 12:12 Dose: 800 mg Mycophenolate Mofetil (Cellcept) 500 mg PO Q12H PENDING SALE TO [facility] Last Admin: 05/11/18 05:41 Dose: 500 mg Ondansetron HCl (Zofran Inj) 4 mg IV.PUSH Q6H PRN PRN Reason: NAUSEA OR VOMITING Pantoprazole Sodium (Protonix) 40 mg PO DAILY PENDING SALE TO [facility] Last Admin: 05/11/18 09:55 Dose: 40 mg Patient Own Medication- Linagliptin [ Tradjenta] 5 Mg 0 each PO DAILY PENDING SALE TO [facility] Pt Own Med Tacrolimus Er ( Envarsus Xr) 4mg Tablet 0 each PO DAILY@0600 PENDING SALE TO [facility] Last Admin: 05/11/18 08:37 Dose: 28 each Polysaccharide Iron Complex (Nu-Iron) 150 mg PO DAILY PENDING SALE TO [facility] Last Admin: 05/11/18 10:44 Dose: 150 mg Potassium Phosphate (K-Phos Original) 500 mg PO PENDING SALE TO [facility] Last Admin: 05/11/18 12:12 Dose: 500 mg Prednisone (Deltasone) 5 mg PO DAILY PENDING SALE TO [facility] Last Admin: 05/11/18 09:55 Dose: 5 mg Sennosides (Senokot) 17.2 mg PO Q12H PRN PRN Reason: Moderate Constipation Sodium Bicarbonate (Sodium Bicarbonate) 650 mg PO BID PENDING SALE TO [facility] Last Admin: 05/11/18 14:56 Dose: 650 mg Sodium Chloride (Ns Flush) 2 ml IV.FLUSH BID PENDING SALE TO [facility] Last Admin: 05/11/18 09:55 Dose: 2 ml Sodium Chloride (Ns Flush) 2 ml IV.FLUSH PRN PRN PRN Reason: FLUSH AFTER USING IV ACCESS Tamsulosin HCl (Flomax) 0.4 mg PO DAILY PENDING SALE TO [facility] Last Admin: 05/11/18 09:54 Dose: 0.4 mg Vitamin B Complex/Vit C/Folic Acid (Nephrocaps) 1 tab PO DAILY PENDING SALE TO [facility] Last Admin: 05/11/18 09:55 Dose: 1 tab Allergies Allergy/AdvReac Type Severity Reaction Status Date / Time Iodine and Iodide Containing Allergy Severe Anaphylaxis Verified 11/11/17 14:13 Produc shellfish derived Allergy Severe Anaphylaxis Verified 11/11/17 14:13 [id number] Reductase Allergy Severe Anaphylaxis Verified 11/11/17 14:13 Inhibitor Sulfa (Sulfonamide Allergy Severe Anaphylaxis Verified 11/11/17 14:13 Antibiotics) Home Medications Medication Instructions Recorded Confirmed Type B complex-vitamin C-folic acid 1 tab PO DAILY 05/10/18 05/10/18 History [Nephro-Thomas] Tums 500 mg PO ,,05/10/18 05/10/18 History calcitriol 0.5 mcg PO DAILY 05/10/18 05/10/18 History carvedilol [Coreg] 6.5 mg PO BID 05/10/18 05/10/18 History docusate sodium [Colace] See Label Instructions .ROUTE 05/10/18 05/10/18 History .COMPLEX PRN MDD 2 folic acid 1 mg PO DAILY 05/10/18 05/10/18 History iron ag,[id number] 1 tab PO DAILY 05/10/18 05/10/18 History [Niferex (Sumalate-Quatrefolic)] loperamide [Imodium A-D] 2 mg PO PRN PRN MDD 1 05/10/18 05/10/18 History magnesium oxide 800 mg PO 05/10/18 05/10/18 History mycophenolate mofetil [CellCept] 500 mg PO BID 05/10/18 05/10/18 History pantoprazole [Protonix] 40 mg PO DAILY 05/10/18 05/10/18 History potassium phosphate, monobasic 500 mg PO 05/10/18 05/10/18 History [K-Phos Original] prednisone 5 mg PO DAILY 05/10/18 05/10/18 History tacrolimus 28 mg PO DAILY 05/10/18 05/10/18 History tamsulosin [Flomax] 0.4 mg PO DAILY 05/10/18 05/10/18 History saxagliptin 5 mg PO DAILY 05/11/18 05/11/18 History Exam Vital signs: Vital Signs 05/10/18 21:40 05/10/18 23:00 05/11/18 03:00 Temperature 97.9 F 98.6 F Pulse Rate 86 86 76 Respiratory Rate 14 16 Blood Pressure 160/87 H 151/86 H Pulse Oximetry 97 97 05/11/18 07:00 05/11/18 11:00 05/11/18 12:00 Temperature 99.0 F 98.5 F Pulse Rate 83 79 80 Respiratory Rate 20 20 Blood Pressure 168/85 H 160/85 H Pulse Oximetry 95 96 Intake & Output 05/10/18 05/11/18 05/11/18 18:59 06:59 18:59 Intake Total 756 / 756 344 / 344 Output Total 775 / 775 930 / 930 Balance -19 -586 / -586 Weight 81.5 kg Intake: IV 756 / 756 344 / 344 NS Inj 1,000 ML @ 100 mls/hr IV 656 / 656 344 / 344 .CONT .Q10H [facility] Rx#:[id number] Rocephin Inj 1,000 MG In NS Inj 100 / 100 100 ML @ 200 mls/hr IV.SIG Q24H PENDING SALE TO [facility] Rx#:[id number] Output: Urine 775 / 775 930 / 930 Other: Date of Last Bowel Movement 05/10/18 05/10/18 # Bowel Movements 0 Weight On Admission 81.5 kg - Constitutional no acute distress, average body habitus - Routine HEENT Exam Head: Present: normocephalic, atraumatic Eye: Present: EOMI, PERRL. Absent: conjunctival icterus ENT: Present: mucous membranes moist, oropharynx clear - Routine Respiratory Exam Present: CTA bilaterally. Absent: decreased breath sounds, respiratory distress - Routine Cardiovascular Exam Present: RRR, S1, S2. Absent: murmur, gallop, rubs - Routine Abdominal Exam Present: soft, normoactive bowel sounds, mass (smoth RLQ cw renal transplant). Absent: tenderness, distended, organomegaly - Routine Extremities Exam Present: full ROM. Absent: cyanosis, clubbing, edema - Routine Skin Exam Present: intact, dry, warm. Absent: lesions - Routine Neurological Exam Present: alert, oriented X3, CN II-XII intact. Absent: sensory deficit, motor deficit - Routine Psychiatric Exam Present: normal affect, cooperative Results - Labs CBC & Chem 7: 05/11/18 04:01 05/11/18 04:01 Labs: Laboratory Results - last 24 hr 05/10/18 05/10/18 05/10/18 22:20 22:20 22:20 WBC 6.4 RBC 2.84 L Hgb 8.5 L Hct 26.4 L MCV 93.0 MCH 29.9 MCHC 32.2 RDW 17.3 H Plt Count 255 D MPV 7.2 Prelim Diff (Auto) Manual diff required Neut % (Auto) Lymph % (Auto) [place] % (Auto) Eos % (Auto) Baso % (Auto) Neut # (Auto) Lymph # (Auto) [place] # (Auto) Eos # (Auto) Baso # (Auto) WBC Differential Manual diff final Seg Neuts % (Manual) 77 H Band Neuts % (Manual) 1 Lymphocytes % (Manual) 9 Monocytes % (Manual) 9 H Metamyelocytes % (Man) 3 H Myelocytes % (Man) 1 H Abs Neuts (Manual) 5.2 Differential Comment . Platelet Estimate Normal Platelet Morphology Normal Ovalocytes 1+ H Acanthocytes (Spur) Occ H Keratocytes Occ H Retic Count Absolute Retic Sodium 136 Potassium 5.0 Chloride 111 H Carbon Dioxide 14.5 L Anion Gap 11 BUN 49 H Creatinine 3.47 H Estimated GFR 22 L POC Glucose Random Glucose 269 H Calcium 9.1 Phosphorus 3.0 Magnesium 1.6 Iron TIBC % Saturation Ferritin Total Bilirubin 0.4 Direct Bilirubin Indirect Bilirubin AST 14 L ALT 14 Alkaline Phosphatase 77 Total Protein 7.5 Albumin 3.2 L Lipase Urine Color Urine Clarity Urine pH Ur Specific [place] Urine Protein Urine Glucose (UA) Urine Ketones Urine Occult Blood Urine Nitrate Urine Bilirubin Urine Urobilinogen Ur Leukocyte Esterase Urine RBC Urine WBC Urine WBC Clumps Urine Bacteria Hyaline Casts Urine Mucus Micro UA Comment Ur Microscopic Review Urine Culture Comments Nasal Screen MRSA (PCR) Not detected Tacrolimus Adenovirus (PCR) Bordetella holmesii PCR B. pertussis DNA (PCR) B. paraper/bronch (PCR) Human Metapneumovir PCR Influenza A (RT-PCR) Influenza A (H1) PCR Influenza A (H3) PCR Influenza B (RT-PCR) Parainfluenza 1 (PCR) Parainfluenza 2 (PCR) Parainfluenza 3 (PCR) Parainfluenza 4 (PCR) RSV Type A (PCR) RSV Type B (PCR) Rhinovirus (PCR) 05/10/18 05/10/18 05/11/18 22:20 22:20 04:01 WBC 5.4 RBC 2.85 L Hgb 8.5 L Hct 27.5 L MCV 96.6 D MCH 30.0 MCHC 31.1 L RDW 17.6 H Plt Count 255 MPV 7.0 Prelim Diff (Auto) Neut % (Auto) 79.1 H Lymph % (Auto) 9.5 [place] % (Auto) 10.7 H Eos % (Auto) 0.5 Baso % (Auto) 0.2 Neut # (Auto) 4.3 Lymph # (Auto) 0.5 L [place] # (Auto) 0.6 Eos # (Auto) 0.0 Baso # (Auto) 0.0 WBC Differential . Seg Neuts % (Manual) Band Neuts % (Manual) Lymphocytes % (Manual) Monocytes % (Manual) Metamyelocytes % (Man) Myelocytes % (Man) Abs Neuts (Manual) Differential Comment Auto diff final Platelet Estimate Platelet Morphology Ovalocytes Acanthocytes (Spur) Keratocytes Retic Count 2.9 Absolute Retic 82.3 Sodium Potassium Chloride Carbon Dioxide Anion Gap BUN Creatinine Estimated GFR POC Glucose Random Glucose Calcium Phosphorus Magnesium Iron TIBC % Saturation Ferritin Total Bilirubin Cancelled Direct Bilirubin 0.1 Indirect Bilirubin Cancelled AST Cancelled ALT Cancelled Alkaline Phosphatase Cancelled Total Protein Cancelled Albumin Cancelled Lipase 101 Urine Color Yellow Urine Clarity Hazy H Urine pH 5.0 Ur Specific [place] 1.012 Urine Protein Negative Urine Glucose (UA) 500 or greater Urine Ketones Negative Urine Occult Blood Negative Urine Nitrate Positive H Urine Bilirubin Negative Urine Urobilinogen Less than 2 Ur Leukocyte Esterase Small H Urine RBC 1 Urine WBC 24 H Urine WBC Clumps Occasional H Urine Bacteria Many H Hyaline Casts 3 Urine Mucus Few H Micro UA Comment Culture indicated Ur Microscopic Review Not Reportable Urine Culture Comments Culture indicated Nasal Screen MRSA (PCR) Tacrolimus Adenovirus (PCR) Bordetella holmesii PCR B. pertussis DNA (PCR) B. paraper/bronch (PCR) Human Metapneumovir PCR Influenza A (RT-PCR) Influenza A (H1) PCR Influenza A (H3) PCR Influenza B (RT-PCR) Parainfluenza 1 (PCR) Parainfluenza 2 (PCR) Parainfluenza 3 (PCR) Parainfluenza 4 (PCR) RSV Type A (PCR) RSV Type B (PCR) Rhinovirus (PCR) 05/11/18 05/11/18 05/11/18 04:01 04:01 07:53 WBC RBC Hgb Hct MCV MCH MCHC RDW Plt Count MPV Prelim Diff (Auto) Neut % (Auto) Lymph % (Auto) [place] % (Auto) Eos % (Auto) Baso % (Auto) Neut # (Auto) Lymph # (Auto) [place] # (Auto) Eos # (Auto) Baso # (Auto) WBC Differential Seg Neuts % (Manual) Band Neuts % (Manual) Lymphocytes % (Manual) Monocytes % (Manual) Metamyelocytes % (Man) Myelocytes % (Man) Abs Neuts (Manual) Differential Comment Platelet Estimate Platelet Morphology Ovalocytes Acanthocytes (Spur) Keratocytes Retic Count Absolute Retic Sodium 140 Potassium 4.4 Chloride 115 H Carbon Dioxide 15.4 L Anion Gap 10 BUN 45 H Creatinine 3.21 H Estimated GFR 24 L POC Glucose 90 Random Glucose 116 H D Calcium 8.7 Phosphorus 3.2 Magnesium 1.5 Iron 24 L TIBC 168 L % Saturation 14.3 L Ferritin 865 H Total Bilirubin Direct Bilirubin Indirect Bilirubin AST ALT Alkaline Phosphatase Total Protein Albumin Lipase Urine Color Urine Clarity Urine pH Ur Specific [place] Urine Protein Urine Glucose (UA) Urine Ketones Urine Occult Blood Urine Nitrate Urine Bilirubin Urine Urobilinogen Ur Leukocyte Esterase Urine RBC Urine WBC Urine WBC Clumps Urine Bacteria Hyaline Casts Urine Mucus Micro UA Comment Ur Microscopic Review Urine Culture Comments Nasal Screen MRSA (PCR) Tacrolimus 8.3 Adenovirus (PCR) Bordetella holmesii PCR B. pertussis DNA (PCR) B. paraper/bronch (PCR) Human Metapneumovir PCR Influenza A (RT-PCR) Influenza A (H1) PCR Influenza A (H3) PCR Influenza B (RT-PCR) Parainfluenza 1 (PCR) Parainfluenza 2 (PCR) Parainfluenza 3 (PCR) Parainfluenza 4 (PCR) RSV Type A (PCR) RSV Type B (PCR) Rhinovirus (PCR) 05/11/18 05/11/18 08:03 11:22 WBC RBC Hgb Hct MCV MCH MCHC RDW Plt Count MPV Prelim Diff (Auto) Neut % (Auto) Lymph % (Auto) [place] % (Auto) Eos % (Auto) Baso % (Auto) Neut # (Auto) Lymph # (Auto) [place] # (Auto) Eos # (Auto) Baso # (Auto) WBC Differential Seg Neuts % (Manual) Band Neuts % (Manual) Lymphocytes % (Manual) Monocytes % (Manual) Metamyelocytes % (Man) Myelocytes % (Man) Abs Neuts (Manual) Differential Comment Platelet Estimate Platelet Morphology Ovalocytes Acanthocytes (Spur) Keratocytes Retic Count Absolute Retic Sodium Potassium Chloride Carbon Dioxide Anion Gap BUN Creatinine Estimated GFR POC Glucose 104 Random Glucose Calcium Phosphorus Magnesium Iron TIBC % Saturation Ferritin Total Bilirubin Direct Bilirubin Indirect Bilirubin AST ALT Alkaline Phosphatase Total Protein Albumin Lipase Urine Color Urine Clarity Urine pH Ur Specific [place] Urine Protein Urine Glucose (UA) Urine Ketones Urine Occult Blood Urine Nitrate Urine Bilirubin Urine Urobilinogen Ur Leukocyte Esterase Urine RBC Urine WBC Urine WBC Clumps Urine Bacteria Hyaline Casts Urine Mucus Micro UA Comment Ur Microscopic Review Urine Culture Comments Nasal Screen MRSA (PCR) Tacrolimus Adenovirus (PCR) Not detected Bordetella holmesii PCR Not detected B. pertussis DNA (PCR) Not detected B. paraper/bronch (PCR) Not detected Human Metapneumovir PCR Not detected Influenza A (RT-PCR) Not detected Influenza A (H1) PCR Not detected Influenza A (H3) PCR Not detected Influenza B (RT-PCR) Not detected Parainfluenza 1 (PCR) Not detected Parainfluenza 2 (PCR) Not detected Parainfluenza 3 (PCR) Not detected Parainfluenza 4 (PCR) Not detected RSV Type A (PCR) Not detected RSV Type B (PCR) Not detected Rhinovirus (PCR) Not detected - Imaging Impressions Chest X-Ray 05/10/18 23:21 CONCLUSION: No infiltrates seen. Renal Ultrasound 05/11/18 08:00 CONCLUSION: 1. The renal transplant has a normal appearance without hydronephrosis or abnormal fluid collection. 2. Resistive indices are within normal limits and vascular findings demonstrate no abnormality. Assessment and Plan - Plan UTI, recurrent sp recent UTI Immunosuppresed sp renal allograft Seems to improve on empiric rocephine cont rocephine will know about ID/S on GNR tomorrow ariana lane RN @ b/s ariana family memeber @ b/s
[2018-05-11] MEDS: Carvedilol 12.5 MG Tablet PO SCH (21:33)
[2018-05-12] MEDS: Chlorhexidine Gluconate 2% 1 Pack (2 Cloths) TOPICAL SCH (03:53)
[2018-05-12] MEDS: TACROLIMUS 4 MG PO SCH (05:02)
[2018-05-12 05:48] LABS: Calcium 8.5 mg/dL (8.5-10.1); Carbon Dioxide 16.3 meq/L (21.0-32.0); Magnesium 1.7 mg/dL (1.5-2.5); Phosphorus 2.6 mg/dL (2.5-4.9); Potassium 4.6 meq/L (3.5-5.1)
[2018-05-12 06:23] LABS: Baso % (Auto) 0.5 % (0.0-2.0); Eos % (Auto) 0.3 % (0.0-4.0); Hematocrit 25.5 % (39.0-51.0); Hemoglobin 8.3 gm/dL (13.0-17.0); Lymph # (Auto) 0.4 th/mm3 (1.0-4.8); Lymph % (Auto) 10.5 % (9.0-44.0); Mean Corpuscular HGB Conc 32.5 % (32.0-36.0); Mean Corpuscular Hemoglobin 30.4 pg (27.0-34.0); Mean Corpuscular Volume 93.5 fL (80.0-100.0); Mono # (Auto) 0.6 th/mm3 (0.0-0.9); Mono % (Auto) 14.2 % (0.0-8.0); Neut % (Auto) 74.5 % (16.0-70.0); Platelet Count 251 th/mm3 (150-450); Red Blood Count 2.73 mil/mm3 (4.50-5.90); Red Cell Distribution Width 17.1 % (11.6-17.2)
[2018-05-12] MEDS: Insulin NovoLIN Regular Correctional Sugar Inj SQ SCH ×3 (08:39→21:12)
[2018-05-12] MEDS: Sod Chloride 0.9% Inj 1,000 ML IV.CONT SCH ×2 (08:40→23:54)
[2018-05-12] MEDS: predniSONE 5 MG Tablet PO SCH (09:22)
[2018-05-12] MEDS: Folic Acid 1 MG Tablet PO SCH (09:22)
[2018-05-12] MEDS: Carvedilol 12.5 MG Tablet PO SCH ×2 (09:22→21:10)
[2018-05-12] MEDS: Calcitriol 0.25 MCG Capsule PO SCH (09:22)
[2018-05-12] MEDS: Sodium Bicarbonate 650 MG Tablet PO SCH ×2 (09:22→21:10)
[2018-05-12] MEDS: Vitamin B Complex/Vit C/Folic Tablet PO SCH (09:22)
[2018-05-12] MEDS: Polysaccharide Iron Complex 150 MG Capsule PO SCH (09:22)
--- NOTE | 2018-05-12 10:45 | P.PNTS ---
Subjective Interval history: No new c/o. Feels okay. Denies upper extremity tremors unless he is feeling "cold" Physical Exam Vital signs: Vital Signs 05/11/18 11:00 05/11/18 12:00 05/11/18 16:00 Temperature 98.5 F 98.6 F Pulse Rate 79 80 76 Respiratory Rate 20 19 Blood Pressure 160/85 H 149/76 H Pulse Oximetry 96 100 05/11/18 20:00 05/12/18 00:00 05/12/18 04:00 Temperature 97.6 F 97.6 F 97.9 F Pulse Rate 82 82 81 Respiratory Rate 15 15 16 Blood Pressure 156/90 H 157/89 H 154/84 H Pulse Oximetry 96 96 100 05/12/18 07:39 05/12/18 07:51 Temperature 98 F Pulse Rate 81 80 Respiratory Rate 16 Blood Pressure 144/73 H Pulse Oximetry 100 Intake & Output 05/11/18 05/12/18 05/12/18 18:59 06:59 18:59 Intake Total 844 / 844 1100 / 1100 1000 / 1000 Output Total 930 / 930 1175 / 1175 Balance -86 / -86 -75 / -75 1000 / 1000 Weight 81.9 kg Intake: IV 444 / 444 1100 / 1100 1000 / 1000 NS Inj 1,000 ML @ 100 mls/hr IV 344 / 344 1000 / 1000 1000 / 1000 .CONT .Q10H [facility] Rx#:[id number] Venofer Inj 200 MG In NS Inj 100 / 100 100 ML @ 110 mls/hr IV.SIG ONCE ONE Rx#:[id number] Rocephin Inj 1,000 MG In NS Inj 100 / 100 100 ML @ 200 mls/hr IV.SIG Q24H [facility] Rx#:[id number] Oral 400 / 400 Output: Urine 930 / 930 1175 / 1175 Other: Date of Last Bowel Movement 05/10/18 05/10/18 - Constitutional no acute distress - Routine HEENT Exam Head: Present: normocephalic, atraumatic Eye: Present: EOMI ENT: Present: mucous membranes moist - Routine Neck Exam Present: supple - Routine Respiratory Exam Present: CTA bilaterally - Routine Cardiovascular Exam Present: RRR, S1, S2 - Routine Abdominal Exam Present: soft, normoactive bowel sounds - Routine Extremities Exam Present: pulses intact - Routine Skin Exam Present: intact - Routine Neurological Exam Present: alert, oriented X3 - Detailed Neurological Exam: Coma Scale Verbal Response: Oriented - Routine Psychiatric Exam Present: normal affect, normal thought process Results - Labs CBC & Chem 7: 05/12/18 05:10 05/12/18 05:10 Laboratory Results - last 24 hr 05/10/18 05/11/18 05/11/18 22:20 04:01 08:03 WBC RBC Hgb Hct MCV MCH MCHC RDW Plt Count MPV Neut % (Auto) Lymph % (Auto) Nelson % (Auto) Eos % (Auto) Baso % (Auto) Neut # (Auto) Lymph # (Auto) Nelson # (Auto) Eos # (Auto) Baso # (Auto) WBC Differential Differential Comment Sodium Potassium Chloride Carbon Dioxide Anion Gap BUN Creatinine Estimated GFR POC Glucose Random Glucose Calcium Phosphorus Magnesium Urine Color Yellow Urine Clarity Hazy H Urine pH 5.0 Ur Specific [place] 1.012 Urine Protein Negative Urine Glucose (UA) 500 or greater Urine Ketones Negative Urine Occult Blood Negative Urine Nitrate Positive H Urine Bilirubin Negative Urine Urobilinogen Less than 2 Ur Leukocyte Esterase Small H Urine RBC 1 Urine WBC 24 H Urine WBC Clumps Occasional H Urine Bacteria Many H Hyaline Casts 3 Urine Mucus Few H Micro UA Comment Culture indicated Urine Culture Comments Culture indicated Tacrolimus 8.3 Adenovirus (PCR) Not detected Bordetella holmesii PCR Not detected B. pertussis DNA (PCR) Not detected B. paraper/bronch (PCR) Not detected Human Metapneumovir PCR Not detected Influenza A (RT-PCR) Not detected Influenza A (H1) PCR Not detected Influenza A (H3) PCR Not detected Influenza B (RT-PCR) Not detected Parainfluenza 1 (PCR) Not detected Parainfluenza 2 (PCR) Not detected Parainfluenza 3 (PCR) Not detected Parainfluenza 4 (PCR) Not detected RSV Type A (PCR) Not detected RSV Type B (PCR) Not detected Rhinovirus (PCR) Not detected 05/11/18 05/11/18 05/11/18 11:22 17:03 21:32 WBC RBC Hgb Hct MCV MCH MCHC RDW Plt Count MPV Neut % (Auto) Lymph % (Auto) Nelson % (Auto) Eos % (Auto) Baso % (Auto) Neut # (Auto) Lymph # (Auto) Nelson # (Auto) Eos # (Auto) Baso # (Auto) WBC Differential Differential Comment Sodium Potassium Chloride Carbon Dioxide Anion Gap BUN Creatinine Estimated GFR POC Glucose 104 211 H 196 H Random Glucose Calcium Phosphorus Magnesium Urine Color Urine Clarity Urine pH Ur Specific [place] Urine Protein Urine Glucose (UA) Urine Ketones Urine Occult Blood Urine Nitrate Urine Bilirubin Urine Urobilinogen Ur Leukocyte Esterase Urine RBC Urine WBC Urine WBC Clumps Urine Bacteria Hyaline Casts Urine Mucus Micro UA Comment Urine Culture Comments Tacrolimus Adenovirus (PCR) Bordetella holmesii PCR B. pertussis DNA (PCR) B. paraper/bronch (PCR) Human Metapneumovir PCR Influenza A (RT-PCR) Influenza A (H1) PCR Influenza A (H3) PCR Influenza B (RT-PCR) Parainfluenza 1 (PCR) Parainfluenza 2 (PCR) Parainfluenza 3 (PCR) Parainfluenza 4 (PCR) RSV Type A (PCR) RSV Type B (PCR) Rhinovirus (PCR) 05/12/18 05/12/18 05/12/18 05:10 05:10 07:53 WBC 4.0 RBC 2.73 L Hgb 8.3 L Hct 25.5 L MCV 93.5 MCH 30.4 MCHC 32.5 RDW 17.1 Plt Count 251 MPV 7.0 Neut % (Auto) 74.5 H Lymph % (Auto) 10.5 Nelson % (Auto) 14.2 H Eos % (Auto) 0.3 Baso % (Auto) 0.5 Neut # (Auto) 3.0 Lymph # (Auto) 0.4 L Nelson # (Auto) 0.6 Eos # (Auto) 0.0 Baso # (Auto) 0.0 WBC Differential . Differential Comment Auto diff final Sodium 144 Potassium 4.6 Chloride 117 H Carbon Dioxide 16.3 L Anion Gap 11 BUN 35 H Creatinine 2.79 H Estimated GFR 28 L POC Glucose 115 H Random Glucose 92 Calcium 8.5 Phosphorus 2.6 Magnesium 1.7 Urine Color Urine Clarity Urine pH Ur Specific [place] Urine Protein Urine Glucose (UA) Urine Ketones Urine Occult Blood Urine Nitrate Urine Bilirubin Urine Urobilinogen Ur Leukocyte Esterase Urine RBC Urine WBC Urine WBC Clumps Urine Bacteria Hyaline Casts Urine Mucus Micro UA Comment Urine Culture Comments Tacrolimus Adenovirus (PCR) Bordetella holmesii PCR B. pertussis DNA (PCR) B. paraper/bronch (PCR) Human Metapneumovir PCR Influenza A (RT-PCR) Influenza A (H1) PCR Influenza A (H3) PCR Influenza B (RT-PCR) Parainfluenza 1 (PCR) Parainfluenza 2 (PCR) Parainfluenza 3 (PCR) Parainfluenza 4 (PCR) RSV Type A (PCR) RSV Type B (PCR) Rhinovirus (PCR) Microbiology 05/10/18 22:20 Clean Catch Urine Urine Culture - Preliminary gram negative rods 05/10/18 22:30 Blood - Peripheral Aerobic Blood Culture - Preliminary No growth in 1 day 05/10/18 22:30 Blood - Peripheral Anaerobic Blood Culture - Final QNS - See aerobic report. 05/10/18 22:25 Blood - Peripheral Aerobic Blood Culture - Preliminary No growth in 1 day 05/10/18 22:25 Blood - Peripheral Anaerobic Blood Culture - Final QNS - See aerobic report. Assessment and Plan - Assessment (1) Diabetes 1.5, managed as type 2 Code(s): E10.9 - Type 1 diabetes mellitus without complications Status: Acute (2) HTN (hypertension) Code(s): I10 - Essential (primary) hypertension Status: Acute (3) Kidney transplant recipient Code(s): Z94.0 - Kidney transplant status Status: Acute - Plan 52 yom with ESRD secondary to DM/Htn. S/p donor renal transplant to [facility] on 10/17/17. Was recently admitted to [facility] with a fever that went as high as 105.8, even with medical therapy. Reportedly had a fever to 101.8 at home, prior to going in then continued to have rising fever to 105.8 despite cooling and alternating bouts of tylenol and ibuprofen.... Was in [facility], unit after sick contact earlier this week. Unclear if that is the etiology. Will check resp panel, EBV/CMV quant, Blood cultures, urine. echo.iron studies. Hgb 8.5. Creat 3.47 was 2.71 on 04.24. Patient with no new c/o. Creat decreased to 2.79. Will hold off on biopsy for now. Hgb stable. Viral testing negative so far. Nessa po. Continue current cares. Await results of culture sensitivities. ? Possible discharge tomorrow.
[2018-05-12] MEDS ORDERED: Iron Sucrose Inj 100 MG/5 ML Vial IV.PUSH SCH (11:00)
[2018-05-12] MEDS ORDERED: Epoetin Alfa Inj 4,000 UNIT/ML Vial SQ ONE (11:00)
[2018-05-12] MEDS ORDERED: Iron Sucrose Inj 200 MG in Sodium Chlor 0.9% Inj 100 ML IV.SIG SCH (12:00)
--- NOTE | 2018-05-12 13:07 | P.PNIM ---
Subjective Interval history: Patient says he is feeling well. Denies any chest pain shortness of breath. Denies any nausea or vomiting. Denies any dysuria Physical Exam Vital signs: Vital Signs 05/11/18 16:00 05/11/18 20:00 05/12/18 00:00 Temperature 98.6 F 97.6 F 97.6 F Pulse Rate 76 82 82 Respiratory Rate 19 15 15 Blood Pressure 149/76 H 156/90 H 157/89 H Pulse Oximetry 100 96 96 05/12/18 04:00 05/12/18 07:39 05/12/18 07:51 Temperature 97.9 F 98 F Pulse Rate 81 81 80 Respiratory Rate 16 16 Blood Pressure 154/84 H 144/73 H Pulse Oximetry 100 100 05/12/18 12:04 Temperature 97.8 F Pulse Rate 72 Respiratory Rate 20 Blood Pressure 161/80 H Pulse Oximetry 100 Intake & Output 05/11/18 05/12/18 05/12/18 18:59 06:59 18:59 Intake Total 844 / 844 1100 / 1100 1000 / 1000 Output Total 930 / 930 1175 / 1175 Balance -86 / -86 -75 / -75 1000 / 1000 Weight 81.9 kg Intake: IV 444 / 444 1100 / 1100 1000 / 1000 NS Inj 1,000 ML @ 100 mls/hr IV 344 / 344 1000 / 1000 1000 / 1000 .CONT .Q10H [facility] Rx#:[id number] Venofer Inj 200 MG In NS Inj 100 / 100 100 ML @ 110 mls/hr IV.SIG ONCE ONE Rx#:[id number] Rocephin Inj 1,000 MG In NS Inj 100 / 100 100 ML @ 200 mls/hr IV.SIG Q24H [facility] Rx#:[id number] Oral 400 / 400 Output: Urine 930 / 930 1175 / 1175 Other: Date of Last Bowel Movement 05/10/18 05/10/18 Results - Labs CBC & Chem 7: 05/12/18 05:10 05/12/18 05:10 Laboratory Results - last 24 hr 05/11/18 05/11/18 05/11/18 04:01 17:03 21:32 WBC RBC Hgb Hct MCV MCH MCHC RDW Plt Count MPV Neut % (Auto) Lymph % (Auto) [place]ine % (Auto) Eos % (Auto) Baso % (Auto) Neut # (Auto) Lymph # (Auto) [place] # (Auto) Eos # (Auto) Baso # (Auto) WBC Differential Differential Comment Sodium Potassium Chloride Carbon Dioxide Anion Gap BUN Creatinine Estimated GFR POC Glucose 211 H 196 H Random Glucose Calcium Phosphorus Magnesium Tacrolimus 8.3 05/12/18 05/12/18 05/12/18 05:10 05:10 07:53 WBC 4.0 RBC 2.73 L Hgb 8.3 L Hct 25.5 L MCV 93.5 MCH 30.4 MCHC 32.5 RDW 17.1 Plt Count 251 MPV 7.0 Neut % (Auto) 74.5 H Lymph % (Auto) 10.5 Josephine % (Auto) 14.2 H Eos % (Auto) 0.3 Baso % (Auto) 0.5 Neut # (Auto) 3.0 Lymph # (Auto) 0.4 L [place] # (Auto) 0.6 Eos # (Auto) 0.0 Baso # (Auto) 0.0 WBC Differential . Differential Comment Auto diff final Sodium 144 Potassium 4.6 Chloride 117 H Carbon Dioxide 16.3 L Anion Gap 11 BUN 35 H Creatinine 2.79 H Estimated GFR 28 L POC Glucose 115 H Random Glucose 92 Calcium 8.5 Phosphorus 2.6 Magnesium 1.7 Tacrolimus 05/12/18 12:07 WBC RBC Hgb Hct MCV MCH MCHC RDW Plt Count MPV Neut % (Auto) Lymph % (Auto) [place] % (Auto) Eos % (Auto) Baso % (Auto) Neut # (Auto) Lymph # (Auto) [place] # (Auto) Eos # (Auto) Baso # (Auto) WBC Differential Differential Comment Sodium Potassium Chloride Carbon Dioxide Anion Gap BUN Creatinine Estimated GFR POC Glucose 140 H Random Glucose Calcium Phosphorus Magnesium Tacrolimus Microbiology 05/10/18 22:20 Clean Catch Urine Urine Culture - Final Escherichia coli 05/10/18 22:30 Blood - Peripheral Aerobic Blood Culture - Preliminary No growth in 2 days 05/10/18 22:30 Blood - Peripheral Anaerobic Blood Culture - Final QNS - See aerobic report. 05/10/18 22:25 Blood - Peripheral Aerobic Blood Culture - Preliminary No growth in 2 days 05/10/18 22:25 Blood - Peripheral Anaerobic Blood Culture - Final QNS - See aerobic report. Assessment and Plan - Assessment (1) Diabetes 1.5, managed as type 2 Code(s): E10.9 - Type 1 diabetes mellitus without complications Status: Acute (2) HTN (hypertension) Code(s): I10 - Essential (primary) hypertension Status: Acute (3) Kidney transplant recipient Code(s): Z94.0 - Kidney transplant status Status: Acute - Plan 62-year-old male with a history of hypertension, diabetes and a kidney transplant 10/17/2017 was a direct admit into the hospital for evaluation of fever via recommendation of Dr. Samson. //Fever, unknown origin //Complicated UTI -CMP, CBC, UA, and blood cultures ordered stat -UA shows +nitrates, +leukocyte esterase. Rocephin IV -Respiratory panel pending -Chest XR ordered -ID consult per Dr. Samson = 05/12. Culture with E. coli. Discussed with transplant. Follow-up ID recommendations, await transplant clearance. //CONOR in patient with Status post kidney transplant 09/2017 creatine 3.4, baseline 2.7 -Consult placed to Dr. Samson for evaluation -IVF for hydration -Nephrology consult per Dr. Samson -Home meds restarted = 05/12. Creatinine improved to baseline. Discussed with transplant surgeon. Appreciate assistance. Follow-up recommendations. //Hypertension, chronic -Resume home medications, monitor vitals //Diabetes, chronic -Accu-Cheks with sliding scale insulin ordered //DVT prophylaxis: SCDs Discussed Condition With: Patient, Dr. Samson, nurse Discharge Planning: Pending ID final antibiotic recommendations Pending transplant surgery clearance. Likely discharge tomorrow morning when cleared by ID and transplant surgery.
--- NOTE | 2018-05-12 13:48 | P.PNNP ---
Subjective Interval history: Denies any shortness of breath, chest pain, nausea, or vomiting. Creatinine has improved at 2.79 today. <Leonor Marcelino - Last Filed: 05/12/18 13:40> Physical Exam Vital signs: Vital Signs 05/11/18 16:00 05/11/18 20:00 05/12/18 00:00 Temperature 98.6 F 97.6 F 97.6 F Pulse Rate 76 82 82 Respiratory Rate 19 15 15 Blood Pressure 149/76 H 156/90 H 157/89 H Pulse Oximetry 100 96 96 05/12/18 04:00 05/12/18 07:39 05/12/18 07:51 Temperature 97.9 F 98 F Pulse Rate 81 81 80 Respiratory Rate 16 16 Blood Pressure 154/84 H 144/73 H Pulse Oximetry 100 100 05/12/18 12:04 Temperature 97.8 F Pulse Rate 72 Respiratory Rate 20 Blood Pressure 161/80 H Pulse Oximetry 100 Intake & Output 05/11/18 05/12/18 05/12/18 18:59 06:59 18:59 Intake Total 844 / 844 1100 / 1100 1000 / 1000 Output Total 930 / 930 1175 / 1175 Balance -86 / -86 -75 / -75 1000 / 1000 Weight 81.9 kg Intake: IV 444 / 444 1100 / 1100 1000 / 1000 NS Inj 1,000 ML @ 100 mls/hr IV 344 / 344 1000 / 1000 1000 / 1000 .CONT .Q10H [facility] Rx#:[id number] Venofer Inj 200 MG In NS Inj 100 / 100 100 ML @ 110 mls/hr IV.SIG ONCE ONE Rx#:[id number] Rocephin Inj 1,000 MG In NS Inj 100 / 100 100 ML @ 200 mls/hr IV.SIG Q24H [facility] Rx#:[id number] Oral 400 / 400 Output: Urine 930 / 930 1175 / 1175 Other: Date of Last Bowel Movement 05/10/18 05/10/18 Narrative: GENERAL: Very pleasant 62-year-old male, well-nourished patient in no acute distress SKIN: Warm and dry. No open areas of abrasions or lesions NECK: Supple, trachea midline. No JVD CARDIOVASCULAR: Regular rate and rhythm without murmurs, gallops, or rubs. RESPIRATORY: Breath sounds equal bilaterally. No accessory muscle use. GASTROINTESTINAL: Abdomen soft, non-tender, nondistended. +BS. MUSCULOSKELETAL: No cyanosis, or edema. BACK: Nontender without obvious deformity. No CVA tenderness. <Leonor Marcelino - Last Filed: 05/12/18 13:40> Vital signs: Vital Signs 05/11/18 16:00 05/11/18 20:00 05/12/18 00:00 Temperature 98.6 F 97.6 F 97.6 F Pulse Rate 76 82 82 Respiratory Rate 19 15 15 Blood Pressure 149/76 H 156/90 H 157/89 H Pulse Oximetry 100 96 96 05/12/18 04:00 05/12/18 07:39 05/12/18 07:51 Temperature 97.9 F 98 F Pulse Rate 81 81 80 Respiratory Rate 16 16 Blood Pressure 154/84 H 144/73 H Pulse Oximetry 100 100 05/12/18 12:04 Temperature 97.8 F Pulse Rate 72 Respiratory Rate 20 Blood Pressure 161/80 H Pulse Oximetry 100 Intake & Output 05/11/18 05/12/18 05/12/18 18:59 06:59 18:59 Intake Total 844 / 844 1100 / 1100 1000 / 1000 Output Total 930 / 930 1175 / 1175 Balance -86 / -86 -75 / -75 1000 / 1000 Weight 81.9 kg 81.9 kg Intake: IV 444 / 444 1100 / 1100 1000 / 1000 NS Inj 1,000 ML @ 100 mls/hr IV 344 / 344 1000 / 1000 1000 / 1000 .CONT .Q10H [facility] Rx#:[id number] Venofer Inj 200 MG In NS Inj 100 / 100 100 ML @ 110 mls/hr IV.SIG ONCE ONE Rx#:[id number] Rocephin Inj 1,000 MG In NS Inj 100 / 100 100 ML @ 200 mls/hr IV.SIG Q24H [facility] Rx#:[id number] Oral 400 / 400 Output: Urine 930 / 930 1175 / 1175 Other: Date of Last Bowel Movement 05/10/18 05/10/18 <Griselda Asencio - Last Filed: 05/12/18 16:01> Assessment and Plan - Assessment (1) Acute kidney injury Code(s): N17.9 - Acute kidney failure, unspecified Status: Acute (2) Diabetes 1.5, managed as type 2 Code(s): E10.9 - Type 1 diabetes mellitus without complications Status: Acute (3) HTN (hypertension) Code(s): I10 - Essential (primary) hypertension Status: Acute (4) Kidney transplant recipient Code(s): Z94.0 - Kidney transplant status Status: Acute - Plan Acute kidney injury possible related to urinary tract infection Creatinine has improve at 2.79 from 3.29 today, close to baseline. HCO3 improved at 16.3, sodium bicarbonate BID added yesterday. UTI on Rocephin, sensitive to culture. Blood pressure better controlled on coreg Hx of kidney transplant, on CellCept, prednisone, and Tacrolimus ER Hold off the kidney biopsy for now with improvement in creatinine. Per nephrology patient is cleared for discharge. <Leonor Marcelino - Last Filed: 05/12/18 13:40> - Assessment (1) Acute kidney injury Code(s): N17.9 - Acute kidney failure, unspecified Status: Acute (2) Diabetes 1.5, managed as type 2 Code(s): E10.9 - Type 1 diabetes mellitus without complications Status: Acute (3) HTN (hypertension) Code(s): I10 - Essential (primary) hypertension Status: Acute (4) Kidney transplant recipient Code(s): Z94.0 - Kidney transplant status Status: Acute - Plan Patient seen and examined, agree with above. Has E.Coli in the urine, ID to decide about PO antibiotics. BP is slightly high, was also on Amlodipine 5 mg daily, will add that. Possible D/C after ID recommend antibiotics. <Griselda Asencio - Last Filed: 05/12/18 16:01>
[2018-05-12] MEDS: Potassium Phosphate 500 MG Soluble Tablet PO SCH ×2 (14:20→19:44)
[2018-05-12] MEDS: Magnesium Oxide 400 MG Tablet PO SCH ×2 (14:21→19:44)
--- NOTE | 2018-05-12 15:47 | P.DCO ---
Post Hospital Infusion Therapy - Infusion Therapy Location of Infusion Therapy: Home Health Care IV Infusion Order - Patient Information Patient Weight: 81.9 kg - Diagnosis (1) Complicated UTI (urinary tract infection) Code(s): N39.0 - Urinary tract infection, site not specified (2) Kidney transplant recipient Code(s): Z94.0 - Kidney transplant status - Administer Medication Ceftriaxone Dose: 1 gram IV Directions: q 24 hours Start Treatment: 05/13/18 Stop Treatment: 06/01/18 - Additional Information Venous Access: Tunneled Catheter Additional Instructions: [x] Peripheral flush and dressing changes per protocol [x] 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 [] May leave port accessed during therapy. [] May leave peripheral site accessed for duration of therapy. [x] If patient has SOB or respiratory distress, check oxygen saturation. If less than 90% or clinical signs of respiratory distress, administer oxygen at 2 L/min. via nasal cannula and notify physician. [x] Anaphylaxis/Reaction orders: * Stop infusion. * Keep IV line open with saline flush. * Notify physician. * Monitor vital signs every 15 minutes until symptoms resolve. * Check Oxygen saturation; Oxygen at 2 L/min. via nasal cannula if less than 90% or clinical signs of respiratory distress. * Administer diphenhydramine (Benadryl) 25 mg IV STAT, (unless patient has received as pre-med). May repeat once, if necessary. * Solu-Cortef 250 mg IVP over 30-60 seconds, use 100 mg vials for each dissolution. * Epinephrine (1mg/1 ml) 0.3 mg subcutaneously or IVP now with any signs of respiratory distress. * Check with physician for new additional pre-med orders if patient is re- challenged or re-treated. [x] May remove PICC line when treatment complete, after confirming with Physician. [x] If the patient is admitted to the hospital, the ED, or transferred via [facility] , complete transfer form including medication reconciliation order sheet. Weekly Labs: CBC w/diff, CMP - Case Management Consult Case Management Consult-IVF: Yes - Patient Information Allergies Iodine and Iodide Containing Produc Allergy (Severe, Verified 11/11/17 14:13) Anaphylaxis shellfish derived Allergy (Severe, Verified 11/11/17 14:13) Anaphylaxis Amcwruz-Ilx-Iox Reductase Inhibitor Allergy (Severe, Verified 11/11/17 14:13) Anaphylaxis Had anaphylaxis and liver dysfunction (severely elevated liver enzymes) Sulfa (Sulfonamide Antibiotics) Allergy (Severe, Verified 11/11/17 14:13) Anaphylaxis
--- NOTE | 2018-05-12 15:58 | P.DCO ---
- Diagnosis (1) Acute kidney injury Status: Acute (2) Complicated UTI (urinary tract infection) Status: Acute (3) HTN (hypertension) Status: Acute (4) Kidney transplant recipient Status: Acute - Physical Therapy Order: Evaluate and treat - Home Health Nursing Order: Nursing assessment with vital signs, IV medication administration Instructions: Patient will need IV ceftriaxone via PICC line as directed by infectious disease. Please see home infusion guidelines - Case Management Consult Case Management Consult-Home Health: Yes - Certification I have seen patient Aurelio Barahona on 05/12/18. My clinical findings support the need for the requested home health care services because: Limited ability to care for self I certify that my clinical findings support that this patient is homebound because: Unsafe to leave home unassisted
--- NOTE | 2018-05-12 16:08 | P.PNID ---
Subjective Remarks: pt is feeling fine wants to go home h/o prostate ca, sp radiation w seeds no fever clx is back R to cipro o/w S creatinine down to 2.79 Antibiotics: CFTX Allergies/Adverse Reactions: Allergies Iodine and Iodide Containing Produc Allergy (Severe, Verified 11/11/17 14:13) Anaphylaxis shellfish derived Allergy (Severe, Verified 11/11/17 14:13) Anaphylaxis Zmoxfbk-Jfb-Dxp Reductase Inhibitor Allergy (Severe, Verified 11/11/17 14:13) Anaphylaxis Had anaphylaxis and liver dysfunction (severely elevated liver enzymes) Sulfa (Sulfonamide Antibiotics) Allergy (Severe, Verified 11/11/17 14:13) Anaphylaxis Objective Vital Signs 05/11/18 16:00 05/11/18 20:00 05/12/18 00:00 Temperature 98.6 F 97.6 F 97.6 F Pulse Rate 76 82 82 Respiratory Rate 19 15 15 Blood Pressure 149/76 H 156/90 H 157/89 H Pulse Oximetry 100 96 96 05/12/18 04:00 05/12/18 07:39 05/12/18 07:51 Temperature 97.9 F 98 F Pulse Rate 81 81 80 Respiratory Rate 16 16 Blood Pressure 154/84 H 144/73 H Pulse Oximetry 100 100 05/12/18 12:04 Temperature 97.8 F Pulse Rate 72 Respiratory Rate 20 Blood Pressure 161/80 H Pulse Oximetry 100 Intake & Output 05/11/18 05/12/18 05/12/18 18:59 06:59 18:59 Intake Total 844 / 844 1100 / 1100 1000 / 1000 Output Total 930 / 930 1175 / 1175 Balance -86 / -86 -75 / -75 1000 / 1000 Weight 81.9 kg 81.9 kg Intake: IV 444 / 444 1100 / 1100 1000 / 1000 NS Inj 1,000 ML @ 100 mls/hr IV 344 / 344 1000 / 1000 1000 / 1000 .CONT .Q10H [facility] Rx#:[id number] Venofer Inj 200 MG In NS Inj 100 / 100 100 ML @ 110 mls/hr IV.SIG ONCE ONE Rx#:[id number] Rocephin Inj 1,000 MG In NS Inj 100 / 100 100 ML @ 200 mls/hr IV.SIG Q24H [facility] Rx#:[id number] Oral 400 / 400 Output: Urine 930 / 930 1175 / 1175 Other: Date of Last Bowel Movement 05/10/18 05/10/18 05/10/18 22:20 Clean Catch Urine Urine Culture - Final Escherichia coli 05/10/18 22:30 Blood - Peripheral Aerobic Blood Culture - Preliminary No growth in 2 days 05/10/18 22:30 Blood - Peripheral Anaerobic Blood Culture - Final QNS - See aerobic report. 05/10/18 22:25 Blood - Peripheral Aerobic Blood Culture - Preliminary No growth in 2 days 05/10/18 22:25 Blood - Peripheral Anaerobic Blood Culture - Final QNS - See aerobic report. Lab - Hematology Results 05/10/18 05/11/18 05/12/18 22:20 04:01 05:10 WBC 6.4 5.4 4.0 RBC 2.84 L 2.85 L 2.73 L Hgb 8.5 L 8.5 L 8.3 L Hct 26.4 L 27.5 L 25.5 L MCV 93.0 96.6 D 93.5 MCH 29.9 30.0 30.4 MCHC 32.2 31.1 L 32.5 RDW 17.3 H 17.6 H 17.1 Plt Count 255 D 255 251 MPV 7.2 7.0 7.0 Prelim Diff (Auto) Manual diff required Neut % (Auto) 79.1 H 74.5 H Lymph % (Auto) 9.5 10.5 [place] % (Auto) 10.7 H 14.2 H Eos % (Auto) 0.5 0.3 Baso % (Auto) 0.2 0.5 Neut # (Auto) 4.3 3.0 Lymph # (Auto) 0.5 L 0.4 L [place] # (Auto) 0.6 0.6 Eos # (Auto) 0.0 0.0 Baso # (Auto) 0.0 0.0 WBC Differential Manual diff final . . Seg Neuts % (Manual) 77 H Band Neuts % (Manual) 1 Lymphocytes % (Manual) 9 Monocytes % (Manual) 9 H Metamyelocytes % (Man) 3 H Myelocytes % (Man) 1 H Abs Neuts (Manual) 5.2 Differential Comment . Auto diff final Auto diff final Platelet Estimate Normal Platelet Morphology Normal Ovalocytes 1+ H Acanthocytes (Spur) Occ H Keratocytes Occ H Retic Count 2.9 Absolute Retic 82.3 Lab - Chemistry Results 05/10/18 05/10/18 05/11/18 22:20 22:20 04:01 Sodium 136 140 Potassium 5.0 4.4 Chloride 111 H 115 H Carbon Dioxide 14.5 L 15.4 L Anion Gap 11 10 BUN 49 H 45 H Creatinine 3.47 H 3.21 H Estimated GFR 22 L 24 L POC Glucose Random Glucose 269 H 116 H D Calcium 9.1 8.7 Phosphorus 3.0 3.2 Magnesium 1.6 1.5 Iron 24 L TIBC 168 L % Saturation 14.3 L Ferritin 865 H Total Bilirubin 0.4 Cancelled Direct Bilirubin 0.1 Indirect Bilirubin Cancelled AST 14 L Cancelled ALT 14 Cancelled Alkaline Phosphatase 77 Cancelled Total Protein 7.5 Cancelled Albumin 3.2 L Cancelled Lipase 101 05/11/18 05/11/18 05/11/18 07:53 11:22 17:03 Sodium Potassium Chloride Carbon Dioxide Anion Gap BUN Creatinine Estimated GFR POC Glucose 90 104 211 H Random Glucose Calcium Phosphorus Magnesium Iron TIBC % Saturation Ferritin Total Bilirubin Direct Bilirubin Indirect Bilirubin AST ALT Alkaline Phosphatase Total Protein Albumin Lipase 05/11/18 05/12/18 05/12/18 21:32 05:10 07:53 Sodium 144 Potassium 4.6 Chloride 117 H Carbon Dioxide 16.3 L Anion Gap 11 BUN 35 H Creatinine 2.79 H Estimated GFR 28 L POC Glucose 196 H 115 H Random Glucose 92 Calcium 8.5 Phosphorus 2.6 Magnesium 1.7 Iron TIBC % Saturation Ferritin Total Bilirubin Direct Bilirubin Indirect Bilirubin AST ALT Alkaline Phosphatase Total Protein Albumin Lipase 05/12/18 12:07 Sodium Potassium Chloride Carbon Dioxide Anion Gap BUN Creatinine Estimated GFR POC Glucose 140 H Random Glucose Calcium Phosphorus Magnesium Iron TIBC % Saturation Ferritin Total Bilirubin Direct Bilirubin Indirect Bilirubin AST ALT Alkaline Phosphatase Total Protein Albumin Lipase Imaging: ITS Impressions Chest X-Ray 05/10/18 23:21 CONCLUSION: No infiltrates seen. Renal Ultrasound 05/11/18 08:00 CONCLUSION: 1. The renal transplant has a normal appearance without hydronephrosis or abnormal fluid collection. 2. Resistive indices are within normal limits and vascular findings demonstrate no abnormality. Physical Exam: GENERAL: NAD SKIN: Warm and dry. no rash HEAD: Atraumatic. Normocephalic. EYES: Pupils equal and round. No scleral icterus. No injection or drainage. ENT: No nasal bleeding or discharge. Mucous membranes pink and moist. NECK: No JVD. CARDIOVASCULAR: Regular rate and rhythm. RESPIRATORY: No accessory muscle use. Clear to auscultation. GASTROINTESTINAL: Abdomen soft, non-tender, nondistended. MUSCULOSKELETAL: Extremities without clubbing, cyanosis, or edema. No obvious deformities. NEUROLOGICAL: Awake and alert. Non focal PSYCHIATRIC: Appropriate mood and affect; insight and judgment normal. Assessment and Plan (1) Complicated UTI (urinary tract infection) Status: Acute Code(s): N39.0 - Urinary tract infection, site not specified (2) Kidney transplant recipient Status: Acute Code(s): Z94.0 - Kidney transplant status - Plan UTI, recurrent, E/coli sp appropriate treatment (isolate is S to am/clac and duration was adequate - 2 weeks) Immunosuppresed sp renal allograft h/o prostate cancer in 2011 Seems to improve on empiric rocephine cont rocephine x 3 weeks total IR tunneled catheter by IR placement OPAT case mngr for C OK sara dc after all above arranged dw Demarcus Samson, Errol lane RN @ b/s dw case mngr dw family memeber @ b/s
[2018-05-12] MEDS ORDERED: fentaNYL Citrate Inj 250 MCG/5 ML Ampul ONE (16:17)
[2018-05-12] MEDS ORDERED: Lidocaine 1%/Epinephrine 1:100,000 Inj 30 ML Vial ONE (17:31)
[2018-05-12] MEDS ORDERED: *Heparin Central Flush 100 UNIT/ML 5 ML Vial PERIprocedural ONLY IV.FLUSH ONE (17:32)
[2018-05-12] MEDS ORDERED: *Heparin Central Flush 100 UNIT/ML 3 ML Syringe Periprocedural ONLY IV.FLUSH PRN (18:11)
[2018-05-12] MEDS ORDERED: Heparin Central Flush 100 UNIT/ML 5 ML Vial IV.FLUSH PRN (18:21)
[2018-05-12] MEDS: amLODIPine 5 MG Tablet PO SCH (21:10)
[2018-05-13] MEDS: Chlorhexidine Gluconate 2% 1 Pack (2 Cloths) TOPICAL SCH (05:11)
[2018-05-13] MEDS: TACROLIMUS 4 MG PO SCH (06:18)
[2018-05-13] MEDS: Sod Chloride 0.9% Inj 1,000 ML IV.CONT SCH ×2 (06:25→10:20)
[2018-05-13 06:57] LABS: Baso % (Auto) 0.2 % (0.0-2.0); Eos % (Auto) 0.1 % (0.0-4.0); Hematocrit 29.2 % (39.0-51.0); Hemoglobin 8.7 gm/dL (13.0-17.0); Lymph # (Auto) 0.3 th/mm3 (1.0-4.8); Lymph % (Auto) 10.1 % (9.0-44.0); Mean Corpuscular Hemoglobin 29.8 pg (27.0-34.0); Mean Corpuscular Volume 100.6 fL (80.0-100.0); Mean Platelet Volume 6.7 fL (7.0-11.0); Mono # (Auto) 0.3 th/mm3 (0.0-0.9); Mono % (Auto) 10.8 % (0.0-8.0); Neut # (Auto) 2.1 th/mm3 (1.8-7.7); Neut % (Auto) 78.8 % (16.0-70.0); Platelet Count 259 th/mm3 (150-450); Red Blood Count 2.91 mil/mm3 (4.50-5.90); Red Cell Distribution Width 18.3 % (11.6-17.2); White Blood Count 2.6 th/mm3 (4.0-11.0)
[2018-05-13 06:59] LABS: Mean Corpuscular HGB Conc 29.7 % (32.0-36.0)
[2018-05-13 07:28] LABS: Calcium 8.9 mg/dL (8.5-10.1); Carbon Dioxide 14.5 meq/L (21.0-32.0); Magnesium 1.7 mg/dL (1.5-2.5); Phosphorus 2.7 mg/dL (2.5-4.9); Potassium 5.2 meq/L (3.5-5.1)
[2018-05-13] MEDS: Insulin NovoLIN Regular Correctional Sugar Inj SQ SCH ×2 (08:23→13:45)
[2018-05-13] MEDS ORDERED: Heparin Central Flush 100 UNIT/ML 5 ML Vial IV.FLUSH SCH (09:00)
[2018-05-13 09:07] LABS: Lymphocytes 4 % (9-44); Metamyelocytes 1 % (0-1); Monocytes 6 % (0-8); Myelocytes 2 % (0-0)
[2018-05-13 09:08] LABS: Burr Cells 1+; Ovalocytes 1+; Platelet Estimate Normal (Normal); Platelet Morphology Normal (Normal)
[2018-05-13] MEDS: Vitamin B Complex/Vit C/Folic Tablet PO SCH (10:25)
[2018-05-13] MEDS: predniSONE 5 MG Tablet PO SCH (10:25)
[2018-05-13] MEDS: amLODIPine 5 MG Tablet PO SCH (10:25)
[2018-05-13] MEDS: Polysaccharide Iron Complex 150 MG Capsule PO SCH (10:26)
[2018-05-13] MEDS: Calcitriol 0.25 MCG Capsule PO SCH (10:26)
[2018-05-13] MEDS: Sodium Bicarbonate 650 MG Tablet PO SCH (10:26)
[2018-05-13] MEDS: Folic Acid 1 MG Tablet PO SCH (10:26)
[2018-05-13] MEDS: Carvedilol 12.5 MG Tablet PO SCH (10:26)
--- NOTE | 2018-05-13 11:21 | P.PNNP ---
Subjective Interval history: no acute complaints Physical Exam Vital signs: Vital Signs 05/12/18 12:00 05/12/18 12:04 05/12/18 16:00 Temperature 97.8 F Pulse Rate 77 72 82 Respiratory Rate 20 Blood Pressure 161/80 H Pulse Oximetry 100 05/12/18 18:00 05/12/18 20:00 05/13/18 00:00 Temperature 98 F 97.9 F Pulse Rate 88 71 Respiratory Rate 16 14 Blood Pressure 175/98 H 183/98 H 154/92 H Pulse Oximetry 97 100 05/13/18 04:00 Temperature 97.8 F Pulse Rate 75 Respiratory Rate 16 Blood Pressure 160/92 H Pulse Oximetry 100 Intake & Output 05/12/18 05/13/18 05/13/18 18:59 06:59 18:59 Intake Total 2110 / 2110 820 / 820 1000 / 1000 Output Total 1250 / 1250 750 / 750 Balance 860 / 860 70 / 70 1000 / 1000 Weight 81.9 kg 81.9 kg Intake: IV 2110 / 2110 100 / 100 1000 / 1000 NS Inj 1,000 ML @ 100 mls/hr IV 2000 / 2000 1000 / 1000 .CONT .Q10H [facility] Rx#:[id number] Venofer Inj 200 MG In NS Inj 110 / 110 100 ML @ 110 mls/hr IV.SIG ONCE [facility] Rx#:[id number] Rocephin Inj 1,000 MG In NS Inj 100 / 100 100 ML @ 200 mls/hr IV.SIG Q24H [facility] Rx#:[id number] Oral 720 / 720 Output: Urine 1250 / 1250 750 / 750 Other: Date of Last Bowel Movement 05/12/18 - Constitutional no acute distress - Routine HEENT Exam Head: Present: normocephalic Eye: Present: EOMI ENT: Present: mucous membranes moist - Routine Neck Exam Present: supple - Routine Respiratory Exam Present: CTA bilaterally - Routine Cardiovascular Exam Present: RRR - Routine Abdominal Exam Present: soft - Routine Skin Exam Present: intact - Routine Neurological Exam Present: alert, oriented X3 - Detailed Neurological Exam: Coma Scale Eye Opening: Spontaneous - Routine Psychiatric Exam Present: normal affect Assessment and Plan - Assessment (1) Acute kidney injury Code(s): N17.9 - Acute kidney failure, unspecified Status: Acute (2) Diabetes 1.5, managed as type 2 Code(s): E10.9 - Type 1 diabetes mellitus without complications Status: Acute (3) HTN (hypertension) Code(s): I10 - Essential (primary) hypertension Status: Acute Plan: norvasc added, can continue to monitor outpatient (4) Kidney transplant recipient Code(s): Z94.0 - Kidney transplant status Status: Acute - Plan Creatinine stable with gradual improvement - 2.6 today Seen with ID - tunneled IJ line placed for 3 weeks of Rocephin for UTI. Has E.Coli in the urine. Stable for D/C from renal standpoint .
--- NOTE | 2018-05-13 11:28 | P.PN ---
Subjective Interval history: Follow-up UTI/history of prostate cancer/renal transplant May 13, 2018-patient seen and examined, he is status post tunnel catheter placement. No acute event overnight. Currently afebrile. Looking forward going home today. Physical Exam Vital signs: Vital Signs 05/12/18 12:00 05/12/18 12:04 05/12/18 16:00 Temperature 97.8 F Pulse Rate 77 72 82 Respiratory Rate 20 Blood Pressure 161/80 H Pulse Oximetry 100 05/12/18 18:00 05/12/18 20:00 05/13/18 00:00 Temperature 98 F 97.9 F Pulse Rate 88 71 Respiratory Rate 16 14 Blood Pressure 175/98 H 183/98 H 154/92 H Pulse Oximetry 97 100 05/13/18 04:00 Temperature 97.8 F Pulse Rate 75 Respiratory Rate 16 Blood Pressure 160/92 H Pulse Oximetry 100 Intake & Output 05/12/18 05/13/18 05/13/18 18:59 06:59 18:59 Intake Total 2110 / 2110 820 / 820 1000 / 1000 Output Total 1250 / 1250 750 / 750 Balance 860 / 860 70 / 70 1000 / 1000 Weight 81.9 kg 81.9 kg Intake: IV 2110 / 2110 100 / 100 1000 / 1000 NS Inj 1,000 ML @ 100 mls/hr IV 2000 / 2000 1000 / 1000 .CONT .Q10H IRISH Rx#:[id number] Venofer Inj 200 MG In NS Inj 110 / 110 100 ML @ 110 mls/hr IV.SIG ONCE IRISH Rx#:[id number] Rocephin Inj 1,000 MG In NS Inj 100 / 100 100 ML @ 200 mls/hr IV.SIG Q24H IRISH Rx#:[id number] Oral 720 / 720 Output: Urine 1250 / 1250 750 / 750 Other: Date of Last Bowel Movement 05/12/18 Narrative: GENERAL: NAD SKIN: Warm and dry. HEAD: Atraumatic. Normocephalic. EYES: Pupils equal and round. No scleral icterus. No injection or drainage. ENT: No nasal bleeding or discharge. Mucous membranes pink and moist. NECK: Trachea midline. No JVD. Tunnel catheter placed CARDIOVASCULAR: Regular rate and rhythm. RESPIRATORY: No accessory muscle use. Clear to auscultation. Breath sounds equal bilaterally. GASTROINTESTINAL: Abdomen soft, non-tender, nondistended. Hepatic and splenic margins not palpable. MUSCULOSKELETAL: Extremities without clubbing, cyanosis, or edema. No obvious deformities. NEUROLOGICAL: Awake and alert. No obvious cranial nerve deficits. Motor grossly within normal limits. Five out of 5 muscle strength in the arms and legs. Normal speech. PSYCHIATRIC: Appropriate mood and affect; insight and judgment normal. Results - Labs CBC & Chem 7: 05/13/18 04:03 05/13/18 04:03 Laboratory Results - last 24 hr 05/11/18 05/12/18 05/12/18 04:01 05:10 12:07 WBC RBC Hgb Hct MCV MCH MCHC RDW Plt Count MPV Prelim Diff (Auto) Neut % (Auto) Lymph % (Auto) [place] % (Auto) Eos % (Auto) Baso % (Auto) Neut # (Auto) Lymph # (Auto) [place] # (Auto) Eos # (Auto) Baso # (Auto) WBC Differential Seg Neuts % (Manual) Band Neuts % (Manual) Lymphocytes % (Manual) Monocytes % (Manual) Metamyelocytes % (Man) Myelocytes % (Man) Abs Neuts (Manual) Differential Comment Platelet Estimate Platelet Morphology Ovalocytes Joel Cells Sodium Potassium Chloride Carbon Dioxide Anion Gap BUN Creatinine Estimated GFR POC Glucose 140 H Random Glucose Calcium Phosphorus Magnesium Tacrolimus 11.4 EBV (Quant-PCR) Quant Undetected 05/12/18 05/13/18 05/13/18 21:07 04:03 04:03 WBC 2.6 L RBC 2.91 L Hgb 8.7 L Hct 29.2 L MCV 100.6 H D MCH 29.8 MCHC 29.7 L RDW 18.3 H Plt Count 259 MPV 6.7 L Prelim Diff (Auto) Slide review pending Neut % (Auto) 78.8 H Lymph % (Auto) 10.1 [place] % (Auto) 10.8 H Eos % (Auto) 0.1 Baso % (Auto) 0.2 Neut # (Auto) 2.1 Lymph # (Auto) 0.3 L [place] # (Auto) 0.3 Eos # (Auto) 0.0 Baso # (Auto) 0.0 WBC Differential Manual diff final Seg Neuts % (Manual) 86 H Band Neuts % (Manual) 1 Lymphocytes % (Manual) 4 L Monocytes % (Manual) 6 Metamyelocytes % (Man) 1 Myelocytes % (Man) 2 H Abs Neuts (Manual) 2.3 Differential Comment . Platelet Estimate Normal Platelet Morphology Normal Ovalocytes 1+ H [place] Cells 1+ H Sodium 141 Potassium 5.2 H Chloride 119 H Carbon Dioxide 14.5 L Anion Gap 8 BUN 37 H Creatinine 2.60 H Estimated GFR 31 L POC Glucose 251 H Random Glucose 92 Calcium 8.9 Phosphorus 2.7 Magnesium 1.7 Tacrolimus EBV (Quant-PCR) Quant 05/13/18 08:02 WBC RBC Hgb Hct MCV MCH MCHC RDW Plt Count MPV Prelim Diff (Auto) Neut % (Auto) Lymph % (Auto) [place] % (Auto) Eos % (Auto) Baso % (Auto) Neut # (Auto) Lymph # (Auto) [place] # (Auto) Eos # (Auto) Baso # (Auto) WBC Differential Seg Neuts % (Manual) Band Neuts % (Manual) Lymphocytes % (Manual) Monocytes % (Manual) Metamyelocytes % (Man) Myelocytes % (Man) Abs Neuts (Manual) Differential Comment Platelet Estimate Platelet Morphology Ovalocytes Joel Cells Sodium Potassium Chloride Carbon Dioxide Anion Gap BUN Creatinine Estimated GFR POC Glucose 100 Random Glucose Calcium Phosphorus Magnesium Tacrolimus EBV (Quant-PCR) Quant Microbiology 05/10/18 22:30 Blood - Peripheral Aerobic Blood Culture - Preliminary No growth in 3 days 05/10/18 22:30 Blood - Peripheral Anaerobic Blood Culture - Final QNS - See aerobic report. 05/10/18 22:25 Blood - Peripheral Aerobic Blood Culture - Preliminary No growth in 3 days 05/10/18 22:25 Blood - Peripheral Anaerobic Blood Culture - Final QNS - See aerobic report. 05/10/18 22:20 Clean Catch Urine Urine Culture - Final Escherichia coli - Procedures Tunnel catheter placement Assessment and Plan - Assessment (1) Acute kidney injury Code(s): N17.9 - Acute kidney failure, unspecified Status: Acute (2) Complicated UTI (urinary tract infection) Code(s): N39.0 - Urinary tract infection, site not specified Status: Acute (3) HTN (hypertension) Code(s): I10 - Essential (primary) hypertension Status: Acute (4) Kidney transplant recipient Code(s): Z94.0 - Kidney transplant status Status: Acute - Plan 62-year-old man with Complicated UTI Status post tunnel catheter placed Currently on Rocephin times 2 weeks per ID specialist Acute kidney injury in patient with kidney transplant September 2017 Renal indices improving Patient input from nephrology, transplant surgery History of kidney transplant 09/2017 Continue with immunosuppression Appreciate input from transplant surgery History of hypertension Currently normotensive, continue home medications Diabetes, chronic Continue with Accu-Cheks with sliding scale insulin ordered DVT prophylaxis: SCDs
--- NOTE | 2018-05-13 11:31 | P.DS ---
Date of admission: 05/10/18 21:16 Primary care physician: Veronica Anton Brief History from admission: 62-year-old male with a history of hypertension, diabetes and a kidney transplant 10/17/2017 was a direct admit into the hospital for evaluation of fever via recommendation of Dr. Samson. Patient states at the beginning of the month he developed fevers and was admitted into a [facility] where he was treated for 1 week for E. coli. He states on Tuesday the fevers returned and he decided to discuss it with his renal transplant team. He states since Tuesday he has had on and off fevers 100.5 was the highest with associated nausea and vomiting. He denies any other symptoms no chest pain, shortness of breath,chills,dysuria,back pain, hematuria, urine urinary frequency , or urinary hesitancy. Patient will be admitted for further workup and consult to Dr. Samson for evaluation. DS: Diagnosis - Discharge Diagnosis (1) Acute kidney injury Status: Acute (2) Complicated UTI (urinary tract infection) Status: Acute (3) HTN (hypertension) Status: Acute (4) Kidney transplant recipient Status: Acute DS: Summary Hospital Course: Patient with history of kidney transplant in September 2017 admitted with complicated UTI for which infectious disease specialist was consulted and patient was started on IV antibiotic, he will be discharged home on Rocephin times 3 weeks. Prior to discharge, tunnel catheter was placed. Secondary to history of renal transplant, trauma surgery was consulted and patient was continued on his medication consisting of immunosuppressants. Due to worsening of renal function , nephrology was consulted and patient's renal indices were monitored throughout hospitalization. He was continued on his treatment for other chronic medical conditions. Physical therapy was consulted. Prior to discharge , patient's conditions improved and vitals remained stable. DVT prophylaxis was provided. - Time Spent with Patient Total time spent providing and/or coordinating discharge services: Greater than 30 minutes - Quality: VTE Deep Vein Thrombosis/Pulmonary Embolism Present on Admission: No Exam Vital signs: Vital Signs 05/12/18 12:00 05/12/18 12:04 05/12/18 16:00 Temperature 97.8 F Pulse Rate 77 72 82 Respiratory Rate 20 Blood Pressure 161/80 H Pulse Oximetry 100 05/12/18 18:00 05/12/18 20:00 05/13/18 00:00 Temperature 98 F 97.9 F Pulse Rate 88 71 Respiratory Rate 16 14 Blood Pressure 175/98 H 183/98 H 154/92 H Pulse Oximetry 97 100 05/13/18 04:00 Temperature 97.8 F Pulse Rate 75 Respiratory Rate 16 Blood Pressure 160/92 H Pulse Oximetry 100 Intake & Output 05/12/18 05/13/18 05/13/18 18:59 06:59 18:59 Intake Total 2110 / 2110 820 / 820 1000 / 1000 Output Total 1250 / 1250 750 / 750 Balance 860 / 860 70 / 70 1000 / 1000 Weight 81.9 kg 81.9 kg Intake: IV 2110 / 2110 100 / 100 1000 / 1000 NS Inj 1,000 ML @ 100 mls/hr IV 2000 / 2000 1000 / 1000 .CONT .Q10H IRISH Rx#:[id number] Venofer Inj 200 MG In NS Inj 110 / 110 100 ML @ 110 mls/hr IV.SIG ONCE IRISH Rx#:[id number] Rocephin Inj 1,000 MG In NS Inj 100 / 100 100 ML @ 200 mls/hr IV.SIG Q24H IRISH Rx#:[id number] Oral 720 / 720 Output: Urine 1250 / 1250 750 / 750 Other: Date of Last Bowel Movement 05/12/18 Narrative: GENERAL: NAD SKIN: Warm and dry. HEAD: Atraumatic. Normocephalic. EYES: Pupils equal and round. No scleral icterus. No injection or drainage. ENT: No nasal bleeding or discharge. Mucous membranes pink and moist. NECK: Trachea midline. No JVD. Tunnel catheter placed CARDIOVASCULAR: Regular rate and rhythm. RESPIRATORY: No accessory muscle use. Clear to auscultation. Breath sounds equal bilaterally. GASTROINTESTINAL: Abdomen soft, non-tender, nondistended. Hepatic and splenic margins not palpable. MUSCULOSKELETAL: Extremities without clubbing, cyanosis, or edema. No obvious deformities. NEUROLOGICAL: Awake and alert. No obvious cranial nerve deficits. Motor grossly within normal limits. Five out of 5 muscle strength in the arms and legs. Normal speech. PSYCHIATRIC: Appropriate mood and affect; insight and judgment normal. Results Procedures completed during hospitalization: Tunnel catheter placement Labs on day of discharge: Labs from last 24 hours 05/13/18 05/13/18 05/13/18 08:02 04:03 04:03 WBC 2.6 L RBC 2.91 L Hgb 8.7 L Hct 29.2 L MCV 100.6 H D MCH 29.8 MCHC 29.7 L RDW 18.3 H Plt Count 259 MPV 6.7 L Prelim Diff (Auto) Slide review pending Neut % (Auto) 78.8 H Lymph % (Auto) 10.1 [place] % (Auto) 10.8 H Eos % (Auto) 0.1 Baso % (Auto) 0.2 Neut # (Auto) 2.1 Lymph # (Auto) 0.3 L [place] # (Auto) 0.3 Eos # (Auto) 0.0 Baso # (Auto) 0.0 WBC Differential Manual diff final Seg Neuts % (Manual) 86 H Band Neuts % (Manual) 1 Lymphocytes % (Manual) 4 L Monocytes % (Manual) 6 Metamyelocytes % (Man) 1 Myelocytes % (Man) 2 H Abs Neuts (Manual) 2.3 Differential Comment . Platelet Estimate Normal Platelet Morphology Normal Ovalocytes 1+ H [place] Cells 1+ H Sodium Potassium Chloride Carbon Dioxide Anion Gap BUN Creatinine Estimated GFR POC Glucose 100 Random Glucose Calcium Phosphorus Magnesium Tacrolimus Pending EBV (Quant-PCR) Quant 05/13/18 05/12/18 05/12/18 04:03 21:07 12:07 WBC RBC Hgb Hct MCV MCH MCHC RDW Plt Count MPV Prelim Diff (Auto) Neut % (Auto) Lymph % (Auto) [place] % (Auto) Eos % (Auto) Baso % (Auto) Neut # (Auto) Lymph # (Auto) [place] # (Auto) Eos # (Auto) Baso # (Auto) WBC Differential Seg Neuts % (Manual) Band Neuts % (Manual) Lymphocytes % (Manual) Monocytes % (Manual) Metamyelocytes % (Man) Myelocytes % (Man) Abs Neuts (Manual) Differential Comment Platelet Estimate Platelet Morphology Ovalocytes Joel Cells Sodium 141 Potassium 5.2 H Chloride 119 H Carbon Dioxide 14.5 L Anion Gap 8 BUN 37 H Creatinine 2.60 H Estimated GFR 31 L POC Glucose 251 H 140 H Random Glucose 92 Calcium 8.9 Phosphorus 2.7 Magnesium 1.7 Tacrolimus EBV (Quant-PCR) Quant 05/12/18 05/11/18 05:10 04:01 WBC RBC Hgb Hct MCV MCH MCHC RDW Plt Count MPV Prelim Diff (Auto) Neut % (Auto) Lymph % (Auto) [place] % (Auto) Eos % (Auto) Baso % (Auto) Neut # (Auto) Lymph # (Auto) [place] # (Auto) Eos # (Auto) Baso # (Auto) WBC Differential Seg Neuts % (Manual) Band Neuts % (Manual) Lymphocytes % (Manual) Monocytes % (Manual) Metamyelocytes % (Man) Myelocytes % (Man) Abs Neuts (Manual) Differential Comment Platelet Estimate Platelet Morphology Ovalocytes [place] Cells Sodium Potassium Chloride Carbon Dioxide Anion Gap BUN Creatinine Estimated GFR POC Glucose Random Glucose Calcium Phosphorus Magnesium Tacrolimus 11.4 EBV (Quant-PCR) Quant Undetected Preliminary micro results at discharge 05/10/18 22:30 Aerobic Blood Culture - Preliminary Blood - Peripheral No growth in 3 days 05/10/18 22:25 Aerobic Blood Culture - Preliminary Blood - Peripheral No growth in 3 days - Impressions ITS Impressions Chest X-Ray 05/10/18 23:21 CONCLUSION: No infiltrates seen. Renal Ultrasound 05/11/18 08:00 CONCLUSION: 1. The renal transplant has a normal appearance without hydronephrosis or abnormal fluid collection. 2. Resistive indices are within normal limits and vascular findings demonstrate no abnormality. Discharge Plan - Discharge Disposition Patient Disposition: Disch W/Home Health Service - Discharge Condition Condition: Good - Discharge Order Discharge Orders: Discharge Order (Routine); Ordered 05/13/18 Ordered By: Rasta Becerril - Discharge Details Anticipated Discharge Date: 05/12/18 Discharge Comment: call hospitalist to co if central line in, home health set up. - Physicians Team Attending Provider: Rasta Becerril Other Providers: Aurelio Samson MD ; Griselda Asencio MD ; Corinna Devlin MD ; [facility],Agency - Rxs /Orders / Referrals /Forms Prescriptions: New ceftriaxone 1 gram Recon Soln 1,000 mg IV Q24H RF: 0 Continue amlodipine [Norvasc] 5 mg Tablet 5 mg PO DAILY B complex-vitamin C-folic acid [Nephro-Thomas] 0.8 mg Tablet 1 tab PO DAILY calcitriol 0.5 mcg Capsule 0.5 mcg PO DAILY carvedilol [Coreg] 6.25 mg Tablet 6.5 mg PO BID docusate sodium [Colace] 100 mg Capsule See Label Instructions .ROUTE .COMPLEX MDD 2 PRN (Reason: Constipation) folic acid 1 mg Tablet 1 mg PO DAILY iron [id number] [Niferex (Sumalate-Quatrefolic)] 150 mg iron- 60 mg-1 mg Tablet 1 tab PO DAILY loperamide [Imodium A-D] 2 mg Tablet 2 mg PO PRN MDD 1 PRN (Reason: Diarrhea) magnesium oxide 400 mg magnesium Tablet 800 mg PO 12,17 mycophenolate mofetil [CellCept] 500 mg Tablet 500 mg PO BID pantoprazole [Protonix] 40 mg Tablet,Delayed Release (Dr/Ec) 40 mg PO DAILY potassium phosphate, monobasic [K-Phos Original] 500 mg Tablet,Soluble 500 mg PO 12,17 prednisone 5 mg Tablet 5 mg PO DAILY saxagliptin 5 mg Tablet 5 mg PO DAILY tacrolimus 4 mg Tablet Extended Release 24 Hr 28 mg PO DAILY tamsulosin [Flomax] 0.4 mg Capsule 0.4 mg PO DAILY Tums 500 mg PO 12,17,22 Referrals: Veronica Anton [Other] - See Instructions Griselda Asencio MD [Physician] - See Instructions Aurelio Samson MD [Physician] - See Instructions
--- NOTE | 2018-05-13 12:47 | P.PNTS ---
Subjective Interval history: Still feels a "little loopey" from the ativan he received yesterday. Otherwise, no new c/o. Physical Exam Vital signs: Vital Signs 05/12/18 16:00 05/12/18 18:00 05/12/18 20:00 Temperature 98 F Pulse Rate 82 88 Respiratory Rate 16 Blood Pressure 175/98 H 183/98 H Pulse Oximetry 97 05/13/18 00:00 05/13/18 04:00 05/13/18 10:17 Temperature 97.9 F 97.8 F 97.9 F Pulse Rate 71 75 80 Respiratory Rate 14 16 16 Blood Pressure 154/92 H 160/92 H 163/76 H Pulse Oximetry 100 100 100 Intake & Output 05/12/18 05/13/18 05/13/18 18:59 06:59 18:59 Intake Total 2110 / 2110 820 / 820 1000 / 1000 Output Total 1250 / 1250 750 / 750 Balance 860 / 860 70 / 70 1000 / 1000 Weight 81.9 kg 81.9 kg Intake: IV 2110 / 2110 100 / 100 1000 / 1000 NS Inj 1,000 ML @ 100 mls/hr IV 2000 / 2000 1000 / 1000 .CONT .Q10H IRISH Rx#:[id number] Venofer Inj 200 MG In NS Inj 110 / 110 100 ML @ 110 mls/hr IV.SIG ONCE IRISH Rx#:[id number] Rocephin Inj 1,000 MG In NS Inj 100 / 100 100 ML @ 200 mls/hr IV.SIG Q24H IRISH Rx#:[id number] Oral 720 / 720 Output: Urine 1250 / 1250 750 / 750 Other: Date of Last Bowel Movement 05/12/18 05/13/18 - Constitutional no acute distress - Routine HEENT Exam Head: Present: normocephalic, atraumatic ENT: Present: mucous membranes moist - Routine Neck Exam Present: supple - Routine Respiratory Exam Present: CTA bilaterally - Routine Cardiovascular Exam Present: RRR, S1, S2 - Routine Abdominal Exam Present: soft, normoactive bowel sounds - Routine Extremities Exam Present: pulses intact Comments: No peripheral edema - Routine Skin Exam Present: intact - Routine Neurological Exam Present: alert, oriented X3 - Detailed Neurological Exam: Coma Scale Verbal Response: Oriented - Routine Psychiatric Exam Present: normal affect, normal thought process Results - Labs CBC & Chem 7: 05/13/18 04:03 05/13/18 04:03 Laboratory Results - last 24 hr 05/11/18 05/12/18 05/12/18 04:01 05:10 21:07 WBC RBC Hgb Hct MCV MCH MCHC RDW Plt Count MPV Prelim Diff (Auto) Neut % (Auto) Lymph % (Auto) [place] % (Auto) Eos % (Auto) Baso % (Auto) Neut # (Auto) Lymph # (Auto) [place] # (Auto) Eos # (Auto) Baso # (Auto) WBC Differential Seg Neuts % (Manual) Band Neuts % (Manual) Lymphocytes % (Manual) Monocytes % (Manual) Metamyelocytes % (Man) Myelocytes % (Man) Abs Neuts (Manual) Differential Comment Platelet Estimate Platelet Morphology Ovalocytes [place] Cells Sodium Potassium Chloride Carbon Dioxide Anion Gap BUN Creatinine Estimated GFR POC Glucose 251 H Random Glucose Calcium Phosphorus Magnesium Tacrolimus 11.4 EBV (Quant-PCR) Quant Undetected 05/13/18 05/13/18 05/13/18 04:03 04:03 08:02 WBC 2.6 L RBC 2.91 L Hgb 8.7 L Hct 29.2 L MCV 100.6 H D MCH 29.8 MCHC 29.7 L RDW 18.3 H Plt Count 259 MPV 6.7 L Prelim Diff (Auto) Slide review pending Neut % (Auto) 78.8 H Lymph % (Auto) 10.1 [place] % (Auto) 10.8 H Eos % (Auto) 0.1 Baso % (Auto) 0.2 Neut # (Auto) 2.1 Lymph # (Auto) 0.3 L [place] # (Auto) 0.3 Eos # (Auto) 0.0 Baso # (Auto) 0.0 WBC Differential Manual diff final Seg Neuts % (Manual) 86 H Band Neuts % (Manual) 1 Lymphocytes % (Manual) 4 L Monocytes % (Manual) 6 Metamyelocytes % (Man) 1 Myelocytes % (Man) 2 H Abs Neuts (Manual) 2.3 Differential Comment . Platelet Estimate Normal Platelet Morphology Normal Ovalocytes 1+ H [place] Cells 1+ H Sodium 141 Potassium 5.2 H Chloride 119 H Carbon Dioxide 14.5 L Anion Gap 8 BUN 37 H Creatinine 2.60 H Estimated GFR 31 L POC Glucose 100 Random Glucose 92 Calcium 8.9 Phosphorus 2.7 Magnesium 1.7 Tacrolimus EBV (Quant-PCR) Quant 05/13/18 12:22 WBC RBC Hgb Hct MCV MCH MCHC RDW Plt Count MPV Prelim Diff (Auto) Neut % (Auto) Lymph % (Auto) [place] % (Auto) Eos % (Auto) Baso % (Auto) Neut # (Auto) Lymph # (Auto) [place] # (Auto) Eos # (Auto) Baso # (Auto) WBC Differential Seg Neuts % (Manual) Band Neuts % (Manual) Lymphocytes % (Manual) Monocytes % (Manual) Metamyelocytes % (Man) Myelocytes % (Man) Abs Neuts (Manual) Differential Comment Platelet Estimate Platelet Morphology Ovalocytes Joel Cells Sodium Potassium Chloride Carbon Dioxide Anion Gap BUN Creatinine Estimated GFR POC Glucose 159 H Random Glucose Calcium Phosphorus Magnesium Tacrolimus EBV (Quant-PCR) Quant Microbiology 05/10/18 22:30 Blood - Peripheral Aerobic Blood Culture - Preliminary No growth in 3 days 05/10/18 22:30 Blood - Peripheral Anaerobic Blood Culture - Final QNS - See aerobic report. 05/10/18 22:25 Blood - Peripheral Aerobic Blood Culture - Preliminary No growth in 3 days 05/10/18 22:25 Blood - Peripheral Anaerobic Blood Culture - Final QNS - See aerobic report. 05/10/18 22:20 Clean Catch Urine Urine Culture - Final Escherichia coli - Procedures Tunnel catheter placement Assessment and Plan - Assessment (1) Diabetes 1.5, managed as type 2 Code(s): E10.9 - Type 1 diabetes mellitus without complications Status: Acute (2) HTN (hypertension) Code(s): I10 - Essential (primary) hypertension Status: Acute (3) Kidney transplant recipient Code(s): Z94.0 - Kidney transplant status Status: Acute - Plan 52 yom with ESRD secondary to DM/Htn. S/p donor renal transplant to [facility] on 10/17/17. Was recently admitted to [facility] with a fever that went as high as 105.8, even with medical therapy. Reportedly had a fever to 101.8 at home, prior to going in then continued to have rising fever to 105.8 despite cooling and alternating bouts of tylenol and ibuprofen.... Was in [facility], unitl after sick contact earlier this week. Unclear if that is the etiology. Will check resp panel, EBV/CMV quant, Blood cultures, urine. echo.iron studies. Hgb 8.5. Creat 3.47 was 2.71 on 12.3. Patient some mild "loopiness by report, although no acute signs of delirium. Creat decreased to 2.60. K is 5.2??. Will recheck. Unless recheck is significantly abnormal, okay with discharge to home. His vital signs EMR suggested a single episode of tachycardia, but unable to verify on review of the telemetry tracker (? artifact??). Nessa bess. Appreciate assistance from other services.
[2018-05-13] MEDS: Potassium Phosphate 500 MG Soluble Tablet PO SCH (13:44)
[2018-05-13] MEDS: Magnesium Oxide 400 MG Tablet PO SCH (13:44)
[2018-05-13 14:01] LABS: Calcium 8.7 mg/dL (8.5-10.1); Carbon Dioxide 15.2 meq/L (21.0-32.0); Potassium 4.7 meq/L (3.5-5.1)
--- NOTE | 2018-05-13 16:52 | IR ---
EXAM DATE: 05/12/2018 6:13 PM EST AGE/SEX: 62 years / Male INDICATIONS: Patient presents with history of Kidney transplant in need of a Tunneled Central Venous catheter for antibiotics. CLINICAL DATA: This is the patient's initial encounter. Patient reports that signs and symptoms have been present for 2 days and indicates a pain score of 0/10. MEDICAL/SURGICAL HISTORY: Hypertension. Diabetes. . Kidney transplant. COMPARISON: No prior exams available for comparison. FLUORO TIME (min): 0.19 IMAGE SERIES: 2 RADIATION DOSE: 2 mGY ACCESS SITE: Right internal jugular vein SEDATION TIME (min): 20 MEDICATION(S): 100 mcg fentanyl (Sublimaze) IV DEVICE(S): 5 Azeri single lumen 50 cm PowerLine Tunneled PICC . . PROCEDURE : 1. Ultrasound guidance for venous catheterization. 2. Fluoroscopic guidance. 3. Ultrasound & fluoroscopic guided central venous tunnel Power PICC line placement. The risks, benefits and alternatives to the procedure were explained and verbal and written consent w as obtained. The site was prepped in sterile fashion. Full sterile technique was used, including ca p, mask, sterile gloves and gown and a large sterile sheet. Hand hygiene and 2% chlorhexidine prep w as utilized per protocol for cutaneous antisepsis with appropriate dry time for site. Sterile gel a nd sterile probe cover were utilized for ultrasound guidance. The skin and subcutaneous tissues wer e infiltrated with local anesthetic solution. Under direct ultrasound guidance, a suitable vein was accessed and a measuring guidewire was introduc ed and positioned in the central venous system. The ultrasound images depicting access guidance were saved and stored to PACS for permanent record. A Power Injectable PICC line was cut to prescribed length and tunneled to the venotomy site and subse quently introduced, positioned with tip at the cavoatrial junction level. The line was flushed and s ecured per protocol. CONCLUSION: 1. Uncomplicated central venous tunneled right internal jugular Power PICC line placement. 2. The PICC line can be used immediately. Electronically signed by: Jacob Castro MD Board Certified Radiologist 05/13/2018 4:51 PM [facility]
== END 2018-05-13 16:01 | disposition home health service (06) ==
LOC: HCVI 16:35 → HCIN 05-11 11:39
PROVIDERS: ADMIT Hospitalist; ATTEND Hospitalist
DX: Z92.3 Personal history of irradiation; N39.0 Urinary tract infection, site not specified; N17.9 Acute kidney failure, unspecified; Z85.46 Personal history of malignant neoplasm of prostate; Z79.52 Long term (current) use of systemic steroids; E11.9 Type 2 diabetes mellitus without complications; I10 Essential (primary) hypertension; Z79.84 Long term (current) use of oral hypoglycemic drugs; B96.20 Unspecified Escherichia coli [E. coli] as the cause of diseases classified elsewhere; Z94.0 Kidney transplant status; D64.9 Anemia, unspecified